=== PATIENT | female | born 1995 | race African-American/Black ===

== ENCOUNTER 2017-07-12 10:54 | Emergency (ER) | payer MEDICAID, SELFPAY ==
[2017-07-12 10:55] VITALS: BP 117/74; PULSE 91; RESP 18; TEMP 36.6; O2SAT 100; BMI 27.3
--- NOTE | 2017-07-12 11:19 | ED.VISSUMM ---
- ER Visit Summary Date of Service: 07/12/17 Chief Complaint: Abdominal pain History of Present Illness: The patient is a 21 F who presents with a several day history of upper abdominal pain. She states that yesterday she developed diarrhea. She took some Pepto-Bismol. Today she states she had one diarrheal episode that was black. Patient notes a burning epigastric pain. She states that she has been belching and gassy and feels bloated. She has had nothing to eat today. (Patient noted by triage nurse to be eating Doritos). Physical Examination: All vital signs are stable Gen: Well-nourished well-developed Head: Normocephalic atraumatic Eyes: Perrl EOMI ENT: TMs clear no rhinorrhea moist mucous membranes Neck: Supple no lymphadenopathy no JVD nontender CVS: Regular rate rhythm no murmurs normal S1-S2 Respiratory: No distress clear to auscultation bilaterally chest nontender Abdomen: Soft mild tenderness to palpation in the epigastrium without guarding or rebound and out of proportion to the exam. No right upper quadrant pain. Nondistended normal bowel sounds no masses Back: Nontender Extremity: Nontender no edema Skin: Normal color no rash Neuro: alert orientated ?3 CN II-XII intact normal strength sensation reflexes gait cerebellar Psych: Normal affect normal mood Emergency Department Course and Treatment: Patient will be started on Pepcid and Carafate. She is to follow-up with her primary care physician within 2 weeks. Impression: 1. Gastritis This note was generated with [employer] dictation software. It may contain incorrect words, spelling, and punctuation that were not noted in review of the chart prior to signing ED Disposition - Plan for ED Patient: Disposition: Home or Assisted Living Chief Complaint: Abd Pain Instructions: ED PUD Vs Gastritis Prescriptions: Famotidine [Pepcid] 20 mg PO BID #28 tab Sucralfate [Carafate] 1 gm PO 4X/DAY #28 tab Referrals: Contreras Atkins III, MD [Primary Care Provider] - (within 2 weeks)
== END 2017-07-12 11:34 | disposition home or self-care (01) ==
PROVIDERS: Emergency Provider Emergency Medicine; Family Provider Family Medicine; PCP Family Medicine
DX: K29.70 Gastritis, unspecified, without bleeding (principal)
CPT/HCPCS: 99282

== ENCOUNTER 2018-02-14 10:52 | Emergency (ER) | payer MEDICAID, SELFPAY ==
[2018-02-14 10:53] VITALS: BP 126/76; PULSE 94; RESP 16; TEMP 36.7; O2SAT 100; BMI 28.7
--- NOTE | 2018-02-14 11:09 | ED.RN ---
PT STATES THAT SHE JUST FOUND OUT HER BOYFRIEND HAS BEEN CHEATING, C/O DISCOMFORT AND CLOUDY DISCHARGE.
--- NOTE | 2018-02-14 12:13 | ED.DCSUM_ITS ---
- ER Visit Summary Date of Service: 02/14/18 Chief Complaint: Back pain History of Present Illness: The patient is a 22 F who states that since September she has had a pain in the left mid thoracic back. She states she just has not had time to go see her doctor. Then she states that her doctor typically schedules at least a month out and she did not want to wait that long. 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 It is worse with movement. She states in the past she has had to come to the emergency department and was told that it was muscular in nature. No physical therapy. No follow-up with primary care. She also states that while she is here she found out that her boyfriend cheated on her yesterday and would like to be checked for STDs. Patient again was informed that this is the emergency department and that our evaluation should not preclude her from having a proper data migration lead evaluation. Physical Examination: Afebrile vital signs stable Gen: Well-nourished well-developed Head: Normocephalic atraumatic Eyes: Perrl EOMI ENT: TMs clear no rhinorrhea moist mucous membranes Neck: Supple no lymphadenopathy no JVD nontender CVS: Regular rate rhythm no murmurs normal S1-S2 Respiratory: No distress clear to auscultation bilaterally chest nontender Abdomen: Soft nontender nondistended normal bowel sounds no masses Back: Tender to palpation along the lower thoracic ribs. Extremity: Nontender no edema Skin: Normal color no rash Neuro: alert orientated ?3 CN II-XII intact normal strength sensation reflexes gait cerebellar Psych: Normal affect normal mood Test Results: Urinalysis shows no overt infection. GC chlamydia was negative. Emergency Department Course and Treatment: The patient's gonorrhea chlamydia testing took longer than normal to return. During this weight. The patient became upset regarding something that was said to her. She has since left the emergency department. I had advised her she needs to follow-up with her primary care doctor and her data migration lead at the beginning of her ED course. Impression: 1. Chronic muscular skeletal back pain 2. Reported vaginal discharge 3. ED elopement This note was generated with [employer] software. It may contain incorrect words, spelling, and punctuation that were not noted in review of the chart prior to signing ED Disposition - Plan for ED Patient: Chief Complaint: Back Referrals: Contreras Atkins III, MD [Primary Care Provider] -
[2018-02-14 12:27] LABS: Bacteria 0 SEEN /hpf (None Seen); Red Blood Cells-Urine 0 SEEN /hpf (0-5)
[2018-02-14 12:40] LABS: Color, Urine Yellow (Yellow); Glucose, Dipstick Normal (Normal); Ketone-Dipstick Negative (Negative); Leukocyte Esterase-Dipstick 25 /ul (Negative); Nitrite-Dipstick Negative (Negative); Occult Blood-Urine Negative /ul (Negative); Protein-Dipstick Negative (Negative); Urine Bilirubin Dipstick Negative (Negative); Urine Clarity Sl. Cloudy (Clear); Urine Urobilinogen Normal (Normal)
[2018-02-14 12:54] LABS: Mucous, Urine 1+ /hpf (<or=2+); Squamous Epithelial Cells - UA 0-5 SEEN /hpf (5-10); White Blood Cells 0-5 SEEN /hpf (0-5)
--- NOTE | 2018-02-14 14:46 | ED.RN ---
PT STATES SHE IS NOT WAITING ANY LONGER. IF RESULTS COME BACK POSITIVE PT REQUEST THAT SHE IS CALLED. PT AMBULATED FROM ED.
[2018-02-14 15:00] LABS: Chlamydia Trachomatis by PCR Negative (Negative); Neisserai gonorrhoeae by PCR Negative (Negative); Probe Check PASS; Sample Adequacy Control PASS; Specimen Processing Control PASS
== END 2018-02-14 16:59 | disposition home or self-care (01) ==
LOC: ED 12:21
PROVIDERS: Emergency Provider Emergency Medicine; Family Provider Family Medicine; PCP Family Medicine
DX: M54.9 Dorsalgia, unspecified (principal); G89.29 Other chronic pain; N89.8 Other specified noninflammatory disorders of vagina; Z53.21 Procedure and treatment not carried out due to patient leaving prior to being seen by health care provider
CPT/HCPCS: 81001; 87491; 87591; 99282

== ENCOUNTER 2018-04-17 16:04 | Emergency (ER) | payer MEDICAID, SELFPAY ==
[2018-04-11 14:39] VITALS: BMI 28.7
[2018-04-17 16:05] VITALS: BP 130/74; PULSE 81; RESP 16; TEMP 36.6; O2SAT 97; BMI 30.1
--- NOTE | 2018-04-17 16:33 | EKG12_ITS ---
Test Reason : DYSRHYTHMIA Blood Pressure : / mmHG Vent. Rate : 081 BPM Atrial Rate : 081 BPM P-R Int : 162 ms QRS Dur : 080 ms QT Int : 356 ms P-R-T Axes : 066 094 047 degrees QTc Int : 413 ms Normal sinus rhythm with sinus arrhythmia Rightward axis Borderline ECG Confirmed by HANNAH DE LEON, MELO ([id number]), film and video editor MY OLSON ([id number] on 04/19/2018 9:18:14 AM Referred By: TRANG Confirmed By:MELO YOUNG MD
--- NOTE | 2018-04-17 17:05 | ED.DCSUM_ITS ---
- ER Visit Summary Date of Service: 04/17/18 Chief Complaint: Palpitations History of Present Illness: The patient is a [address] Contreras Atkins III. She reports that she has had palpitations for the past 2 weeks. States that it comes on it feels as though her heart skips a beat. Last 2-3 seconds. Is having 2-3 times per day. States that she is under a great deal of stress. She is going through a custody vargas. She is also under financial stress. She denies any chest pain or shortness of breath. She denies any other complaints. Physical Examination: Vitals: Stable. Afebrile. General: Well-nourished and well-developed. Head: Normocephalic atraumatic. Neck: Supple, no lymphadenopathy. No JVD. Nontender. Cardiovascular: Regular rate and rhythm. No murmurs. Respiratory: No respiratory distress. Clear to auscultation bilaterally. Abdominal: Soft, nontender, nondistended, normal bowel sounds. No guarding, rebound, or peritoneal signs. Back: Nontender. Extremities: Nontender, no edema. Skin: Normal color, no rash. Neurologic: Alert and oriented ?3. Cranial nerves II through XII are intact. Normal strength and sensation. Psych: Normal affect. Test Results: EKG is sinus arrhythmia at [address] changes. There is no old EKG for comparison. Emergency Department Course and Treatment: Patient refused an IV and blood work. I have not appreciate any ectopy on the monitor. Treatment Plan: Discussed the patient the likelihood that these are due to PVCs. She is tearful in the emergency department does admit that she is depressed. She will be discharged on Celexa. Instructed for Dr. Contreras Atkins iii in 1 week for another exam. Return to the emergency department for any worsening symptoms. Disposition: To home in improved and stable condition. Impression: 1. Palpitations. This note was generated with [employer] dictation software. It may contain incorrect words, spelling, and punctuation that were not noted in review of the chart prior to signing ED Disposition - Plan for ED Patient: Disposition: Home or Assisted Living Chief Complaint: Palpitations Instructions: Premature Ventricular Contractions Prescriptions: Citalopram [Celexa] 10 mg PO DAILY #30 tablet Citalopram [Celexa] 20 mg PO DAILY #30 tablet Referrals: Contreras Atkins III, MD [Primary Care Provider] - 1 Week
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
== END 2018-04-17 17:28 | disposition home or self-care (01) ==
LOC: ED 16:44
PROVIDERS: Emergency Provider Emergency Medicine; Family Provider Family Medicine; PCP Family Medicine
DX: R00.2 Palpitations (principal); R11.0 Nausea; F32.9 Major depressive disorder, single episode, unspecified
CPT/HCPCS: 93005; 99282

== ENCOUNTER 2018-04-20 06:21 | Emergency (ER) | payer MEDICAID, SELFPAY ==
[2018-04-20 06:25] VITALS: BP 115/72; PULSE 84; RESP 18; TEMP 36.8; O2SAT 95; BMI 30.4
--- NOTE | 2018-04-20 06:49 | ED.VISSUMM ---
- ER Visit Summary Date of Service: 04/20/18 Chief Complaint: Nausea vomiting and diarrhea History of Present Illness: The patient is a 22 F who presents with vomiting. She vomited once less than an hour ago. She complains about 3 days of nausea however. She states 2 days ago she was having diarrhea but has not had time. She denies any pain. She has been having palpitations for a couple of weeks and was seen in the ER for this 2 days ago. However she also states that she had blood work at her primary care physician and was told that she was really dehydrated. Physical Examination: Afebrile vitals are normal Patient has moist mucous membranes Heart regular rate and rhythm Lungs are clear Abdomen soft nontender nondistended Test Results: BMP and urine have been ordered. Emergency Department Course and Treatment: The patient appears clinically hydrated and has only had one episode of vomiting. However she reports that she had recent blood work showing that she was really dehydrated. Therefore I did feel it was appropriate to repeat a BMP and since we are drawing blood will go ahead and give her a liter of IV fluids. This will be signed out to the oncoming physician to check BMP and . I suspect the patient will be able to be discharged. Treatment Plan: [] Disposition: Pending lab results Impression: Vomiting This note was generated with [employer] dictation software. It may contain incorrect words, spelling, and punctuation that were not noted in review of the chart prior to signing ED Disposition - Plan for ED Patient: Chief Complaint: Nausea/Vomiting Referrals: Contreras Atkins III, MD [Primary Care Provider] -
--- NOTE | 2018-04-20 06:53 | ED.DEP ---
ED Disposition - Plan for ED Patient: Chief Complaint: Nausea/Vomiting Instructions: ED Nausea Vomiting Prescriptions: Ondansetron [Zofran Odt] 4 mg PO Q8H PRN PRN #10 tab PRN Reason: Nausea Referrals: Contreras Atkins III, MD [Primary Care Provider] -
[2018-04-20] MEDS: Ondansetron 4 MG/2 ML Vial IV (06:59)
[2018-04-20] MEDS: 0.9% Normal Saline 1,000 ML 999 ML IV (06:59)
[2018-04-20 07:10] LABS: Internal QC Validated? YES +Cl - CLEAR BKGD; Pregnancy, Urine Negative Negative
[2018-04-20 07:23] LABS: Anion Gap 8 (5-15); BUN 15 mg/dL (7-18); BUN/Creat Ratio 16.6 RATIO (10-20); Calcium,Total 8.5 mg/dL (8.5-10.1); Chloride 109 mmol/L (98-107); EST Glomerular Filtration Rate 83 mL/min (>60); Est Glom Filt Rate - Afr Amer 100 mL/min (>60); Estimated Creatinine Clearance 81.11 ml/min; Glucose 92 mg/dL (74-106); Potassium 3.6 mmol/L (3.5-5.1); Sodium Level 141 mmol/L (136-145)
--- NOTE | 2018-04-20 07:38 | ED.DCSUM_ITS ---
- ER Visit Summary Date of Service: 04/20/18 Chief Complaint: [Vomiting, addendum to initial dictation by Dr. Moy] History of Present Illness: The patient is a 22 F [presented with vomiting x1 today and diarrhea 2 days ago. Care of patient turned over to me awaiting infusion of a liter of normal saline and follow-up on BMP that was ordered. Patient's hCG was negative in the department and her BMP was normal other than a minimally elevated chloride of 109.] Physical Examination: [HEENT-PERRLA, EOMI. Cranial nerves II through XII grossly intact. TMs clear. Mucous membranes moist. No adenopathy. Cardiovascular-regular rate and rhythm without murmur or ectopy Lungs-clear to auscultation, chest wall stable without crepitus or subcu emphysema Abdomen-normoactive bowel sounds, soft, nontender, no rebound or rigidity, no peritoneal signs. Extremities-intact ?4, normal range of motion, normal pulses, atraumatic] Test Results: [BMP was normal other than minimally elevated chloride of 109. HCG was negative.] Emergency Department Course and Treatment: [] Treatment Plan: [Patient had no further vomiting in the emergency department and was feeling well otherwise. She was written a prescription for Zofran by Dr. Ephraim Moy.] Disposition: [Discharged home in stable condition. Patient advised to return if persistent vomiting, dehydration, fever, abdominal pain, or condition should worsen in any way.] Impression: [Vomiting and diarrhea-suspect viral gastroenteritis] This note was generated with [employer] dictation software. It may contain incorrect words, spelling, and punctuation that were not noted in review of the chart prior to signing ED Disposition - Plan for ED Patient: Chief Complaint: Nausea/Vomiting Instructions: ED Nausea Vomiting Prescriptions: Ondansetron [Zofran Odt] 4 mg PO Q8H PRN PRN #10 tab PRN Reason: Nausea Referrals: Contreras Atkins III, MD [Primary Care Provider] -
[2018-04-20 07:59] VITALS: BP 126/72; PULSE 69; RESP 16; O2SAT 100
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
== END 2018-04-20 08:00 | disposition home or self-care (01) ==
LOC: ED 07:10
PROVIDERS: Emergency Provider Emergency Medicine; Family Provider Family Medicine; PCP Family Medicine
DX: A08.4 Viral intestinal infection, unspecified (principal); R11.10 Vomiting, unspecified; R19.7 Diarrhea, unspecified
CPT/HCPCS: 80048; 81025; 96361; 96374; 99284; J7030; A4216; J2405

== ENCOUNTER 2019-03-28 08:05 | Emergency (ER) | payer MEDICAID, SELFPAY ==
[2019-03-28 08:05] VITALS: BP 136/73; PULSE 90; RESP 20; TEMP 36.6; O2SAT 99; BMI 30.9
--- NOTE | 2019-03-28 08:32 | ED.VIS.GI ---
History of Present Illness Chief Complaint: Nausea/Vomiting Narrative: Patient presented secondary to nausea vomiting diarrhea. Patient reports that she does have sick contact. Patient states that last night she went to bed and had some uneasiness in her stomach, and woke up this morning at about 3 AM with profuse nausea vomiting diarrhea. Patient reports that her emesis is nonbloody nonbilious, diarrhea is loose and watery nonbloody non-mucousy. Patient does endorse that she has chills, no objective fevers. Abdominal pain is crampy diffuse and nonlocalizing and has no exacerbating relieving factors. Patient denies any underlying medical illnesses for which she regularly takes medications. Review of systems otherwise negative. Past Medical History - Allergies and Home Meds Allergies/Adverse Reactions: Allergies cat dander Allergy (Verified 03/28/19 08:07) Swelling amphetamine aspartate [From Adderall] Adverse Reaction (Verified 03/28/19 08:07) Other PALPITATIONS amphetamine sulfate [From Adderall] Adverse Reaction (Verified 03/28/19 08:07) Other PALPITATIONS dextroamphetamine saccharate [From Adderall] Adverse Reaction (Verified 03/28/19 08:07) Other PALPITATIONS dextroamphetamine sulfate [From Adderall] Adverse Reaction (Verified 03/28/19 08:07) Other PALPITATIONS Primary Care Physician: Contreras Atkins III, MD [Primary Care Provider] - Past Medical History: None Smoking Status: Never smoker Review of Systems All systems negative except as indicated General: Reports: Chills Eyes: Denies: Visual changes - bilaterally, Diplopia ENT: Denies: Rhinorrhea, Sore throat Cardiovascular: Denies: Chest pain, Palpitations Respiratory: Denies: Dyspnea, Cough, Dyspnea on exertion Gastrointestinal: Reports: Abdominal pain, Nausea, Vomiting, Diarrhea Genitourinary: Denies: Dysuria, Hematuria, Frequency Musculoskeletal: Denies: Back pain, Extremity Pain Skin: Denies: Rash, Wounds Neurological: Denies: Headache, Weakness, Numbness Psych: Denies: Depression Endocrine: Denies: Polyuria Hematologic: Denies: Easy bruising Allergy: Denies: Swelling of the mouth Physical Exam Vital Signs/Narrative: Vital Signs Temp Pulse Resp BP Pulse Ox 03/28/19 08:05 98 F 90 20 H 136/73 H 99 Inital Vital Signs reviewed: Yes General: Well nourished, Well developed, No Acute Distress Head: Normocephalic, Atraumatic Eyes: Perrl, EOMI ENT: Moist mucous membranes, - - Minimal posterior pharyngeal erythema noted Neck: Supple, Nontender Cardiovascular: Regular rate, Regular rhythm, No murmurs Respiratory: No distress, CTA bilaterally, Chest nontender Abdomen: Tender - Diffuse nonlocalizing with no guarding or rebound tenderness Back: Nontender, Normal Inspection Extremities: Nontender, No edema Skin: Normal color, No rash Neurological: Alert, Oriented x3, Cranial nerves II-XII grossly intact, Normal Strength, Normal Sensation Psychological: Normal affect, Normal Mood Diagnostic/Tx/Re-eval - Medical Decision Making Patient presented secondary to nausea vomiting and diarrhea. Patient had diffuse nonlocalizing tenderness over the abdomen, but her abdomen is nonsurgical there is no indication for imaging at this time. Patient was given Bentyl, Zofran, a liter of saline. She reports that she had significant improvement of her nausea, but was continuing to have crampy abdominal pain as well as some diarrhea episodes in the emergency department. At this point I do not feel the patient requires further work-up. Patient will be given Zofran to ensure hydration, she was recommended intake of electrolyte containing fluids. She was discharged with supportive care and follow-up with primary care as needed. Disposition: Home ED Disposition - Plan for ED Patient: Disposition: Home or Assisted Living Diagnosis: Gastroenteritis Instructions: VOMITING AND DIARRHEA, Nonspecific (Adult) Prescriptions: Ondansetron [Zofran Odt] 4 mg PO Q8H PRN PRN #10 tab PRN Reason: Nausea Prescription Printed Referrals: Contreras Atkins III, MD [Primary Care Provider] - 3-5 Days if not improving
[2019-03-28] MEDS: 0.9% Normal Saline 1,000 ML 1000 ML IV (08:34)
[2019-03-28] MEDS: Ondansetron 4 MG/2 ML Vial IV (08:35)
[2019-03-28] MEDS: Dicyclomine 10 MG Capsule 20 MG PO (08:35)
[2019-03-28] MEDS: Acetaminophen 500 MG Tablet 1000 MG PO (09:19)
== END 2019-03-28 09:26 | disposition home or self-care (01) ==
PROVIDERS: Emergency Provider Emergency Medicine; Family Provider Family Medicine; PCP Family Medicine
DX: K52.9 Noninfective gastroenteritis and colitis, unspecified (principal)
CPT/HCPCS: 96361; 96374; 99283; J7030; A4216; J2405

== ENCOUNTER 2019-06-25 15:43 | Emergency (ER) | payer MEDICAID, SELFPAY ==
[2019-06-25 15:44] VITALS: BP 115/81; PULSE 78; RESP 18; TEMP 36.4; O2SAT 99; BMI 29.2
--- NOTE | 2019-06-25 16:17 | RAD_ITS ---
STUDY: X-RAY CHEST REASON FOR EXAM: Female, 23 years old. Chest pain after picking up a child TECHNIQUE: PA and lateral views of the chest. COMPARISON: 2012 FINDINGS: The lungs are clear and expanded. There is no demonstrated pleural abnormality. Normal size heart. Normal mediastinum and jayden. Normal visualized pulmonary arteries. Normal visualized aortic arch and descending thoracic aorta. Normal visualized thoracic spine. Normal visualized ribs, clavicles, and shoulders. There is no demonstrated abnormality of the visualized soft tissue structures of the upper abdomen. RAD/Chest PA and Lateral IMPRESSION: Normal x-ray examination of the chest. Electronically Signed: Idris Nix MD at 17:40 EST , Service support ,
--- NOTE | 2019-06-25 16:19 | ED.DCSUM_ITS ---
- ER Visit Summary Date of Service: 06/25/19 Chief Complaint: Back and chest pain History of Present Illness: The patient is a 23 F who presents with chest and back pain that began today just prior to arrival. Patient states she was lifting her child out of a car seat when she felt sharp pain in her right chest and her right thoracic paraspinal area. Patient states her pain is worse with movement. Patient states it feels like a pulling. Patient states the pain is been constant. Patient denies any paresthesias or weakness. Patient denies any radiation of the pain to her lower legs. Patient denies any bowel or bladder changes. Patient denies any saddle anesthesia. Physical Examination: Vital signs are stable. Patient is afebrile. Patient is in no acute distress. Oral mucosa is pink and moist. Neck is supple. Trachea is midline. There is no JVD. Heart was regular rate and rhythm. Lungs are clear and equal bilaterally. Respiratory effort was limited due to the pain. Cranial nerves II through XII are intact. There are no focal motor or sensory deficits noted. Musculoskeletal exam reveals reproducible tenderness over the right anterior chest wall. There is also tenderness and spasm of the right thoracic paraspinal muscles. There is no midline tenderness. There is no bony crepitance or step-off. Range of motion was limited in all motion secondary to pain. Test Results: PA and lateral chest x-ray was obtained. There is no acute cardiopulmonary process. There are no acute fractures noted. There is no pneumothorax noted. Emergency Department Course and Treatment: Patient was given an injection of Toradol here. Patient states she had no relief with this. Patient was ordered a dose of [place] here. Patient declined the [place] and was requesting Flexeril instead. Patient was given a dose of Flexeril here. Patient was instructed to use ice to the area. Patient was instructed to take Tylenol or ibuprofen as needed for pain. Patient was instructed to follow-up with her primary care physician in 5 to 7 days. Patient understood and was agreeable with the plan. All questions were answered. Disposition: Discharge home Impression: 1. Acute thoracic strain 2. Chest wall strain This note was generated with Event Innovation[employer] software. It may contain incorrect words, spelling, and punctuation that were not noted in review of the chart prior to signing ED Disposition - Plan for ED Patient: Disposition: Home or Assisted Living Diagnosis: Acute thoracic myofascial strain, Chest wall muscle strain Instructions: Back Sprain/Strain Referrals: Contreras Atkins III, MD [Primary Care Provider] - 5-7 Days
[2019-06-25] MEDS: Ketorolac 60 MG/2 ML Vial IM (16:57)
[2019-06-25] MEDS: cycloBENZAPRine HCl 10 MG Tablet PO (18:14)
== END 2019-06-25 18:23 | disposition home or self-care (01) ==
LOC: ED 17:10
PROVIDERS: Emergency Provider Emergency Medicine; PCP Family Medicine
DX: S29.011A Strain of muscle and tendon of front wall of thorax, initial encounter (principal); S29.012A Strain of muscle and tendon of back wall of thorax, initial encounter; X50.9XXA Other and unspecified overexertion or strenuous movements or postures, initial encounter; Y93.9 Activity, unspecified; Y92.9 Unspecified place or not applicable
CPT/HCPCS: 71046; 96372; 99281

== ENCOUNTER 2019-09-08 18:50 | Emergency (ER) | payer MEDICAID, SELFPAY ==
[2019-09-08 18:51] VITALS: BP 107/65; PULSE 85; RESP 16; TEMP 36.4; O2SAT 99
--- NOTE | 2019-09-08 19:06 | ED.DCSUM_ITS ---
History of Present Illness Chief Complaint: Abd Pain Informant: Patient - Abdominal Pain/Flank Pain Onset: Hours - 4 Context: Gradual Onset - about 2 hrs after eating [employer] Timing: Continuous, Waxes and wanes Quality: Aching Location: - - across upper abd, no radiation Current Severity: Severe Maximum Severity: Severe Worsened by: Food Relieved by: Nothing - Nausea/Vomiting/Emesis GI Symptom: Nausea, Vomiting Onset: Today Quality: Nonbilious - Diarrhea/Melena/Hematochezia GI Symptom: Negative for: Diarrhea, Melena, Hematochezia Associated Symptoms: Negative for: Dysuria, Frequency, Hematuria, Urgency Narrative: Patient has been having episodes like this for about the past week or 2. She has tried Tums in the past but it did not help. She takes omeprazole for a stress ulcer that she was diagnosed with by EGD in 2018. She comes in saying that it is her ulcer. However, she did not start having pain until about 2 hours after her meal today. She has had less severe pain with other meals, with similar onset 1 or 2 hours after the meal. She denies any hematemesis, melena, bright red blood per rectum. No radiation into her back. The pain is colicky. She has had no prior abdominal surgeries. She takes no other medications. - Past Medical History (1) Stress ulcer of stomach Status: Chronic Past Medical History - Allergies and Home Meds Allergies/Adverse Reactions: Allergies cat dander Allergy (Verified 09/08/19 18:51) Swelling amphetamine aspartate [From Adderall] Adverse Reaction (Verified 09/08/19 18:51) Other PALPITATIONS amphetamine sulfate [From Adderall] Adverse Reaction (Verified 09/08/19 18:51) Other PALPITATIONS dextroamphetamine saccharate [From Adderall] Adverse Reaction (Verified 09/08/19 18:51) Other PALPITATIONS dextroamphetamine sulfate [From Adderall] Adverse Reaction (Verified 09/08/19 18:51) Other PALPITATIONS Primary Care Physician: Contreras Atkins III, MD [Primary Care Provider] - Surgical History: - - No abdominal surgeries Smoking Status: Never smoker Alcohol: None Review of Systems General: Reports: Malaise. Denies: Chills, Fever, Sweats Eyes: Denies: Visual changes - bilaterally, Diplopia ENT: Denies: Rhinorrhea, Sore throat Cardiovascular: Denies: Chest pain, Palpitations Respiratory: Denies: Dyspnea, Cough, Dyspnea on exertion Gastrointestinal: Reports: Abdominal pain, Nausea, Vomiting. Denies: Diarrhea, Melena, Hematochezia Genitourinary: Denies: Dysuria, Hematuria, Frequency Musculoskeletal: Denies: Back pain, Extremity Pain Skin: Denies: Rash, Wounds Neurological: Denies: Headache, Weakness, Numbness Physical Exam Vital Signs/Narrative: Vital Signs Temp Pulse Resp BP Pulse Ox 09/08/19 18:51 97.6 F L 85 16 107/65 99 Inital Vital Signs reviewed: Yes General: Well nourished, Well developed, Obese, Acute Distress - Painful Head: Normocephalic, Atraumatic Eyes: Perrl, EOMI ENT: Moist mucous membranes, No rhinorrhea Neck: Supple, Nontender Cardiovascular: Regular rate, Regular rhythm, No murmurs Respiratory: No distress, CTA bilaterally, Chest nontender Abdomen: Soft, Normal bowel sounds, Tender - Right upper quadrant, severely, Guarding, Beckham's sign. Negative for: Nondistended - Mildly distended, Rebound tenderness Back: Nontender, Normal Inspection. Negative for: CVA tenderness Extremities: Nontender, No edema. Negative for: Calf Tenderness Skin: Normal color, No rash, No Trauma Neurological: Alert, Oriented x3, Cranial nerves II-XII grossly intact, Normal Strength, Normal Sensation, Normal Gait Psychological: Normal Mood, Agitated - And very anxious, uncomfortable Diagnostic/Tx/Re-eval Impressions Gallbladder Ultrasound 09/08/19 19:06 IMPRESSION: 1. Gallbladder is contracted with limited evaluation. The study is otherwise unremarkable. Electronically Signed: Pham Fletcher MD at 20:34 EDT Tel , Service support , 09/08/19 19:06 Gallbladder [US] Stat Laboratory Results 09/08/19 09/08/19 09/08/19 19:20 19:20 19:20 WBC 15.9 H RBC 4.87 Hgb 13.1 Hct 41.3 MCV 84.8 MCH 26.9 L MCHC 31.7 L RDW Std Deviation 38.8 RDW Coeff of Merritt 12.6 Plt Count 371 MPV 8.6 Immature Gran % (Auto) 0.600 Neut % (Auto) 58.1 Lymph % (Auto) 29.4 Sedgwick % (Auto) 10.1 H Eos % (Auto) 1.5 Baso % (Auto) 0.3 Absolute Neuts (auto) 9.3 H Absolute Lymphs (auto) 4.68 H Nucleated RBC % 0 Differential Comment SCANNED Diff Path Review May foll Sodium 136 Potassium 3.7 Chloride 103 Carbon Dioxide 29.0 Anion Gap 4 L BUN 12 Creatinine 0.96 Estim Creat Clear Calc 75.39 Est GFR (MDRD) Af Amer 92 Est GFR (MDRD) Non-Af 76 BUN/Creatinine Ratio 12.5 Glucose 83 Calcium 9.3 Total Bilirubin 0.20 AST 21 ALT 22 Alkaline Phosphatase 58 Total Protein 8.4 H Albumin 3.7 Globulin 4.7 H Albumin/Globulin Ratio 0.8 L Lipase 198 Serum , Qual NEGATIVE - Medical Decision Making As I discussed with the patient, I am concerned that she is having biliary pain, not stomach or ulcer-related discomfort given the history. Ordered an ultrasound of the gallbladder along with associated blood work, IV Zofran and analgesics. These were given to her just prior to ultrasound, about 5 minutes after she arrived an ultrasound she said she felt much better and felt the pain go away. The ultrasound results are above, basically showed a contracted gallbladder without any obvious shadowing stones, and a negative sonographic Beckham's and a normal duct. On reevaluation an hour or 2 later, she still is asymptomatic, on reexamination she has no abdominal tenderness whatsoever. She is a leukocytosis but her enzymes are otherwise negative and her total bilirubin is normal. Discussed with Dr. Monge. In this context he would recommend getting a HIDA scan next rather than a fasting ultrasound. He advises following up in the office as an outpatient and first, and agrees with keeping the patient on a no- or low-fat diet. Discussed thoroughly with the patient she is comfortable with that plan, we discussed reasons to return. ED Disposition - Plan for ED Patient: Disposition: Home or Assisted Living Diagnosis: Biliary colic Instructions: ED Abdominal Pain Gallstone Poss, ED Low Fat Diet Referrals: Jesus Monge MD [STAFF PHYSICIAN] - As soon as possible (Call for appointment)
--- NOTE | 2019-09-08 19:06 | US_ITS ---
STUDY: ABDOMINAL ULTRASOUND - RIGHT UPPER QUADRANT REASON FOR VISIT: Female, 23 years old ABD PAIN- UPPER OFF AND ON...SEVERE TODAY TECHNIQUE: Ultrasound evaluation of the right upper quadrant was performed with real-time and static resendez-scale imaging. TECHNICAL QUALITY: Adequate. COMPARISON: None. FINDINGS: Liver: The liver measures 16.7 cm. There is normal echogenicity of the liver. The bile ducts are within normal limits. There is hepatic color flow. The direction of portal flow is hepatopetal. There is no demonstrated mass lesion. Gallbladder: Contracted. The gallbladder wall measures 3 mm. There is a negative sonographic Beckham''s sign. There is no pericholecystic fluid. No shadowing stones are visualized. Common Bile Duct (C.B.D.): The common bile duct measures 3 mm. Pancreas: Normal size of the head, body and tail of the pancreas. There is normal echogenicity of the pancreas. There is no demonstrated pancreatic mass or cyst. Right Kidney: Normal size of the right kidney. The right kidney measures 9.8 x 4 x 4.6 cm. Normal renal cortex. The right cortex measures 1.5 cm. There is no demonstrated renal mass or cyst. There is no right hydronephrosis. US/Gallbladder IMPRESSION: 1. Gallbladder is contracted with limited evaluation. The study is otherwise unremarkable. Electronically Signed: Pham Fletcher MD at 20:34 EDT Tel , Service support ,
[2019-09-08] MEDS: Ondansetron 4 MG/2 ML Vial IV (19:14)
[2019-09-08] MEDS: Morphine 4 MG/ML Syringe IV (19:16)
[2019-09-08] MEDS: Ketorolac 30 MG/ML Syringe IV (19:19)
[2019-09-08 19:29] LABS: Absolute Lymphocyte Count 4.68 X10^3/uL (0.83-4.51); Absolute Neutrophil Count 9.3 X10^3/uL (2.0-7.7); Basophil# 0.04 X10^3/uL; Basophil% 0.3 % (0-1); Eosinophil# 0.24 X10^3/uL; Eosinophils% 1.5 % (0-5); Hematocrit 41.3 % (37-47); Hemoglobin 13.1 g/dL (12.0-15.0); Lymphocyte # 4.68 X10^3/ul (4.0); Lymphocyte % 29.4 % (19-41); Mean Corp Hgb Conc 31.7 g/dL (32-36); Mean Corpuscular Hgb 26.9 pg (27.0-32.0); Mean Corpuscular Volume 84.8 fL (81-99); Mean Platelet Vol. 8.6 fl (6.2-12.0); Monocyte% 10.1 % (0-10); NRBC Flagged by Analyzer 0 % (0-5); Neutrophil # 9.25 X10^3/uL (2.7-7.7); Neutrophil % 58.1 % (47-70); POSITIVE DIFFERENTIAL YES; Platelet Count 371 K/mm3 (150-450); RBC Distribution Width CV 12.6 % (11.6-14.6); RBC Distribution Width SD 38.8 fl (35.1-43.9); Red Blood Count 4.87 M/mm3 (4.2-5.4); White Blood Count 15.9 K/mm3 (4.4-11.0)
[2019-09-08 19:31] LABS: Differential Indicated SCAN CRITERIA MET
[2019-09-08 19:38] LABS: Internal QC Validated? YES +Cl - CLEAR BKGD; Pregnancy, Serum, hCG Quali. NEGATIVE Negative
[2019-09-08 19:45] LABS: ALB/GLOB Ratio 0.8 RATIO (0.9-2.4); AST(SGOT) 21 U/L (15-37); Alanine Aminotransfer ALT/SGPT 22 U/L (13-56); Albumin, Serum 3.7 g/dL (3.2-5.0); Alkaline Phosphatase 58 U/L (45-117); Anion Gap 4 (5-15); BUN 12 mg/dL (7-18); BUN/Creat Ratio 12.5 RATIO (10-20); Calcium,Total 9.3 mg/dL (8.5-10.1); Chloride 103 mmol/L (98-107); Creatinine, Serum 0.96 mg/dL (0.55-1.02); EST Glomerular Filtration Rate 76 mL/min (>60); Est Glom Filt Rate - Afr Amer 92 mL/min (>60); Estimated Creatinine Clearance 75.39 ml/min; Globulin 4.7 g/dL (2.2-4.2); Glucose 83 mg/dL (74-106); Lipase 198 U/L (73-393); Potassium 3.7 mmol/L (3.5-5.1); Protein, Total 8.4 g/dL (6.4-8.2); Sodium Level 136 mmol/L (136-145)
[2019-09-08 19:51] LABS: Differential Comment SCANNED
[2019-09-08 20:43] LABS: Bacteria 0 SEEN /hpf (None Seen); Mucous, Urine 0 SEEN /hpf (<or=2+); Red Blood Cells-Urine 0 SEEN /hpf (0-5)
[2019-09-08 20:48] LABS: Color, Urine Yellow (Yellow); Glucose, Dipstick Normal (Normal); Ketone-Dipstick Negative (Negative); Leukocyte Esterase-Dipstick 25 /ul (Negative); Nitrite-Dipstick Negative (Negative); Occult Blood-Urine Negative /ul (Negative); Protein-Dipstick Negative (Negative); Specific Gravity, Urine 1.015 (1.002-1.030); Urine Bilirubin Dipstick Negative (Negative); Urine Clarity Sl. Cloudy (Clear); Urine Urobilinogen Normal (Normal); Urine pH 6.5 (5.0 - 8.0)
[2019-09-08 21:10] LABS: Squamous Epithelial Cells - UA 0-5 SEEN /hpf (5-10); White Blood Cells 0-5 SEEN /hpf (0-5)
[2019-09-08 21:35] VITALS: PULSE 80; RESP 18; O2SAT 99
[2019-09-09 09:29] LABS: Pathologist Review Reviewed
== END 2019-09-08 21:35 | disposition home or self-care (01) ==
PROVIDERS: Emergency Provider Emergency Medicine; PCP Family Medicine
DX: K80.50 Calculus of bile duct without cholangitis or cholecystitis without obstruction (principal); E66.9 Obesity, unspecified
CPT/HCPCS: 76705; 80053; 81001; 83690; 84703; 85025; 96374; 96375; 99283; A4216; J2405

== ENCOUNTER → 2019-09-10 08:29 | Outpatient (CLI) | payer MEDICAID, SELFPAY ==
--- NOTE | 2019-09-10 08:30 | CT_ITS ---
STUDY: CT ABDOMEN AND PELVIS WITH CONTRAST REASON FOR EXAM: Female, 23 years old. EPIGASTRIC PAIN X 3 DAYS WITH BLOOD IN VOMIT RADIATION DOSAGE (If Supplied By Facility): CTDIvol = ( 8.69 ) mGy, DLP = ( 690.30 ) mGycm TECHNIQUE: Transaxial images were obtained from the dome of the diaphragm to the symphysis pubis with oral contrast. Oral and amp; IV Gastrografin and amp; 100mL Isovue-300 was administered. Sagittal and coronal images were reconstructed. Individualized dose optimization techniques were used for this CT. COMPARISON: Comparison is made with prior examination dated July 06, 2011. FINDINGS: The visualized lung bases are unremarkable. The visualized portions of the heart are within normal limits. Normal liver. The gallbladder is contracted. Normal spleen. Normal pancreas. Normal bilateral adrenal glands. Normal right kidney. Normal left kidney. There is diffuse circumferential wall thickening and inflammatory changes in the distal portion of the stomach and first portion of the duodenum. Normal small intestine. Normal colon. The appendix is visualized and appears normal. Normal abdominal aorta. Normal inferior vena cava. Normal retroperitoneum. Normal urinary bladder. Normal abdominal wall. Normal osseous structures. CT/Abdomen/Pelvis WITH Contrast IMPRESSION: Diffuse circumferential wall thickening and inflammatory changes involving the distal portion of the stomach and first portion of the duodenum. Correlation with endoscopy is recommended. Electronically Signed: Vishal Khan, at 10:45 EDT , Service support ,
== END ==
PROVIDERS: PCP Family Medicine; Referring Provider Family Medicine; Visit Provider Surgery
DX: K92.0 Hematemesis (principal); R10.9 Unspecified abdominal pain
CPT/HCPCS: 74177; Q9967

== ENCOUNTER 2019-09-11 08:04 | Day surgery (SDC) | payer MEDICAID, SELFPAY ==
--- NOTE | 2019-09-10 08:19 | HP_ITS ---
Intake Vital Signs 09/10/19 BMI 30.0 09/10/19 Height 5 ft 3 in 09/10/19 Weight: 169 lb 12.095 oz 09/10/19 BMI 30.0 09/10/19 BP 125/81 H 09/10/19 Blood Pressure Location Rt brachial 09/10/19 Position Sitting 09/10/19 Respiration 18 09/10/19 Temp 97.4 F L 09/10/19 Temp Source Temporal Intake Visit Reasons: F/U ER [facility] 09/08 Abdominal pain [employer] Required: No Is patient in pain?: Yes (abdominal) Pain scale (1-10): 10 Allergies cat dander Allergy (Verified 09/08/19 18:51) Swelling amphetamine aspartate [From Adderall] Adverse Reaction (Verified 09/08/19 18:51) Other amphetamine sulfate [From Adderall] Adverse Reaction (Verified 09/08/19 18:51) Other dextroamphetamine saccharate [From Adderall] Adverse Reaction (Verified 09/08/19 18:51) Other dextroamphetamine sulfate [From Adderall] Adverse Reaction (Verified 09/08/19 18:51) Other Medications Omeprazole 20 mg PO DAILY 09/08/19 [History Confirmed 09/10/19] dicyclomine 10 mg capsule 10 mg PO BID 14 Days #28 cap 09/10/19 [Rx Confirmed 09/10/19] [facility] Medical History Stress ulcer of stomach (Chronic) Physical exam, pre-employment (Acute) Family History Grandmother Breast cancer Mother Hypertension Social History (Updated 09/10/19 @ 08:[address] Jesus Monge MD) Smoking Status: Never smoker alcohol intake: current alcohol intake frequency: a few times a week substance use type: marijuana HPI HPI HPI: KAR MANLEY, is a 23 F who presents to the office today for HPI HPI Surgical H&P: Yes HPI: KAR MANLEY, is a 23 F who presents to the office today for Evaluation of epigastric pain. Patient was seen at [facility] emergency department on 09/08/2019. He states that she has had a stress ulcer in the past but she cannot recall ever having a scope done in 2018. He has had waves of episodes over the last several days. Starting in the epigastric area bilateral sides she is vomited up coffee ground emesis in the past. She has not had any melanotic stools or rectal bleeding. A gallbladder ultrasound was obtained which showed a contracted gallbladder with a common bile duct around 6 mm. Her liver function tests were normal she did have an elevated white count though. ROS General General: No weight change, appetite, fatigue, colon cancer, breast cancer or weakness HEENT HEENT: No difficulty swallowing, eye injury, eye surgery, swollen glands or hoarseness Endo Endocrine: No thyroid disease, diabetes mellitus, thyroid cancer, Hair loss, heat intolerance or cold intolerance Skin Skin: No rash or changing moles Breast Breast: No left breast lump, right breast lump, nipple discharge, breast pain, abnormal mammogram, abnormal US or breast enlargement Musc Musculoskeletal: Yes back problems; no arthritis, rheumatoid arthritis, gout or joint pain Cardio Cardiovascular: Yes murmur; no pacemaker, heart disease, atrial fibrillation, high blood pressure, heart attack, heart stent, palpitations, shortness of breat with exertion or chest pain Psych Psychiatric: No depression, anxiety or hearing voices Resp Respiratory: No shortness of breath, No sleep apnea, No cough, No COPD, No asthma, No emphysema, No wheezing Gastro Gastrointestinal: Yes abdominal pain, Yes nausea or vomiting, No diarrhea, Yes constipation, No blood in stool, No acid reflux, No hemorrhoids, Yes ulcers, Yes gallbladder problem, No black,tarry stools Abilio Hematologic: No blood thinners, No blood disorders, No bleeding, No anemia, No blood clots Neuro Neurologic: No system reviewed and no additional complaints, except as docu, No as per HPI, No abnormal walking, No abnormal hearing, No abnormal movements, No abnormal speech, No behavioral changes, No burning sensations, No confusion, No seizure-like activity, No unsteadiness, No dizziness, No localized weakness, No frequent falls, No headache(s), No lack of coordination, No loss of vision, No memory loss, No numbness, No other visual disturbances, No radiating pain, No restless legs, No sensory deficit, No fainting, No tingling, No tremor(s), No weakness, No other Exam Const General: no acute distress, well developed, well hydrated Orientation: oriented to person, oriented to place, oriented to time [facility] Head: normocephalic, atraumatic Ears: external ears normal Mouth: moist mucous membranes Eyes Sclera: sclerae normal Pupils: normal by confrontation Neck Neck: no lymphadenopathy noted Neck mass: No Thyroid: thyroid normal, symmetrical Chest Chest palpation & inspection: normal inspection of the chest Breast Palpation: No nipple discharge Resp Effort & Inspection: normal respiratory effort Auscultation: clear to auscultation bilaterally Percussion: percussion normal Cardio Rate: regular rate Rhythm: regular rhythm Heart Sounds: murmur GI Palpation: soft, no hepatosplenomegaly, guarding, no masses, tender Rectal Exam: other Other: Rectal exam deferred. Extrem General: normal to inspection, no clubbing, cyanosis or edema Assessment & Plan Problems 1. Hematemesis of unknown cause K92.0 2. Epigastric abdominal pain R10.13 3. Hematemesis with nausea K92.0 Plan I have discussed the above with the patient. I have offered the patient esophagogastroduodenoscopy for evaluation. I have explained the risks/benefits of the procedure and described the procedure. I have discussed the risks with the patient, including but not limited to: infection, bleeding, perforation of the GI tract requiring emergency surgery, inability to complete the procedure, injury to any internal organs, complications of anesthesia, etc. - the patient understands and agrees to proceed. I have answered all the patient's questions to the patient's satisfaction and the patient has no further questions. The patient has been given instructions for the colon cleansing preparation. Prior to doing the upper scope we are going to obtain a CAT scan of her abdomen and pelvis with IV and p.o. contrast. Orders Orders: Abdomen/Pelvis WITH Contrast Today K92.0, R10.9 Dr. Jesus Monge MD Medications New: dicyclomine 10 mg PO BID 14 days 28 caps 0RF Jil Candelaria PA-C Coding Level of Care Code Off vis,new,level 4 Diagnoses Hematemesis of unknown cause K92.0 Epigastric abdominal pain R10.13 Hematemesis with nausea K92.0 ??Vomiting type: hematemesis 09/10/19 0820 <Electronically signed by Jesus ambrosio MD> Date _ Jesus Monge MD I have re-examined the patient. There are no clinical changes since date of exam.
--- NOTE | 2019-09-11 | GASB_PTH ---
PATIENT: KAR MANLEY LOC: EN U#:[id number] AGE/SX: 23/F ROOM: RE09/11/[address]: Dr. Jessu Monge MD : 1995 BED: DIS: 09/11/2019 SPEC #: [id number] RECD: 09/11/19 10:19 STATUS: CHAZ ANABELL #: [id number] LY: 09/11/19 00:[address]: Jesus Monge DEPT: SURGICAL PATHOLOGY RECD BY: David Templeton ENTERED: 09/11/19 10:20 SP TYPE: Gastric Bx OTHR DR: Dr. Contreras Atkins III, MD Tissues: Gastric mucous membrane Procedures: Surgery Specimen Level IV HEADER OPERATION: EGD ([facility] [place] PRE-OP DIAGNOSIS: Hematemesis, epigastric pain TISSUE SUBMITTED: Antrum biopsy for histo and H. pylori MICROSCOPIC DIAGNOSIS Antrum, biopsy: Mild gastritis. See microscopic description and comment. SJ:ida 09/12/19 COMMENT The results of immunohistochemistry for Helicobacter pylori will be reported separately ([id number]). MICROSCOPIC DESCRIPTION Slides are reviewed. The specimen shows fragments of gastric mucosa with chronic inflammatory cell infiltrates in the lamina propria consisting of lymphocytes and plasma cells, consistent with mild chronic gastritis. GROSS DESCRIPTION Received in fixative is one container labeled with the patient's name and designated antrum biopsy. The specimen consists of one irregular fragment of light partida soft tissue that measures 0.4 x 0.2 x 0.1 cm. The specimen is totally submitted in one cassette. / LEVI:ida 09/11/19 TC:3 CPT: 15006
[2019-09-11 08:21] VITALS: BP 129/85; PULSE 90; RESP 16; TEMP 37.2; O2SAT 100; BMI 29.0
[2019-09-11 08:24] LABS: Internal QC Validated? YES +Cl - CLEAR BKGD; Pregnancy, Urine Negative Negative
[2019-09-11] MEDS: Lactated Ringers 1,000 ML 100 ML IV (08:37)
--- NOTE | 2019-09-11 09:00 | IMM_PTH ---
PATIENT: KAR MANLEY LOC: EN U#:[id number] AGE/SX: 23/F ROOM: RE09/11/[address]: Dr. Jesus Monge MD : 1995 BED: DIS: 09/11/2019 SPEC #: [id number] RECD: 09/11/19 11:35 STATUS: CHAZ REPalu #: [id number] LY: 09/11/19 09:[address]: Jesus Monge DEPT: IMMUNOHISTOCHEMISTRY RECD BY: Loreto Youngblood ENTERED: 09/11/19 11:35 SP TYPE: IMMUNO OTHR DR: Dr. Contreras Atkins III, MD Tissues: Stomach, NOS Procedures: H Pylori (initial) PHYSICIAN & INSTITUTION [place] [address] SPECIMEN INFORMATION: Tissue Source: Antrum biopsy Clinical Info: Hematemesis, epigastric pain Specimen Number: [id number] CPT code: 93984 METHODOLOGY: Deparaffinized sections of prefer/formalin-fixed tissue or PAP/DQ stained slides are incubated with monoclonal/polyclonal antibodies/oligonucleotide probes. Localization is made via biotin free immunoperoxidase method. Appropriate controls are performed and reacted as expected. Results on target cell population are indicated in the following table: RESULTS: ANTIBODY / CLONE RESULT H Pylori (polyclonal) negative These tests were developed and their performance characteristics determined by [facility]. They may not have been cleared or approved by the U.S. Food and Drug Administration. The FDA has determined that such clearance or approval is not necessary. INTERPRETATION: Antrum biopsy: Negative for Helicobacter pylori organisms. SJ:ida 09/15/19
[2019-09-11 09:15] VITALS: BP 119/77; BP 129/85; PULSE 95; RESP 16; TEMP 36.2; O2SAT 95
--- NOTE | 2019-09-11 09:16 | OP.EGD_ITS ---
Patient Name: Yandel Jimenez Procedure Date: 09/11/2019 8:39 AM Date of : 1995 Age: 23 Procedure: Upper GI endoscopy Indications: Epigastric abdominal pain, Abnormal CT of the GI tract Providers: Jesus Monge MD Referring MD: Jesus Monge MD Medicines: See the Anesthesia note for documentation of the administered medications Patient Profile: This is a 23 year old female. Refer to note in patient chart for documentation of history and physical. Complications: No immediate complications. Procedure: Pre-Anesthesia Assessment: - Prior to the procedure, a History and Physical was performed, and patient medications and allergies were reviewed. The patient's tolerance of previous anesthesia was also reviewed. The risks and benefits of the procedure and the sedation options and risks were discussed with the patient. All questions were answered, and informed consent was obtained. Prior Anticoagulants: The patient has taken no previous anticoagulant or antiplatelet agents. ASA Grade Assessment: II - A patient with mild systemic disease. After reviewing the risks and benefits, the patient was deemed in satisfactory condition to undergo the procedure. After obtaining informed consent, the endoscope was passed under direct vision. Throughout the procedure, the patient's blood pressure, pulse, and oxygen saturations were monitored continuously. The gastroscope was introduced through the mouth, and advanced to the second part of duodenum. The upper GI endoscopy was accomplished without difficulty. The patient tolerated the procedure well. Scope In: 8:57:59 AM Scope Out: 9:03:43 AM Total Procedure Duration Time 0 hours 5 minutes 44 seconds Findings: The examined esophagus was normal. No biopsies or other specimens were collected for this exam. Diffuse severe inflammation characterized by congestion (edema), erythema and friability was found in the gastric antrum. Biopsies were taken with a cold forceps for Helicobacter pylori testing. There was significant inflammation of the prepyloric area and the duodenal bulb. There was no active ulcer identified. There was significant edema in the prepyloric area. Diffuse moderate inflammation characterized by congestion (edema), erythema and linear erosions was found in the duodenal bulb. No biopsies or other specimens were collected for this exam. Impression: - Normal esophagus. No specimens collected. - Gastritis. Biopsied. - Duodenitis. No specimens collected. Recommendation: - Discharge patient to home. - Clear liquid diet. - Continue present medications. We will add Zofran to her medications. - Await pathology results. - Repeat upper endoscopy at appointment to be scheduled for surveillance. - Return to my office in 1 week. Procedure Code(s): --- Professional --- 83309, Esophagogastroduodenoscopy, flexible, transoral; with biopsy, single or multiple Diagnosis Code(s): --- Professional --- K29.70, Gastritis, unspecified, without bleeding K29.80, Duodenitis without bleeding R10.13, Epigastric pain R93.3, Abnormal findings on diagnostic imaging of other parts of digestive tract CPT copyright 2017 [employer]. All rights reserved. The codes documented in this report are preliminary and upon general magistrate review may be revised to meet current compliance requirements. MD Jesus Shelby MD 09/11/2019 9:16:36 AM This report has been signed electronically. Number of Addenda: 0 Note Initiated On: 09/11/2019 8:39 AM
--- NOTE | 2019-09-11 09:17 | OP.CCLET_ITS ---
09/11/2019 Contreras Atkins [address] [place] [address] Re : Upper GI endoscopy procedure for Yandel Jimenez Dear Dr. Atkins This procedure was performed on September. My impressions and recommendations are as follows: Impressions : - Normal esophagus. No specimens collected. - Gastritis. Biopsied. - Duodenitis. No specimens collected. Recommendations : - Discharge patient to home. - Clear liquid diet. - Continue present medications. We will add Zofran to her medications. - Await pathology results. - Repeat upper endoscopy at appointment to be scheduled for surveillance. - Return to my office in 1 week. My findings are described in the full procedure note, which is enclosed. If I can be of further assistance, please feel free to contact me at Doctor phone number(s): , Fax: [phone], Work: . Sincerely, MD Jesus Shelby MD 09/11/2019 9:16:36 AM This report has been signed electronically.
[2019-09-11 09:20] VITALS: BP 121/88; BP 129/85; PULSE 91; RESP 16; O2SAT 98
[2019-09-11 09:25] VITALS: BP 123/82; BP 129/85; PULSE 92; RESP 16; O2SAT 99
[2019-09-11 09:30] VITALS: BP 122/82; BP 129/85; PULSE 91; RESP 16; TEMP 36.2; O2SAT 98
== END 2019-09-11 09:54 | disposition home or self-care (01) ==
LOC: EN 08:06 → AC 08:07
PROVIDERS: Anesthesiology; PCP Family Medicine; Referring Provider Surgery; Visit Provider Surgery
PROC: 0DJ08ZZ Inspection of Upper Intestinal Tract, Via Natural or Artificial Opening Endoscopic (ICD-10-PCS; CPT 43235; principal; 2019-09-11 08:55)
DX: K29.70 Gastritis, unspecified, without bleeding (principal); K29.80 Duodenitis without bleeding; Z79.899 Other long term (current) drug therapy; F17.200 Nicotine dependence, unspecified, uncomplicated
CPT/HCPCS: 43239; 81025; 88305; 88342; J7120

== ENCOUNTER 2019-10-18 15:02 | Emergency (ER) | payer MEDICAID, SELFPAY ==
[2019-10-18 15:03] VITALS: BP 137/101; PULSE 87; RESP 18; TEMP 36.5; O2SAT 100; BMI 28.8
--- NOTE | 2019-10-18 15:29 | ED.DCSUM_ITS ---
History of Present Illness Informant: Patient Onset: Today Context: Gradual Onset Timing: Continuous Quality: Nausea Location: Stomach Current Severity: Mild Maximum Severity: Mild Worsened by: Nothing Relieved by: Nothing Associated Symptoms: Morning sickness Narrative: 24-year-old female presents requesting a confirmation of a home test that she took this morning that was positive. Her last menstrual period was a month ago. She is not having any abdominal pain vaginal bleeding fevers or urinary symptoms. She did have one episode of emesis this morning. That is why she took the test. She has 1 child who is 2 years old. She denies any significant past medical history. Prior similar symptoms: Yes Recent Illness/Hospitalization: No <Abdi Sierra - Last Filed: 10/18/19 16:10> <Osmel Stallworth - Last Filed: 10/18/19 20:16> Chief Complaint: Abd Pain Past Medical History Prior records reviewed: Yes Past Medical History: - - GERD Surgical History: - - No abdominal surgeries, endoscopy Lives: With Family Smoking Status: Current some day smoker Alcohol: Occasional Drugs: None <Abdi Sierra - Last Filed: 10/18/19 16:10> <Osmel Stallworth - Last Filed: 10/18/19 20:16> - Allergies and Home Meds Allergies/Adverse Reactions: Allergies cat dander Allergy (Verified 10/18/19 15:06) Swelling amphetamine aspartate [From Adderall] Adverse Reaction (Verified 10/18/19 15:06) Other PALPITATIONS amphetamine sulfate [From Adderall] Adverse Reaction (Verified 10/18/19 15:06) Other PALPITATIONS dextroamphetamine saccharate [From Adderall] Adverse Reaction (Verified 10/18/19 15:06) Other PALPITATIONS dextroamphetamine sulfate [From Adderall] Adverse Reaction (Verified 10/18/19 15:06) Other PALPITATIONS Primary Care Physician: Contreras Atkins III, MD [Primary Care Provider] - Aissatou Ray DO [STAFF PHYSICIAN] - Review of Systems All systems negative except as indicated General: Denies: Chills, Fever, Sweats Eyes: Denies: Visual changes - bilaterally, Diplopia ENT: Denies: Rhinorrhea, Sore throat Cardiovascular: Denies: Chest pain, Palpitations Respiratory: Denies: Dyspnea, Cough, Dyspnea on exertion Gastrointestinal: Denies: Abdominal pain, Nausea, Vomiting, Diarrhea, Melena, Hematochezia Genitourinary: Denies: Dysuria, Hematuria, Frequency Musculoskeletal: Denies: Back pain, Extremity Pain Skin: Denies: Rash, Wounds Neurological: Denies: Headache, Weakness, Numbness <Abdi Sierra - Last Filed: 10/18/19 16:10> Physical Exam Vital Signs/Narrative: Vital Signs Temp Pulse Resp BP Pulse Ox 10/18/19 15:03 97.7 F L 87 18 137/101 H 100 Inital Vital Signs reviewed: Yes General: Well nourished, Well developed, No Acute Distress Head: Normocephalic, Atraumatic Eyes: Perrl, EOMI ENT: Moist mucous membranes, No rhinorrhea Neck: Supple, Nontender Cardiovascular: Regular rate, Regular rhythm, No murmurs Respiratory: No distress, CTA bilaterally, Chest nontender Abdomen: Soft, Nontender, Nondistended, Normal bowel sounds Back: Nontender, Normal Inspection Extremities: Nontender, No edema Skin: Normal color, No rash Neurological: Alert, Oriented x3, Cranial nerves II-XII grossly intact, Normal Strength, Normal Sensation Psychological: Normal affect, Normal Mood <Abdi Sierra - Last Filed: 10/18/19 16:10> Vital Signs/Narrative: Vital Signs Temp Pulse Resp BP Pulse Ox 10/18/19 15:03 97.7 F L 87 18 137/101 H 100 <Osmel Stallworth - Last Filed: 10/18/19 20:16> Diagnostic/Tx/Re-eval - Medical Decision Making Patient's test was positive. Patient requested to know how far along she was. 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 which she will keep and she will be discharged home <Abdi Sierra - Last Filed: 10/18/19 16:10> - Medical Decision Making Patient seen with Adbi agree with history physical as above, patient basically took a home test discount store product she had a negative hospital test September 10, she is had no pain no bleeding she wants us to confirm if she is no other complaints or issues no pain no bleeding Abdomen soft nontender at this time see the chart for full details were explained the patient that this type of issue is best managed by outpatient providers Please note the following addendum while a patient here she asked to be checked for STD screen she had really no symptoms, STD screen was sent via urine DNA analysis, and later in the evening after the patient had been discharged home lab called back and said it was positive for both GC and chlamydia, the patient was instructed informed of the above she asked that a prescription be called in, Suprax 400 mg x 1 azithromycin 1 g p.o. x1 was called into the pharmacy the patient preference provide us the phone number of [facility] [id number] and I called in that prescription as requested by patient further she does have appointment to see her DIRECTOR SALES AND TRADE MARKETING in a few days and she was given the test results and again reminded to follow-up <Osmel Stallworth - Last Filed: 10/18/19 20:16> ED Disposition <Abdi Sierra - Last Filed: 10/18/19 16:10> <Osmel Stallworth - Last Filed: 10/18/19 20:16> - Plan for ED Patient: Disposition: Home or Assisted Living Diagnosis: test positive, GERD (gastroesophageal reflux disease) Instructions: ED Established Normal Symptoms Referrals: Contreras Atkins III, MD [Primary Care Provider] - Aissatou Ray DO [STAFF PHYSICIAN] -
[2019-10-18 16:00] LABS: Bacteria 0 SEEN /hpf (None Seen); Mucous, Urine 0 SEEN /hpf (<or=2+)
[2019-10-18 16:02] LABS: Color, Urine Straw (Yellow); Glucose, Dipstick Normal (Normal); Ketone-Dipstick 50 mg/dl (Negative); Leukocyte Esterase-Dipstick 100 /ul (Negative); Nitrite-Dipstick Negative (Negative); Occult Blood-Urine Negative /ul (Negative); Protein-Dipstick Negative (Negative); Specific Gravity, Urine 1.015 (1.002-1.030); Urine Bilirubin Dipstick Negative (Negative); Urine Clarity Clear (Clear); Urine Urobilinogen Normal (Normal)
[2019-10-18 16:04] LABS: Internal QC Validated? YES +Cl - CLEAR BKGD
[2019-10-18 16:05] LABS: Pregnancy, Urine Positive Negative
[2019-10-18 16:22] LABS: Red Blood Cells-Urine 0-5 SEEN /hpf (0-5); Squamous Epithelial Cells - UA 0-5 SEEN /hpf (5-10); White Blood Cells 5-10 SEEN /hpf (0-5)
[2019-10-18 16:33] VITALS: RESP 18
[2019-10-18 19:47] LABS: Neisserai gonorrhoeae by PCR Positive (Negative); Probe Check PASS
--- NOTE | 2019-10-18 19:56 | ED.RN ---
Pt called and made aware of her +gonnorhea and chlamydia test results. Approves pharmacy as [facility] for scripts to be called into.
[2019-10-18 19:58] LABS: Chlamydia Trachomatis by PCR POSITIVE (Negative)
== END 2019-10-18 16:33 | disposition home or self-care (01) ==
LOC: ED 16:14
PROVIDERS: Emergency Provider Physician Assistant Medical; PCP Family Medicine
DX: Z32.01 Encounter for pregnancy test, result positive (principal); K21.9 Gastro-esophageal reflux disease without esophagitis; F17.200 Nicotine dependence, unspecified, uncomplicated
CPT/HCPCS: 81001; 81025; 87491; 87591; 99282

== ENCOUNTER 2019-10-31 19:07 | Emergency (ER) | payer MEDICAID, SELFPAY ==
[2019-10-31 19:08] VITALS: BP 136/76; PULSE 81; RESP 18; TEMP 36.6; O2SAT 100; BMI 28.1
[2019-10-31 21:42] LABS: Red Blood Cells-Urine 0 SEEN /hpf (0-5)
[2019-10-31 22:11] LABS: Color, Urine Yellow (Yellow); Glucose, Dipstick Normal (Normal); Ketone-Dipstick 5 mg/dl (Negative); Leukocyte Esterase-Dipstick 25 /ul (Negative); Nitrite-Dipstick Negative (Negative); Occult Blood-Urine Negative /ul (Negative); Protein-Dipstick 15 mg/dl (Negative); Urine Bilirubin Dipstick Negative (Negative); Urine Clarity Clear (Clear); Urine Urobilinogen Normal (Normal)
[2019-10-31 22:18] LABS: Bacteria 1+ /hpf (None Seen); Mucous, Urine 2+ /hpf (<or=2+); White Blood Cells 0-5 SEEN /hpf (0-5)
[2019-10-31 22:19] LABS: Squamous Epithelial Cells - UA 0-5 SEEN /hpf (5-10)
[2019-10-31 22:21] LABS: Absolute Lymphocyte Count 4.13 X10^3/uL (0.83-4.51); Absolute Neutrophil Count 5.6 X10^3/uL (2.0-7.7); Basophil# 0.02 X10^3/uL; Basophil% 0.2 % (0-1); Eosinophil# 0.29 X10^3/uL; Eosinophils% 2.6 % (0-5); Hematocrit 38.5 % (37-47); Hemoglobin 12.4 g/dL (12.0-15.0); Lymphocyte # 4.13 X10^3/ul (4.0); Lymphocyte % 37.1 % (19-41); Mean Corp Hgb Conc 32.2 g/dL (32-36); Mean Corpuscular Hgb 27.6 pg (27.0-32.0); Mean Corpuscular Volume 85.6 fL (81-99); Mean Platelet Vol. 8.6 fl (6.2-12.0); Monocyte# 1.05 X10^3/uL; Monocyte% 9.4 % (0-10); NRBC Flagged by Analyzer 0 % (0-5); Neutrophil # 5.62 X10^3/uL (2.7-7.7); Neutrophil % 50.4 % (47-70); Platelet Count 336 K/mm3 (150-450); RBC Distribution Width CV 12.8 % (11.6-14.6); RBC Distribution Width SD 39.5 fl (35.1-43.9); White Blood Count 11.1 K/mm3 (4.4-11.0)
[2019-10-31 22:27] LABS: ALB/GLOB Ratio 0.9 RATIO (0.9-2.4); AST(SGOT) 18 U/L (15-37); Alanine Aminotransfer ALT/SGPT 21 U/L (13-56); Albumin, Serum 3.6 g/dL (3.2-5.0); Alkaline Phosphatase 46 U/L (45-117); Anion Gap 6 (5-15); BUN 10 mg/dL (7-18); BUN/Creat Ratio 12.3 RATIO (10-20); Calcium,Total 8.9 mg/dL (8.5-10.1); Chloride 106 mmol/L (98-107); Creatinine, Serum 0.81 mg/dL (0.55-1.02); EST Glomerular Filtration Rate 92 mL/min (>60); Est Glom Filt Rate - Afr Amer 112 mL/min (>60); Estimated Creatinine Clearance 88.59 ml/min; Globulin 3.9 g/dL (2.2-4.2); Glucose 82 mg/dL (74-106); Potassium 3.9 mmol/L (3.5-5.1); Protein, Total 7.5 g/dL (6.4-8.2); Sodium Level 137 mmol/L (136-145)
[2019-10-31 22:44] LABS: hCG Titer Quant., Serum 35150 mIU/mL (1-3)
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
[2019-10-31 23:34] VITALS: BP 124/73; PULSE 69; RESP 16
== END 2019-10-31 23:35 | disposition home or self-care (01) ==
PROVIDERS: Emergency Provider Emergency Medicine; PCP Family Medicine
DX: O9A.211 Injury, poisoning and certain other consequences of external causes complicating pregnancy, first trimester (principal); S39.91XA Unspecified injury of abdomen, initial encounter; V49.40XA Driver injured in collision with unspecified motor vehicles in traffic accident, initial encounter; Y93.9 Activity, unspecified; Y92.9 Unspecified place or not applicable; Y99.9 Unspecified external cause status; O99.841 Bariatric surgery status complicating pregnancy, first trimester; Z3A.01 Less than 8 weeks gestation of pregnancy
CPT/HCPCS: 80053; 81001; 84702; 85025; 99283; A4216

== ENCOUNTER 2021-08-03 08:13 | Outpatient (CLI) | payer MEDICAID, SELFPAY ==
[2021-08-03 08:35] VITALS: BP 119/61; PULSE 91; RESP 16; TEMP 36.4; O2SAT 100
[2021-08-03] MEDS: Lactated Ringers 1,000 ML 999 ML IV (08:35)
[2021-08-03] MEDS: 0.9% NaCl Peripheral Flush Adult/Peds IV (08:46)
[2021-08-03] MEDS: Ondansetron 4 MG/2 ML Vial IV (08:47)
[2021-08-03 08:56] LABS: Hematocrit 38.5 % (37-47); Hemoglobin 12.8 g/dL (12.0-15.0); Mean Corp Hgb Conc 33.2 g/dL (32-36); Mean Corpuscular Hgb 28.1 pg (27.0-32.0); Mean Corpuscular Volume 84.4 fL (81-99); Mean Platelet Vol. 8.7 fl (6.2-12.0); Platelet Count 321 K/mm3 (150-450); RBC Distribution Width CV 13.1 % (11.6-14.6); RBC Distribution Width SD 40.6 fl (35.1-43.9); Red Blood Count 4.56 M/mm3 (4.2-5.4); White Blood Count 11.6 K/mm3 (4.4-11.0)
[2021-08-03 09:15] LABS: ALB/GLOB Ratio 0.7 RATIO (0.9-2.4); AST(SGOT) 18 U/L (15-37); Alanine Aminotransfer ALT/SGPT 18 U/L (13-56); Alkaline Phosphatase 60 U/L (45-117); Anion Gap 3 (5-15); BUN 8 mg/dL (7-18); BUN/Creat Ratio 11.6 RATIO (10-20); Calcium,Total 8.8 mg/dL (8.5-10.1); Chloride 105 mmol/L (98-107); Creatinine, Serum 0.69 mg/dL (0.55-1.02); EST Glomerular Filtration Rate 110 mL/min (>60); Est Glom Filt Rate - Afr Amer 133 mL/min (>60); Globulin 4.6 g/dL (2.2-4.2); Glucose 87 mg/dL (74-106); Potassium 3.7 mmol/L (3.5-5.1); Protein, Total 7.6 g/dL (6.4-8.2); Sodium Level 135 mmol/L (136-145); Thyroid Stim Hormone (TSH) 0.91 uIU/mL (0.358-3.74)
[2021-08-03] MEDS: Dext 5%-0.45% NS 1,000 ML 500 ML IV (10:06)
[2021-08-03 12:52] VITALS: BP 115/62; PULSE 78; RESP 16; O2SAT 98
== END 2021-08-03 23:59 | disposition home or self-care (01) ==
LOC: MEDOUTP 08:14
PROVIDERS: Referring Provider Obstetrics & Gynecology; Visit Provider Obstetrics & Gynecology
DX: O21.0 Mild hyperemesis gravidarum (principal); Z3A.00 Weeks of gestation of pregnancy not specified
CPT/HCPCS: 96365; 96361 ×2; 96375; 36415; 80053; 84443; 85027; J7120; A4216; J2405; J3490; J7799

== ENCOUNTER 2022-05-29 09:52 | Emergency (ER) | payer MEDICAID, SELFPAY ==
[2022-05-29 09:54] VITALS: BP 145/124; PULSE 98; RESP 17; TEMP 35.7; O2SAT 99; BMI 29.1
--- NOTE | 2022-05-29 10:17 | EDS_ITS ---
HPI HPI - GI History of Present Illness Chief Complaint: Abd Pain Informant: patient Abdominal Pain/Flank Pain Onset: Days (4) Context: Gradual Onset Timing: Continuous Quality: Aching Location: Epigastric Current Severity: Severe Maximum Severity: Severe Worsened by: Nothing (but not eating as result of the pain) Relieved by: Antacids (Gaviscon but for very little time) Nausea/Vomiting/Emesis GI Symptom: Positive for Nausea; Negative for Vomiting Diarrhea/Melena/Hematochezia GI Symptom: Negative for Diarrhea, Melena or Hematochezia Associated Symptoms Associated Symptoms: Negative for Dysuria, Frequency or Hematuria Narrative Narrative: Patient states she has a history of a peptic ulcer that she had an EGD for and a biopsy that was negative according to her 2-3 years ago. f She does not know what triggered this discomfort in the past 4 days, except for possibility of emotional stress which she thinks is the etiology of the initial ulcer that she was diagnosed with. She denies any recent NSAIDs, alcohol although she does drink on occasion. [facility] Medical History Gastritis Physical exam, pre-employment Stress ulcer of stomach Home Medications Care 1 tab DAILY 08/03/21 [History Last Taken Unknown] promethazine 25 mg tablet 25 mg PRN PRN Nausea 08/03/21 [History Last Taken Unknown] ondansetron 4 mg disintegrating tablet 8 mg PO Q8H PRN PRN Nausea #12 tabs 05/29/22 [Rx Last Taken Unknown] pantoprazole 40 mg tablet,delayed release 40 mg PO DAILY #30 tabs 05/29/22 [Rx Last Taken Unknown] sucralfate 1 gram tablet 1 g PO Q6H 2 weeks #56 tabs 05/29/22 [Rx Last Taken Unknown] Allergy/AdvReac Type Severity Reaction Status Date / Time cat dander Allergy Swelling Verified 05/29/22 09:53 amphetamine aspartate AdvReac Other Verified 05/29/22 09:53 [From Adderall] amphetamine sulfate AdvReac Other Verified 05/29/22 09:53 [From Adderall] dextroamphetamine saccharate AdvReac Other Verified 05/29/22 09:53 [From Adderall] dextroamphetamine sulfate AdvReac Other Verified 05/29/22 09:53 [From Adderall] Family History Grandmother Breast cancer Mother Hypertension Surgical History History of esophagogastroduodenoscopy (EGD) (~09/2019) Social History Smoking Status: Never smoker alcohol intake: current alcohol intake frequency: a few times a week substance use type: marijuana ROS ROS ED Constitutional Constitutional ED: Denies chills or fever(s) Eyes Eyes: Denies change in vision or diplopia ENT ENT ED: Denies rhinorrhea or sore throat Cardiovascular Cardiovascular: Denies chest pain or palpitations Respiratory/Chest Respiratory/Chest: Denies cough or dyspnea Gastrointestinal Gastrointestinal: Reports abdominal pain, nausea and vomiting; Denies diarrhea, hematemesis, hematochezia or melena Genitourinary Genitourinary ED: Denies dysuria or hematuria Musculoskeletal Musculoskeletal: Denies back pain or neck pain Integumentary Denies abscess or rash Neurologic Neurologic: Denies headache(s), paresthesias or weakness Psychiatric Psychiatric: Denies anxiety or suicidal thoughts EXAM Physical Exam Const Vital Signs: 05/29/22 09:54 Temperature 96.3 F L Temperature Source Temporal Pulse Rate 98 Respiratory Rate 17 Blood Pressure 145/124 H Blood Pressure Mean 131 Pulse Ox 99 Oxygen Delivery Method Room Air Positive well nourished and well developed Constitutional Narrative: Very uncomfortable. Cannot sit still due to epigastric discomfort. Able to calm down and converse. General Appearance ED: well developed HEENT Reports moist mucous membranes normocephalic and atraumatic Eyes PERRL and EOMs intact bilaterally Neck full ROM and supple Resp normal respiratory effort and clear to auscultation bilaterally Cardio regular rate, regular rhythm and no murmurs GI non-distended GI Narrative: Very tender epigastrium with voluntary guarding. No right upper quadrant or left upper quadrant tenderness, no distention, normal bowel sounds present. No pulsatile mass. Auscultation: normoactive bowel sounds Palpation: soft Back/Spine no CVA tenderness General Back: other FROM Extremity normal to inspection General Extremety ED: Negative for edema, pulses abnormal or tenderness General Extremity: Negative for edema or pulses abnormal Neuro oriented x3, CN's II-XII intact bilaterally and no sensory deficits noted Sensorium / Orientation: awake and alert Motor Exam: strength 5/5 throughout Psych Mood & Affect: anxious and tearful Skin no rashes or lesions noted and no wounds MDM MDM MDM Narrative Medical decision making narrative: Patient's labs show no evidence of anemia, acute blood loss, or elevation of her BUN to suggest active GI bleeding from an ulcer. is negative. She was treated in the meantime with IV fluids, Zofran, a GI cocktail, Protonix, and sucralfate. She feels much better. Her history, exam, and response to medication is all consistent with a peptic ulcer. We will treat her for that, she only took 1 dose of a PPI prior to coming here and stated that it did not help. I reassured her that she needs to continue to take that daily which I prescribed her, in addition to sucralfate for the next 2 wks, and to follow-up with GI if she does not improve after all of this. Lab Data Attestation: I reviewed the patient's lab results. Labs: Laboratory Results - last 24 hr 05/29/22 05/29/22 05/29/22 10:25 10:25 10:25 WBC 7.4 RBC 5.33 Hgb 14.2 Hct 44.1 MCV 82.7 MCH 26.6 L MCHC 32.2 RDW Std Deviation 41.3 RDW Coeff of [place] 13.8 Plt Count 351 MPV 8.6 Immature Gran % (Auto) 0.400 Neut % (Auto) 50.6 Lymph % (Auto) 36.7 [place] % (Auto) 9.3 Eos % (Auto) 2.7 Baso % (Auto) 0.3 Absolute Neuts (auto) 3.8 Absolute Lymphs (auto) 2.73 Nucleated RBC % 0 Sodium 138 Potassium 3.7 Chloride 107 Carbon Dioxide 24.0 Anion Gap 7 BUN 11 Creatinine 1.03 H Estim Creat Clear Calc 68.47 Est GFR (MDRD) Af Amer 83 Est GFR (MDRD) Non-Af 69 BUN/Creatinine Ratio 10.7 Glucose 79 Calcium 9.3 Total Bilirubin 1.00 AST 40 H ALT 58 H Alkaline Phosphatase 73 Total Protein 8.6 H Albumin 4.5 Globulin 4.1 Albumin/Globulin Ratio 1.1 Lipase 252 Serum , Qual NEGATIVE Discharge Plan Triage Chief Complaint: Abd Pain ED Provider: Guanako Arreguin Dx/Rx/DC Orders Clinical Impression: Acute epigastric pain, PUD (peptic ulcer disease) Instructions: ED Diet, [place] (Adult), ED PUD Prescriptions: New pantoprazole 40 mg tablet,delayed release (DR/EC) 40 mg PO DAILY Qty: 30 0RF sucralfate 1 gram tablet 1 g PO Q6H 14 Days Qty: 56 0RF ondansetron [ondansetron] 4 mg tablet,disintegrating 8 mg PO Q8H PRN PRN (Reason: Nausea) Qty: 12 0RF No Action promethazine 25 mg Tablet 25 mg PRN PRN (Reason: Nausea) Care 1 tab DAILY Primary Care Provider: Care Physician,No Primary Referrals: Friend,Heriberto, [Med Staff - Active Staff] - 1 Week if not improving Care Physician,No Primary [Primary Care Provider] - Disposition Disposition: Home, Self Care
[2022-05-29 10:36] LABS: Absolute Lymphocyte Count 2.73 X10^3/uL (0.83-4.51); Absolute Neutrophil Count 3.8 X10^3/uL (2.0-7.7); Basophil# 0.02 X10^3/uL; Basophil% 0.3 % (0-1); Eosinophils% 2.7 % (0-5); Hematocrit 44.1 % (37-47); Hemoglobin 14.2 g/dL (12.0-15.0); Lymphocyte # 2.73 X10^3/ul (0.83-4.51); Lymphocyte % 36.7 % (19-41); Mean Corp Hgb Conc 32.2 g/dL (32-36); Mean Corpuscular Hgb 26.6 pg (27.0-32.0); Mean Corpuscular Volume 82.7 fL (81-99); Mean Platelet Vol. 8.6 fl (6.2-12.0); Monocyte# 0.69 X10^3/uL; Monocyte% 9.3 % (0-10); NRBC Flagged by Analyzer 0 % (0-5); Neutrophil # 3.76 X10^3/uL (2.7-7.7); Neutrophil % 50.6 % (47-70); Platelet Count 351 K/mm3 (150-450); RBC Distribution Width CV 13.8 % (11.6-14.6); RBC Distribution Width SD 41.3 fl (35.1-43.9); Red Blood Count 5.33 M/mm3 (4.2-5.4); White Blood Count 7.4 K/mm3 (4.4-11.0)
[2022-05-29] MEDS: 0.9% Normal Saline 1,000 ML 1000 ML IV (10:47)
[2022-05-29] MEDS: Sucralfate 1 GM Tablet PO (10:48)
[2022-05-29] MEDS: Hyoscyamine Sulfate 0.125 MG Tablet 0.25 MG PO (10:48)
[2022-05-29] MEDS: Pantoprazole Sodium 40 MG Tablet PO (10:48)
[2022-05-29] MEDS: Mag Hydrox/Al Hydrox/Simeth 30 ML UDC PO (10:48)
[2022-05-29] MEDS: Ondansetron 4 MG/2 ML Vial IV (10:49)
[2022-05-29 10:53] LABS: ALB/GLOB Ratio 1.1 RATIO (0.9-2.4); AST(SGOT) 40 U/L (15-37); Alanine Aminotransfer ALT/SGPT 58 U/L (13-56); Albumin, Serum 4.5 g/dL (3.2-5.0); Alkaline Phosphatase 73 U/L (45-117); Anion Gap 7 (5-15); BUN 11 mg/dL (7-18); BUN/Creat Ratio 10.7 RATIO (10-20); Calcium,Total 9.3 mg/dL (8.5-10.1); Chloride 107 mmol/L (98-107); Creatinine, Serum 1.03 mg/dL (0.55-1.02); EST Glomerular Filtration Rate 69 mL/min (>60); Est Glom Filt Rate - Afr Amer 83 mL/min (>60); Estimated Creatinine Clearance 68.47 ml/min; Globulin 4.1 g/dL (2.2-4.2); Glucose 79 mg/dL (74-106); Lipase 252 U/L (73-393); Potassium 3.7 mmol/L (3.5-5.1); Protein, Total 8.6 g/dL (6.4-8.2); Sodium Level 138 mmol/L (136-145)
[2022-05-29 11:08] LABS: Internal QC Validated? YES +Cl - CLEAR BKGD; Pregnancy, Serum, hCG Quali. NEGATIVE Negative
[2022-05-29 12:16] VITALS: BP 112/72
== END 2022-05-29 12:16 | disposition home or self-care (01) ==
PROVIDERS: Emergency Provider Emergency Medicine; Visit Provider Emergency Medicine
DX: K25.3 Acute gastric ulcer without hemorrhage or perforation (principal)
CPT/HCPCS: 80053; 83690; 84703; 85025; 96361; 96374; 99284; J7030; J2405

== ENCOUNTER 2022-06-03 03:02 | Emergency (ER) | payer MEDICAID, SELFPAY ==
[2022-06-03 03:03] VITALS: BP 114/60; PULSE 102; RESP 18; TEMP 36.2; O2SAT 98; BMI 28.9
[2022-06-03] MEDS: Ondansetron 4 MG/2 ML Vial IV (03:19)
[2022-06-03] MEDS: Mag Hydrox/Al Hydrox/Simeth 30 ML UDC PO (03:19)
--- NOTE | 2022-06-03 03:24 | EDS_ITS ---
HPI HPI - GI History of Present Illness Chief Complaint: Abd Pain Narrative Narrative: 26-year-old female states she has past medical history of stress ulcer for which they did a biopsy a few years ago. She was seen in the emergency department on Sunday, approximately 5 days ago, where she was treated for peptic ulcer disease. She states that last evening around 10 hours ago at 5 PM, she began having epigastric pain again, and presents with pain secondary to my ulcer. She states she had nausea and vomiting after she came home from work that was nonbloody. She denies any exacerbating or alleviating symptoms. She presents because the pain in her epigastrium. She states that she is on omeprazole, but it is ineffective in treating her pain, as well as Pepcid. PFSH PFSH Medical History Gastritis Physical exam, pre-employment Stress ulcer of stomach Home Medications Care 1 tab DAILY 08/03/21 [History Last Taken Unknown] promethazine 25 mg tablet 25 mg PRN PRN Nausea 08/03/21 [History Last Taken Unknown] ondansetron 4 mg disintegrating tablet 8 mg PO Q8H PRN PRN Nausea #12 tabs 05/29/22 [Rx Last Taken Unknown] pantoprazole 40 mg tablet,delayed release 40 mg PO DAILY #30 tabs 05/29/22 [Rx Last Taken Unknown] sucralfate 1 gram tablet 1 g PO Q6H 2 weeks #56 tabs 05/29/22 [Rx Last Taken Unknown] bisoprolol 5 mg-hydrochlorothiazide 6.25 mg tablet 1 tab PO DAILY 06/03/22 [History Last Taken Unknown] Allergy/AdvReac Type Severity Reaction Status Date / Time cat dander Allergy Swelling Verified 05/29/22 09:53 amphetamine aspartate AdvReac Other Verified 05/29/22 09:53 [From Adderall] amphetamine sulfate AdvReac Other Verified 05/29/22 09:53 [From Adderall] dextroamphetamine saccharate AdvReac Other Verified 05/29/22 09:53 [From Adderall] dextroamphetamine sulfate AdvReac Other Verified 05/29/22 09:53 [From Adderall] Family History Grandmother Breast cancer Mother Hypertension Surgical History History of esophagogastroduodenoscopy (EGD) (~09/2019) Social History Smoking Status: Never smoker alcohol intake: current alcohol intake frequency: a few times a week substance use type: marijuana ROS ROS ED ROS Narrative Constitutional: No fever, no chills. HEENT: No sore throat. No neck pain. No loss of vision. No rhinorrhea. Cardiovascular: No chest pain. No palpitations. No pedal edema. Respiratory: No cough, no shortness of breath. Abdominal: Positive epigastric abdominal pain. Positive nausea. Positive nonbloody vomiting. No diarrhea. Genitourinary: No dysuria. No hematuria. Musculoskeletal: No myalgias. No arthralgias. Neurologic: No headaches. No dizziness. No lightheadedness. Skin: No rash. No change in color. Psychiatric: No depression. No anxiety. EXAM Physical Exam Narrative Exam Narrative: Afebrile. Vital signs noted. HEENT: Normocephalic. Atraumatic. PERRL, EOMI. Neck soft and supple. No point tenderness or step off. Cardiovascular: Regular rate and rhythm with intermittent tachycardia. No murmurs, rubs, or gallops appreciated. Respiratory: No tachypnea. Lungs clear to auscultation bilaterally. Gastrointestinal: Abdomen soft, mild tenderness in epigastrium, negative Beckham sign, with normoactive bowel sounds. No rebound or guarding. Neurological: Awake. Alert. Nonfocal, nonlateralizing. Skin: No rash. Normal color. No pallor. Musculoskeletal: No pedal edema. Full range of motion extremities. Const Vital Signs: 06/03/22 03:03 Temperature 97.1 F L Temperature Source Temporal Pulse Rate 102 H Respiratory Rate 18 Blood Pressure 114/60 Blood Pressure Mean 78 Pulse Ox 98 Oxygen Delivery Method Room Air MDM MDM MDM Narrative Medical decision making narrative: I reviewed her prior outpatient record and note. She had a serum test 5 days ago, I do not feel that one is indicated currently. She had normal laboratory work and received IV fluids, ondansetron, a GI cocktail, and Carafate. She was written a prescription for Carafate to take for 2 weeks. I am unsure if she has taking this or if she has picked it up from pharmacy. I will repeat her labs and give her a GI cocktail, Zofran, and Carafate again. However, I was informed by the RN that the patient states she took it half an hour prior to arrival. I reviewed her laboratory work from today, she has a normal white count of 9.9, hemoglobin normal at 13.6, hematocrit 43.5. Normal platelet count of 318. CMP does show elevated liver enzymes with an AST of 493 and an ALT of 350 with alk phos 124. However, lipase normal at 247. Given the elevation from previous, I did obtain CT imaging with IV contrast. I reviewed the CT report. My interpretation shows no acute process or obstruction. According to the CT report, the gallbladder appears collapsed but there is no intrahepatic biliary duct dilation. Additionally, there is no pericholecystic fluid. While ultrasound is suggested, I do feel that this could be done as an outpatient. She was referred to gastroenterology for further work-up of her elevated LFTs, and her suspected peptic ulcer disease. She will take the medications as directed. Upon repeat examination she was resting comfortably, and sleeping. S he states she felt improved. ALO can be discharged safely home with follow- up. Return instructions to the emergency department were reviewed. Disposition is discharged home in stable condition. Lab Data Attestation: I reviewed the patient's lab results. Labs: Laboratory Results - last 24 hr 06/03/22 06/03/22 03:20 03:20 WBC 9.9 RBC 5.20 Hgb 13.6 Hct 43.5 MCV 83.7 MCH 26.2 L MCHC 31.3 L RDW Std Deviation 42.6 RDW Coeff of [place] 13.9 Plt Count 318 MPV 8.5 Immature Gran % (Auto) 0.400 Neut % (Auto) 56.7 Lymph % (Auto) 30.0 [place] % (Auto) 10.8 H Eos % (Auto) 1.8 Baso % (Auto) 0.3 Absolute Neuts (auto) 5.6 Absolute Lymphs (auto) 2.97 Nucleated RBC % 0 Sodium 138 Potassium 4.0 Chloride 106 Carbon Dioxide 26.0 Anion Gap 6 BUN 13 Creatinine 0.92 Estim Creat Clear Calc 76.65 Est GFR (MDRD) Af Amer 94 Est GFR (MDRD) Non-Af 78 BUN/Creatinine Ratio 14.1 Glucose 93 Calcium 9.3 Total Bilirubin 0.90 AST 493 H ALT 350 H Alkaline Phosphatase 124 H Total Protein 8.0 Albumin 3.8 Globulin 4.2 Albumin/Globulin Ratio 0.9 Lipase 247 Radiography Diagnostic Testing: Clinical Impression(s) from Imaging Studies Abdomen/Pelvis CT 06/03/22 04:45 IMPRESSION: 1. The gallbladder is collapsed. Contents of the gallbladder appeared dense. This may be due to a completely collapsed gallbladder with enhancement mucosa versus gallbladder collapsed around stones. Consider ultrasound for further evaluation. 2. IUD in low position of the uterus with the transverse limbs within the myometrium and the vertical limb in the cervix. 3. Collapsing follicle measuring 2.1 cm right ovary. Electronically Signed: Simon Hudson MD at 5:36 EST , Discharge Plan Triage Chief Complaint: Abd Pain ED Provider: Jamar Nichols Dx/Rx/DC Orders Clinical Impression: Acute epigastric pain, PUD (peptic ulcer disease), Elevated LFTs Instructions: ED PUD, ED Gastritis Ulcer No Abx, ED Epigastric Pain Uncertain Cause Prescriptions: No Action promethazine 25 mg Tablet 25 mg PRN PRN (Reason: Nausea) Care 1 tab DAILY pantoprazole 40 mg tablet,delayed release (DR/EC) 40 mg PO DAILY Qty: 30 0RF sucralfate 1 gram tablet 1 g PO Q6H 14 Days Qty: 56 0RF ondansetron [ondansetron] 4 mg tablet,disintegrating 8 mg PO Q8H PRN PRN (Reason: Nausea) Qty: 12 0RF bisoprolol-hydrochlorothiazide 5-6.25 mg Tablet 1 tab PO DAILY Primary Care Provider: Care Physician,No Primary Referrals: Heriberto Quinonez, [Med Staff - Active Staff] - As soon as possible Care Physician,No Primary [Primary Care Provider] - Activity Restrictions/Additional Instructions: You had elevated liver enzymes. Follow-up with a primary care physician, or gastroenterology regarding this. You may need outpatient imaging/ultrasound of your gallbladder. Return with new or worsening symptoms. Disposition Disposition: Home, Self Care
[2022-06-03 03:25] LABS: Absolute Lymphocyte Count 2.97 X10^3/uL (0.83-4.51); Absolute Neutrophil Count 5.6 X10^3/uL (2.0-7.7); Basophil# 0.03 X10^3/uL; Basophil% 0.3 % (0-1); Eosinophil# 0.18 X10^3/uL; Eosinophils% 1.8 % (0-5); Hematocrit 43.5 % (37-47); Hemoglobin 13.6 g/dL (12.0-15.0); Lymphocyte # 2.97 X10^3/ul (0.83-4.51); Mean Corp Hgb Conc 31.3 g/dL (32-36); Mean Corpuscular Hgb 26.2 pg (27.0-32.0); Mean Corpuscular Volume 83.7 fL (81-99); Mean Platelet Vol. 8.5 fl (6.2-12.0); Monocyte# 1.07 X10^3/uL; Monocyte% 10.8 % (0-10); NRBC Flagged by Analyzer 0 % (0-5); Neutrophil # 5.62 X10^3/uL (2.7-7.7); Neutrophil % 56.7 % (47-70); Platelet Count 318 K/mm3 (150-450); RBC Distribution Width CV 13.9 % (11.6-14.6); RBC Distribution Width SD 42.6 fl (35.1-43.9); White Blood Count 9.9 K/mm3 (4.4-11.0)
[2022-06-03 04:19] LABS: ALB/GLOB Ratio 0.9 RATIO (0.9-2.4); AST(SGOT) 493 U/L (15-37); Alanine Aminotransfer ALT/SGPT 350 U/L (13-56); Albumin, Serum 3.8 g/dL (3.2-5.0); Alkaline Phosphatase 124 U/L (45-117); Anion Gap 6 (5-15); BUN 13 mg/dL (7-18); BUN/Creat Ratio 14.1 RATIO (10-20); Calcium,Total 9.3 mg/dL (8.5-10.1); Chloride 106 mmol/L (98-107); Creatinine, Serum 0.92 mg/dL (0.55-1.02); EST Glomerular Filtration Rate 78 mL/min (>60); Est Glom Filt Rate - Afr Amer 94 mL/min (>60); Estimated Creatinine Clearance 76.65 ml/min; Globulin 4.2 g/dL (2.2-4.2); Glucose 93 mg/dL (74-106); Lipase 247 U/L (73-393); Sodium Level 138 mmol/L (136-145)
--- NOTE | 2022-06-03 04:45 | CT_ITS ---
EXAM: CT ABDOMEN AND PELVIS WITH INTRAVENOUS CONTRAST CLINICAL INDICATION: Pain, elevated LFTs TECHNIQUE: Helically acquired images were obtained of the abdomen and pelvis with intravenous contrast. This CT exam was performed using one or more of the following dose reduction techniques: automated exposure control, adjustment of the mA and/or kV according to patient size, and/or use of iterative reconstruction technique. This report was created using [employer] report generation technology. CONTRAST: 100 cc of Isovue-370 IV. RADIATION DOSE: CTDIvol = 10.18 mGy, DLP = 710.16 mGy-cm. COMPARISON: 09/10/2019. FINDINGS: LOWER THORAX: Unremarkable. Lung bases are clear. No cardiomegaly. No significant pericardial effusion. ABDOMEN: LIVER: Unremarkable. Homogeneous. No focal mass. GALLBLADDER AND BILE DUCTS: The gallbladder is collapsed. Contents of the gallbladder appeared dense. This may be due to a completely collapsed gallbladder with enhancement mucosa versus gallbladder collapsed around stones. No gallbladder distention or wall edema. No intra- or extrahepatic biliary ductal dilation. PANCREAS: Unremarkable. No focal cystic or solid mass. SPLEEN: Unremarkable. Normal size without focal cystic or solid mass. ADRENALS: Unremarkable. No nodules. KIDNEYS AND URETERS: Unremarkable. Normal renal size and position. No hydronephrosis. STOMACH AND BOWEL: Unremarkable. No stomach or bowel distention. No focal inflammatory change. PELVIS: APPENDIX: Normal appendix. BLADDER: Unremarkable. REPRODUCTIVE: Collapsing follicle measuring 2.1 cm right ovary. IUD in low position of the uterus with the transverse limbs within the myometrium and the vertical limb in the cervix. ABDOMEN and PELVIS: INTRAPERITONEAL SPACE: Unremarkable. No ascites or other fluid collection. No free air. BONES/JOINTS: Unremarkable. No suspicious lytic or blastic abnormality. SOFT TISSUES: Unremarkable. No discrete abdominal or pelvic wall hernia. VASCULATURE: Unremarkable. Abdominal aorta is non-dilated. LYMPH NODES: Unremarkable. No enlarged lymph nodes. CT/Abdomen/Pelvis W IV Cont ONLY IMPRESSION: 1. The gallbladder is collapsed. Contents of the gallbladder appeared dense. This may be due to a completely collapsed gallbladder with enhancement mucosa versus gallbladder collapsed around stones. Consider ultrasound for further evaluation. 2. IUD in low position of the uterus with the transverse limbs within the myometrium and the vertical limb in the cervix. 3. Collapsing follicle measuring 2.1 cm right ovary. Electronically Signed: Simon Hudson MD at 5:36 EST ,
[2022-06-03 05:51] VITALS: BP 154/88; PULSE 78; RESP 18; O2SAT 99
== END 2022-06-03 05:51 | disposition home or self-care (01) ==
PROVIDERS: Emergency Provider Emergency Medicine; Visit Provider Emergency Medicine
DX: R10.13 Epigastric pain (principal); R74.8 Abnormal levels of other serum enzymes; K27.9 Peptic ulcer, site unspecified, unspecified as acute or chronic, without hemorrhage or perforation; R00.0 Tachycardia, unspecified; K82.9 Disease of gallbladder, unspecified
CPT/HCPCS: 74177; 80053; 83690; 85025; 96374; 99284; J7030; Q9967; A4216; J2405

== ENCOUNTER 2022-06-08 01:07 | Observation (INO) | payer MEDICAID, SELFPAY ==
[2022-06-08] VITALS (14 sets, daily range): BP systolic 109–145; BP diastolic 68–89; PULSE 64–98; RESP 14–20; TEMP 36.4–37.3; O2SAT 96–100; BMI 19.5; BMI 28.5
[2022-06-08] MEDS: Ketorolac 15 MG/ML Vial IV (01:44)
[2022-06-08] MEDS: 0.9% Normal Saline 1,000 ML 1000 ML IV (01:44)
[2022-06-08] MEDS: Morphine 4 MG/ML Syringe IV (01:48)
[2022-06-08] MEDS: Ondansetron 4 MG/2 ML Vial IV ×3 (01:48→23:01)
--- NOTE | 2022-06-08 01:50 | ED.VIS.GI ---
HPI <Dr. Nicolas Naik MD - Last Filed: 06/10/22 14:45> HPI - GI History of Present Illness Chief Complaint: Abd Pain Detail of Chief Complaint: Severe epigastric right upper quadrant pain that radiates to the back that Informant: patient Abdominal Pain/Flank Pain Onset: Today and Hours ([address]) Context: Sudden Onset Timing: Continuous and Waxes and wanes Quality: Cramping Location: Epigastric and RUQ Current Severity: Severe Maximum Severity: Severe Worsened by: Movement Relieved by: Nothing Nausea/Vomiting/Emesis GI Symptom: Positive for Nausea and Vomiting Onset: Hours Quality: Negative for Nonbilious, Blood streaks, Coffee ground or Hematemesis Diarrhea/Melena/Hematochezia GI Symptom: Negative for Diarrhea, Melena or Hematochezia Associated Symptoms Associated Symptoms: Negative for Dysuria, Frequency, Hematuria or Urgency LMP: 2 weeks ago. Patient had negative test with last ER visit. Narrative Narrative: Patient was seen on May 29 and discharged with prescription for promethazine and referral to Dr. Quinonez. During that visit CBC was obtained and normal. Comprehensive metabolic panel revealed slight elevation of AST and ALT of 40 and 58 respectively. Lipase was normal. test was negative. She returned on June 03. Chief complaint was abdominal pain thought to be due to stress ulcer. Prior to arrival. Blood work revealed elevated AST and ALT ALT of 493 and 350 respectively and alk phos of 124. Lipase was normal. CBC was normal. CAT scan of the abdomen revealed a collapsed gallbladder. Comment was made the contents of gallbladder. Dense and may be due to completely collapsed gallbladder with enhanced mucosal versus gallbladder collapse around the stone. Recommended ultrasound. Patient was discharged with diagnosis of peptic ulcer disease and elevated liver enzymes. Patient presents because of severe epigastric right upper quadrant pain that radiates to her back that started 1 hour prior to presentation. At approximately 8 PM she had Pasta with white sauce. She is presently complaining of severe pain. She is pale diaphoretic and in obvious discomfort with nausea and vomiting. She denies hematemesis or coffee-ground emesis. She denies black or maroon-colored stool. She denies diarrhea. She denies cardiac or respiratory symptoms. She denies fever, chills night sweats. She is on pantoprazole. She was diagnosed with stress ulcer several years ago. She had EGD performed by Dr. Vaibhav Monge with no obvious bleeding source noted. Prior similar symptoms: Yes Recent Illness/Hospitalization: Yes [facility] <Dr. Nicolas Naik MD - Last Filed: 06/10/22 14:45> [facility] Medical History (Updated 06/08/22 @ 18:[address] Tasneem Crocker MD) Gastritis Physical exam, pre-employment Stress ulcer of stomach Home Medications ondansetron 4 mg disintegrating tablet 8 mg PO Q8H PRN PRN Nausea #12 tabs 05/29/22 [Rx Last Taken 06/05/22] pantoprazole 40 mg tablet,delayed release 40 mg PO DAILY #30 tabs 05/29/22 [Rx Last Taken 06/05/22] sucralfate 1 gram tablet 1 g PO Q6H 2 weeks #56 tabs 05/29/22 [Rx Last Taken 06/08/22 01:00] multivitamin 1 tab PO DAILY supplement 06/08/22 [History Last Taken 06/05/22] oxycodone-acetaminophen 5 mg-325 mg tablet 1 - 2 tab PO Q6H PRN pain 3 days #14 tabs 06/08/22 [Rx Last Taken Unknown] famotidine 20 mg tablet 20 mg PO BID PRN nausea and vomiting, GERD #30 tabs 06/09/22 [Rx Last Taken Unknown] pantoprazole 40 mg tablet,delayed release (Protonix) 40 mg PO DAILY #30 tabs 06/09/22 [Rx Last Taken Unknown] Allergy/AdvReac Type Severity Reaction Status Date / Time cat dander Allergy Swelling Verified 05/29/22 09:53 amphetamine aspartate AdvReac palpitation Verified 06/08/22 09:21 [From Adderall] amphetamine sulfate AdvReac palpitation Verified 06/08/22 09:21 [From Adderall] dextroamphetamine saccharate AdvReac palpitation Verified 06/08/22 09:21 [From Adderall] dextroamphetamine sulfate AdvReac palpitation Verified 06/08/22 09:21 [From Adderall] Family History Grandmother Breast cancer Mother Hypertension Surgical History (Updated 06/08/22 @ 18:[address] Tasneem Crocker MD) History of esophagogastroduodenoscopy (EGD) (~09/2019) S/P laparoscopic cholecystectomy Social History Smoking Status: Never smoker alcohol intake: current alcohol intake frequency: a few times a week substance use type: marijuana ROS <Dr. Nicolas Naik MD - Last Filed: 06/10/22 14:45> ROS ED Constitutional Constitutional ED: Denies chills, fever(s), subjective, sweats or weight loss ENT ENT ED: Denies ear pain, rhinorrhea or sore throat Cardiovascular Cardiovascular: Denies chest pain, orthopnea, palpitations, paroxysmal nocturnal dyspnea or racing heartbeat Respiratory/Chest Respiratory/Chest: Denies cough, dyspnea, dyspnea on exertion, orthopnea or paroxysmal nocturnal dyspnea Gastrointestinal Gastrointestinal: Reports abdominal pain, nausea and vomiting; Denies constipation or melena Genitourinary Genitourinary ED: Denies dysuria, hematuria or urinary frequency Musculoskeletal Musculoskeletal: Denies arthralgias, back pain, myalgias or neck pain Integumentary Denies rash Neurologic Neurologic: Denies headache(s), paresthesias or weakness Psychiatric Psychiatric: Denies anxiety or depression Endocrine Endocrinology: Denies polydipsia, polyphagia or polyuria Hematologic/Lymphatic Hematologic/Lymphatic: Denies easy bleeding or easy bruising EXAM <Dr. Nicolas Naik MD - Last Filed: 06/10/22 14:45> Physical Exam Const Vital Signs: 06/08/22 01:08 06/08/22 04:26 06/08/22 07:28 Temperature 98 F Temperature Source Temporal Pulse Rate 98 95 87 Respiratory Rate 16 20 H 16 Blood Pressure 145/77 H 138/89 H 120/80 Blood Pressure Mean 99 105 93 Pulse Ox 99 96 98 Oxygen Delivery Method Room Air Room Air Room Air Positive well nourished, well developed and obese General Appearance ED: well developed and pallor; Negative for NAD Nutritional Appearance: obese HEENT Reports TM's clear HEENT Narrative: Nares patent. Uvula midline. No erythema or exudate the posterior pharynx. normocephalic and atraumatic Tympanic Membrane ED: Yes TM's clear Eyes PERRL and EOMs intact bilaterally General Eye ED: Negative for pale conjunctiva or scleral icterus Neck no lymphadenopathy, supple and no JVD Resp normal respiratory effort Cardio regular rate, regular rhythm, S1 normal heart sound and S2 normal heart sound GI non-distended and no masses; Negative for non-tender Auscultation: hypoactive bowel sounds Palpation: soft and tender epigastric, RUQ and Beckham's sign; Negative for rigid, hepatomegaly, splenomegaly, hernia, mass, pulsatile mass or rebound tenderness present Back/Spine no CVA tenderness Cervical Spine: Negative for cervical spine tenderness Thoracic Spine / Upper Back: Negative for thoracic spinal tenderness Extremity full ROM General Extremety ED: Negative for edema or tenderness General Extremity: Negative for edema Neuro CN's II-XII intact bilaterally, moves all extremities, no sensory deficits noted and gait normal Sensorium / Orientation: alert Psych Psych Narrative: Histrionic Skin no wounds General Skin Exam: pallor; Negative for jaundice Lesions: no lesions Rashes: no rashes Trauma: Negative for abrasion <Dr. Francis Mann DO - Last Filed: 06/08/22 08:33> Physical Exam Const Vital Signs: 06/08/22 01:08 06/08/22 04:26 06/08/22 07:28 Temperature 98 F Temperature Source Temporal Pulse Rate 98 95 87 Respiratory Rate 16 20 H 16 Blood Pressure 145/77 H 138/89 H 120/80 Blood Pressure Mean 99 105 93 Pulse Ox 99 96 98 Oxygen Delivery Method Room Air Room Air Room Air [facility] <Dr. Nicolas Naik MD - Last Filed: 06/10/22 14:45> [facility] Narrative Medical decision making narrative: With right upper quadrant pain after Pasta with white sauce and elevated transaminases concern this is biliary colic's due to obstructing stone or cholecystitis. IV was established. She was medicated with Zofran and morphine for nausea vomiting and pain. Repeat blood work was obtained. The there is no evidence of upper GI bleed based on patient vomiting in the department. As noted in the HPI narrative prior ER visit for May and prior EGD performed Dr. Jesus Monge were reviewed and summarized. Patient was reassessed at 0226. She is still having significant pain. We will give additional dose of opiate analgesia. Patient will require an ultrasound. Since patient's white count is normal and transaminases are improving we will have done first thing in the morning versus calling someone in. Patient is complaining of pain that has intensified. 0.5 mg of Dilaudid was ordered. Lab Data Attestation: I reviewed the patient's lab results. Lab results narrative: White count is normal. Differential is unremarkable. Lactate was normal. Transaminases are elevated but improved since June 03. Alkaline phosphatase is still elevated. Lipase is upper end of normal. Labs: Laboratory Results - last 24 hr 06/08/22 06/08/22 06/08/22 01:45 01:45 01:45 WBC 8.6 RBC 4.85 Hgb 12.7 Hct 40.6 MCV 83.7 MCH 26.2 L MCHC 31.3 L RDW Std Deviation 41.5 RDW Coeff of [place] 13.5 Plt Count 363 MPV 9.1 Immature Gran % (Auto) 0.200 Neut % (Auto) 37.5 L Lymph % (Auto) 49.0 H [place] % (Auto) 10.9 H Eos % (Auto) 2.2 Baso % (Auto) 0.2 Absolute Neuts (auto) 3.2 Absolute Lymphs (auto) 4.23 Nucleated RBC % 0 Lactic Acid 1.7 Total Bilirubin 0.30 Direct Bilirubin 0.16 AST 38 H ALT 259 H Alkaline Phosphatase 132 H Total Protein 7.8 Albumin 3.8 Globulin 4.0 Lipase 361 Radiography Diagnostic Testing: Clinical Impression(s) from Imaging Studies Gallbladder Ultrasound 06/08/22 02:28 IMPRESSION: Multiple gallstones. Positive sonographic Beckham''s sign. Electronically Signed: Vishal Khan MD at 8:34 EST , <Dr. Francis Mann, DO - Last Filed: 06/08/22 08:33> [facility] Narrative Medical decision making narrative: With right upper quadrant pain after Pasta with white sauce and elevated transaminases concern this is biliary colic's due to obstructing stone or cholecystitis. IV was established. She was medicated with Zofran and morphine for nausea vomiting and pain. Repeat blood work was obtained. The there is no evidence of upper GI bleed based on patient vomiting in the department. As noted in the HPI narrative prior ER visit for May and prior EGD performed Dr. Jesus Monge were reviewed and summarized. Patient was reassessed at 0226. She is still having significant pain. We will give additional dose of opiate analgesia. Patient will require an ultrasound. Since patient's white count is normal and transaminases are improving we will have done first thing in the morning versus calling someone in. Patient is complaining of pain that has intensified. 0.5 mg of Dilaudid was ordered. 0800: Le. After returning from ultrasound increasing abdominal pain and nausea. Additional Dilaudid and Zofran given. I reviewed the ultrasound images myself there is a layer of gallstones. There is no thickening. Normal common bile duct. Patient normal lipase. Review of her records she had EGD September 2019, findings were gastritis and duodenitis with no ulcers. H. pylori testing was negative. She does have right upper quadrant pain today. Concerning for clinical cholecystitis with cholelithiasis. I did reach out to Dr. Monge updated on patient's findings and concerns, he is currently not available to help manage the patient he recommended discussing with on-call surgeon. Patient reporting last night eaten chicken Pasta a with all of oil and cheese sauce. Spoke with on-call surgeon Dr. Crocker discussed findings concerns she agrees. Zosyn will be started. She will be admitted under her service for plan surgical intervention sometime today. Preop EKG obtained which was sinus at 68 with no acute findings. Preop chest x-ray reviewed bedside with no acute findings. Patient is updated. Patient admitted under surgical service. Patient be kept n.p.o. with fluids continued. Lab Data Labs: Laboratory Results - last 24 hr 06/08/22 06/08/22 06/08/22 01:45 01:45 01:45 WBC 8.6 RBC 4.85 Hgb 12.7 Hct 40.6 MCV 83.7 MCH 26.2 L MCHC 31.3 L RDW Std Deviation 41.5 RDW Coeff of [place] 13.5 Plt Count 363 MPV 9.1 Immature Gran % (Auto) 0.200 Neut % (Auto) 37.5 L Lymph % (Auto) 49.0 H [place] % (Auto) 10.9 H Eos % (Auto) 2.2 Baso % (Auto) 0.2 Absolute Neuts (auto) 3.2 Absolute Lymphs (auto) 4.23 Nucleated RBC % 0 Lactic Acid 1.7 Total Bilirubin 0.30 Direct Bilirubin 0.16 AST 38 H ALT 259 H Alkaline Phosphatase 132 H Total Protein 7.8 Albumin 3.8 Globulin 4.0 Lipase 361 Radiography Diagnostic Testing: Clinical Impression(s) from Imaging Studies Gallbladder Ultrasound 06/08/22 02:28 IMPRESSION: Multiple gallstones. Positive sonographic Beckham''s sign. Electronically Signed: Vishal Khan MD at 8:34 EST , EKG Initial EKG: Attestation: I personally reviewed and interpreted this EKG as follows: Comments: Sinus arrhythmia rate of 68, no ST or T wave changes. Discharge Plan Dx/Rx/DC Orders Clinical Impression: Acute calculous cholecystitis, Pain, abdominal, RUQ, Symptomatic cholelithiasis, Transaminitis Disposition Disposition: Acute Care Hospital [facility] Discharge Date/Time: 06/08/22 09:08
[2022-06-08 01:58] LABS: Absolute Lymphocyte Count 4.23 X10^3/uL (0.83-4.51); Absolute Neutrophil Count 3.2 X10^3/uL (2.0-7.7); Basophil# 0.02 X10^3/uL; Basophil% 0.2 % (0-1); Eosinophil# 0.19 X10^3/uL; Eosinophils% 2.2 % (0-5); Hematocrit 40.6 % (37-47); Hemoglobin 12.7 g/dL (12.0-15.0); Lymphocyte # 4.23 X10^3/ul (0.83-4.51); Mean Corp Hgb Conc 31.3 g/dL (32-36); Mean Corpuscular Hgb 26.2 pg (27.0-32.0); Mean Corpuscular Volume 83.7 fL (81-99); Mean Platelet Vol. 9.1 fl (6.2-12.0); Monocyte# 0.94 X10^3/uL; Monocyte% 10.9 % (0-10); NRBC Flagged by Analyzer 0 % (0-5); Neutrophil # 3.23 X10^3/uL (2.7-7.7); Neutrophil % 37.5 % (47-70); Platelet Count 363 K/mm3 (150-450); RBC Distribution Width CV 13.5 % (11.6-14.6); RBC Distribution Width SD 41.5 fl (35.1-43.9); Red Blood Count 4.85 M/mm3 (4.2-5.4); White Blood Count 8.6 K/mm3 (4.4-11.0)
[2022-06-08 02:13] LABS: AST(SGOT) 38 U/L (15-37); Alanine Aminotransfer ALT/SGPT 259 U/L (13-56); Albumin, Serum 3.8 g/dL (3.2-5.0); Alkaline Phosphatase 132 U/L (45-117); Bilirubin, Direct 0.16 mg/dL (0.00-0.30); Lipase 361 U/L (73-393); Protein, Total 7.8 g/dL (6.4-8.2)
[2022-06-08 02:26] LABS: Lactic Acid 1.7 mmol/L (0.4-1.9)
--- NOTE | 2022-06-08 02:28 | US_ITS ---
STUDY: ABDOMINAL ULTRASOUND - RIGHT UPPER QUADRANT REASON FOR VISIT: Female, 26 years old RUQ pain, Beckham sign, elevated transaminases -- abnl CT TECHNIQUE: Ultrasound evaluation of the right upper quadrant was performed with real-time and static resendez-scale imaging. TECHNICAL QUALITY: Adequate. COMPARISON: Comparison is made with prior CT scan of the abdomen and pelvis dated 06/03/2022. FINDINGS: Liver: The liver measures 14.7 cm. There is normal echogenicity of the liver. The bile ducts are within normal limits. There is hepatic color flow. The direction of portal flow is hepatopetal. There is no demonstrated mass lesion. Gallbladder: Normal distended gallbladder. The gallbladder wall measures 2.2 mm. There is a positive sonographic Beckham''s sign. There is no pericholecystic fluid. There are multiple echogenic structures within the gallbladder, consistent with multiple gallstones. Common Bile Duct (C.B.D.): The common bile duct measures 5.8 mm. Pancreas: Normal size of the head, body and tail of the pancreas. There is normal echogenicity of the pancreas. There is no demonstrated pancreatic mass or cyst. Right Kidney: Normal size of the right kidney. The right kidney measures 11.3 cm x 5 cm x 3.7 cm. Normal renal cortex. The right cortex measures 1.6 cm. There is no demonstrated renal mass or cyst. There is no right hydronephrosis. US/Gallbladder IMPRESSION: Multiple gallstones. Positive sonographic Beckham''s sign. Electronically Signed: Vishal Khan MD at 8:34 EST ,
[2022-06-08] MEDS: HYDROmorphone 0.5 MG/0.5 ML SYRINGE IV ×4 (02:34→10:02)
--- NOTE | 2022-06-08 08:19 | EKG12_ITS ---
Test Reason : Blood Pressure : / mmHG Vent. Rate : 068 BPM Atrial Rate : 068 BPM P-R Int : 156 ms QRS Dur : 080 ms QT Int : 404 ms P-R-T Axes : 067 087 049 degrees QTc Int : 429 ms Normal sinus rhythm with sinus arrhythmia Normal ECG Confirmed by RALEIGH DE LEON, ZURI ([id number]), health editor COURTNEY HANNAH ([id number]) on 06/09/2022 2:47:22 PM Referred By: MASON Confirmed By:NA STOREY MD
--- NOTE | 2022-06-08 08:25 | RAD_ITS ---
STUDY: X-RAY CHEST REASON FOR EXAM: Female, 26 years old. Preoperative evaluation. TECHNIQUE: Single AP portable view of the chest. COMPARISON: Comparison is made with prior study dated 06/25/2019. FINDINGS: The lungs are clear and expanded. There is no demonstrated pleural abnormality. Normal size heart. Normal mediastinum and jayden. Normal visualized pulmonary arteries. Normal visualized aortic arch and descending thoracic aorta. Normal visualized thoracic spine. Normal visualized ribs, clavicles, and shoulders. There is no demonstrated abnormality of the visualized soft tissue structures of the upper abdomen. RAD/Chest 1 View (Portable) IMPRESSION: Normal x-ray examination of the chest. Electronically Signed: Vishal Khan MD at 8:57 EST ,
[2022-06-08 09:15] LABS: International Normalized Ratio 1.1; Prothrombin Time (Protime)PT. 13.5 SECONDS (11.7-14.9)
[2022-06-08 09:16] LABS: Partial Thromboplast Time 28.5 Seconds (24.1-36.2)
[2022-06-08] MEDS: 0.9% Normal Saline 1,000 ML 150 ML IV ×2 (09:36→21:05)
--- NOTE | 2022-06-08 12:12 | HP.PCM.SX_ITS ---
HPI - General General Date of Admission: 06/08/22 HPI Narrative KAR MANLEY, is a 26 F who presents to the ER due to right upper quadrant pain that started about 1 AM. Patient also had elevated LFTs. Patient has been to the ER couple times for similar episodes and patient was put on some Carafate and Protonix. Patient had the right upper quadrant pain nausea and vomiting. Patient had an ultrasound showed gallstones/sludge. Patient is 6 months from twins. [facility] Medical History Gastritis Physical exam, pre-employment Stress ulcer of stomach Home Medications ondansetron 4 mg disintegrating tablet 8 mg PO Q8H PRN PRN Nausea #12 tabs 05/29/22 [Rx Last Taken 06/05/22] pantoprazole 40 mg tablet,delayed release 40 mg PO DAILY #30 tabs 05/29/22 [Rx Last Taken 06/05/22] sucralfate 1 gram tablet 1 g PO Q6H 2 weeks #56 tabs 05/29/22 [Rx Last Taken 06/08/22 01:00] multivitamin 1 tab PO DAILY supplement 06/08/22 [History Last Taken 06/05/22] Allergy/AdvReac Type Severity Reaction Status Date / Time cat dander Allergy Swelling Verified 05/29/22 09:53 amphetamine aspartate AdvReac palpitation Verified 06/08/22 09:21 [From Adderall] amphetamine sulfate AdvReac palpitation Verified 06/08/22 09:21 [From Adderall] dextroamphetamine saccharate AdvReac palpitation Verified 06/08/22 09:21 [From Adderall] dextroamphetamine sulfate AdvReac palpitation Verified 06/08/22 09:21 [From Adderall] Family History Grandmother Breast cancer Mother Hypertension Surgical History History of esophagogastroduodenoscopy (EGD) (~09/2019) Social History Smoking Status: Never smoker alcohol intake: current alcohol intake frequency: a few times a week substance use type: marijuana ROS Constitutional Constitutional: Reports anorexia Eyes Eyes: Denies change in vision ENT HEENT: Denies dysphagia Cardiovascular Cardiovascular: Denies chest pain Respiratory/Chest Respiratory/Chest: Denies shortness of breath at rest Gastrointestinal Gastrointestinal: Reports abdominal pain, diarrhea, nausea and vomiting Genitourinary Genitourinary: Denies dysuria Musculoskeletal Musculoskeletal: Denies joint swelling Integumentary Integumentary: Denies rash Neurologic Neurologic: Denies numbness Psychiatric Psychiatric: Denies depression Hematologic/Lymphatic Hematologic/Lymphatic: Denies easy bleeding Vital Signs Vital Signs Vital Signs: 06/08/22 01:08 06/08/22 04:26 06/08/22 07:28 Temperature 98 F Temperature Source Temporal Pulse Rate 98 95 87 Pulse Strength Respiratory Rate 16 20 H 16 Respiratory Effort Respiratory Depth Respiratory Pattern Blood Pressure 145/77 H 138/89 H 120/80 Blood Pressure Mean 99 105 93 Blood Pressure Source Blood Pressure Position Blood Pressure Location Pulse Ox 99 96 98 Oxygen Delivery Method Room Air Room Air Room Air 06/08/22 09:08 06/08/22 09:28 06/08/22 09:28 Temperature 97.6 F L Temperature Source Oral Pulse Rate 87 Pulse Strength Normal (2+) Respiratory Rate 16 Respiratory Effort Normal Respiratory Depth Normal Respiratory Pattern Normal Blood Pressure 120/80 Blood Pressure Mean 93 Blood Pressure Source Blood Pressure Position Blood Pressure Location Pulse Ox 98 Oxygen Delivery Method Room Air Room Air 06/08/22 10:15 Temperature 98.8 F Temperature Source Oral Pulse Rate 65 Pulse Strength Respiratory Rate 16 Respiratory Effort Respiratory Depth Respiratory Pattern Blood Pressure 124/80 H Blood Pressure Mean 94 Blood Pressure Source Monitor Blood Pressure Position Semi-Fowlers Blood Pressure Location Right Arm Pulse Ox 100 Oxygen Delivery Method Room Air Weight Weight: 161 lb 6.054 oz Body Mass Index (BMI) 28.5 Physical Exam Const alert, oriented x3 and no apparent distress HEENT normocephalic and head/scalp atraumatic Resp normal respiratory effort Cardio regular rate GI soft to palpation; Negative for non-distended Palpation: tender epigastric and RUQ; Negative for guarding Extremity no clubbing, cyanosis or edema Neuro CN's II-XII intact bilaterally Psych mental status grossly normal Results Lab / Micro Data Result Diagrams: 06/08/22 01:45 Labs: Laboratory Results - last 24 hr 06/08/22 01:45: WBC 8.6, RBC 4.85, Hgb 12.7, Hct 40.6, MCV 83.7, MCH 26.2 L, MCHC 31.3 L, RDW Std Deviation 41.5, RDW Coeff of [place]itt 13.5, Plt Count 363, MPV 9.1, Immature Gran % (Auto) 0.200, Neut % (Auto) 37.5 L, Lymph % (Auto) 49.0 H, [place] % (Auto) 10.9 H, Eos % (Auto) 2.2, Baso % (Auto) 0.2, Absolute Neuts (auto) 3.2, Absolute Lymphs (auto) 4.23, Nucleated RBC % 0 06/08/22 01:45: Total Bilirubin 0.30, Direct Bilirubin 0.16, AST 38 H, ALT 259 H , Alkaline Phosphatase 132 H, Total Protein 7.8, Albumin 3.8, Globulin 4.0, Lipase 361 06/08/22 01:45: Lactic Acid 1.7 06/08/22 08:45: PT 13.5, INR 1.1, APTT 28.5 06/08/22 08:45: Blood Type B POSITIVE, Antibody Screen NEGATIVE Radiology Impression Gallbladder Ultrasound 06/08/22 02:28 IMPRESSION: Multiple gallstones. Positive sonographic Beckham''s sign. Electronically Signed: Vishal Khan MD at 8:34 EST Reading Location ID and State: [address] [place] [address] , Service support , Chest X-Ray 06/08/22 08:25 IMPRESSION: Normal x-ray examination of the chest. Electronically Signed: Vishal Khan MD at 8:57 EST , Assessment & Plan Assessment/Plan (1) Acute calculous cholecystitis: (2) Elevated LFTs: (3) Pain, abdominal, RUQ: PLAN: Plan Reviewed the anatomy with the patient and discussed the procedure: laparoscopic cholecystectomy with cholangiograms, possible open. Review risks including but not limited to bleeding, infection, hernia, bile leak, retained gallstones requiring another procedure ERCP- Endoscopic Retrograde Cholangiopancreatography, injury to another organ (bile ducts, common bile duct, small bowel, etc.) and conversion to an open procedure. All questions were answered. Tasneem Crocker M.D. Pager: [phone] [facility] [address] [place] [address], [address] [place] [address] Office: [phone]
--- NOTE | 2022-06-08 14:15 | NURSING ---
pt to surgery
[2022-06-08] MEDS: Lactated Ringers 1,000 ML 15 ML IV (14:40)
--- NOTE | 2022-06-08 15:07 | SUR.PREOP ---
PER DR. COELHO SERUM PREG ORDERED FOR PRE-OP CLEARANCE.
[2022-06-08 15:24] LABS: Internal QC Validated? YES +Cl - CLEAR BKGD; Pregnancy, Serum, hCG Quali. NEGATIVE Negative
--- NOTE | 2022-06-08 15:30 | RAD_ITS ---
INDICATION: LAP ANTELMO EXAMINATION/TECHNIQUE: Images assigned to this order were provided in conjunction with a surgical procedure performed in the operating room/procedural suite. Please see operative report for details. Fluoroscopic images: 26 Fluoroscopic time: 4.6 seconds Cumulative dose: 0.71303, mGym2; 1.51; mGy COMPARISON: None. FINDINGS: No filling defects are identified. There is no biliary ductal dilatation. There is free passage into the duodenum. RAD/Cholangiogram/ O R,Initial IMPRESSION: Negative intraoperative cholangiogram. Electronically Signed: Luis Fernando Jackson MD at 21:54 EST ,
--- NOTE | 2022-06-08 15:30 | GALL_PTH ---
PATIENT: KAR MANLEY LOC: MS3 U#:[id number] AGE/SX: 26/F ROOM: MS313 RE06/08/[address]: Dr. Tasneem Crocker MD : 1995 BED: 1 DIS: 06/09/2022 SPEC #: [id number] RECD: 06/09/22 10:57 STATUS: CHAZ ANABELL #: [id number] LY: 06/08/22 15:[address]: Tasneem Crocker DEPT: SURGICAL PATHOLOGY RECD BY: Cindy Mendoza ENTERED: 06/09/22 13:19 SP TYPE: ALIDA VEGA DR: No Primary Care Phys Tissues: Gallbladder, NOS Procedures: Surgery Specimen Level III HEADER OPERATION: Laparoscopic cholecystectomy with IOC PRE-OP DIAGNOSIS: Acute calculous cholecystitis; elevated LFTs, Pain abdominal RUQ TISSUE SUBMITTED: Gallbladder MICROSCOPIC DIAGNOSIS Gallbladder, cholecystectomy: Acute and chronic cholecystitis and cholelithiasis. Benign pericystic lymph node. AM:ida 06/12/2022 MICROSCOPIC DESCRIPTION Slides are reviewed. GROSS DESCRIPTION Received is one container labeled with the patient's name and designated gallbladder. The specimen consists of a previously opened gallbladder measuring 8.5 cm in length and 2.5 cm in diameter. The external surface is pink-partida, smooth and glistening for the most part. Focally it is granular, hemorrhagic and contains cautery artifact. The gallbladder contains a small amount of partida, turbid mucoid bile. Present in the container and also in the gallbladder are multiple green, multifaceted stones measuring in aggregate 4 x 4 x 0.5 cm and 0.2 to 0.3 cm in greatest dimension. The mucosa is bile-stained and without any mass lesions. The gallbladder wall measures up to 0.5 cm in thickness. Also present close to the cystic duct is a partida nodule measuring 0.6 cm in diameter. Pathology Specialist sections from the gallbladder and the cystic duct are submitted in one cassette including nodule. / SJ:ida 06/09/2022 TC:2 CPT: 07692
[2022-06-08] MEDS: Bupivacaine Mpf 0.5% 30 ML VIAL (18:30)
--- NOTE | 2022-06-08 18:45 | OP.PCM_ITS ---
Report of Operation Date of Procedure: 06/08/22 Pre-Operative Diagnosis: Acute cholecystitis, cholelithiasis Post-Operative Diagnosis: Same Surgery/Procedure Performed:: Laparoscopic cholecystectomy with cholangiograms Surgeon: Tasneem Crocker training and development director: Simon Perry Type of Anesthesia: General/Supplemental Anesthesiologist: Celi King Special Medications: Zosyn 3.375 g IV every 8 hours for acute cholecystitis Specimen's removed: Gallbladder and stones Estimated Blood Loss (mL): < 10 CC Description of Procedure: Indications: this is a 26 year-old female who developed abdominal pain/nausea/vomiting and on workup was found to have acute cholecystitis, cholelithiasis, elevated liver functions AST ALT and alk phos, with a normal common bile duct. Laparoscopic cholecystectomy was elected. Description procedure: The patient was placed on operating table in supine position. A timeout was completed verifying correct patient, procedure, site, position and special equipment prior to beginning procedure. General Anesthesia was induced. The abdomen was prepped and draped in usual sterile fashion. An incision was made in the natural skin line above the umbilicus. The fascia was elevated and incised. The peritoneum was elevated and incised. Entry into the peritoneum was confirmed visually and no bowel was noted in the vicinity of the incision. Mae trocar was placed. The abdomen was insufflated with carbon dioxide to a pressure of 12-15 mmHg. Patient tolerated insufflation well. The laparoscope was then inserted and abdomen inspected. No injuries from initial trocar placement were noted. Additional trochars were then inserted in the following locations 5 mm trocar in the epigastrium and 2 more 5 mm trochars along the right costal margin. The abdomen was inspected no abnormalities were found. The table is placed in reverse Trendelenburg position with the right side up. The gallbladder was distended and tense. An aspiration needle was used to decompress the gallbladder. The dome of the gallbladder was grasped with atraumatic grasper passed through the lateral port and retracted over the dome of the liver. Infundibulum was then grasped with atraumatic grasper through the midclavicular port and retracted to the right lower quadrant. This maneuver exposed Calot's triangle. The peritoneum overlying the gallbladder infundibulum was then incised and cystic duct and artery identified and circumferentially dissected. Sarmiento catheter was used for cholangiograms. The cholangiogram showed good filling of the common bile duct into the duodenum with no filling defects, good filling of the right and left bile ducts as well. The cystic duct and artery were then doubly clipped and divided close to the gallbladder. The gallbladder then dissected from its peritoneal attachments by electrocautery. Hemostasis was checked and the gallbladder and contained stones were removed using the endoscopic retrieval bag through the umbilical port. The gallbladder is passed off table as specimen. The gallbladder fossa was irr igated with saline and hemostasis obtained. There is no evidence of bleeding from the gallbladder fossa or cystic artery leakage of bile from the cystic duct stump. Secondary trochars removed under direct vision. No bleeding was noted the trocar sites. The laparoscope was withdrawn and umbilical trocar removed. The abdomen was allowed to collapse. The fascia of the 12 mm trocar was closed with a [id number] 0 Vicryl suture. The skin was closed with sutures of 4-0 Monocryl and Steri-Strips. The patient was extubated. The patient tolerated procedure well and was taken to the postanesthesia care unit in stable condition. Complications None
--- NOTE | 2022-06-08 18:47 | DCINST_ITS ---
Discharge Instructions Diet Discharge Diet: Light diet - advance as tolerated Activity Discharge Activity: May Not Drive (while taking narcotic pain medications.) May shower in (days): 1 Lifting Restrictions: no lifting >20 lbs x 2 wks, no strenuous exercise for 4 wks Dressing / Incision Call your doctor if your incision/area has: Continuous Slow Oozing, Sudden Increased Bleeding, Increased Pain/ Swelling, Increased Redness, Foul Smelling Discharge and Swelling at the incision site Call your doctor if you observe: Fever of 101 or Higher Remove Dressing in: 2 days Cleanse incision/area with: Soap & Water Additional Dressing/Incision Instructions:: Steri-Strips will fall off in 7 to 10 days, if they do not fall off okay to remove after 10 days. Follow Up Care Please Follow Up With: Tasneem Crocker MD When: Call the office for a follow-up appointment 2 weeks; after 5 PM and on the weekends call [phone] with any concerns. Test Results: Test results from this visit will be discussed in further detail at your follow- up appointment, if applicable. Discharge Plan Admission Admit Date/Time: 06/08/22 08:19 Attending Provider: Tasneem Crocker Primary Care Provider: Care PhysicianMamie Primary Discharge Orders/Prescriptions Prescriptions: New oxycodone-acetaminophen 5-325 mg tablet 1 - 2 tab PO Q6H PRN (Reason: pain) 3 Days Qty: 14 0RF Continued pantoprazole 40 mg tablet,delayed release (DR/EC) 40 mg PO DAILY Qty: 30 0RF sucralfate 1 gram tablet 1 g PO Q6H 14 Days Qty: 56 0RF ondansetron 4 mg tablet,disintegrating 8 mg PO Q8H PRN PRN (Reason: Nausea) Qty: 12 0RF multivitamin Tablet 1 tab PO DAILY Referrals / Follow Up: Care PhysicianMamie Primary [Primary Care Provider] - Disposition Disposition (needs filled in before D/C Order can be placed): Home, Self Care
[2022-06-08] MEDS: Acetaminophen 325 MG Tablet 650 MG PO (23:00)
[2022-06-08] MEDS: oxyCODONE 5 MG Tablet PO (23:01)
[2022-06-08] MEDS: 0.9% Saline Lock 10 ML Syringe IV (23:01)
[2022-06-09 01:00] VITALS: BP 110/74; PULSE 64; RESP 14; TEMP 37; O2SAT 98
[2022-06-09 05:00] VITALS: BP 115/75; PULSE 62; RESP 14; TEMP 36.8; O2SAT 100
[2022-06-09] MEDS: oxyCODONE 5 MG Tablet PO ×2 (05:34→11:31)
[2022-06-09] MEDS: Acetaminophen 325 MG Tablet 650 MG PO (05:35)
[2022-06-09 06:24] VITALS: BP 115/75; PULSE 62; RESP 15; TEMP 36.8; O2SAT 100
[2022-06-09 06:45] LABS: Absolute Lymphocyte Count 1.33 X10^3/uL (0.83-4.51); Absolute Neutrophil Count 5.2 X10^3/uL (2.0-7.7); Basophil# 0.02 X10^3/uL; Basophil% 0.3 % (0-1); Hematocrit 38.4 % (37-47); Hemoglobin 11.8 g/dL (12.0-15.0); Lymphocyte # 1.33 X10^3/ul (0.83-4.51); Lymphocyte % 18.2 % (19-41); Mean Corp Hgb Conc 30.7 g/dL (32-36); Mean Corpuscular Hgb 26.2 pg (27.0-32.0); Mean Corpuscular Volume 85.3 fL (81-99); Monocyte# 0.74 X10^3/uL; Monocyte% 10.1 % (0-10); NRBC Flagged by Analyzer 0 % (0-5); Neutrophil # 5.18 X10^3/uL (2.7-7.7); Platelet Count 335 K/mm3 (150-450); RBC Distribution Width CV 13.7 % (11.6-14.6); RBC Distribution Width SD 42.9 fl (35.1-43.9); White Blood Count 7.3 K/mm3 (4.4-11.0)
[2022-06-09 07:13] LABS: AST(SGOT) 27 U/L (15-37); Alanine Aminotransfer ALT/SGPT 167 U/L (13-56); Albumin, Serum 3.2 g/dL (3.2-5.0); Alkaline Phosphatase 102 U/L (45-117); Anion Gap 7 (5-15); BUN 8 mg/dL (7-18); Bilirubin, Direct 0.16 mg/dL (0.00-0.30); Calcium,Total 8.7 mg/dL (8.5-10.1); Chloride 110 mmol/L (98-107); Creatinine, Serum 0.89 mg/dL (0.55-1.02); EST Glomerular Filtration Rate 81 mL/min (>60); Est Glom Filt Rate - Afr Amer 98 mL/min (>60); Estimated Creatinine Clearance 79.24 ml/min; Globulin 3.6 g/dL (2.2-4.2); Glucose 109 mg/dL (74-106); Potassium 4.1 mmol/L (3.5-5.1); Protein, Total 6.8 g/dL (6.4-8.2); Sodium Level 141 mmol/L (136-145)
--- NOTE | 2022-06-09 08:55 | PN.SURG_ITS ---
Subjective Subjective Patient is doing well tolerating diet not complaining of much abdominal pain. Objective Data Objective Data Vital Signs: Vital Signs Temp Pulse Resp BP Pulse Ox O2 Del Method 98.3 F 62 15 115/75 100 Room Air 06/09/22 06:24 06/09/22 06:24 06/09/22 06:24 06/09/22 06:24 06/09/22 06:24 06/09/22 06:24 Oxygen Delivery Method Room Air Weight: 161 lb 6.054 oz Body Mass Index (BMI) 28.5 Intake & Output: Intake and Output for Last 24 Hours 06/07/22 06/08/22 06/09/22 23:59 23:59 23:59 Intake Total 1767.50 / 1767.50 1832.25 / 1832.25 Balance 1767.50 / 1767.50 1832.25 / 1832.25 Lab / Micro Data Result Diagrams: 06/09/22 06:01 06/09/22 06:01 Labs: Laboratory Results - last 24 hr 06/08/22 08:45: PT 13.5, INR 1.1, APTT 28.5 06/08/22 08:45: Blood Type B POSITIVE, Antibody Screen NEGATIVE 06/08/22 15:13: Serum , Qual NEGATIVE 06/09/22 06:01: WBC 7.3, RBC 4.50, Hgb 11.8 L, Hct 38.4, MCV 85.3, MCH 26.2 L, MCHC 30.7 L, RDW Std Deviation 42.9, RDW Coeff of [place]itt 13.7, Plt Count 335, MPV 9.0, Immature Gran % (Auto) 0.400, Neut % (Auto) 71.0 H, Lymph % (Auto) 18.2 L, [place] % (Auto) 10.1 H, Eos % (Auto) 0.0, Baso % (Auto) 0.3, Absolute Neuts (auto) 5.2, Absolute Lymphs (auto) 1.33, Nucleated RBC % 0 06/09/22 06:01: Sodium 141, Potassium 4.1, Chloride 110 H, Carbon Dioxide 24.0, Anion Gap 7, BUN 8, Creatinine 0.89, Estim Creat Clear Calc 79.24, Est GFR (MDRD) Af Amer 98, Est GFR (MDRD) Non-Af 81, BUN/Creatinine Ratio 9.0 L, Glucose 109 H, Calcium 8.7, Total Bilirubin 0.50, Direct Bilirubin 0.16, AST 27, ALT 167 H, Alkaline Phosphatase 102, Total Protein 6.8, Albumin 3.2, Globulin 3.6 Radiography Diagnostic Testing: Radiology Impression Chest X-Ray 06/08/22 08:25 IMPRESSION: Normal x-ray examination of the chest. Electronically Signed: Vishal Khan MD at 8:57 EST , Cholangiogram 06/08/22 15:30 IMPRESSION: Negative intraoperative cholangiogram. Electronically Signed: Luis Fernando Jackson MD at 21:54 EST , Physical Exam Resp normal respiratory effort Cardio regular rate GI GI Narrative: Abdomen: Soft, nondistended, tender near incision's dressed clean dry and intact, no peritoneal signs Assessment & Plan Assessment/Plan (1) S/P laparoscopic cholecystectomy: PLAN: Plan Postoperatively patient is doing well. Patient's elevated LFTs are likely due to acute cholecystitis that she had quite a bit of edema. Patient is tolerating diet we will plan to DC home. Tasneem Crocker M.D. Pager: [phone] [facility] [address] [place] [address], [facility], [address] [place] [address] Office: [phone]
[2022-06-09 09:22] VITALS: BP 117/72; PULSE 66; RESP 18; TEMP 36.7; O2SAT 100
--- NOTE | 2022-06-09 12:19 | CASEMGMT ---
Social Work Referral received from for domestic issues. SW met with pt and introduced self and role of SW. Pt speaking openly with SW regarding difficulties with father of pt's 5 year of daughter. Pt states there is court ordered shared parenting, [employer] has been involved when daughter was born but not since and daughter is safe with father during her visits. Pt expressing frustration with the father and asking if anything can be done. SW explained that restraining order would need to be pursued through police if situation warranted it. Pt is aware of this. SW attempted to speak with pt regarding setting boundaries. Pt dismissive of information. Pt states she has been speaking with an regulatory attorney and will continue with this. Pt ready to be discharged and ride is here. Pt denies any further SW needs. STEPHANIE Chavez
--- NOTE | 2022-06-09 12:21 | PHA.DC.MC ---
Pharmacy Service has performed discharge medication reconciliation and counseling for this patient. 1. OXYCODONE/ACETAMINOPHEN 5/325MG 1-2T PO Q6H PRN PAIN The patient's discharge medication list was reviewed for discrepancies and discrepancies were resolved. Home Medications ondansetron 4 mg disintegrating tablet 8 mg PO Q8H PRN PRN Nausea #12 tabs 05/29/22 pantoprazole 40 mg tablet,delayed release 40 mg PO DAILY #30 tabs 05/29/22 sucralfate 1 gram tablet 1 g PO Q6H 2 weeks #56 tabs 05/29/22 multivitamin 1 tab PO DAILY supplement 06/08/22 oxycodone-acetaminophen 5 mg-325 mg tablet 1 - 2 tab PO Q6H PRN pain 3 days #14 tabs 06/08/22 famotidine 20 mg tablet 20 mg PO BID PRN nausea and vomiting, GERD #30 tabs 06/09/22 pantoprazole 40 mg tablet,delayed release (Protonix) 40 mg PO DAILY #30 tabs 06/09/22 The patient was counseled on the following discharge medications and changes in medications for homegoing were reviewed. The Reason for Use, instructions for use, and potential side effects were reviewed for all new medications. The patient's questions regarding all of their medications were answered. The patient was able to verbally demonstrate an understanding of their discharge medications. Patient counseled by student financial services counselorJessica.
== END 2022-06-09 12:19 | disposition home or self-care (01) ==
LOC: ED 08:31 → MS3 08:33
PROVIDERS: Anesthesiology; Emergency Medicine; Admitting Provider Surgery; Emergency Provider Emergency Medicine; Visit Provider Surgery
PROC: (CPT 47610; principal; 2022-06-08 15:10)
DX: K80.12 Calculus of gallbladder with acute and chronic cholecystitis without obstruction (principal)
CPT/HCPCS: 47563; 00790; J7030; J7120; 36415; 71045; 74300; 76000; 76705; 80048; 80076; 83605; 83690; 84703; 85025; 85610; 85730; 86850; 86900; 86901; 88304; 93005; 96361; 96365; 96366; 96367; 96375; 96376; 97802; 99221; 99284; A4216; G0378; J2405

== ENCOUNTER 2022-07-26 20:56 | Emergency (ER) | payer MEDICAID, SELFPAY ==
[2022-07-26 20:57] VITALS: BP 145/94; PULSE 85; RESP 16; TEMP 36; O2SAT 100; BMI 29.2
== END 2022-07-26 21:44 | disposition left against medical advice (07) ==
LOC: ED 21:45
DX: R10.9 Unspecified abdominal pain (principal)

== ENCOUNTER 2022-11-06 21:50 | Emergency (ER) | payer MEDICAID, SELFPAY ==
[2022-11-06 21:52] VITALS: BP 131/83; PULSE 81; RESP 14; TEMP 36.2; O2SAT 95; BMI 30.6
--- NOTE | 2022-11-06 22:55 | EX.ED.VISEXT ---
HPI History of Present Illness Chief Complaint: [facility] Medical History Gastritis Physical exam, pre-employment Stress ulcer of stomach Home Medications ondansetron 4 mg disintegrating tablet 8 mg (2 x 4 mg) PO Q8H PRN PRN Nausea #12 tabs 05/29/22 [Rx Last Taken 06/05/22] pantoprazole 40 mg tablet,delayed release 40 mg PO DAILY #30 tabs 05/29/22 [Rx Last Taken 06/05/22] sucralfate 1 gram tablet 1 g PO Q6H 2 weeks #56 tabs 05/29/22 [Rx Last Taken 06/08/22 01:00] multivitamin 1 tab PO DAILY supplement 06/08/22 [History Last Taken 06/05/22] oxycodone-acetaminophen 5 mg-325 mg tablet 1 - 2 tab PO Q6H PRN pain 3 days #14 tabs 06/08/22 [Rx Last Taken Unknown] famotidine 20 mg tablet 20 mg PO BID PRN nausea and vomiting, GERD #30 tabs 06/09/22 [Rx Last Taken Unknown] pantoprazole 40 mg tablet,delayed release (Protonix) 40 mg PO DAILY #30 tabs 06/09/22 [Rx Last Taken Unknown] Allergy/AdvReac Type Severity Reaction Status Date / Time cat dander Allergy Swelling Verified 05/29/22 09:53 amphetamine aspartate AdvReac palpitation Verified 06/08/22 09:21 [From Adderall] amphetamine sulfate AdvReac palpitation Verified 06/08/22 09:21 [From Adderall] dextroamphetamine saccharate AdvReac palpitation Verified 06/08/22 09:21 [From Adderall] dextroamphetamine sulfate AdvReac palpitation Verified 06/08/22 09:21 [From Adderall] MOSIQUTO Allergy Mild ITCHY Uncoded 11/06/22 21:54 Family History Grandmother Breast cancer Mother Hypertension Surgical History History of esophagogastroduodenoscopy (EGD) (~09/2019) S/P laparoscopic cholecystectomy Social History Smoking Status: Never smoker alcohol intake: current alcohol intake frequency: a few times a week substance use type: marijuana EXAM Physical Exam Const Vital Signs: 11/06/22 21:52 Temperature 97.2 F L Temperature Source Temporal Pulse Rate 81 Respiratory Rate 14 Blood Pressure 131/83 H Blood Pressure Mean 99 Pulse Ox 95 Oxygen Delivery Method Room Air MDM MDM MDM Narrative Medical decision making narrative: HISTORY OF PRESENT ILLNESS: 27-year-old female here with concern for mosquito bite to the face. States he was bit by mosquito on Sunday and has had swelling and itching ever since. Patient know she has allergies to mosquitoes. She denies any wheezing, vomiting, shortness of breath, drooling. REVIEW OF SYSTEMS: Pertinent positives: Facial swelling, itching Pertinent negatives: Drooling, neck stiffness, difficulty opening her mouth, nausea, wheezing PHYSICAL EXAM: Nursing triage notes reviewed, Vital signs reviewed Constitutional: please see mdm HENT: MMM, there is swelling to the right side of face, no obvious redness, fluctuance, crepitus or bullae, there is a swollen perirectal lymph node noted, no drooling, no dysphonia, no trismus. Eyes: Pupils equal round and reactive to light, Extraocular muscles intact Neck: No stridor, no JVD, full neck ROM Lungs: Clear to auscultation, No wheezing or rales. No increased work of breathing, no conversational dyspnea, no accessory muscle use, no nasal flaring. No respiratory distress noted Heart: Regular rate and rhythm, No murmurs, No rubs and No gallops, 2+ distal pulses (radial, femoral, posterior tibial) in all extremities Abdomen: Soft, there is no tenderness, rigidity, rebound or guarding, no obvious peritoneal signs, no palpable pulsatile abdominal masses, no auscultated abdominal bruit : No CVAT Extremities: No edema Neuro: No focal neurological deficits, cranial nerves II through XII intact, 5/5 strength in all extremities. Intact sensation to light touch in all extremities, 2+ reflexes bilateral patella tendons. Normal gait. No ataxia. Skin: No rash or lesions noted MEDICAL DECISION MAKING: Chief Complaint: Facial swelling after mosquito bite External records reviewed: Last ED visit in June 2022 Factors affecting care: none Social determinants of health: none History obtained from others: none Consults: none ALL IMAGES (IF OBTAINED) HAVE BEEN PERSONALLY REVIEWED AND INTERPRETED BY MYSELF. MDM Narrative: Patient was hemodynamically stable, afebrile, nontoxic-appearing. Exam consistent with likely immune response, lymphadenopathy to mosquito bite. Will give prophylactic prednisone and instructed to take ibuprofen. There is no signs of airway compromise or anaphylaxis at this time The patient and/or family, caregivers express understanding. The patient and/or family, caregivers agrees with the plan. Total critical care time today provided was at least 0 minutes. This excludes separately billable procedures. Critical care time (if documented) is secondary to the patient having high probability of clinically significant/life threatening deterioration in the patient's condition which required my urgent intervention. Shared decision making: I will have a discussion with the patient and or visitors regarding risk/benefits of further testing or admission. They will be made aware of of the risk/benefits inherent in this decision they will be given the opportunity to voice understanding. Discharge Plan Triage Chief Complaint: Bite ED Provider: Mich Linton Dx/Rx/DC Orders Prescriptions: No Action pantoprazole 40 mg tablet,delayed release (DR/EC) 40 mg PO DAILY Qty: 30 0RF sucralfate 1 gram tablet 1 g PO Q6H 14 Days Qty: 56 0RF ondansetron 4 mg tablet,disintegrating 8 mg PO Q8H PRN PRN (Reason: Nausea) Qty: 12 0RF multivitamin Tablet 1 tab PO DAILY oxycodone-acetaminophen 5-325 mg tablet 1 - 2 tab PO Q6H PRN (Reason: pain) 3 Days Qty: 14 0RF famotidine 20 mg tablet 20 mg PO BID PRN (Reason: nausea and vomiting, GERD) Qty: 30 2RF pantoprazole [Protonix] 40 mg tablet,delayed release (DR/EC) 40 mg PO DAILY Qty: 30 2RF Primary Care Provider: Care Physician,No Primary Referrals: Care Physician,No Primary [Primary Care Provider] -
[2022-11-06] MEDS: predniSONE 20 MG Tablet 40 MG PO (23:14)
[2022-11-06] MEDS: Ibuprofen 200 MG Tablet 400 MG PO (23:14)
== END 2022-11-06 23:18 | disposition home or self-care (01) ==
PROVIDERS: Emergency Provider Emergency Medicine; Visit Provider Emergency Medicine
DX: S00.96XA Insect bite (nonvenomous) of unspecified part of head, initial encounter (principal); K25.9 Gastric ulcer, unspecified as acute or chronic, without hemorrhage or perforation; Z79.899 Other long term (current) drug therapy; Z90.49 Acquired absence of other specified parts of digestive tract; W57.XXXA Bitten or stung by nonvenomous insect and other nonvenomous arthropods, initial encounter
CPT/HCPCS: 99284

== ENCOUNTER 2023-04-29 21:53 | Emergency (ER) | payer MEDICAID, SELFPAY ==
[2023-04-29 21:54] VITALS: BP 140/81; PULSE 94; RESP 16; TEMP 37.2; O2SAT 97; BMI 34.7
--- NOTE | 2023-04-29 23:27 | EDS_ITS ---
HPI History of Present Illness Chief Complaint: General Illness Narrative Narrative: 27-year-old female who denies significant past medical history presents with sore throat myalgias that she has had since yesterday. She states her mother gave her Tylenol which was ineffective in treating her pain. She may have coughed, but her main complaint is her multiple body aches, myalgias and arthralgias, and sore throat. She denies any nausea or vomiting, no exacerbating or alleviating factors. [facility] Medical History Gastritis Physical exam, pre-employment Stress ulcer of stomach Home Medications ondansetron 4 mg disintegrating tablet 8 mg (2 x 4 mg) PO Q8H PRN PRN Nausea #12 tabs 05/29/22 [Rx Last Taken 06/05/22] pantoprazole 40 mg tablet,delayed release 40 mg PO DAILY #30 tabs 05/29/22 [Rx Last Taken 06/05/22] sucralfate 1 gram tablet 1 g PO Q6H 2 weeks #56 tabs 05/29/22 [Rx Last Taken 06/08/22 01:00] multivitamin 1 tab PO DAILY supplement 06/08/22 [History Last Taken 06/05/22] oxycodone-acetaminophen 5 mg-325 mg tablet 1 - 2 tab PO Q6H PRN pain 3 days #14 tabs 06/08/22 [Rx Last Taken Unknown] famotidine 20 mg tablet 20 mg PO BID PRN nausea and vomiting, GERD #30 tabs 06/09/22 [Rx Last Taken Unknown] pantoprazole 40 mg tablet,delayed release (Protonix) 40 mg PO DAILY #30 tabs 06/09/22 [Rx Last Taken Unknown] prednisone 20 mg tablet 40 mg (2 x 20 mg) PO DAILY #5 tabs 11/06/22 [Rx Last Taken Unknown] penicillin V potassium 500 mg tablet 500 mg PO BID 10 days #20 tabs 04/30/23 [Rx Last Taken Unknown] Allergy/AdvReac Type Severity Reaction Status Date / Time cat dander Allergy Swelling Verified 04/29/23 21:57 insect venom Allergy Itching Verified 04/29/23 21:57 amphetamine aspartate AdvReac palpitation Verified 04/29/23 21:57 [From Adderall] amphetamine sulfate AdvReac palpitation Verified 04/29/23 21:57 [From Adderall] dextroamphetamine saccharate AdvReac palpitation Verified 04/29/23 21:57 [From Adderall] dextroamphetamine sulfate AdvReac palpitation Verified 04/29/23 21:57 [From Adderall] Family History Grandmother Breast cancer Mother Hypertension Surgical History History of esophagogastroduodenoscopy (EGD) (~09/2019) S/P laparoscopic cholecystectomy Social History Smoking Status: Never smoker alcohol intake: current alcohol intake frequency: a few times a week substance use type: marijuana ROS ROS ED ROS Narrative Constitutional: No fever, no chills. HEENT: Positive sore throat. No neck pain. No loss of vision. No rhinorrhea. Cardiovascular: No chest pain. No palpitations. No pedal edema. Respiratory: Occasional cough, no shortness of breath. Abdominal: No abdominal pain. No nausea. No vomiting. Genitourinary: No dysuria. No hematuria. Musculoskeletal: Multiple myalgias and arthralgias. Neurologic: No headaches. No dizziness. No lightheadedness. Skin: No rash. No change in color. Psychiatric: No depression. No anxiety. EXAM Physical Exam Narrative Exam Narrative: Afebrile. Vital signs noted. Nontoxic-appearing. HEENT: Normocephalic. Atraumatic. PERRL, EOMI. Neck soft and supple. No point tenderness or step off. No meningismus. Mild pharyngeal erythema. No drooling or trismus. Airway patent. TMs clear bilaterally, only partially occluded by cerumen on the left. Cardiovascular: Regular rate and rhythm. No murmurs, rubs, or gallops appreciated. Respiratory: No tachypnea. Lungs clear to auscultation bilaterally. Gastrointestinal: Abdomen soft, nontender, with normoactive bowel sounds. No rebound or guarding. Neurological: Awake. Alert. Nonfocal, nonlateralizing. Skin: No rash. Normal color. No pallor. Musculoskeletal: No pedal edema. Full range of motion extremities. Const Vital Signs: 12/24/23 21:54 04/29/23 22:47 Temperature 98.9 F Temperature Source Temporal Pulse Rate 94 Respiratory Rate 16 Respiratory Effort Normal Respiratory Pattern Normal Blood Pressure 140/81 H Blood Pressure Mean 100 Pulse Ox 97 Oxygen Delivery Method Room Air MDM MDM MDM Narrative Medical decision making narrative: Sounds as if the patient is having viral syndrome given her multiple myalgias and arthralgias. She was given ibuprofen here. Also the differential for her sore throat would be strep pharyngitis, or mononucleosis. She is afebrile here. Her pulse ox is 97% on room air. Her lungs are clear to auscultation bilaterally so I do not feel that chest x-ray is indicated. She states her last menstrual period was 2 weeks ago. She will be swabbed for COVID and influenza, but treatment will still be supportive. I reviewed her respiratory swabs and she is negative for COVID and influenza, however she is positive for strep pharyngitis. She was given her first dose of penicillin VK here in the emergency department and prescription written for the next 10 days. Treatment will be otherwise supportive with continued [id number] analgesics, and she will follow-up with her primary care provider. I feel she can be discharged safely home with follow-up. Return instructions reviewed. Disposition is discharged home in stable condition. Discharge Plan Triage Chief Complaint: General Illness ED Provider: Jamar Nichols Dx/Rx/DC Orders Clinical Impression: Myalgia, Acute streptococcal pharyngitis Instructions: ED Myalgias, ED Pharyngitis, Strep (Confirmed) Prescriptions: New penicillin V potassium 500 mg tablet 500 mg PO BID 10 Days Qty: 20 0RF No Action pantoprazole 40 mg tablet,delayed release (DR/EC) 40 mg PO DAILY Qty: 30 0RF sucralfate 1 gram tablet 1 g PO Q6H 14 Days Qty: 56 0RF ondansetron 4 mg tablet,disintegrating 8 mg PO Q8H PRN PRN (Reason: Nausea) Qty: 12 0RF multivitamin Tablet 1 tab PO DAILY oxycodone-acetaminophen 5-325 mg tablet 1 - 2 tab PO Q6H PRN (Reason: pain) 3 Days Qty: 14 0RF famotidine 20 mg tablet 20 mg PO BID PRN (Reason: nausea and vomiting, GERD) Qty: 30 2RF pantoprazole [Protonix] 40 mg tablet,delayed release (DR/EC) 40 mg PO DAILY Qty: 30 2RF prednisone 20 mg tablet 40 mg PO DAILY Qty: 5 0RF Primary Care Provider: Care Physician,No Primary Referrals: Art Mack MD [Med Staff - Active Staff] - 1 Week if not improving Care Physician,No Primary [Primary Care Provider] - Activity Restrictions/Additional Instructions: Drink plenty of oral fluids. Continue Tylenol and ibuprofen as needed for pain. Take all of the antibiotics that were prescribed to you for the full course of therapy, 10 days. Disposition Disposition: Home, Self Care
[2023-04-30 00:35] VITALS: BP 120/96; PULSE 97; RESP 18; O2SAT 99
[2023-04-30] MEDS: Penicillin Vk 250 MG Tablet 500 MG PO (00:43)
== END 2023-04-30 00:47 | disposition home or self-care (01) ==
PROVIDERS: Emergency Provider Emergency Medicine; Visit Provider Emergency Medicine
DX: J02.0 Streptococcal pharyngitis (principal); M79.10 Myalgia, unspecified site; F12.90 Cannabis use, unspecified, uncomplicated
CPT/HCPCS: 87428; 87880; 99283

== ENCOUNTER 2024-11-14 20:02 | Emergency (ER) | payer MEDICAID, SELFPAY ==
[2024-11-14 20:03] VITALS: BP 123/77; PULSE 88; RESP 14; TEMP 36.1; O2SAT 98; BMI 31.4
--- OUTSIDE RECORDS SUMMARY | 2024-11-14 20:41 | XMS RPT_ITS | CCD ---
Author Organization [facility] Care Team Providers Care Orthotist Name Role Phone Unavailable Primary Care Provider Unavailabl e Self, Self Primary Care Provider Unavailabl e Jeremias DE LEON, PhD, Aster Pennington Unavailable [phone] SELF, SELF Primary Care Unavailable NEYMAR MONET Attending Unavailable NEYMAR MONET Admitting Unavailable NICOLEASTER KLEIN Referring Unavailable NICOLEASTER KLEIN Attending Unavailable NICOLEASTER GARCIA Referring Unavailable PATITO MARTINEZ Attending Unavailable YUE, KATHRYN A Attending Unavailable YUE, KATHRYN A Referring Unavailable SELF, SELF Referring Unavailable NICOLEASTER Attending Unavailable ESCOBARKALEYHARITHA Attending Unavailable ESCOBAR HARITHA Admitting Unavailable SAMPSELL, RIVER A Referring Unavailabl e TIMIPSELL, RIVER A Attending Unavailabl e YUE, KATHRYN A Referring Unavailable YUE, KATHRYN A Attending Unavailable SELF, SELF Referring Unavailable NICOLEASTER KLEIN Attending Unavailable NICOLEASTER KLEIN Referring Unavailable PATITO MARTINEZ Attending Unavailable SELF, SELF Referring Unavailable SAMPSELL, RIVER A Attending Unavailabl e SELF, SELF Referring Unavailable SAMPSELL, RIVER A Attending Unavailabl e SELF, SELF Referring Unavailable ISABEL LEI Attending Unavailable SELF, SELF Referring Unavailable SAMPSELL, RIVER A Attending Unavailabl e YUE, KATHRYN A Attending Unavailable YUE, KATHRYN A Referring Unavailable YUE, KATHRYN A Attending Unavailable SELF, SELF Referring Unavailable YUE, KATHRYN A Attending Unavailable [facility] Referring Unavail able SELF, SELF Referring Unavailable YUE, KATHRYN A Attending Unavailable NICOLEASTER KLEIN Admitting Unavailable NICOLEASTER Attending Unavailable NICOLEASTER Admitting Unavailable NICOLEASTER Attending Unavailable Unavailable Primary Care Provider Unavailabl e Unavailable Primary Care Provider Unavailabl e Robotham, Tasneem Consulting Unavailable Robotham, Tasneem Attending Unavailable Robotham, Tasneem Admitting Unavailable Care Physician, No Primary Primary Care Unava ilable Grzegorz Geller Attending Unavailable Care Physician, No Primary Referring Unava ilable Care Physician, No Primary Primary Care Unava ilable Guanako Arreguin Attending Unavailable Care Physician, No Primary Primary Care Unava ilable Jamar Nichols Attending Unavailable Care Physician, No Primary Primary Care Unava ilable Mich Linton Attending Unavailable Care Physician, No Primary Primary Care Unava ilable Provider, Ed Physician Attending Unavailab le Care Physician, No Primary Primary Care Unava ilable Jamar Nichols Attending Unavailable Care Physician, No Primary Primary Care Unava ilable Robotham, Tasneem Attending Unavailable Care Physician, No Primary Primary Care Unava ilable Robotham, Tasneem Admitting Unavailable Unavailable Primary Care Provider Unavailabl e PHYSICIAN, NO PCP Primary Care Unavailable Physician, No Pcp Primary Care Provider Unavaila MARSHALL Colón Attending Unavailable NO, PHYSICIAN Primary Care Unavailable NO, PHYSICIAN Primary Care Unavailable JOSELITO PENALOZA Attending Unavailable JOSELITO PENALOZA Attending Unavailable NO, PHYSICIAN Primary Care Unavailable RENE LOGAN Attending Unavailable PHYSICIAN, NO PCP Primary Care Unavailable CHRISTOS PARK Attending Unavailable SILVINA MENDOZA Attending Unavailable ANASI SHELTON Attending Unavailable Allergies Allergy Classification Reported Allergen(s) Allergy Type Date of Onset Reaction(s) Facility Amphetamine aspartate / Amphetamine Sulfate / Dextroamphetamine saccharate / Dextroamphetamine Sulfate (2 sources) Amphetamine aspartate / Amphetamine Sulfate / Dextroamphetamine saccharate / Dextroamphetamine Sulfate Drug Allergy Other: See Comments [facility] (20 sources) Amphetamine aspartate / Amphetamine Sulfate / Dextroamphetamine saccharate / Dextroamphetamine Sulfate; Translations: [DEXTROAMPHETAMINE-A MPHETAMINE] Drug Allergy Other: See Comments, Palpitations [facility] (6 sources) Amphetamine; Translations: [amphetamine aspartate] Drug Allergy Other, palpitation [facility] (6 sources) Amphetamine; Translations: [amphetamine sulfate] Drug Allergy Other, palpitation [facility] (6 sources) Dextroamphetamine; Translations: [dextroamphetamine saccharate] Drug Allergy Other, palpitation [facility] (6 sources) Dextroamphetamine; Translations: [dextroamphetamine sulfate] Drug Allergy Other, palpitation [facility] (9 sources) cat dander; Translations: [cat dander] Allergy to substance Rash [facility] (7 sources) Amphetamine / Dextroamphetamine Drug Allergy [facility] (7 sources) Cat Hair Extract Drug Allergy [facility] (2 sources) insect venom; Translations: [insect venom] Allergy to substance Itching [facility] (1 source) MOSIQUTO; Translations: [MOSIQUTO] Propensity to adverse reactions (disorder) 023 [facility] Repository Medications Current Medications Medication Drug Class(es) Dates Sig (Normalized) Sig (Original) acetaminophen 500 mg oral tablet (17 sources) Start: 02-26-2023 take 1 tablet by mouth every eight hours as needed for pain acetaminophen (TYLENOL EXTRA STRENGTH) 500 mg tablet Indications: Other acute nonsuppurative otitis media of right ear, recurrence not specified Take 1 tablet by mouth every 8 hours as needed for pain. 90 tablet 2 02/26/2023 Active Start: 12-02-2021 take 2 tablets by mo [facility] every four hours acetaminophen 325 MG tablet Take 2 tablets by mouth every 4 hours. 120 tablet 0 12/02/2021 Active Start: 11-30-2021 End: 12-02-2021 take 650 mg by mouth every four hours for pain 650 mg, Oral, EVERY 4 HOURS, First dose on Sun11/30/21 at 0200, Until Discontinued For moderate or severe pain, may give acetaminophen with an opioid if frequency allows. Acetaminophen alone for moderate or severe pain is acceptable if patient preference. Post-op/Post-Proc Comment on above: Take 1 tablet by caprice every 8 hours as needed for pain. acetaminophen 325 mg / oxyCODONE hydrochloride 5 mg oral tablet (1 source) Opioid Agonist Start: 06-08-19 take 1 tablet by mouth every six hours Oxycodone-Acetamino phen Active 1 - 2 TABLET PO EVERY 6 HOURS 14 3 June 08, 2022 amoxicillin 500 mg oral tablet (3 sources) Penicillin-class Antibacterial Start: 02-03-20 End: 02-10-20 take 1 tablet by mouth three times daily amoxicillin (AMOXIL) 500 mg tablet Take 1 tablet (500 mg total) by mouth 3 (three) times a day for 7 days. 21 tablet 02/03/2024 02/10/2024 Active Start: 10-24-2023 End: 10-31-2023 take 1 tablet by mouth twice daily amoxicillin (AMOXIL) 875 mg tablet Indications: Dental infection Take 1 tablet by mouth two times a day for 7 days. 14 tablet 0 10/24/2023 10/31/2023 Active Start: 02-26-2023 End: 03-05-2023 take 1 tablet by mouth twice daily amoxicillin (AMOXIL) 875 mg tablet Indications: Other acute nonsuppurative otitis media of right ear, recurrence not specified Take 1 tablet by mouth two times a day for 7 days. 14 tablet 0 02/26/2023 03/05/2023 Active Comment on above: Take 1 tablet by caprice th two times a day for 7 days. amoxicillin 875 mg / clavulanate 125 mg oral tablet (1 source) Penicillin-class Antibacterial Start: End: take 1 tablet by mouth twice daily amoxicillin-clavu lanic acid (AUGMENTIN) 875-125 mg per tablet Indications: Bacterial sinusitis Take 1 tablet by mouth twice daily for 10 days. 20 tablet 0 03/19/2022 03/29/2022 Active Comment on above: Take 1 tablet by caprice th twice daily for 10 days. ASHWAGANDHA EXTRACT ORAL (1 source) ASHWAGANDHA EXTRACT ORAL Take by mouth. Active betamethasone 0.5 mg/ml / clotrimazole 10 mg/ml topical cream (1 source) Azole Antifungal, Corticosteroid Start: 023 End: 023 clotrimazole-beta methasone (LOTRISONE) cream Apply 1 application to affected area twice daily for 7 days. 15 g 0 08/01/2022 08/08/2022 Active Comment on above: Apply 1 application to affected area twice daily for 7 days. bisoprolol fumarate 5 mg / hydroCHLOROthiazide 6.25 mg oral tablet (2 sources) Thiazide Diuretic, beta-Adrenergic Carolyn Start: 023 take 1 tablet by mouth once daily Bisoprolol-Hydroc hlorothiazide Active 1 TABLET PO DAILY June 03, 2022 12:00am docusate sodium 100 mg oral capsule (3 sources) Start: End: take 1 capsule by mouth every twelve hours docusate 100 MG capsule Take 1 capsule by mouth every 12 hours. 60 capsule 0 12/02/2021 Active Start: 11-30-2021 End: 11-30-2021 200 mg, Oral, SEE ADMIN INST RUCTIONS, 1 dose, Starting on Sun11/30/21 at 0135, Until Sun11/30/21 at 0156 Administer immediately post delivery. Post-op/Post-Proc erythromycin 0.005 mg/mg ophthalmic ointment (1 source) Macrolide, Macrolide Antimicrobial Start: 09-02-2022 End: 09-09-2022 erythromycin (ROMYCIN) 5 mg/gram (0.5 %) ophthalmic ointment Use 1 application in both eyes four times daily for 7 days. 3.5 g 0 09/02/2022 09/09/2022 Active Comment on above: Use 1 application in both eyes four times daily for 7 days. famotidine 20 mg oral tablet (10 sources) Histamine-2 Receptor Antagonist Start: 02-03-2024 End: 02-08-2024 take 1 tablet by mouth twice daily famotidine (PEPCID) 20 mg tablet Take 1 tablet (20 mg total) by mouth 2 (two) times a day for 5 days. 10 each 02/03/2024 02/08/2024 Active Start: 06-09-2022 take 20 mg by mouth twice rosenda y Famotidine Active 20 MG PO TWICE A DAY June 09, 2022 10:45am Start: 04-19-2021 End: 11-11-2021 take 1 tablet by mouth twice daily faMOTIdine 20 MG tablet Take 1 tablet by mouth 2 times daily. 60 tablet 1 04/19/2021 Active hydrOXYzine hydrochloride 25 mg oral tablet (2 sources) Antihistamine Start: 02-03-2024 End: 02-06-2024 take 1 tablet by mouth every six hours hydrOXYzine HCL (ATARAX) 25 mg tablet Take 1 tablet (25 mg total) by mouth every 6 (six) hours for 3 days. 12 tablet 02/03/2024 Active metroNIDAZOLE 500 mg oral tablet (1 source) Nitroimidazole Antimicrobial Start: 06-15-2024 End: 06-22-2024 take 1 tablet by mouth twice daily metroNIDAZOLE (FLAGYL) 500 mg tablet Take 1 tablet (500 mg total) by mouth 2 (two) times a day for 7 days. Do not use mouth wash or consume alcohol until 48 hours after last dose 14 each 06/15/2024 06/22/2024 Active Multivitamin preparation (1 source) Start: 06-08-2022 take 1 tablet by mouth once daily Multivitamin Active 1 TABLET PO DAILY June 08, 2022 12:00am norethindrone 0.35 mg oral tablet (1 source) Start: 10-09-2024 take 1 tablet by mouth once daily Norethindrone, Contraceptive, 0.35 mg tablet Take 1 tablet by mouth once daily. 90 tablet 2 10/09/2024 Active ondansetron 4 mg disintegrating oral tablet (20 sources) Serotonin-3 Receptor Antagonist Start: 05-29-2022 take 8 mg by mouth every eight hours as needed Ondansetron Active 8 MG PO EVERY 8 HOURS NEEDED May 29, 2022 12:00am Start: 11-29-2021 End: 11-30-2021 take 4 mg intravenously every six hours as needed ondansetron 4mg/2ml (ZOFRAN) injection 4 mg Start: 08-01-2021 End: 06-06-2022 take 1 tablet by mouth every eight hours as needed ondansetron (ZOFRAN) 4 mg tablet Take 1 tablet by mouth every 8 hours as needed for nausea/vomiting. 60 tablet 2 08/01/2021 06/06/2022 Discontinued Start: 09-11-2019 End: 09-18-2019 take 8 mg by mouth three times daily as needed Ondansetron Hcl Discontinued 8 MG PO 3 TIMES DAILY NEEDED September 11, 2019 8:18am September 18, 2019 11:40am Comment on above: Take 1 tablet by caprice th every 8 hours as needed for nausea/vomiting. oxyCODONE hydrochloride 5 mg oral tablet (3 sources) Opioid Agonist Start: 12-03-19 End: 12-08-19 take 1 tablet by mouth every six hours as needed for pain oxyCODONE 5 MG tablet Indications: History of delivery Take 1 tablet by mouth every 6 hours as needed for Moderate Pain or Severe Pain for up to 5 days. 12 tablet 0 12/02/2021 12/07/2021 Active Start: 11-30-2021 End: 12-02-2021 take 1 tablet by mouth every four hours as needed oxyCODONE (ROXICODONE) tablet 5 mg Start: 11-30-2021 take 1 dose by mouth once as needed, then take 1 dose by mouth every four hours as needed 5 mg, Oral, NEEDED, 1 dose, Starting on Sun11/30/21 at 0135, Until Discontinued, Moderate Pain, Severe Pain May give x1 one hour post lower dose oxycodone prn order if lower dose previously documented as ineffective and did not result in adverse effects (RR<10, negative change in RASS of 2 or more). Consider increasing to higher prescribed dose of oxycodone q4h PRN with subsequent administrations. Post-op/Post-Proc pantoprazole 40 mg delayed release oral tablet (5 sources) Proton Pump Inhibitor Start: 05-29-2022 take 1 tablet by mouth once daily Pantoprazole (Protonix) 40 mg tablet,delayed release (DR/EC) Active 40 MG PO DAILY June 09, 2022 12:00am penicillin v potassium 500 mg oral tablet (1 source) Start: 04-30-2023 take 500 mg by mouth twice daily Penicillin V Potassium Active 500 MG PO TWICE A DAY 23 02April 30, 2023 12:00am Care (4 sources) Start: 08-03-2021 Care Active 1 TABLET DAILY August 03, 2021 8:20am Start: 08-03-2021 Care Active 1 TABLET DAILY August 02, 2021 11:00pm MV & Min w/FA-DHA ( Adult Gummy/DHA/FA) 0.4-25 MG Chew Tab (7 sources) Start: 06-24-2021 MV & Min w/FA-DHA ( Adult Gummy/DHA/FA) 0.4-25 MG Chew Tab Take one PO daily. Chew completely. Ok to sub with any covered gummy vitamin. 90 tablet 1 06/24/2021 Active promethazine hydrochloride 25 mg oral tablet (12 sources) Phenothiazine Start: 08-03-2021 Promethazine A ctive 25 MG NEEDED August 02, 2021 11:00pm Start: 06-24-2021 End: 11-11-2021 take 6.25 mg by mouth every four hours as needed Promethazine HCl 12.5 MG tablet Take 0.5 tablets by mouth every 4 hours as needed for Nausea / Vomiting. 30 tablet 0 06/24/2021 11/11/2021 Discontinued (Stop Taking at Discharge) Start: 05-25-2021 End: 11-14-2021 take 1 tablet by mouth every six hours as needed Promethazine HCl 12.5 MG tablet Take 1 tablet by mouth every 6 hours as needed for Nausea / Vomiting. 30 tablet 1 05/25/2021 11/14/2021 Discontinued (Therapy completed) Start: 11-26-2016 End: 01-11-2017 take 25 mg by mouth every eight hours as needed Promethazine Discontinued 25 MG PO EVERY 8 HOURS NEEDED November 25, 2016 11:00pm January 11, 2017 6:20am sucralfate 1000 mg oral tablet (9 sources) Aluminum Complex Start: 05-29-2022 take 1 g by mouth every six hours Sucralfate Active 1 GM PO EVERY 6 HOURS 56 May 29, 2022 12:00am Start: 09-10-2019 End: 10-10-2019 take 1 tablet by mouth three times daily Sucralfate (Carafate) 1 gram tablet Discontinued 1 GM PO THREE TIMES A DAY 90 September 09, 2019 11:00pm October 09, 2019 11:02pm Completed/Discontinued Medications Medication Drug Class(es) Dates Sig (Normalized) Sig (Original) aluminum hydroxide 40 mg/ml / magnesium hydroxide 40 mg/ml / simethicone 4 mg/ml oral suspension (1 source) Start: 11-30-2021 End: 12-02-2021 take 30 mL by mouth every four hours as needed 30 mL, Oral, EVERY 4 HOURS NEEDED, Starting on Sun11/30/21 at 0135, Until Sun12/02/21 at 1934, Indigestion Per 5 mL is equivalent to: (Alum-Mag Hydroxide 200-225 mg and Simethicone 20 mg) and (Alum-Mag Hydroxide 200-200 mg and Simethicone 20 mg) Post-op/Post-Proc bisacodyl 10 mg rectal suppository (1 source) Stimulant Laxative Start: 11-30-2021 End: 12-02-2021 take 10 mg rectal route every twelve hours as needed 10 mg, Rectal, EVERY 12 HOURS NEEDED, Starting on Sun11/30/21 at 0135, Until Sun12/02/21 at 1934, Constipation 2nd Line, Post-op/Post-Proc calcium chloride 0.0014 meq/ml / potassium chloride 0.004 meq/ml / sodium chloride 0.103 meq/ml / sodium lactate 0.028 meq/ml injectable solution (2 sources) Start: 11-30-2021 End: 12-02-2021 take 1 mL by mouth every hour for nausea Intravenous, at 125 mL/hr, ADMINISTER DIRECTED, Starting on Sun11/30/21 at 0135, Until Sun12/02/21 at 1934, Other, for unstable uterine bleeding, patient scheduled for delayed BPS, on IVPB Antibiotics, unable to take oral intake well, and/or nausea. Administer post oxytocin if needed. Post-op/Post-Proc Start: 11-29-2021 End: 11-30-2021 lactated ringers IV solution dicyclomine hydrochloride 10 mg oral capsule (5 sources) Anticholinergic Start: 09-10-2019 End: 09-10-2019 take 10 mg by mouth twice daily Dicyclomine Discontinued 10 MG PO TWICE A DAY 28 September 09, 2019 11:00pm September 10, 2019 10:01am diphenhydrAMINE hydrochloride 25 mg oral tablet (1 source) Histamine-1 Receptor Antagonist Start: 11-30-2021 End: 12-02-2021 take 25 mg by mouth once daily at bedtime as needed for sleep 25 mg, Oral, DAILY AT BEDTIME NEEDED, Starting on Sun11/30/21 at 0135, Until Sun12/02/21 at 1934, Sleep, Post-op/Post-Proc doxylamine succinate 25 mg oral tablet (2 sources) Start: 05-16-2021 End: 11-14-2021 Doxylamine Succinate, Sleep, (Unisom SleepTabs) 25 MG tablet Take 12.5 mg by mouth at bedtime. 30 tablet 1 05/16/2021 11/14/2021 Discontinued (Therapy completed) drospirenone / Ethinyl Estradiol (3 sources) Progestin, Estrogen Start: 08-13-2024 End: 10-09-2024 take 1 tablet by mouth once daily Drospirenone-Ethi nyl Estradiol (CHRIS, 28,) 3-0.02 mg per tablet Take 1 tablet by mouth once daily. 84 tablet 3 08/13/2024 10/09/2024 Discontinued Start: 08-13-2024 End: 07-15-2025 take 1 tablet by mouth once daily Drospirenone-Ethinyl Estradiol (CHRIS, 28,) 3-0.02 mg per tablet Take 1 tablet by mouth once daily. 84 tablet 3 08/13/2024 07/15/2025 Active 24 hr ferrous sulfate 142 mg extended release oral tablet (20 sources) End: 10-09-2024 Ferrous Sulfate (SLOW FE) 142 mg (45 mg iron) TbER Take by mouth. 10/09/2024 Discontinued (Other) Comment on above: Take by mouth. fluconazole 150 mg oral tablet (17 sources) Azole Antifungal Start: 08-01-2022 End: 10-09-2024 fluconazole (DIFLUCAN) 150 mg tablet Take 1 tablet today and 2nd tablet 3 days later. 2 tablet 11/05/2023 10/09/2024 Discontinued (Other) Comment on above: Take 1 tablet today and 2nd tablet 3 days later. 1 ml HYDROmorphone hydrochloride 2 mg/ml cartridge (1 source) Opioid Agonist Start: 11-30-2021 End: 11-30-2021 HYDROmorphone (DILAUDID) injection 0.5 mg ibuprofen 600 mg oral tablet (14 sources) Nonsteroidal Anti-inflammatory Drug Start: 11-07-2023 End: 10-09-2024 take 1 tablet by mouth every six hours as needed ibuprofen (MOTRIN) 600 mg tablet Take 1 tablet by mouth every 6 hours as needed for pain. FOR PAIN. 30 tablet 1 11/07/2023 10/09/2024 Discontinued (Other) Start: 09-19-2023 End: 11-05-2023 take 1 tablet by mouth every six hours as needed ibuprofen (MOTRIN) 600 mg tablet Take 1 tablet by mouth every 6 hours as needed for pain. FOR PAIN. 30 tablet 1 09/19/2023 11/05/2023 Discontinued Start: 12-02-2021 take 1 tablet by caprice th every six hours ibuprofen 800 MG tablet Take 1 tablet by mouth every 6 hours. 120 tablet 0 12/02/2021 Active Start: 12-01-2021 End: 12-02-2021 take 1 tablet by mouth every six hours 800 mg, Oral, EVERY 6 HOURS NON-STANDARD, First dose on Akanksha 12/01/21 at 0700, Until Discontinued Start Ibuprofen 6 hours after last dose of ketorolac. Post-op/Post-Proc levonorgestrel 1.5 mg oral tablet (15 sources) Progestin, Progestin-containing Intrauterine Device Start: 08-27-2024 End: 08-27-2024 take 1 tablet by mouth once levonorgestrel (PLAN B ONE-STEP) 1.5 mg tab Take 1 tablet by mouth one time only for 1 dose. 1 tablet 08/27/2024 08/27/2024 Start: 11-30-2021 End: 11-30-2021 Levonorgestrel (LILETTA) 20. 1 MCG/DAY IUD 1 Intra Uterine Device End: 08-13-2024 levonorgestrel (MIRENA) 21 m cg/24 hours (8 yrs) 52 mg IUD 1 Each by INTRAUTERINE route one time only. 08/13/2024 Discontinued (Course of therapy completed) Comment on above: 1 Each by INTRAUTERI NE route one time only. metoclopramide 5 mg oral tablet (3 sources) Dopamine-2 Receptor Antagonist Start: 07-09-19 End: 08-02-19 take 1 tablet by mouth four times daily metoclopramide HCl (REGLAN) 5 mg tablet Take 1 tablet by mouth four times daily. 30 tablet 0 07/08/2021 08/01/2021 Discontinued Start: 05-16-2021 End: 11-14-2021 take 1 tablet by mouth four times daily metoclopramide 10 MG tablet Take 1 tablet by mouth 4 times daily. 60 tablet 1 05/16/2021 11/14/2021 Discontinued (Therapy completed) Comment on above: Take 1 tablet by caprice th four times daily. 1 ml nalbuphine hydrochloride 10 mg/ml injection (1 source) Opioid Agonist/Antagonis t Start: 12-01-19 End: 12-03-19 take 2.5 mg intravenously every six hours as needed 2.5 mg, Intravenous, EVERY 6 HOURS NEEDED, Starting on Sun11/30/21 at 0135, Until Sun12/02/21 at 1934, Itching, Post-op/Post-Proc omeprazole 20 mg delayed release oral capsule (20 sources) Proton Pump Inhibitor Start: 08-02-19 End: 10-10-19 take 1 capsule by mouth every twelve hours as needed omeprazole (PRILOSEC) 20 mg capsule Take 1 capsule by mouth twice daily as needed (heartburn). 60 capsule 1 02/15/2022 10/09/2024 Discontinued (Other) Start: 09-08-2019 End: 09-10-2019 take 20 mg by mouth once daily Omeprazole Discontinued 20 MG PO DAILY September 07, 2019 11:00pm September 10, 2019 10:01am Comment on above: Take 1 capsule by [facility] twice daily as needed (heartburn). 1 ml oxytocin 10 unt/ml injection (1 source) Oxytocic Start: 11-30-2021 End: 12-02-2021 10 Units, Intramuscular, NEEDED, Starting on Sun11/30/21 at 0135, Until Sun12/02/21 at 1934, Vaginal Bleeding, Post-op/Post-Proc oxytocin (PITOCIN) 30 units in 500 mL sodium chloride 0.9% premix infusion (2 sources) Start: 11-30-2021 End: 11-30-2021 95 gaetano-units/min (95 mL/hr), Intravenous, CONTINUOUS, Starting on Sun11/30/21 at 0145, Until Sun11/30/21 at 0544 Administer 95 gaetano-units/min for a total of 3 1/2 hours. Post-op/Post-Proc Start: 11-29-2021 End: 11-30-2021 oxytocin (PITOCIN) 30 units in 500 mL sodium chloride 0.9% premix infusion predniSONE 20 mg oral tablet (2 sources) Start: 02-03-2024 End: 02-03-2024 take 60 mg by mouth once 60 mg, oral, Once, On 02/03/24 at 1232, For 1 dose Start: 11-06-2022 take 40 mg by mouth once daily Prednisone Active 40 MG PO DAILY November 05, 2022 11:00pm multivitamin (CLASSIC ) 28 mg iron- 800 mcg tab(s) (20 sources) Start: 01-18-2022 End: 10-09-2024 take 1 tablet by mouth once daily multivitamin (CLASSIC ) 28 mg iron- 800 mcg tab(s) Take 1 tablet by mouth once daily. 30 tablet 3 01/18/2022 10/09/2024 Discontinued (Other) Start: 01-18-2022 take 1 tablet by caprice th once daily multivitamin (CLASSIC ) 28 mg iron- 800 mcg tab(s) Take 1 tablet by mouth once daily. 30 tablet 3 01/18/2022 Active End: 01-18-2022 take 1 tablet by mouth once daily multivitamin (CLASSIC ) 28 mg iron- 800 mcg tab(s) Take 1 tablet by mouth once daily. 0 01/18/2022 Discontinued take 1 tablet by caprice th once daily multivitamin (CLASSIC ) 28 mg iron- 800 mcg tab(s) Take 1 tablet by mouth once daily. 0 Active Comment on above: Take 1 tablet by caprice th once daily. Vit-Fe Fumarate-FA ( Vitamins) 28-0.8 MG tablet (1 source) Start: 2020 End: 2021 take 1 tablet by mouth once daily Vit-Fe Fumarate-FA ( Vitamins) 28-0.8 MG tablet Take 1 tablet by mouth daily. 30 tablet 11 04/20/2021 11/11/2021 Discontinued (Stop Taking at Discharge) prochlorperazine 10 mg oral tablet (20 sources) Phenothiazine Start: 2021 End: 2022 take 1 tablet by mouth every six hours as needed prochlorperazine (COMPAZINE) 10 mg tablet Take 1 tablet by mouth every 6 hours as needed (nausea). 30 tablet 1 08/01/2021 06/06/2022 Discontinued Comment on above: Take 1 tablet by caprice th every 6 hours as needed (nausea). simethicone 80 mg chewable tablet (1 source) Start: 2021 End: 2021 take 1 tablet by mouth every six hours as needed 80 mg, Oral, EVERY 6 HOURS NEEDED, Starting on Sun11/30/21 at 0135, Until Sun12/02/21 at 1934, Gas, Post-op/Post-Proc 100 ml tranexamic acid 10 mg/ml injection (1 source) Antifibrinolytic Agent Start: 2021 End: 2021 1,000 mg, Intravenous, at 600 mL/hr, Administer over 10 Minutes, ONCE DIRECTED, 1 dose, Starting on Sun11/30/21 at 0135, Until Sun12/02/21 at 1934, Other, hemorrhage Administer after approval by OB staff for treatment of hemorrhage. Post-op/Post-Proc vitamin b6 50 mg oral tablet (20 sources) Start: 2019 End: 2022 take 1 tablet by mouth twice daily pyridoxine, vitamin B6, (VITAMIN B-6) 50 mg tablet Take 1 tablet by mouth twice daily. 0 11/20/2019 06/06/2022 Discontinued Comment on above: Take 1 tablet by caprice th twice daily. Problems Active Problems Problem Classification Problem Date Documented Date Episodic/Chronic Complications of surgical procedures or medical care (1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 Summary on 04-30-2023 Emergency Department Summary [facility] Medical Records Department [address] [place] [address] Emergency Department Summary 04/29/23 MR#: [id number] Acct: [id number] Name: YANDEL AMNLEY Rep #: [id number] : 1995 27 From: Jamar Nichols MD PCP: Care Physician,No Primary Status:REG ER Location: ED HPI History of Present Illness Chief Complaint: General Illness Narrative Narrative: 27-year-old female who denies significant past medical history presents with sore throat myalgias that she has had since yesterday. She states her mother gave her Tylenol which was ineffective in treating her pain. She may have coughed, but her main complaint is her multiple body aches, myalgias and arthralgias, and sore throat. She denies any nausea or vomiting, no exacerbating or alleviating factors. [facility] Medical History Gastritis Physical exam, pre-employment Stress ulcer of stomach Home Medications ondansetron 4 mg disintegrating tablet 8 mg (2 x 4 mg) PO Q8H PRN PRN Nausea #12 tabs 05/29/22 [Rx Last Taken 06/05/22] pantoprazole 40 mg tablet,delayed release 40 mg PO DAILY #30 tabs 05/29/22 [Rx Last Taken 06/05/22] sucralfate 1 gram tablet 1 g PO Q6H 2 weeks #56 tabs 05/29/22 [Rx Last Taken 06/08/22 01:00] multivitamin 1 tab PO DAILY supplement 06/08/22 [History Last Taken 06/05/22] oxycodone-acetaminophen 5 mg-325 mg tablet 1 - 2 tab PO Q6H PRN pain 3 days #14 tabs 06/08/22 [Rx Last Taken Unknown] famotidine 20 mg tablet 20 mg PO BID PRN nausea and vomiting, GERD #30 tabs 06/09/22 [Rx Last Taken Unknown] pantoprazole 40 mg tablet,delayed release (Protonix) 40 mg PO DAILY #30 tabs 06/09/22 [Rx Last Taken Unknown] prednisone 20 mg tablet 40 mg (2 x 20 mg) PO DAILY #5 tabs 11/06/22 [Rx Last Taken Unknown] penicillin V potassium 500 mg tablet 500 mg PO BID 10 days #20 tabs 04/30/23 [Rx Last Taken Unknown] Allergy/AdvReac Type Severity Reaction Status Date / Time cat dander Allergy Swelling Verified 04/29/23 21:57 insect venom Allergy Itching Verified 04/29/23 21:57 amphetamine aspartate AdvReac palpitation Verified 04/29/23 21:57 [From Adderall] amphetamine sulfate AdvReac palpitation Verified 04/29/23 21:57 [From Adderall] dextroamphetamine saccharate AdvReac palpitation Verified 04/29/23 21:57 [From Adderall] dextroamphetamine sulfate AdvReac palpitation Verified 04/29/23 21:57 [From Adderall] Family History Grandmother Breast cancer Mother Hypertension Surgical History History of esophagogastroduodenoscop y (EGD) ( 09/2019) S/P laparoscopic cholecystectomy Social History Smoking Status: Never smoker alcohol intake: current alcohol intake frequency: a few times a week substance use type: marijuana ROS ROS ED ROS Narrative Constitutional: No fever, no chills. HEENT: Positive sore throat. No neck pain. No loss of vision. No rhinorrhea. Cardiovascular: No chest pain. No palpitations. No pedal edema. Respiratory: Occasional cough, no shortness of breath. Abdominal: No abdominal pain. No nausea. No vomiting. Genitourinary: No dysuria. No hematuria. Musculoskeletal: Multiple myalgias and arthralgias. Neurologic: No headaches. No dizziness. No lightheadedness. Skin: No rash. No change in color. Psychiatric: No depression. No anxiety. EXAM Physical Exam Narrative Exam Narrative: Afebrile. Vital signs noted. Nontoxic-appearing. HEENT: Normocephalic. Atraumatic. PERRL, EOMI. Neck soft and supple. No point tenderness or step off. No meningismus. Mild pharyngeal erythema. No drooling or trismus. Airway patent. TMs clear bilaterally, only partially occluded by cerumen on the left. Cardiovascular: Regular rate and rhythm. No murmurs, rubs, or gallops appreciated. Respiratory: No tachypnea. Lungs clear to auscultation bilaterally. Gastrointestinal: Abdomen soft, nontender, with normoactive bowel sounds. No rebound or guarding. Neurological: Awake. Alert. Nonfocal, nonlateralizing. Skin: No rash. Normal color. No pallor. Musculoskeletal: No pedal edema. Full range of motion extremities. Const Vital Signs: 04/29/23 21:54 04/29/23 22:47 Temperature 98.9 F Temperature Source Temporal Pulse Rate 94 Respiratory Rate 16 Respiratory Effort Normal Respiratory Pattern Normal Blood Pressure 140/81 H Blood Pressure Mean 100 Pulse Ox 97 Oxygen Delivery Method Room Air MDM MDM MDM Narrative Medical decision making narrative: Sounds as if the patient is having viral syndrome given her multiple myalgias and arthralgias. She was given ibuprofen here. Also the differential for her sore throat would be strep pha (more content not included)... Normal [facility] M101.0111on 04-30-2023 M101.0111 *Negative results fr om patients with symptom onset beyond five days should be treated as presumptive and confirmed by a molecular assay if clinically necessary. Negative results should not be used as the sole basis for treatment or for patient management. FLUABV+SARS-CoV2 Ag Pnl Up resp IA.rapid *Positive results do not differentiate between SARS-CoV and SARS-CoV-2. FLUABV+SARS-CoV2 Ag Pnl Up resp IA.rapid Negative Influenza results should be confirmed with FLU PANEL MOLECULAR if indicated. FLUABV+SARS-CoV2 Ag Pnl Up resp IA.rapid * This test has not been FDA cleared or approved; the test has been authorized by FDA under an Emergency Use Authorization (EAU) for use by laboratories certified under CLIA that meet the requirements to perform moderate, high, or waived complexity tests. FLUABV+SARS-CoV2 Ag Pnl Up resp IA.rapid Normal Reference Range: Negative Olimpia, SARAI method SARS-CoV-2 (COVID 19) Negative Influenza Ag, Direct NEGATIVE for Influenza A/B Antigen (See Note) Normal [facility] Comment on above: Performed By: #### L 100.0100, L500.3400, L500.2500 #### [facility] [address] [place], [address] Strep A (Throat Rapid SARAI)on 04-30-2023 S. pyogenes Ag IA Ql (Unsp spec) A Disk (Conf. Cult) Test Not Performed Rapid Strep A Screen A POSITIVE A Streptococcus Group A Normal [facility] Comment on above: Performed By: #### M 100.676 #### [facility] [address] [place], [address] Influenza virus A and B and SARS-CoV-2 (COVID-19) Ag panel - Upper respiratory specimOrdered By: Jamar Nichols on 04-29-2023 SARS-CoV-2 (COVID-19) RNA WENDY+probe Ql (Resp) [facility] S. pyogenes Ag IF Ql (Throat )Ordered By: Jamar Nichols on 04-29-2023 S. 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 Chief Complaint: antelmo Allergies cat dander Allergy (Verified 05/29/22 09:53) Swelling amphetamine aspartate [From Adderall] Adverse Reaction (Verified 06/08/22 09:21) palpitation amphetamine sulfate [From Adderall] Adverse Reaction (Verified 06/08/22 09:21) palpitation dextroamphetamine saccharate [From Adderall] Adverse Reaction (Verified 06/08/22 09:21) palpitation dextroamphetamine sulfate [From Adderall] Adverse Reaction (Verified 06/08/22 09:21) palpitation MOSIQUTO Allergy (Mild, Uncoded 11/06/22 21:54) ITCHY Office Procedures [facility] Billing Sheet Testing Pre-Employment Drug Screen: Yes 11/08/22 1410 Date Grzegorz Hurleyigner Signature: Date (if applicable) CC: Normal [facility] Emergency Department Summary on 11-07-[address] [facility] Medical Records Department [address] [address] Emergency Department Summary 11/06/22 MR#: [id number] Acct: [id number] Name: YANDEL MANLEY Rep #: [id number] : 1995 27 From: Mich Linton DO PCP: Care Physician,No Primary Status:PRE ER Location: ED HPI History of Present Illness Chief Complaint: Bite PFSH [facility] Medical History Gastritis Physical exam, pre-employment Stress ulcer of stomach Home Medications ondansetron 4 mg disintegrating tablet 8 mg (2 x 4 mg) PO Q8H PRN PRN Nausea #12 tabs 05/29/22 [Rx Last Taken 06/05/22] pantoprazole 40 mg tablet,delayed release 40 mg PO DAILY #30 tabs 05/29/22 [Rx Last Taken 06/05/22] sucralfate 1 gram tablet 1 g PO Q6H 2 weeks #56 tabs 05/29/22 [Rx Last Taken 06/08/22 01:00] multivitamin 1 tab PO DAILY supplement 06/08/22 [History Last Taken 06/05/22] oxycodone-acetaminophen 5 mg-325 mg tablet 1 - 2 tab PO Q6H PRN pain 3 days #14 tabs 06/08/22 [Rx Last Taken Unknown] famotidine 20 mg tablet 20 mg PO BID PRN nausea and vomiting, GERD #30 tabs 06/09/22 [Rx Last Taken Unknown] pantoprazole 40 mg tablet,delayed release (Protonix) 40 mg PO DAILY #30 tabs 06/09/22 [Rx Last Taken Unknown] Allergy/AdvReac Type Severity Reaction Status Date / Time cat dander Allergy Swelling Verified 05/29/22 09:53 amphetamine aspartate AdvReac palpitation Verified 06/08/22 09:21 [From Adderall] amphetamine sulfate AdvReac palpitation Verified 06/08/22 09:21 [From Adderall] dextroamphetamine saccharate AdvReac palpitation Verified 06/08/22 09:21 [From Adderall] dextroamphetamine sulfate AdvReac palpitation Verified 06/08/22 09:21 [From Adderall] MOSIQUTO Allergy Mild ITCHY Uncoded 11/06/22 21:54 Family History Grandmother Breast cancer Mother Hypertension Surgical History History of esophagogastroduodenoscop y (EGD) ( 09/2019) S/P laparoscopic cholecystectomy Social History Smoking Status: Never smoker alcohol intake: current alcohol intake frequency: a few times a week substance use type: marijuana EXAM Physical Exam Const Vital Signs: 11/06/22 21:52 Temperature 97.2 F L Temperature Source Temporal Pulse Rate 81 Respiratory Rate 14 Blood Pressure 131/83 H Blood Pressure Mean 99 Pulse Ox 95 Oxygen Delivery Method Room Air [facility] Narrative Medical decision making narrative: HISTORY OF PRESENT ILLNESS: 27-year-old female here with concern for mosquito bite to the face. States he was bit by mosquito on Sunday and has had swelling and itching ever since. Patient know she has allergies to mosquitoes. She denies any wheezing, vomiting, shortness of breath, drooling. REVIEW OF SYSTEMS: Pertinent positives: Facial swelling, itching Pertinent negatives: Drooling, neck stiffness, difficulty opening her mouth, nausea, wheezing PHYSICAL EXAM: Nursing triage notes reviewed, Vital signs reviewed Constitutional: please see [facility] HENT: MMM, there is swelling to the right side of face, no obvious redness, fluctuance, crepitus or bullae, there is a swollen perirectal lymph node noted, no drooling, no dysphonia, no trismus. Eyes: Pupils equal round and reactive to light, Extraocular muscles intact Neck: No stridor, no JVD, full neck ROM Lungs: Clear to auscultation, No wheezing or rales. No increased work of breathing, no conversational dyspnea, no accessory muscle use, no nasal flaring. No respiratory distress noted Heart: Regular rate and rhythm, No murmurs, No rubs and No gallops, 2+ distal pulses (radial, femoral, posterior tibial) in all extremities Abdomen: Soft, there is no tenderness, rigidity, rebound or guarding, no obvious peritoneal signs, no palpable pulsatile abdominal masses, no auscultated abdominal bruit : No CVAT Extremities: No edema Neuro: No focal neurological deficits, cranial nerves II through XII intact, 5/5 strength in all extremities. Intact sensation to light touch in all extremities, 2+ reflexes bilateral patella tendons. Normal gait. No ataxia. Skin: No rash or lesions noted MEDICAL DECISION MAKING: Chief Complaint: Facial swelling after mosquito bite External records reviewed: Last ED visit in June 2022 Factors affecting care: none Social determinants of health: none History obtained from others: none Consults: none ALL IMAGES (IF OBTAINED) HAVE BEEN PERSONALLY REVIEWED AND INTERPRETED BY MYSELF. MDM Narrative: Patient was hemodynamically stable, afebrile, nontoxic-appearing. Exam consistent with likely immune response, lymphadenopathy to mosquito bite. Will giv (more content not included)... Normal [facility] Basic Metabolic Profile (BMP )on 06-09-2022 BUN/CRE 9.0 RATIO Low 10-20 [facility] Comment on above: Performed By: #### L 100.0100, L500.3400, L500.2500 #### [facility] [address] [place], [address] CA,Total 8.7 mg/dL Normal 8.5-10.1 [facility] Comment on above: Performed By: #### L 100.0100, L500.3400, L500.2500 #### [facility] [address] [place], [address] Chloride [Moles/Vol] 110 mmol/L High 98-107 [facility] Comment on above: Performed By: #### L 100.0100, L500.3400, L500.2500 #### [facility] [address] [place], [address] CO2 [Moles/Vol] 24.0 mmol/L Normal 21.0-32.0 [facility] Comment on above: Performed By: #### L 100.0100, L500.3400, L500.2500 #### [facility] [address] [place], [address] Creatinine [Mass/Vol] 0.89 mg/dL Normal 0.55-1.02 [facility] Comment on above: Result Comment: The validity of the calculated GFR GFRAA in patients over 70 years has not been determined. Clinical correlation is essential. Performed By: #### L 100.0100, L500.3400, L500.2500 #### [facility] [address] [place], [address] ECRCL 79.24 ml/min Normal [facility] Comment on above: Performed By: #### L 100.0100, L500.3400, L500.2500 #### [facility] [address] [place], [address] EST GFR - AA 98 mL/min Normal >60 [facility] Comment on above: Result Comment: Afri can Niuean GFR Calc Performed By: #### L 100.0100, L500.3400, L500.2500 #### [facility] [address] [place], [address] GAP 7 Normal 5-15 [facility] Comment on above: Performed By: #### L 100.0100, L500.3400, L500.2500 #### [facility] [address] [place], [address] GFR/1.73 sq M.predicted among non-blacks MDRD (S/P/Bld) [Vol rate/Area] 81 mL/min/{1.73_m2} Normal >60 [facility] Comment on above: Result Comment: Non- GFR Calc Performed By: #### L 100.0100, L500.3400, L500.2500 #### [facility] [address] [place], [address] Glucose [Mass/Vol] 109 mg/dL High 74-106 [facility] Comment on above: Result Comment: Fast ing Glucose result from 100 to 125 mg/dL suggests IMPAIRED HOMEOSTASIS per A.D.A. criteria. Performed By: #### L 100.0100, L500.3400, L500.2500 #### [facility] [address] [place], [address] Potassium [Moles/Vol] 4.1 mmol/L Normal 3.5-5.1 [facility] Comment on above: Performed By: #### L 100.0100, L500.3400, L500.2500 #### [facility] [address] [place], [address] Sodium [Moles/Vol] 141 mmol/L Normal 136-145 [facility] Comment on above: Performed By: #### L 100.0100, L500.3400, L500.2500 #### [facility] [address] [place], [address] Urea nitrogen [Mass/Vol] 8 mg/dL Normal 7-18 [facility] Comment on above: Performed By: #### L 100.0100, L500.3400, L500.2500 #### [facility] [address] [place], [address] CBC W/Diff, Automatedon 02-0 -2022 Absolute Lymph 1.33 X10 3/uL Normal 0.83-4.51 [facility] Comment on above: Performed By: #### L 100.0100, L500.3400, L500.2500 #### [facility] [address] [place], [address] Absolute Neut 5.2 X10 3/uL Normal 2.0-7.7 [facility] Comment on above: Performed By: #### L 100.0100, L500.3400, L500.2500 #### [facility] [address] [place], [address] Basophils/100 WBC (Bld) 0.3 % Normal 0-1 [facility] Comment on above: Performed By: #### L 100.0100, L500.3400, L500.2500 #### [facility] [address] [place], [address] Eosinophils/100 WBC (Bld) 0.0 % Normal 0-5 [facility] Comment on above: Performed By: #### L 100.0100, L500.3400, L500.2500 #### [facility] [address] [place], [address] Erythrocyte distribution width (RBC) [Ratio] 13.7 % Normal 11.6-14.6 [facility] Comment on above: Performed By: #### L 100.0100, L500.3400, L500.2500 #### [facility] [address] [place], [address] Hematocrit (Bld) [Volume fraction] 38.4 % Normal 37-47 [facility] Comment on above: Performed By: #### L 100.0100, L500.3400, L500.2500 #### [facility] [address] [place], [address] Hemoglobin (Bld) [Mass/Vol] 11.8 g/dL Low 12.0-15.0 [facility] Comment on above: Performed By: #### L 100.0100, L500.3400, L500.2500 #### [facility] [address] [place], [address] IG% 0.400 Normal 0.0-0.9 [facility] Comment on above: Result Comment: IG% - Immature Granulocytes (promyelocytes, myelocytes and metamyelocytes) > 1% indicates that a LEFT SHIFT is Present. Performed By: #### L 100.0100, L500.3400, L500.2500 #### [facility] [address] [place], [address] Lymphocytes/100 WBC (Bld) 18.2 % Low 19-41 [facility] Comment on above: Performed By: #### L 100.0100, L500.3400, L500.2500 #### [facility] [address] [place], [address] MCH (RBC) [Entitic mass] 26.2 pg Low 27.0-32.0 [facility] Comment on above: Performed By: #### L 100.0100, L500.3400, L500.2500 #### [facility] [address] [place], [address] MCHC (RBC) [Mass/Vol] 30.7 g/dL Low 32-36 [facility] Comment on above: Performed By: #### L 100.0100, L500.3400, L500.2500 #### [facility] [address] [place], [address] MCV (RBC) [Entitic vol] 85.3 fL Normal 81-99 [facility] Comment on above: Performed By: #### L 100.0100, L500.3400, L500.2500 #### [facility] [address] [place], [address] Monocytes/100 WBC (Bld) 10.1 % High 0-10 [facility] Comment on above: Performed By: #### L 100.0100, L500.3400, L500.2500 #### [facility] [address] [place], [address] Neutrophils/100 WBC (Bld) 71.0 % High 47-70 [facility] Comment on above: Performed By: #### L 100.0100, L500.3400, L500.2500 #### [facility] [address] [place], [address] Nucleated RBC (Bld) [#/Vol] 0 10*3/uL Normal 0-5 [facility] Comment on above: Performed By: #### L 100.0100, L500.3400, L500.2500 #### [facility] [address] [place], [address] Platelet mean volume (Bld) [Entitic vol] 9.0 fL Normal 6.2-12.0 [facility] Comment on above: Performed By: #### L 100.0100, L500.3400, L500.2500 #### [facility] [address] [place], [address] Platelets (Bld) [#/Vol] 335 10*3/uL Normal 150-450 [facility] Comment on above: Performed By: #### L 100.0100, L500.3400, L500.2500 #### [facility] [address] [place], [address] RBC (Bld) [#/Vol] 4.50 10*6/uL Normal 4.2-5.4 [facility] Comment on above: Performed By: #### L 100.0100, L500.3400, L500.2500 #### [facility] [address] [place], [address] RDW SD 42.9 fl Normal 35.1-43.9 [facility] Comment on above: Performed By: #### L 100.0100, L500.3400, L500.2500 #### [facility] [address] [place], [address] WBC (Bld) [#/Vol] 7.3 10*3/uL Normal 4.4-11.0 [facility] Comment on above: Performed By: #### L 100.0100, L500.3400, L500.2500 #### [facility] [address] [place], [address] Liver Profileon 06-09-2022 Albumin [Mass/Vol] 3.2 g/dL Normal 3.2-5.0 [facility] Comment on above: Performed By: #### L 100.0100, L500.3400, L500.2500 #### [facility] [address] [place], [address] ALK P 102 U/L Normal 45-117 [facility] Comment on above: Performed By: #### L 100.0100, L500.3400, L500.2500 #### [facility] [address] [place], [address] ALT [Catalytic activity/Vol] 167 U/L High 13-56 [facility] Comment on above: Performed By: #### L 100.0100, L500.3400, L500.2500 #### [facility] [address] [place], [address] AST [Catalytic activity/Vol] 27 U/L Normal 15-37 [facility] Comment on above: Performed By: #### L 100.0100, L500.3400, L500.2500 #### [facility] [address] [place], [address] Bilirubin [Mass/Vol] 0.50 mg/dL Normal 0.20-1.00 [facility] Comment on above: Result Comment: For patients on eltrombopag therapy, use of Dimension [place] TBIL is not recommended. Performed By: #### L 100.0100, L500.3400, L500.2500 #### [facility] [address] [place], [address] Bilirubin.direct [Mass/Vol] 0.16 mg/dL Normal 0.00-0.30 [facility] Comment on above: Performed By: #### L 100.0100, L500.3400, L500.2500 #### [facility] [address] [place], [address] Globulin (S) [Mass/Vol] 3.6 g/dL Normal 2.2-4.2 [facility] Comment on above: Performed By: #### L 100.0100, L500.3400, L500.2500 #### [facility] [address] [place], [address] T PROT 6.8 g/dL Normal 6.4-8.2 [facility] Comment on above: Performed By: #### L 100.0100, L500.3400, L500.2500 #### [facility] [address] [place], [address] 12 Lead EKGon 06-08-2022 12 Lead EKG [facility] Cardiovascular Services [address] [place] [address] 12 Lead EKG 06/08/22 0827 MR#: [id number] Acct: [id number] Name: YANDEL MANLEY Rep #: [id number] : 1995 26 From: Fernando Goldsmith MD Attending Dr: Dr. Tasneem Crocker MD Status: D IS JESS Ordering Dr: Francis Mann DO Date: 06/08/22 Location: LA3 Sex: F AA Admitted: 06/08/22 Test Reason : Blood Pressure : / mmHG Vent. Rate : 068 BPM Atrial Rate : 068 BPM P-R Int : 156 ms QRS Dur : 080 ms QT Int : 404 ms P-R-T Axes : 067 087 049 degrees QTc Int : 429 ms Normal sinus rhythm with sinus arrhythmia Normal ECG Confirmed by RALEIGH DE LEON, ZURI ([id number]), subeditor COURTNEY HANNAH ([id number]) on 06/09/2022 2:47:22 PM Referred By: TL Confirmed By:NA GOLDSMITH MD 06/09/22 1447 Date Fernando Goldsmith MD CC: Dr. Tasneem Crocker MD; Dr. Francis Mann DO; No Primary Care Physician Signed Normal [facility] Absolute lymphocyte countOrd ered By: Dr. Naik on 06-08-2022 Lymphocytes Auto (Unsp spec) [#/Vol] 4.23 10*3/uL 0.83-4.51 [facility] Basophil percentageOrdered B y: Dr. Naik on 06-08-2022 Basophils/100 WBC (Bld) 0.2 % 0-1 [facility] Bilirubin [Mass/Vol] 0.30 mg/dL 0.20-1.00 [facility] Comment on above: For patients on eltr ombopag therapy, use of Dimension [place] TBIL is not recommended. Eosinophils/100 WBC (Bld) 2.2 % 0-5 [facility] Lactate [Moles/Vol] 1.7 mmol/L 0.4-2.0 [facility] Neutrophils (Bld) [#/Vol] 3.2 10*3/uL 2.0-7.7 [facility] Neutrophils/100 WBC (Bld) 37.5 % 47-70 [facility] Protein [Mass/Vol] 7.8 g/dL 6.4-8.2 [facility] WBC (Bld) [#/Vol] 8.6 10*3/uL 4.4-11.0 [facility] Blood erythrocytes count (nu mber/volume)Ordered By: Dr. Naik on 06-08-2022 RBC (Bld) [#/Vol] 4.85 10*6/uL 4.2-5.4 [facility] Blood hemoglobin measurement (mass/volume)Ordered By: Dr. Naik on 06-08-2022 Hemoglobin (Bld) [Mass/Vol] 12.7 g/dL 12.0-15.0 [facility] Blood lymphocytes/100 leukoc ytesOrdered By: Dr. Naik on 06-08-2022 Lymphocytes/100 WBC (Bld) 49.0 % 19-41 [facility] Blood monocytes/100 leukocyt esOrdered By: Dr. Naik on 06-08-2022 Monocytes/100 WBC (Bld) 10.9 % 0-10 [facility] Blood platelet mean volumeOr dered By: Dr. Naik on 06-08-2022 Platelet mean volume (Bld) [Entitic vol] 9.1 fL 6.2-12.0 [facility] CBC W/Diff, Automatedon Absolute Lymph 4.23 X10 3/uL Normal 0.83-4.51 [facility] Comment on above: Performed By: #### L 503.6007, L500.3400, L501.2450, L100.0100 #### [facility] [address] [facility] [place], [place], [id number] Absolute Neut 3.2 X10 3/uL Normal 2.0-7.7 [facility] Comment on above: Performed By: #### L 503.6005, L500.3400, L501.2450, L100.0100 #### [facility] [address] [place], [address] Basophils/100 WBC (Bld) 0.2 % Normal 0-1 [facility] Comment on above: Performed By: #### L 503.6005, L500.3400, L501.2450, L100.0100 #### [facility] [address] [place], [address] Eosinophils/100 WBC (Bld) 2.2 % Normal 0-5 [facility] Comment on above: Performed By: #### L 503.6005, L500.3400, L501.2450, L100.0100 #### [facility] [address] [place], [address] Erythrocyte distribution width (RBC) [Ratio] 13.5 % Normal 11.6-14.6 [facility] Comment on above: Performed By: #### L 503.6005, L500.3400, L501.2450, L100.0100 #### [facility] [address] [place], [address] Hematocrit (Bld) [Volume fraction] 40.6 % Normal 37-47 [facility] Comment on above: Performed By: #### L 503.6005, L500.3400, L501.2450, L100.0100 #### [facility] [address] [place], [address] Hemoglobin (Bld) [Mass/Vol] 12.7 g/dL Normal 12.0-15.0 [facility] Comment on above: Performed By: #### L 503.6005, L500.3400, L501.2450, L100.0100 #### [facility] [address] [place], [address] IG% 0.200 Normal 0.0-0.9 [facility] Comment on above: Result Comment: IG% - Immature Granulocytes (promyelocytes, myelocytes and metamyelocytes) > 1% indicates that a LEFT SHIFT is Present. Performed By: #### L 503.6005, L500.3400, L501.2450, L100.0100 #### [facility] [address] [place], [address] Lymphocytes/100 WBC (Bld) 49.0 % High 19-41 [facility] Comment on above: Performed By: #### L 503.6005, L500.3400, L501.2450, L100.0100 #### [facility] [address] [place], [address] MCH (RBC) [Entitic mass] 26.2 pg Low 27.0-32.0 [facility] Comment on above: Performed By: #### L 503.6005, L500.3400, L501.2450, L100.0100 #### [facility] [address] [place], [address] MCHC (RBC) [Mass/Vol] 31.3 g/dL Low 32-36 [facility] Comment on above: Performed By: #### L 503.6005, L500.3400, L501.2450, L100.0100 #### [facility] [address] [place], [address] MCV (RBC) [Entitic vol] 83.7 fL Normal 81-99 [facility] Comment on above: Performed By: #### L 503.6005, L500.3400, L501.2450, L100.0100 #### [facility] [address] [place], [address] Monocytes/100 WBC (Bld) 10.9 % High 0-10 [facility] Comment on above: Performed By: #### L 503.6005, L500.3400, L501.2450, L100.0100 #### [facility] [address] [place], [address] Neutrophils/100 WBC (Bld) 37.5 % Low 47-70 [facility] Comment on above: Performed By: #### L 503.6005, L500.3400, L501.2450, L100.0100 #### [facility] [address] [place], [address] Nucleated RBC (Bld) [#/Vol] 0 10*3/uL Normal 0-5 [facility] Comment on above: Performed By: #### L 503.6005, L500.3400, L501.2450, L100.0100 #### [facility] [address] [place], [address] Platelet mean volume (Bld) [Entitic vol] 9.1 fL Normal 6.2-12.0 [facility] Comment on above: Performed By: #### L 503.6005, L500.3400, L501.2450, L100.0100 #### [facility] [address] [place], [address] Platelets (Bld) [#/Vol] 363 10*3/uL Normal 150-450 [facility] Comment on above: Performed By: #### L 503.6005, L500.3400, L501.2450, L100.0100 #### [facility] [address] [place], [address] RBC (Bld) [#/Vol] 4.85 10*6/uL Normal 4.2-5.4 [facility] Comment on above: Performed By: #### L 503.6005, L500.3400, L501.2450, L100.0100 #### [facility] [address] [place], [address] RDW SD 41.5 fl Normal 35.1-43.9 [facility] Comment on above: Performed By: #### L 503.6005, L500.3400, L501.2450, L100.0100 #### [facility] [address] [place], [address] WBC (Bld) [#/Vol] 8.6 10*3/uL Normal 4.4-11.0 [facility] Comment on above: Performed By: #### L 503.6005, L500.3400, L501.2450, L100.0100 #### [facility] [address] [place], [address] Chest 1 View (Portable)on Chest 1 View (Portable) [facility] Imaging Services [address] [facility] [place] [address] Chest 1 View (Portable) MR#: [id number] Acct: [id number] Name: YANDEL MANLEY Rep #: [id number] : 1995 F 26 From: Vishal kaur MD PCP: Care Physician,No Primary Status: ADM JESS Study: Chest 1 View (Portable) Date of Exam: 06/08/22 Exam# [id number] Ordering Dr: Francis Mann DO STUDY: X-RAY CHEST REASON FOR EXAM: Female, 26 years old. Preoperative evaluation. TECHNIQUE: Single AP portable view of the chest. COMPARISON: Comparison is made with prior study dated 06/25/2019. FINDINGS: The lungs are clear and expanded. There is no demonstrated pleural abnormality. Normal size heart. Normal mediastinum and jayden. Normal visualized pulmonary arteries. Normal visualized aortic arch and descending thoracic aorta. Normal visualized thoracic spine. Normal visualized ribs, clavicles, and shoulders. There is no demonstrated abnormality of the visualized soft tissue structures of the upper abdomen. RAD/Chest 1 View (Portable) IMPRESSION: Normal x-ray examination of the chest. Electronically Signed: Vishal Khan MD at 8:57 EST , CC: Dr. Francis Mann, DO; No Primary Care Physician .Net Programmer: Signed Normal [facility] Cholangiogram/ O R,Initialon 06-08-2022 Cholangiogram/ O R,Initial [facility] Imaging Services [address] [place] [address] Cholangiogram/ O R,Initial MR#: [id number] Acct: [id number] Name: YANDEL MANLEY Rep #: [id number] : 1995 F 26 From: Luis Fernando Martinez PCP: Care Physician,No Primary Status: ADM JESS Study: Cholangiogram/ O R,Initial Date of Exam: 06/08 Exam# [id number] Ordering Dr: Tasneem Crocker MD INDICATION: LAP ANTELMO EXAMINATION/TECHNIQUE: Images assigned to this order were provided in conjunction with a surgical procedure performed in the operating room/procedural suite. Please see operative report for details. Fluoroscopic images: 26 Fluoroscopic time: 4.6 seconds Cumulative dose: 0.79072, mGym2; 1.51; mGy COMPARISON: None. FINDINGS: No filling defects are identified. There is no biliary ductal dilatation. There is free passage into the duodenum. RAD/Cholangiogram/ O R,Initial IMPRESSION: Negative intraoperative cholangiogram. Electronically Signed: Luis Fernando Jackson MD at 21:54 EST , CC: Dr. Tasneem Crocker MD; No Primary Care Physician .Net Programmer: Signed Normal [facility] Determination of erythrocyte mean corpuscular volume (MCV)Ordered By: Dr. Naik on 06-08-2022 MCV (RBC) [Entitic vol] 83.7 fL 81-99 [facility] Direct bilirubinOrdered By: Dr. Naik on 06-08-2022 Bilirubin.direct [Mass/Vol] 0.16 mg/dL 0.00-0.30 [facility] Discharge Instructionon [address] [facility] Medical Records Department [address] [place] [address] Instructions for Home/Discharge Instructions 06/08/22 1847 MR#: [id number] Acct: [id number] Name: YANDEL MANLEY Rep #: [id number] : 1995 26 From: Tasneem Crocker MD PCP: Care Physician,No Primary Status:ADM JESS Discharge Instructions Diet Discharge Diet: Light diet - advance as tolerated Activity Discharge Activity: May Not Drive (while taking narcotic pain medications.) May shower in (days): 1 Lifting Restrictions: no lifting >20 lbs x 2 wks, no strenuous exercise for 4 wks Dressing / Incision Call your doctor if your incision/area has: Continuous Slow Oozing, Sudden Increased Bleeding, Increased Pain/ Swelling, Increased Redness, Foul Smelling Discharge and Swelling at the incision site Call your doctor if you observe: Fever of 101 or Higher Remove Dressing in: 2 days Cleanse incision/area with: Soap Water Additional Dressing/Incision Instructions:: Steri-Strips will fall off in 7 to 10 days, if they do not fall off okay to remove after 10 days. Follow Up Care Please Follow Up With: Tasneem Crocker MD When: Call the office for a follow-up appointment 2 weeks; after 5 PM and on the weekends call [phone] with any concerns. Test Results: Test results from this visit will be discussed in further detail at your follow-up appointment, if applicable. Discharge Plan Admission Admit Date/Time: 06/08/22 08:19 Attending Provider: Tasneem Crocker Primary Care Provider: Irma Physician,No Primary Discharge Orders/Prescriptions Prescriptions: New oxycodone-acetaminophen 5-325 mg tablet 1 - 2 tab PO Q6H PRN (Reason: pain) 3 Days Qty: 14 0RF Continued pantoprazole 40 mg tablet,delayed release (DR/EC) 40 mg PO DAILY Qty: 30 0RF sucralfate 1 gram tablet 1 g PO Q6H 14 Days Qty: 56 0RF ondansetron 4 mg tablet,disintegrating 8 mg PO Q8H PRN PRN (Reason: Nausea) Qty: 12 0RF multivitamin Tablet 1 tab PO DAILY Referrals / Follow Up: Care Physician,No Primary [Primary Care Provider] - Disposition Disposition (needs filled in before D/C Order can be placed): Home, Self Care 06/08/22 1850 Tasneem Crocker MD CC: No Primary Care Physician Signed Normal [facility] Emergency Department Summary on 06-08-2022 Emergency Department Summary [facility] Medical Records Department [address] [place] [address] Emergency Department Summary 06/08/22 MR#: [id number] Acct: [id number] Name: YANDEL MANLEY Rep #: [id number] : 1995 26 From: Nicolas Naik MD PCP: Care Physician,No Primary Status:DIS JESS Location: LA3 [id number] HPI HPI - GI History of Present Illness Chief Complaint: Abd Pain Detail of Chief Complaint: Severe epigastric right upper quadrant pain that radiates to the back that Informant: patient Abdominal Pain/Flank Pain 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 Patient had negative test with last ER visit. Narrative Narrative: Patient was seen on May 29 and discharged with prescription for promethazine and referral to Dr. Quinonez. During that visit CBC was obtained and normal. Comprehensive metabolic panel revealed slight elevation of AST and ALT of 40 and 58 respectively. Lipase was normal. test was negative. She returned on June 03. Chief complaint was abdominal pain thought to be due to stress ulcer. Prior to arrival. Blood work revealed elevated AST and ALT ALT of 493 and 350 respectively and alk phos of 124. Lipase was normal. CBC was normal. CAT scan of the abdomen revealed a collapsed gallbladder. Comment was made the contents of gallbladder. Dense and may be due to completely collapsed gallbladder with enhanced mucosal versus gallbladder collapse around the stone. Recommended ultrasound. Patient was discharged with diagnosis of peptic ulcer disease and elevated liver enzymes. Patient presents because of severe epigastric right upper quadrant pain that radiates to her back that started 1 hour prior to presentation. At approximately 8 PM she had Pasta with white sauce. She is presently complaining of severe pain. She is pale diaphoretic and in obvious discomfort with nausea and vomiting. She denies hematemesis or coffee-ground emesis. She denies black or maroon- colored stool. She denies diarrhea. She denies cardiac or respiratory symptoms. She denies fever, chills night sweats. She is on pantoprazole. She was diagnosed with stress ulcer several years ago. She had EGD performed by Dr. Vaibhav Monge with no obvious bleeding source noted. Prior similar symptoms: Yes Recent Illness/Hospitalization: Yes [facility] Medical History (Updated 06/08/22 @ 18:[address] Tasneem Crocker MD) Gastritis Physical exam, pre-employment Stress ulcer of stomach Home Medications ondansetron 4 mg disintegrating tablet 8 mg PO Q8H PRN PRN Nausea #12 tabs 05/29/22 [Rx Last Taken 06/05/22] pantoprazole 40 mg tablet,delayed release 40 mg PO DAILY #30 tabs 05/29/22 [Rx Last Taken 06/05/22] sucralfate 1 gram tablet 1 g PO Q6H 2 weeks #56 tabs 05/29/22 [Rx Last Taken 06/08/22 01:00] multivitamin 1 tab PO DAILY supplement 06/08/22 [History Last Taken 06/05/22] oxycodone-acetaminophen 5 mg-325 mg tablet 1 - 2 tab PO Q6H PRN pain 3 days #14 tabs 06/08/22 [Rx Last Taken Unknown] famotidine 20 mg tablet 20 mg PO BID PRN nausea and vomiting, GERD #30 tabs 06/09/22 [Rx Last Taken Unknown] pantoprazole 40 mg tablet,delayed release (Protonix) 40 mg PO DAILY #30 tabs 06/09/22 [Rx Last Taken Unknown] Allergy/AdvReac Type Severity Reaction Status Date / Time cat dander Allergy Swelling Verified 05/29/22 09:53 amphetamine aspartate AdvReac palpitation Verified 06/08/22 09:21 [From Adderall] amphetamine sulfate AdvReac palpitation Verified 06/08/22 09:21 [From Adderall] dextroamphetamine saccharate AdvReac palpitation Verified 06/08/22 09:21 [From Adderall] dextroamphetamine sulfate AdvReac palpitation Verified 06/08/22 09:21 [From Adderall] Family History Grandmother Breast cancer Mother Hypertension Surgical History (Updated 06/08/22 @ 18:[address] Tasneem Crocker MD) History of esophagogastroduodenoscop y (EGD) ( 09/2019) S/P laparoscopic cholecystectomy Social History Smoking Status: Never smoker alcohol intake: current alcohol intake frequency: a few times a week substance use type: marijuana ROS ROS ED Constitutional Constitutional ED: Denies chills, fever(s), subjective, sweats (more content not included)... Normal [facility] Gallbladderon 06-08-2022 Gallbladder [facility] Imaging Services [address] [place] [address] Gallbladder MR#: [id number] Acct: [id number] Name: YANDEL MANLEY Rep #: [id number] : 1995 F 26 From: Vishal kaur MD PCP: Care Physician,No Primary Status: ADM JESS Study: Gallbladder Date of Exam: 06/08/22 Exam# [id number] Ordering Dr: Nicolas Naik MD STUDY: ABDOMINAL ULTRASOUND - RIGHT UPPER QUADRANT REASON FOR VISIT: Female, 26 years old RUQ pain, Beckham sign, elevated transaminases -- abnl CT TECHNIQUE: Ultrasound evaluation of the right upper quadrant was performed with real-time and static resendez-scale imaging. TECHNICAL QUALITY: Adequate. COMPARISON: Comparison is made with prior CT scan of the abdomen and pelvis dated 06/03/2022. FINDINGS: Liver: The liver measures 14.7 cm. There is normal echogenicity of the liver. The bile ducts are within normal limits. There is hepatic color flow. The direction of portal flow is hepatopetal. There is no demonstrated mass lesion. Gallbladder: Normal distended gallbladder. The gallbladder wall measures 2.2 mm. There is a positive sonographic Beckham''s sign. There is no pericholecystic fluid. There are multiple echogenic structures within the gallbladder, consistent with multiple gallstones. Common Bile Duct (C.B.D.): The common bile duct measures 5.8 mm. Pancreas: Normal size of the head, body and tail of the pancreas. There is normal echogenicity of the pancreas. There is no demonstrated pancreatic mass or cyst. Right Kidney: Normal size of the right kidney. The right kidney measures 11.3 cm x 5 cm x 3.7 cm. Normal renal cortex. The right cortex measures 1.6 cm. There is no demonstrated renal mass or cyst. There is no right hydronephrosis. US/Gallbladder IMPRESSION: Multiple gallstones. Positive sonographic Beckham''s sign. Electronically Signed: Vishal Khan MD at 8:34 EST , CC: Dr. Nicolas Naik MD; No Primary Care Physician .Net Programmer: Signed Normal [facility] H AND P Exam - Surgicalon H&P Exam - Surgical [facility] Medical Records Department [facility] [place] [address] H P Exam - Surgical 06/08/22 1212 MR#: [id number] Acct: [id number] Name: YANDEL MANLEY Rep #: [id number] : 1995 26 From: Tasneem Crocker MD PCP: Care Physician,No Primary Status:ADM JESS Location: [place] [address] HPI - General General Date of Admission: 06/08/22 HPI Narrative YANDEL MANLEY, is a 26 F who presents to the ER due to right upper quadrant pain that started about 1 AM. Patient also had elevated LFTs. Patient has been to the ER couple times for similar episodes and patient was put on some Carafate and Protonix. Patient had the right upper quadrant pain nausea and vomiting. Patient had an ultrasound showed gallstones/sludge. Patient is 6 months from twins. [facility] Medical History Gastritis Physical exam, pre-employment Stress ulcer of stomach Home Medications ondansetron 4 mg disintegrating tablet 8 mg PO Q8H PRN PRN Nausea #12 tabs 05/29/22 [Rx Last Taken 06/05/22] pantoprazole 40 mg tablet,delayed release 40 mg PO DAILY #30 tabs 05/29/22 [Rx Last Taken 06/05/22] sucralfate 1 gram tablet 1 g PO Q6H 2 weeks #56 tabs 05/29/22 [Rx Last Taken 06/08/22 01:00] multivitamin 1 tab PO DAILY supplement 06/08/22 [History Last Taken 06/05/22] Allergy/AdvReac Type Severity Reaction Status Date / Time cat dander Allergy Swelling Verified 05/29/22 09:53 amphetamine aspartate AdvReac palpitation Verified 06/08/22 09:21 [From Adderall] amphetamine sulfate AdvReac palpitation Verified 06/08/22 09:21 [From Adderall] dextroamphetamine saccharate AdvReac palpitation Verified 06/08/22 09:21 [From Adderall] dextroamphetamine sulfate AdvReac palpitation Verified 06/08/22 09:21 [From Adderall] Family History Grandmother Breast cancer Mother Hypertension Surgical History History of esophagogastroduodenoscop y (EGD) ( 09/2019) Social History Smoking Status: Never smoker alcohol intake: current alcohol intake frequency: a few times a week substance use type: marijuana ROS Constitutional Constitutional: Reports anorexia Eyes Eyes: Denies change in vision ENT HEENT: Denies dysphagia Cardiovascular Cardiovascular: Denies chest pain Respiratory/Chest Respiratory/Chest: Denies shortness of breath at rest Gastrointestinal Gastrointestinal: Reports abdominal pain, diarrhea, nausea and vomiting Genitourinary Genitourinary: Denies dysuria Musculoskeletal Musculoskeletal: Denies joint swelling Integumentary Integumentary: Denies rash Neurologic Neurologic: Denies numbness Psychiatric Psychiatric: Denies depression Hematologic/Lymphatic Hematologic/Lymphatic: Denies easy bleeding Vital Signs Vital Signs Vital Signs: 06/08/22 01:08 06/08/22 04:26 06/08/22 07:28 Temperature 98 F Temperature Source Temporal Pulse Rate 98 95 87 Pulse Strength Respiratory Rate 16 20 H 16 Respiratory Effort Respiratory Depth Respiratory Pattern Blood Pressure 145/77 H 138/89 H 120/80 Blood Pressure Mean 99 105 93 Blood Pressure Source Blood Pressure Position Blood Pressure Location Pulse Ox 99 96 98 Oxygen Delivery Method Room Air Room Air Room Air 06/08/22 09:08 06/08/22 09:28 06/08/22 09:28 Temperature 97.6 F L Temperature Source Oral Pulse Rate 87 Pulse Strength Normal (2+) Respiratory Rate 16 Respiratory Effort Normal Respiratory Depth Normal Respiratory Pattern Normal Blood Pressure 120/80 Blood Pressure Mean 93 Blood Pressure Source Blood Pressure Position Blood Pressure Location Pulse Ox 98 Oxygen Delivery Method Room Air Room Air 06/08/22 10:15 Temperature 98.8 F Temperature Source Oral Pulse Rate 65 Pulse Strength Respiratory Rate 16 Respiratory Effort Respiratory Depth Respiratory Pattern Blood Pressure 124/80 H Blood Pressure Mean 94 Blood Pressure Source Monitor Blood Pressure Position Semi-Fowlers Blood Pressure Location Right Arm Pulse Ox 100 Oxygen Delivery Method Room Air Weight Weight: 161 lb 6.054 oz Body Mass Index (BMI) 28.5 Physical Exam Const alert, oriented x3 and no apparent distress HEENT normocephalic and head/scalp atraumatic Resp normal respiratory effort Cardio regular rate GI soft to palpation; Negative for non-distended Palpation: tender epigastric and RUQ; Negative for guarding Extremity no clubbing, cyanosis or edema Neuro CN's II-XII intact bilaterally Psych mental status grossly normal Resu (more content not included)... Normal [facility] Hematocrit Auto (Bld) [Volum e fraction]Ordered By: Dr. Naik on 06-08-2022 Hematocrit (Bld) [Volume fraction] 40.6 % 37-47 [facility] Laboratory - Chemistry and C hemistry - challengeOrdered By: Dr. Naik on 06-08-2022 ALP [Catalytic activity/Vol] 132 U/L 45-117 [facility] ALT [Catalytic activity/Vol] 259 U/L 13-56 [facility] Globulin (S) [Mass/Vol] 4.0 g/dL 2.2-4.2 [facility] Lipase [Catalytic activity/Vol] 361 U/L 73-393 [facility] Laboratory - Hematology and Cell countsOrdered By: Dr. Naik on 06-08-2022 Erythrocyte distribution width (RBC) [Entitic vol] 41.5 fL 35.1-43.9 [facility] Erythrocyte distribution width (RBC) [Ratio] 13.5 % 11.6-14.6 [facility] Immature granulocytes/100 WBC (Bld) 0.200 % 0.0-0.9 [facility] Comment on above: IG% - Immature Granu locytes (promyelocytes, myelocytes and metamyelocytes) > 1% indicates that a LEFT SHIFT is Present. MCH (RBC) [Entitic mass] 26.2 pg 27.0-32.0 [facility] Nucleated RBC/100 WBC (Bld) [Ratio] 0 % 0-5 [facility] Lactic Acidon 06-08-2022 Lactate [Moles/Vol] 1.7 mmol/L Normal 0.4-1.9 [facility] Comment on above: Order Comment: Y Performed By: #### M 100.072 #### [facility] Laboratory [address] [place], [address] Lipaseon 06-08-2022 Lipase [Catalytic activity/Vol] 361 U/L Normal 73-393 [facility] Comment on above: Performed By: #### M 100.676 #### [facility] Laboratory [address] [place], [address] Liver Profileon 06-08-2022 Albumin [Mass/Vol] 3.8 g/dL Normal 3.2-5.0 [facility] Comment on above: Performed By: #### M 100.676 #### [facility] [address] [place], [address] ALK P 132 U/L High 45-117 [facility] Comment on above: Performed By: #### M 100.676 #### [facility] [address] [place], [address] ALT [Catalytic activity/Vol] 259 U/L High 13-56 [facility] Comment on above: Performed By: #### M 100.676 #### [facility] [address] [place], [address] AST [Catalytic activity/Vol] 38 U/L High 15-37 [facility] Comment on above: Performed By: #### M 100.676 #### [facility] [address] [place], [address] Bilirubin [Mass/Vol] 0.30 mg/dL Normal 0.20-1.00 [facility] Comment on above: Result Comment: For patients on eltrombopag therapy, use of Dimension [place] TBIL is not recommended. Performed By: #### M 100.676 #### [facility] [address] [place], [address] Bilirubin.direct [Mass/Vol] 0.16 mg/dL Normal 0.00-0.30 [facility] Comment on above: Performed By: #### M 100.676 #### [facility] [address] [place], [address] Globulin (S) [Mass/Vol] 4.0 g/dL Normal 2.2-4.2 [facility] Comment on above: Performed By: #### M 100.676 #### [facility] [address] [place], [place], [address] T PROT 7.8 g/dL Normal 6.4-8.2 [facility] Comment on above: Performed By: #### M 100.676 #### [facility] [address] [place], [address] MCHC Auto (RBC) [Mass/Vol]Or dered By: Dr. Naik on 06-08-2022 MCHC (RBC) [Mass/Vol] 31.3 g/dL 32-36 [facility] Operative Reporton [address] [facility] Medical Records Department [address] [place] [address] Operative Report 06/08/22 1845 MR#: [id number] Acct: [id number] Name: YANDEL MANLEY Rep #: [id number] : 1995 26 From: Tasneem Crocker MD PCP: Care Physician,No Primary Status:ADM JESS Location: [place] [address] Report of Operation Date of Procedure: 06/08/22 Pre-Operative Diagnosis: Acute cholecystitis, cholelithiasis Post-Operative Diagnosis: Same Surgery/Procedure Performed:: Laparoscopic cholecystectomy with cholangiograms Surgeon: Tasneem Crocker electroplating laborer: Simon Perry Type of Anesthesia: General/Supplemental Anesthesiologist: Celi King Special Medications: Zosyn 3.375 g IV every 8 hours for acute cholecystitis Specimen's removed: Gallbladder and stones Estimated Blood Loss (mL): < 10 CC Description of Procedure: Indications: this is a 26 year-old female who developed abdominal pain/nausea/vomiting and on workup was found to have acute cholecystitis, cholelithiasis, elevated liver functions AST ALT and alk phos, with a normal common bile duct. Laparoscopic cholecystectomy was elected. Description procedure: The patient was placed on operating table in supine position. A timeout was completed verifying correct patient, procedure, site, position and special equipment prior to beginning procedure. General Anesthesia was induced. The abdomen was prepped and draped in usual sterile fashion. An incision was made in the natural skin line above the umbilicus. The fascia was elevated and incised. The peritoneum was elevated and incised. Entry into the peritoneum was confirmed visually and no bowel was noted in the vicinity of the incision. Mae trocar was placed. The abdomen was insufflated with carbon dioxide to a pressure of 12-15 mmHg. Patient tolerated insufflation well. The laparoscope was then inserted and abdomen inspected. No injuries from initial trocar placement were noted. Additional trochars were then inserted in the following locations 5 mm trocar in the epigastrium and 2 more 5 mm trochars along the right costal margin. The abdomen was inspected no abnormalities were found. The table is placed in reverse Trendelenburg position with the right side up. The gallbladder was distended and tense. An aspiration needle was used to decompress the gallbladder. The dome of the gallbladder was grasped with atraumatic grasper passed through the lateral port and retracted over the dome of the liver. Infundibulum was then grasped with atraumatic grasper through the midclavicular port and retracted to the right lower quadrant. This maneuver exposed Calot's triangle. The peritoneum overlying the gallbladder infundibulum was then incised and cystic duct and artery identified and circumferentially dissected. Sarmiento catheter was used for cholangiograms. The cholangiogram showed good filling of the common bile duct into the duodenum with no filling defects, good filling of the right and left bile ducts as well. The cystic duct and artery were then doubly clipped and divided close to the gallbladder. The gallbladder then dissected from its peritoneal attachments by electrocautery. Hemostasis was checked and the gallbladder and contained stones were removed using the endoscopic retrieval bag through the umbilical port. The gallbladder is passed off table as specimen. The gallbladder fossa was irrigated with saline and hemostasis obtained. There is no evidence of bleeding from the gallbladder fossa or cystic artery leakage of bile from the cystic duct stump. Secondary trochars removed under direct vision. No bleeding was noted the trocar sites. The laparoscope was withdrawn and umbilical trocar removed. The abdomen was allowed to collapse. The fascia of the 12 mm trocar was closed with a [id number] 0 Vicryl suture. The skin was closed with sutures of 4-0 Monocryl and Steri-Strips. The patient was extubated. The patient tolerated procedure well and was taken to the postanesthesia care unit in stable condition. Complications None 06/08/221846 Cosigner Signature (if applicable): CC: Dr. Tasneem Crocker MD; No Primary Care Physician Signed [facility] Partial Thromboplast Timeon 06-08-2022 aPTT Coag (Bld) [Time] 28.5 s Normal 24.1-36.2 [facility] Comment on above: Performed By: #### L 300.4310, L300.3900, BTS #### [facility] [address] [place], [address] Platelets bldOrdered By: Dr. Naik on 06-08-2022 Platelets (Bld) [#/Vol] 363 10*3/uL 150-450 [facility] ,Serum,hCG Quali.on 06-08-2022 HCG, SERUM QUAL Negative [facility] Comment on above: Performed By: #### L 700.6800 #### [facility] [address] [place], [address] ,Urineon 06-08-2022 Beta HCG ( test) Ql (U) [facility] Comment on above: Order Comment: Result Comment: CHRIS ENT HAD PREG SERUM DONE INSTEAD Performed By: #### M 100.676 #### [facility] [address] [place], [address] INTERNAL QC OK? [facility] Comment on above: Order Comment: Result Comment: CHRIS ENT HAD PREG SERUM DONE INSTEAD Performed By: #### M 100.676 #### [facility] [address] [place], [address] REC[address]# [facility] Comment on above: Order Comment: Result Comment: CHRIS ENT HAD PREG SERUM DONE INSTEAD Performed By: #### M 100.676 #### [facility] [address] [place], [address] Prothrombin Time w/INRon INR Coag (PPP) [Relative time] 1.1 {INR} Normal [facility] Comment on above: Performed By: #### L 300.4310, L300.3900, BTS #### [facility] [address] [place], [address] PT Coag (PPP) [Time] 13.5 s Normal 11.7-14.9 [facility] Comment on above: Performed By: #### L 300.4310, L300.3900, BTS #### [facility] [address] [place], [place], [address] Serum or plasma albumin heather urement (mass/volume)Ordered By: Dr. Naik on 06-08-2022 Albumin [Mass/Vol] 3.8 g/dL 3.2-5.0 [facility] Surgery Specimen Level IIIon 06-08-2022 Surgery Specimen Level III Patient Age/Sex Location Account Attending Physician YANDEL MANLEY / MS3 [id number] Dr. Tasneem Crocker MD Specimen: [id number] Received: 06/09/22 Status: CHAZ Simpson Num: [id number] Spec Type: ALIDA Cortez Dr: Dr. Tasneem Crocker MD HEADER OPERATION: Laparoscopic cholecystectomy with IOC PRE-OP DIAGNOSIS: Acute calculous cholecystitis; elevated LFTs, Pain abdominal RUQ TISSUE SUBMITTED: Gallbladder MICROSCOPIC DIAGNOSIS Gallbladder, cholecystectomy: Acute and chronic cholecystitis and cholelithiasis. Benign pericystic lymph node. AM:ida 06/12/2022 MICROSCOPIC DESCRIPTION Slides are reviewed. GROSS DESCRIPTION Received is one container labeled with the patient's name and designated gallbladder. The specimen consists of a previously opened gallbladder measuring 8.5 cm in length and 2.5 cm in diameter. The external surface is pink-partida, smooth and glistening for the most part. Focally it is granular, hemorrhagic and contains cautery artifact. The gallbladder contains a small amount of partida, turbid mucoid bile. Present in the container and also in the gallbladder are multiple green, multifaceted stones measuring in aggregate 4 x 4 x 0.5 cm and 0.2 to 0.3 cm in greatest dimension. The mucosa is bile-stained and without any mass lesions. The gallbladder wall measures up to 0.5 cm in thickness. Also present close to the cystic duct is a partida nodule measuring 0.6 cm in diameter. Cafe Lead sections from the gallbladder and the cystic duct are submitted in one cassette including nodule. / SJ:ida 06/09/2022 TC:2 CPT: 22565 Patient Age/Sex Location Account Attending Physician YANDEL MANLEY MS3 [id number] Dr. Tasneem Crocker MD Signed (signature on file) Dr. Ras Hernández DO 06/12/22 1349 Normal [facility] Comment on above: Performed By: #### L 100.0100, L500.3400, L500.2500 #### [facility] Laboratory [facility] [address] [place], [place], [id number] Thin prep Papanicolaou smear with manual screeningOrdered By: Dr. Naik on 06-08-2022 Thin prep Papanicolaou smear with manual screening 38 U/L 15-37 [facility] Type AND Screenon 06-08-2022 Ab SCREEN GEL Negative Normal [facility] Comment on above: Order Comment: S Performed By: #### L 300.4310, L300.3900, BTS #### [facility] [address] [place], [address] ABO and Rh group Nom (Bld) Blood group B Rh(D) positive Normal [facility] Comment on above: Order Comment: S Performed By: #### L 300.4310, L300.3900, BTS #### [facility] [address] [place], [address] Abdomen/Pelvis W IV Cont ONL Yon 06-03-2022 Abdomen/Pelvis W IV Cont ONLY [facility] Imaging Services [address] [address] Abdomen/Pelvis W IV Cont ONLY MR#: [id number] Acct: [id number] Name: YANDEL MANLEY Rep #: [id number] : 1995 F 26 From: Simon Martinez PCP: Care Physician,No Primary Status: REG ER Study: Abdomen/Pelvis W IV Cont ONLY Date of Exam: Exam# [id number] Ordering Dr: Jamar Nichols MD EXAM: CT ABDOMEN AND PELVIS WITH INTRAVENOUS CONTRAST CLINICAL INDICATION: Pain, elevated LFTs TECHNIQUE: Helically acquired images were obtained of the abdomen and pelvis with intravenous contrast. This CT exam was performed using one or more of the following dose reduction techniques: automated exposure control, adjustment of the mA and/or kV according to patient size, and/or use of iterative reconstruction technique. This report was created using StrongView report generation technology. CONTRAST: 100 cc of Isovue-370 IV. RADIATION DOSE: CTDIvol = 10.18 mGy, DLP = 710.16 mGy-cm. COMPARISON: 09/10/2019. FINDINGS: LOWER THORAX: Unremarkable. Lung bases are clear. No cardiomegaly. No significant pericardial effusion. ABDOMEN: LIVER: Unremarkable. Homogeneous. No focal mass. GALLBLADDER AND BILE DUCTS: The gallbladder is collapsed. Contents of the gallbladder appeared dense. This may be due to a completely collapsed gallbladder with enhancement mucosa versus gallbladder collapsed around stones. No gallbladder distention or wall edema. No intra- or extrahepatic biliary ductal dilation. PANCREAS: Unremarkable. No focal cystic or solid mass. SPLEEN: Unremarkable. Normal size without focal cystic or solid mass. ADRENALS: Unremarkable. No nodules. KIDNEYS AND URETERS: Unremarkable. Normal renal size and position. No hydronephrosis. STOMACH AND BOWEL: Unremarkable. No stomach or bowel distention. No focal inflammatory change. PELVIS: APPENDIX: Normal appendix. BLADDER: Unremarkable. REPRODUCTIVE: Collapsing follicle measuring 2.1 cm right ovary. IUD in low position of the uterus with the transverse limbs within the myometrium and the vertical limb in the cervix. ABDOMEN and PELVIS: INTRAPERITONEAL SPACE: Unremarkable. No ascites or other fluid collection. No free air. BONES/JOINTS: Unremarkable. No suspicious lytic or blastic abnormality. SOFT TISSUES: Unremarkable. No discrete abdominal or pelvic wall hernia. VASCULATURE: Unremarkable. Abdominal aorta is non-dilated. LYMPH NODES: Unremarkable. No enlarged lymph nodes. CT/Abdomen/Pelvis W IV Cont ONLY IMPRESSION: 1. The gallbladder is collapsed. Contents of the gallbladder appeared dense. This may be due to a completely collapsed gallbladder with enhancement mucosa versus gallbladder collapsed around stones. Consider ultrasound for further evaluation. 2. IUD in low position of the uterus with the transverse limbs within the myometrium and the vertical limb in the cervix. 3. Collapsing follicle measuring 2.1 cm right ovary. Electronically Signed: Simon Hudson MD at 5:36 EST , CC: Dr. Jamar Nichols MD; No Primary Care Physician .Net Programmer: Signed Normal [facility] Absolute lymphocyte countOrd ered By: Dr. Nichols on 06-03-2022 Lymphocytes Auto (Unsp spec) [#/Vol] 2.97 10*3/uL 0.83-4.51 [facility] Basophil percentageOrdered B y: Dr. Nichols on 06-03-2022 Basophils/100 WBC (Bld) 0.3 % 0-1 [facility] Bilirubin [Mass/Vol] 0.90 mg/dL 0.20-1.00 [facility] Comment on above: For patients on eltr ombopag therapy, use of Dimension [place] TBIL is not recommended. Chloride [Moles/Vol] 106 mmol/L 98-107 [facility] Eosinophils/100 WBC (Bld) 1.8 % 0-5 [facility] Glucose [Mass/Vol] 93 mg/dL 74-106 [facility] Neutrophils (Bld) [#/Vol] 5.6 10*3/uL 2.0-7.7 [facility] Neutrophils/100 WBC (Bld) 56.7 % 47-70 [facility] Potassium [Moles/Vol] 4.0 mmol/L 3.5-5.1 [facility] Protein [Mass/Vol] 8.0 g/dL 6.4-8.2 [facility] Sodium [Moles/Vol] 138 mmol/L 136-145 [facility] WBC (Bld) [#/Vol] 9.9 10*3/uL 4.4-11.0 [facility] Blood erythrocytes count (nu mber/volume)Ordered By: Dr. Nichols on 06-03-2022 RBC (Bld) [#/Vol] 5.20 10*6/uL 4.2-5.4 [facility] Blood hemoglobin measurement (mass/volume)Ordered By: Dr. Nichols on 06-03-2022 Hemoglobin (Bld) [Mass/Vol] 13.6 g/dL 12.0-15.0 [facility] Blood lymphocytes/100 leukoc ytesOrdered By: Dr. Nichols on 06-03-2022 Lymphocytes/100 WBC (Bld) 30.0 % 19-41 [facility] Blood monocytes/100 leukocyt esOrdered By: Dr. Nichols on 06-03-2022 Monocytes/100 WBC (Bld) 10.8 % 0-10 [facility] Blood platelet mean volumeOr dered By: Dr. Nichols on 06-03-2022 Platelet mean volume (Bld) [Entitic vol] 8.5 fL 6.2-12.0 [facility] CBC W/Diff, Automatedon 05-083 Absolute Lymph 2.97 X10 3/uL Normal 0.83-4.51 [facility] Comment on above: Performed By: #### M 100.676 #### [facility] Laboratory [address] [place], [address] Absolute Neut 5.6 X10 3/uL Normal 2.0-7.7 [facility] Comment on above: Performed By: #### M 100.676 #### [facility] [address] [place], [address] Basophils/100 WBC (Bld) 0.3 % Normal 0-1 [facility] Comment on above: Performed By: #### M [id number] #### [facility] [address] [place], [address] Eosinophils/100 WBC (Bld) 1.8 % Normal 0-5 [facility] Comment on above: Performed By: #### M [id number] #### [facility] [address] [place], [address] Erythrocyte distribution width (RBC) [Ratio] 13.9 % Normal 11.6-14.6 [facility] Comment on above: Performed By: #### M [id number] #### [facility] [address] [place], [address] Hematocrit (Bld) [Volume fraction] 43.5 % Normal 37-47 [facility] Comment on above: Performed By: #### M [id number] #### [facility] [address] [place], [address] Hemoglobin (Bld) [Mass/Vol] 13.6 g/dL Normal 12.0-15.0 [facility] Comment on above: Performed By: #### M [id number] #### [facility] [address] [place], [address] IG% 0.400 Normal 0.0-0.9 [facility] Comment on above: Result Comment: IG% - Immature Granulocytes (promyelocytes, myelocytes and metamyelocytes) > 1% indicates that a LEFT SHIFT is Present. Performed By: #### M [id number] #### [facility] [address] [place], [address] Lymphocytes/100 WBC (Bld) 30.0 % Normal 19-41 [facility] Comment on above: Performed By: #### M [id number] #### [facility] [address] [place], [address] MCH (RBC) [Entitic mass] 26.2 pg Low 27.0-32.0 [facility] Comment on above: Performed By: #### M [id number] #### [facility] [address] [place], [address] MCHC (RBC) [Mass/Vol] 31.3 g/dL Low 32-36 [facility] Comment on above: Performed By: #### M [id number] #### [facility] [address] [place], [address] MCV (RBC) [Entitic vol] 83.7 fL Normal 81-99 [facility] Comment on above: Performed By: #### M [id number] #### [facility] [address] [place], [address] Monocytes/100 WBC (Bld) 10.8 % High 0-10 [facility] Comment on above: Performed By: #### M [id number] #### [facility] [address] [place], [address] Neutrophils/100 WBC (Bld) 56.7 % Normal 47-70 [facility] Comment on above: Performed By: #### M [id number] #### [facility] [address] [place], [address] Nucleated RBC (Bld) [#/Vol] 0 10*3/uL Normal 0-5 [facility] Comment on above: Performed By: #### M [id number] #### [facility] [address] [place], [address] Platelet mean volume (Bld) [Entitic vol] 8.5 fL Normal 6.2-12.0 [facility] Comment on above: Performed By: #### M [id number] #### [facility] [address] [place], [address] Platelets (Bld) [#/Vol] 318 10*3/uL Normal 150-450 [facility] Comment on above: Performed By: #### M [id number] #### [facility] [address] [place], [address] RBC (Bld) [#/Vol] 5.20 10*6/uL Normal 4.2-5.4 [facility] Comment on above: Performed By: #### M [id number] #### [facility] [address] [place], [address] RDW SD 42.6 fl Normal 35.1-43.9 [facility] Comment on above: Performed By: #### M [id number] #### [facility] [address] [place], [address] WBC (Bld) [#/Vol] 9.9 10*3/uL Normal 4.4-11.0 [facility] Comment on above: Performed By: #### M [id number] #### [facility] [address] [place], [address] Comprehensive Metabolic Prof ilon 06-03-2022 Albumin [Mass/Vol] 3.8 g/dL Normal 3.2-5.0 [facility] Comment on above: Performed By: #### M [id number] #### [facility] [address] [place], [address] Albumin/Globulin [Mass ratio] 0.9 {ratio} Normal 0.9-2.4 [facility] Comment on above: Performed By: #### M [id number] #### [facility] [address] [place], [address] ALK P 124 U/L High 45-117 [facility] Comment on above: Performed By: #### M [id number] #### [facility] [address] [place], [address] ALT [Catalytic activity/Vol] 350 U/L High 13-56 [facility] Comment on above: Performed By: #### M [id number] #### [facility] [address] [place], [address] AST [Catalytic activity/Vol] 493 U/L High 15-37 [facility] Comment on above: Performed By: #### M [id number] #### [facility] [address] [place], [address] Bilirubin [Mass/Vol] 0.90 mg/dL Normal 0.20-1.00 [facility] Comment on above: Result Comment: For patients on eltrombopag therapy, use of Dimension [place] TBIL is not recommended. Performed By: #### M [id number] #### [facility] [address] [place], [address] BUN/CRE 14.1 RATIO Normal 10-20 [facility] Comment on above: Performed By: #### M [id number] #### [facility] [address] [place], [address] CA,Total 9.3 mg/dL Normal 8.5-10.1 [facility] Comment on above: Performed By: #### M [id number] #### [facility] [address] [place], [address] Chloride [Moles/Vol] 106 mmol/L Normal 98-107 [facility] Comment on above: Performed By: #### M [id number] #### [facility] [address] [place], [address] CO2 [Moles/Vol] 26.0 mmol/L Normal 21.0-32.0 [facility] Comment on above: Performed By: #### M [id number] #### [facility] [address] [place], [address] Creatinine [Mass/Vol] 0.92 mg/dL Normal 0.55-1.02 [facility] Comment on above: Result Comment: The validity of the calculated GFR GFRAA in patients over 70 years has not been determined. Clinical correlation is essential. Performed By: #### M [id number] #### [facility] [address] [place], [address] ECRCL 76.65 ml/min Normal [facility] Comment on above: Performed By: #### M [id number] #### [facility] [address] [place], [address] EST GFR - AA 94 mL/min Normal >60 [facility] Comment on above: Result Comment: Afri can [place] GFR Calc Performed By: #### M [id number] #### [facility] [address] [place], [address] GAP 6 Normal 5-15 [facility] Comment on above: Performed By: #### M [id number] #### [facility] [address] [place], [address] GFR/1.73 sq M.predicted among non-blacks MDRD (S/P/Bld) [Vol rate/Area] 78 mL/min/{1.73_m2} Normal >60 [facility] Comment on above: Result Comment: Non- GFR Calc Performed By: #### M [id number] #### [facility] [address] [place], [address] Globulin (S) [Mass/Vol] 4.2 g/dL Normal 2.2-4.2 [facility] Comment on above: Performed By: #### M [id number] #### [facility] [address] [place], [address] Glucose [Mass/Vol] 93 mg/dL Normal 74-106 [facility] Comment on above: Performed By: #### M [id number] #### [facility] [address] [place], [address] Potassium [Moles/Vol] 4.0 mmol/L Normal 3.5-5.1 [facility] Comment on above: Performed By: #### M [id number] #### [facility] [address] [place], [address] Sodium [Moles/Vol] 138 mmol/L Normal 136-145 [facility] Comment on above: Performed By: #### M [id number] #### [facility] [address] [place], [address] T PROT 8.0 g/dL Normal 6.4-8.2 [facility] Comment on above: Performed By: #### M [id number] #### [facility] [address] [place], [address] Urea nitrogen [Mass/Vol] 13 mg/dL Normal 7-18 [facility] Comment on above: Performed By: #### M [id number] #### [facility] [address] [place], [address] Determination of erythrocyte mean corpuscular volume (MCV)Ordered By: Dr. Nichols on 06-03-2022 MCV (RBC) [Entitic vol] 83.7 fL 81-99 [facility] Emergency Department Summary on 06-03-[address] [facility] Medical Records Department [address] [place] [address] Emergency Department Summary 06/03/22 MR#: [id number] Acct: [id number] Name: YANDEL MANLEY Rep #: [id number] : 1995 26 From: Jamar Nichols MD PCP: Care Physician,No Primary Status:REG ER Location: ED HPI HPI - GI History of Present Illness Chief Complaint: Abd Pain Narrative Narrative: 26-year-old female states she has past medical history of stress ulcer for which they did a biopsy a few years ago. She was seen in the emergency department on Sunday, approximately 5 days ago, where she was treated for peptic ulcer disease. She states that last evening around 10 hours ago at 5 PM, she began having epigastric pain again, and presents with pain secondary to my ulcer. She states she had nausea and vomiting after she came home from work that was nonbloody. She denies any exacerbating or alleviating symptoms. She presents because the pain in her epigastrium. She states that she is on omeprazole, but it is ineffective in treating her pain, as well as Pepcid. [facility] Medical History Gastritis Physical exam, pre-employment Stress ulcer of stomach Home Medications Care 1 tab DAILY 08/03/21 [History Last Taken Unknown] promethazine 25 mg tablet 25 mg PRN PRN Nausea 08/03/21 [History Last Taken Unknown] ondansetron 4 mg disintegrating tablet 8 mg PO Q8H PRN PRN Nausea #12 tabs 05/29/22 [Rx Last Taken Unknown] pantoprazole 40 mg tablet,delayed release 40 mg PO DAILY #30 tabs 05/29/22 [Rx Last Taken Unknown] sucralfate 1 gram tablet 1 g PO Q6H 2 weeks #56 tabs 05/29/22 [Rx Last Taken Unknown] bisoprolol 5 mg-hydrochlorothiazide 6.25 mg tablet 1 tab PO DAILY 06/03/22 [History Last Taken Unknown] Allergy/AdvReac Type Severity Reaction Status Date / Time cat dander Allergy Swelling Verified 05/29/22 09:53 amphetamine aspartate AdvReac Other Verified 05/29/22 09:53 [From Adderall] amphetamine sulfate AdvReac Other Verified 05/29/22 09:53 [From Adderall] dextroamphetamine saccharate AdvReac Other Verified 05/29/22 09:53 [From Adderall] dextroamphetamine sulfate AdvReac Other Verified 05/29/22 09:53 [From Adderall] Family History Grandmother Breast cancer Mother Hypertension Surgical History History of esophagogastroduodenoscop y (EGD) ( 09/2019) Social History Smoking Status: Never smoker alcohol intake: current alcohol intake frequency: a few times a week substance use type: marijuana ROS ROS ED ROS Narrative Constitutional: No fever, no chills. HEENT: No sore throat. No neck pain. No loss of vision. No rhinorrhea. Cardiovascular: No chest pain. No palpitations. No pedal edema. Respiratory: No cough, no shortness of breath. Abdominal: Positive epigastric abdominal pain. Positive nausea. Positive nonbloody vomiting. No diarrhea. Genitourinary: No dysuria. No hematuria. Musculoskeletal: No myalgias. No arthralgias. Neurologic: No headaches. No dizziness. No lightheadedness. Skin: No rash. No change in color. Psychiatric: No depression. No anxiety. EXAM Physical Exam Narrative Exam Narrative: Afebrile. Vital signs noted. HEENT: Normocephalic. Atraumatic. PERRL, EOMI. Neck soft and supple. No point tenderness or step off. Cardiovascular: Regular rate and rhythm with intermittent tachycardia. No murmurs, rubs, or gallops appreciated. Respiratory: No tachypnea. Lungs clear to auscultation bilaterally. Gastrointestinal: Abdomen soft, mild tenderness in epigastrium, negative Beckham sign, with normoactive bowel sounds. No rebound or guarding. Neurological: Awake. Alert. Nonfocal, nonlateralizing. Skin: No rash. Normal color. No pallor. Musculoskeletal: No pedal edema. Full range of motion extremities. Const Vital Signs: 06/03/22 03:03 Temperature 97.1 F L Temperature Source Temporal Pulse Rate 102 H Respiratory Rate 18 Blood Pressure 114/60 Blood Pressure Mean 78 Pulse Ox 98 Oxygen Delivery Method Room Air MDM MDM MDM Narrative Medical decision making narrative: I reviewed her prior outpatient record and note. She had a serum test 5 days ago, I do not feel that one is indicated currently. She had normal laboratory work and received IV fluids, ondansetron, a GI cocktail, and Carafate. She was written a prescription for Carafate to take for 2 weeks. I am unsure if she has taking this or if she has picked it up from pharmacy. I will repeat her labs and give her a GI cocktail, Zofran, and Carafate again. However, I was informed by the RN that the patient states she took it half an (more content not included)... Normal [facility] Hematocrit Auto (Bld) [Volum e fraction]Ordered By: Dr. Nichols on 06-03-2022 Hematocrit (Bld) [Volume fraction] 43.5 % 37-47 [facility] - Chemistry and C hemistry - challengeOrdered By: Dr. Nichols on 06-03-2022 ALP [Catalytic activity/Vol] 124 U/L 45-117 [facility] ALT [Catalytic activity/Vol] 350 U/L 13-56 [facility] CO2 [Moles/Vol] 26.0 mmol/L 21.0-32.0 [facility] Globulin (S) [Mass/Vol] 4.2 g/dL 2.2-4.2 [facility] Lipase [Catalytic activity/Vol] 247 U/L 73-393 [facility] Urea nitrogen/Creatinine [Mass ratio] 14.1 mg/mg 10-20 [facility] - Hematology and Cell countsOrdered By: Dr. Nichols on 06-03-2022 Erythrocyte distribution width (RBC) [Entitic vol] 42.6 fL 35.1-43.9 [facility] Erythrocyte distribution width (RBC) [Ratio] 13.9 % 11.6-14.6 [facility] Immature granulocytes/100 WBC (Bld) 0.400 % 0.0-0.9 [facility] Comment on above: IG% - Immature Granu locytes (promyelocytes, myelocytes and metamyelocytes) > 1% indicates that a LEFT SHIFT is Present. MCH (RBC) [Entitic mass] 26.2 pg 27.0-32.0 [facility] Nucleated RBC/100 WBC (Bld) [Ratio] 0 % 0-5 [facility] Lipaseon 06-03-2022 Lipase [Catalytic activity/Vol] 247 U/L Normal 73-393 [facility] Comment on above: Performed By: #### M 100.676 #### [facility] [address] [place], [address] MCHC Auto (RBC) [Mass/Vol]Or dered By: Dr. Nichols on 06-03-2022 MCHC (RBC) [Mass/Vol] 31.3 g/dL 32-36 [facility] No Panel InformationOrdered By: Dr. Nichols on 06-03-2022 Estimated Creatinine Clearance Calc 76.65 ml/min [facility] Estimated GFR (MDRD) Amer 94 mL/min >60 [facility] Comment on above: GFR Calc Estimated GFR (MDRD) Non-Af Amer 78 mL/min >60 [facility] Comment on above: Non- GFR Calc Platelets bldOrdered By: Dr. Nichols on 06-03-2022 Platelets (Bld) [#/Vol] 318 10*3/uL 150-450 [facility] Serum or plasma albumin heather urement (mass/volume)Ordered By: Dr. Nichols on 06-03-2022 Albumin [Mass/Vol] 3.8 g/dL 3.2-5.0 [facility] Serum or plasma albumin/glob ulin mass ratioOrdered By: Dr. Nichols on 06-03-2022 Albumin/Globulin [Mass ratio] 0.9 {ratio} 0.9-2.4 [facility] Serum or plasma calcium heather urement (mass/volume)Ordered By: Dr. Nichols on 06-03-2022 Calcium [Mass/Vol] 9.3 mg/dL 8.5-10.1 [facility] Serum or plasma creatinine m easurement (mass/volume)Ordered By: Dr. Nichols on 06-03-2022 Creatinine [Mass/Vol] 0.92 mg/dL 0.55-1.02 [facility] Comment on above: The validity of the calculated GFR & GFRAA in patients over 70 years has not been determined. Clinical correlation is essential. Serum or plasma urea nitroge n measurement (mass/volume)Ordered By: Dr. Nichols on 06-03-2022 Urea nitrogen [Mass/Vol] 13 mg/dL 7-18 [facility] Thin prep Papanicolaou smear with manual screeningOrdered By: Dr. Nichols on 06-03-2022 Thin prep Papanicolaou smear with manual screening 493 U/L 15-37 [facility] Thin prep Papanicolaou smear with manual screening 6 5-15 [facility] Absolute lymphocyte countOrd ered By: Dr. Arreguin on 05-29-2022 Lymphocytes Auto (Unsp spec) [#/Vol] 2.73 10*3/uL 0.83-4.51 [facility] Basophil percentageOrdered B y: Dr. Arreguin on 05-29-2022 Basophils/100 WBC (Bld) 0.3 % 0-1 [facility] Bilirubin [Mass/Vol] 1.00 mg/dL 0.20-1.00 [facility] Comment on above: For patients on eltr ombopag therapy, use of Dimension [place] TBIL is not recommended. Chloride [Moles/Vol] 107 mmol/L 98-107 [facility] Eosinophils/100 WBC (Bld) 2.7 % 0-5 [facility] Glucose [Mass/Vol] 79 mg/dL 74-106 [facility] Neutrophils (Bld) [#/Vol] 3.8 10*3/uL 2.0-7.7 [facility] Neutrophils/100 WBC (Bld) 50.6 % 47-70 [facility] Potassium [Moles/Vol] 3.7 mmol/L 3.5-5.1 [facility] Protein [Mass/Vol] 8.6 g/dL 6.4-8.2 [facility] Sodium [Moles/Vol] 138 mmol/L 136-145 [facility] WBC (Bld) [#/Vol] 7.4 10*3/uL 4.4-11.0 [facility] Beta hCG serum qualOrdered B y: Dr. Arreguin on 05-29-2022 Beta HCG ( test) Ql Negative [facility] Blood erythrocytes count (nu mber/volume)Ordered By: Dr. Arreguin on 05-29-2022 RBC (Bld) [#/Vol] 5.33 10*6/uL 4.2-5.4 [facility] Blood hemoglobin measurement (mass/volume)Ordered By: Dr. Arreguin on 05-29-2022 Hemoglobin (Bld) [Mass/Vol] 14.2 g/dL 12.0-15.0 [facility] Blood lymphocytes/100 leukoc ytesOrdered By: Dr. Arreguin on 05-29-2022 Lymphocytes/100 WBC (Bld) 36.7 % 19-41 [facility] Blood monocytes/100 leukocyt esOrdered By: Dr. Arreguin on 05-29-2022 Monocytes/100 WBC (Bld) 9.3 % 0-10 [facility] Blood platelet mean volumeOr dered By: Dr. Arreguin on 05-29-2022 Platelet mean volume (Bld) [Entitic vol] 8.6 fL 6.2-12.0 [facility] CBC W/Diff, Automatedon 05-08 Absolute Lymph 2.73 X10 3/uL Normal 0.83-4.51 [facility] Comment on above: Performed By: #### M 100.676 #### [facility] [address] [place], [address] Absolute Neut 3.8 X10 3/uL Normal 2.0-7.7 [facility] Comment on above: Performed By: #### M [id number] #### [facility] [address] [place], [address] Basophils/100 WBC (Bld) 0.3 % Normal 0-1 [facility] Comment on above: Performed By: #### M [id number] #### [facility] [address] [place], [address] Eosinophils/100 WBC (Bld) 2.7 % Normal 0-5 [facility] Comment on above: Performed By: #### M 100.676 #### [facility] [address] [place], [address] Erythrocyte distribution width (RBC) [Ratio] 13.8 % Normal 11.6-14.6 [facility] Comment on above: Performed By: #### M 100.676 #### [facility] [address] [place], [address] Hematocrit (Bld) [Volume fraction] 44.1 % Normal 37-47 [facility] Comment on above: Performed By: #### M 100.676 #### [facility] [address] [place], [address] Hemoglobin (Bld) [Mass/Vol] 14.2 g/dL Normal 12.0-15.0 [facility] Comment on above: Performed By: #### M 100.676 #### [facility] [address] [place], [address] IG% 0.400 Normal 0.0-0.9 [facility] Comment on above: Result Comment: IG% - Immature Granulocytes (promyelocytes, myelocytes and metamyelocytes) > 1% indicates that a LEFT SHIFT is Present. Performed By: #### M 100.676 #### [facility] [address] [place], [address] Lymphocytes/100 WBC (Bld) 36.7 % Normal 19-41 [facility] Comment on above: Performed By: #### M [id number] #### [facility] [address] [place], [address] MCH (RBC) [Entitic mass] 26.6 pg Low 27.0-32.0 [facility] Comment on above: Performed By: #### M [id number] #### [facility] [address] [place], [address] MCHC (RBC) [Mass/Vol] 32.2 g/dL Normal 32-36 [facility] Comment on above: Performed By: #### M [id number] #### [facility] [address] [place], [address] MCV (RBC) [Entitic vol] 82.7 fL Normal 81-99 [facility] Comment on above: Performed By: #### M [id number] #### [facility] [address] [place], [address] Monocytes/100 WBC (Bld) 9.3 % Normal 0-10 [facility] Comment on above: Performed By: #### M 100.676 #### [facility] [address] [place], [address] Neutrophils/100 WBC (Bld) 50.6 % Normal 47-70 [facility] Comment on above: Performed By: #### M [id number] #### [facility] [address] [place], [address] Nucleated RBC (Bld) [#/Vol] 0 10*3/uL Normal 0-5 [facility] [facility] Comment on above: Performed By: #### M 100.676 #### [facility] [address] [place], [address] Platelet mean volume (Bld) [Entitic vol] 8.6 fL Normal 6.2-12.0 [facility] Comment on above: Performed By: #### M 100.676 #### [facility] [address] [place], [address] Platelets (Bld) [#/Vol] 351 10*3/uL Normal 150-450 [facility] Comment on above: Performed By: #### M 100.676 #### [facility] [address] [place], [address] RBC (Bld) [#/Vol] 5.33 10*6/uL Normal 4.2-5.4 [facility] Comment on above: Performed By: #### M 100.676 #### [facility] [address] [place], [address] RDW SD 41.3 fl Normal 35.1-43.9 [facility] Comment on above: Performed By: #### M 100.676 #### [facility] [address] [place], [address] WBC (Bld) [#/Vol] 7.4 10*3/uL Normal 4.4-11.0 [facility] Comment on above: Performed By: #### M 100.676 #### [facility] [address] [place], [address] Comprehensive Metabolic Prof ilon 05-29-2022 Albumin [Mass/Vol] 4.5 g/dL Normal 3.2-5.0 [facility] Comment on above: Performed By: #### M 100.676 #### [facility] [address] [place], [address] Albumin/Globulin [Mass ratio] 1.1 {ratio} Normal 0.9-2.4 [facility] Comment on above: Performed By: #### M 100.676 #### [facility] [address] [place], [address] ALK P 73 U/L Normal 45-117 [facility] Comment on above: Performed By: #### M 100.676 #### [facility] [address] [place], [address] ALT [Catalytic activity/Vol] 58 U/L High 13-56 [facility] Comment on above: Performed By: #### M 100.676 #### [facility] [address] [place], [address] AST [Catalytic activity/Vol] 40 U/L High 15-37 [facility] Comment on above: Performed By: #### M 100.676 #### [facility] [address] [place], [address] Bilirubin [Mass/Vol] 1.00 mg/dL Normal 0.20-1.00 [facility] Comment on above: Result Comment: For patients on eltrombopag therapy, use of Dimension [place] TBIL is not recommended. Performed By: #### M 100.676 #### [facility] [address] [place], [address] BUN/CRE 10.7 RATIO Normal 10-20 [facility] Comment on above: Performed By: #### M 100.676 #### [facility] [address] [place], [address] CA,Total 9.3 mg/dL Normal 8.5-10.1 [facility] Comment on above: Performed By: #### M 100.676 #### [facility] [address] [place], [address] Chloride [Moles/Vol] 107 mmol/L Normal 98-107 [facility] Comment on above: Performed By: #### M 100.676 #### [facility] [address] [place], [address] CO2 [Moles/Vol] 24.0 mmol/L Normal 21.0-32.0 [facility] Comment on above: Performed By: #### M 100.676 #### [facility] [address] [place], [address] Creatinine [Mass/Vol] 1.03 mg/dL High 0.55-1.02 [facility] Comment on above: Result Comment: The validity of the calculated GFR GFRAA in patients over 70 years has not been determined. Clinical correlation is essential. Performed By: #### M 100.676 #### [facility] [address] [place], [address] ECRCL 68.47 ml/min Normal [facility] Comment on above: Performed By: #### M 100.676 #### [facility] [address] [place], [address] EST GFR - AA 83 mL/min Normal >60 [facility] Comment on above: Result Comment: Afri can Ni[place] GFR Calc Performed By: #### M 100.676 #### [facility] [address] [place], [address] GAP 7 Normal 5-15 [facility] Comment on above: Performed By: #### M 100.676 #### [facility] [address] [place], [address] GFR/1.73 sq M.predicted among non-blacks MDRD (S/P/Bld) [Vol rate/Area] 69 mL/min/{1.73_m2} Normal >60 [facility] Comment on above: Result Comment: Non- GFR Calc Performed By: #### M 100.676 #### [facility] [address] [place], [address] Globulin (S) [Mass/Vol] 4.1 g/dL Normal 2.2-4.2 [facility] Comment on above: Performed By: #### M 100.676 #### [facility] [address] [place], [address] Glucose [Mass/Vol] 79 mg/dL Normal 74-106 [facility] Comment on above: Performed By: #### M 100.676 #### [facility] [address] [place], [address] Potassium [Moles/Vol] 3.7 mmol/L Normal 3.5-5.1 [facility] Comment on above: Performed By: #### M 100.676 #### [facility] [address] [place], [place], [address] Sodium [Moles/Vol] 138 mmol/L Normal 136-145 [facility] Comment on above: Performed By: #### M 100.676 #### [facility] [address] [place], [address] T PROT 8.6 g/dL High 6.4-8.2 [facility] Comment on above: Performed By: #### M 100.676 #### [facility] [address] [place], [address] Urea nitrogen [Mass/Vol] 11 mg/dL Normal 7-18 [facility] Comment on above: Performed By: #### M 100.676 #### [facility] [address] [place], [place], [address] Determination of erythrocyte mean corpuscular volume (MCV)Ordered By: Dr. Arreguin on 05-29-2022 MCV (RBC) [Entitic vol] 82.7 fL 81-99 [facility] Emergency Department Summary on 05-29-2022 Emergency Department Summary [facility] Medical Records Department [address] [place] [address] Emergency Department Summary 05/29/22 MR#: [id number] Acct: [id number] Name: YANDEL MANLEY Rep #: [id number] : 1995 26 From: Guanako Arreguin MD PCP: Care Physician,No Primary Status:REG ER Location: ED HPI HPI - GI History of Present Illness Chief Complaint: Abd Pain Informant: patient Abdominal Pain/Flank Pain Onset: Days (4) Context: Gradual Onset Timing: Continuous Quality: Aching Location: Epigastric Current Severity: Severe Maximum Severity: Severe Worsened by: Nothing (but not eating as result of the pain) Relieved by: Antacids (Gaviscon but for very little time) Nausea/Vomiting/Emesis GI Symptom: Positive for Nausea; Negative for Vomiting Diarrhea/Melena/Hematoche tiffany GI Symptom: Negative for Diarrhea, Melena or Hematochezia Associated Symptoms Associated Symptoms: Negative for Dysuria, Frequency or Hematuria Narrative Narrative: Patient states she has a history of a peptic ulcer that she had an EGD for and a biopsy that was negative according to her 2-3 years ago. f She does not know what triggered this discomfort in the past 4 days, except for possibility of emotional stress which she thinks is the etiology of the initial ulcer that she was diagnosed with. She denies any recent NSAIDs, alcohol although she does drink on occasion. [facility] Medical History Gastritis Physical exam, pre-employment Stress ulcer of stomach Home Medications Care 1 tab DAILY 08/03/21 [History Last Taken Unknown] promethazine 25 mg tablet 25 mg PRN PRN Nausea 08/03/21 [History Last Taken Unknown] ondansetron 4 mg disintegrating tablet 8 mg PO Q8H PRN PRN Nausea #12 tabs 05/29/22 [Rx Last Taken Unknown] pantoprazole 40 mg tablet,delayed release 40 mg PO DAILY #30 tabs 05/29/22 [Rx Last Taken Unknown] sucralfate 1 gram tablet 1 g PO Q6H 2 weeks #56 tabs 05/29/22 [Rx Last Taken Unknown] Allergy/AdvReac Type Severity Reaction Status Date / Time cat dander Allergy Swelling Verified 05/29/22 09:53 amphetamine aspartate AdvReac Other Verified 05/29/22 09:53 [From Adderall] amphetamine sulfate AdvReac Other Verified 05/29/22 09:53 [From Adderall] dextroamphetamine saccharate AdvReac Other Verified 05/29/22 09:53 [From Adderall] dextroamphetamine sulfate AdvReac Other Verified 05/29/22 09:53 [From Adderall] Family History Grandmother Breast cancer Mother Hypertension Surgical History History of esophagogastroduodenoscop y (EGD) ( 09/2019) Social History Smoking Status: Never smoker alcohol intake: current alcohol intake frequency: a few times a week substance use type: marijuana ROS ROS ED Constitutional Constitutional ED: Denies chills or fever(s) Eyes Eyes: Denies change in vision or diplopia ENT ENT ED: Denies rhinorrhea or sore throat Cardiovascular Cardiovascular: Denies chest pain or palpitations Respiratory/Chest Respiratory/Chest: Denies cough or dyspnea Gastrointestinal Gastrointestinal: Reports abdominal pain, nausea and vomiting; Denies diarrhea, hematemesis, hematochezia or melena Genitourinary Genitourinary ED: Denies dysuria or hematuria Musculoskeletal Musculoskeletal: Denies back pain or neck pain Integumentary Denies abscess or rash Neurologic Neurologic: Denies headache(s), paresthesias or weakness Psychiatric Psychiatric: Denies anxiety or suicidal thoughts EXAM Physical Exam Const Vital Signs: 05/29/22 09:54 Temperature 96.3 F L Temperature Source Temporal Pulse Rate 98 Respiratory Rate 17 Blood Pressure 145/124 H Blood Pressure Mean 131 Pulse Ox 99 Oxygen Delivery Method Room Air Positive well nourished and well developed Constitutional Narrative: Very uncomfortable. Cannot sit still due to epigastric discomfort. Able to calm down and converse. General Appearance ED: well developed HEENT Reports moist mucous membranes normocephalic and atraumatic Eyes PERRL and EOMs intact bilaterally Neck full ROM and supple Resp normal respiratory effort and clear to auscultation bilaterally Cardio regular rate, regular rhythm and no murmurs GI non-distended GI Narrative: Very tender epigastrium with voluntary guarding. No right upper quadrant or left upper quadrant tenderness, no distention, normal bowel sounds present. No pulsatile mass. Auscultation: normoactive bowel sounds Palpation: soft Back/Spine no CVA tenderness General Back: other FROM Extremity normal to inspection General Extremety ED: Negative f (more content not included)... Normal [facility] Hematocrit Auto (Bld) [Volum e fraction]Ordered By: Dr. Arreguin on 05-29-2022 Hematocrit (Bld) [Volume fraction] 44.1 % 37-47 [facility] - Chemistry and C hemistry - challengeOrdered By: Dr. Arreguin on 05-29-2022 ALP [Catalytic activity/Vol] 73 U/L 45-117 [facility] ALT [Catalytic activity/Vol] 58 U/L 13-56 [facility] CO2 [Moles/Vol] 24.0 mmol/L 21.0-32.0 [facility] Globulin (S) [Mass/Vol] 4.1 g/dL 2.2-4.2 [facility] Lipase [Catalytic activity/Vol] 252 U/L 73-393 [facility] Urea nitrogen/Creatinine [Mass ratio] 10.7 mg/mg 10-20 [facility] - Hematology and Cell countsOrdered By: Dr. Arreguin on 05-29-2022 Erythrocyte distribution width (RBC) [Entitic vol] 41.3 fL 35.1-43.9 [facility] Erythrocyte distribution width (RBC) [Ratio] 13.8 % 11.6-14.6 [facility] Immature granulocytes/100 WBC (Bld) 0.400 % 0.0-0.9 [facility] Comment on above: IG% - Immature Granu locytes (promyelocytes, myelocytes and metamyelocytes) > 1% indicates that a LEFT SHIFT is Present. MCH (RBC) [Entitic mass] 26.6 pg 27.0-32.0 [facility] Nucleated RBC/100 WBC (Bld) [Ratio] 0 % 0-5 [facility] Lipaseon 05-29-2022 Lipase [Catalytic activity/Vol] 252 U/L Normal 73-393 [facility] Comment on above: Performed By: #### M 100.676 #### [facility] [place], [address] MCHC Auto (RBC) [Mass/Vol]Or dered By: Dr. Arreguin on 05-29-2022 MCHC (RBC) [Mass/Vol] 32.2 g/dL 32-36 [facility] No Panel InformationOrdered By: Dr. Arreguin on 05-29-2022 Estimated Creatinine Clearance Calc 68.47 ml/min [facility] Estimated GFR (MDRD) Amer 83 mL/min >60 [facility] Comment on above: GFR Calc Estimated GFR (MDRD) Non-Af Amer 69 mL/min >60 [facility] Comment on above: Non- GFR Calc Platelets bldOrdered By: Dr. Arreguin on 05-29-2022 Platelets (Bld) [#/Vol] 351 10*3/uL 150-450 [facility] ,Serum,hCG Quali.on 05-29-2022 HCG, SERUM QUAL Negative Normal [facility] Comment on above: Performed By: #### L 100.0100, L500.3400, L500.2500 #### [facility] [address] [place], [address] Serum or plasma albumin heather urement (mass/volume)Ordered By: Dr. Arreguin on 05-29-2022 Albumin [Mass/Vol] 4.5 g/dL 3.2-5.0 [facility] Serum or plasma albumin/glob ulin mass ratioOrdered By: Dr. Arreguin on 05-29-2022 Albumin/Globulin [Mass ratio] 1.1 {ratio} 0.9-2.4 [facility] Serum or plasma calcium heather urement (mass/volume)Ordered By: Dr. Arreguin on 05-29-2022 Calcium [Mass/Vol] 9.3 mg/dL 8.5-10.1 [facility] Serum or plasma creatinine m easurement (mass/volume)Ordered By: Dr. Arreguin on 05-29-2022 Creatinine [Mass/Vol] 1.03 mg/dL 0.55-1.02 [facility] Comment on above: The validity of the calculated GFR & GFRAA in patients over 70 years has not been determined. Clinical correlation is essential. Serum or plasma urea nitroge n measurement (mass/volume)Ordered By: Dr. Arreguin on 05-29-2022 Urea nitrogen [Mass/Vol] 11 mg/dL 7-18 [facility] Thin prep Papanicolaou smear with manual screeningOrdered By: Dr. Arreguin on 05-29-2022 Thin prep Papanicolaou smear with manual screening 40 U/L 15-37 [facility] Thin prep Papanicolaou smear with manual screening 7 5-15 [facility] ARTERIAL BLOOD GAS, UMBILICA L CORDon 11-30-2021 Base Excess, Cord Blood, Arterial -12.1 mmol/L Low -3.0-3.0 [facility] Comment on above: Performed By: #### G ASCAB #### [facility] (DEFAULT) [address] [place] [address] Base Excess, Cord Blood, Arterial -27.6 mmol/L Low -3.0-3.0 [facility] Comment on above: Performed By: #### T GCM #### [facility] (DEFAULT) [address] [place] [address] HCO3, Cord Blood, Arterial 12 mmol/L Low 20-25 [facility] Comment on above: Performed By: #### G ASCAB #### [facility] (DEFAULT) [address] [place] [address] HCO3, Cord Blood, Arterial 7 mmol/L Low 20-25 [facility] Comment on above: Performed By: #### T GCM #### [facility] (DEFAULT) [address] [place] [address] pCO2, Cord Blood, Arterial 23 mm Hg Low 41-58 [facility] Comment on above: Performed By: #### G ASCAB #### [facility] (DEFAULT) [address] [place] [address] pCO2, Cord Blood, Arterial 37 mm Hg Low 41-58 [facility] Comment on above: Performed By: #### T GCM #### [facility] (DEFAULT) [address] [place] [address] pH, Cord Blood, Arterial 7.33 Normal 7.23-7.33 [facility] Comment on above: Performed By: #### G ASCAB #### [facility] (DEFAULT) [address] [place] [address] pH, Cord Blood, Arterial 6.93 Low 7.23-7.33 [facility] Comment on above: Performed By: #### T GCM #### [facility] (DEFAULT) [address] [place] [address] pO2, Cord Blood, Arterial 45 mm Hg High 12-24 [facility] Comment on above: Performed By: #### G ASCAB #### [facility] (DEFAULT) [address] [place] [address] pO2, Cord Blood, Arterial 35 mm Hg High 12-24 [facility] Comment on above: Performed By: #### T GCM #### [facility] (DEFAULT) [address] [place] [address] sO2, Cord Blood, Arterial 86 % High 3-69 [facility] Comment on above: Performed By: #### G ASCAB #### [facility] (DEFAULT) [address] [place] [address] sO2, Cord Blood, Arterial 43 % Normal 3-69 [facility] Comment on above: Performed By: #### T GCM #### [facility] (DEFAULT) [address] [place] [address] Specimen type Nom (Spec) Arterial Normal [facility] Comment on above: Performed By: #### G ASCAB #### [facility] (DEFAULT) [address] [place] [address] Performed By: #### T GCM #### [facility] (DEFAULT) [address] [place] [address] Base excess Calc (Bld) [Moles/Vol] -12.39009 mmol/L Low -3.0 - 3.0 mmol/L [facility] CO2 (BldCoA) [Partial pressure] 23 Low [facility] HCO3 (Bld) [Moles/Vol] 12 mmol/L Low 20 - 25 mmol/L [facility] Oxygen (BldCoA) [Partial pressure] 45 High [facility] Oxygen saturation in Blood 86 % High 3 - 69 % [facility] pH (BldCoA) 7.33 [facility] Specimen source Nom (Unsp spec) Arterial [facility] Base excess Calc (Bld) [Moles/Vol] -27.05551 mmol/L Low -3.0 - 3.0 mmol/L [facility] CO2 (BldCoA) [Partial pressure] 37 Low [facility] HCO3 (Bld) [Moles/Vol] 7 mmol/L Low 20 - 25 mmol/L [facility] Interpretation and review of laboratory results Abnormal [facility] Oxygen (BldCoA) [Partial pressure] 35 High [facility] Oxygen saturation in Blood 43 % 3 - 69 % [facility] pH (BldCoA) 6.93 Low [facility] Specimen source Nom (Unsp spec) [facility]terial [facility] CBC AND ELECTRONIC DIFFon Basophils (Bld) [#/Vol] [facility] Basophils/100 WBC (Bld) [facility] Eosinophils (Bld) [#/Vol] [facility] Eosinophils/100 WBC (Bld) [facility] Erythrocyte distribution width (RBC) [Ratio] 14.9 % 10.8 - 14.9 % [facility] Hematocrit (Bld) [Volume fraction] 33.8 % Low 34.9 - 44.3 % [facility] Hemoglobin (Bld) [Mass/Vol] 10.7 g/dL Low 11.4 - 15.2 g/dL [facility] Immature granulocytes (Bld) [#/Vol] [facility] Immature granulocytes/100 WBC (Bld) [facility] Lymphocytes (Bld) [#/Vol] [facility] Lymphocytes/100 WBC (Bld) [facility] MCH (RBC) [Entitic mass] 25.1 pg Low 25.9 - 33.9 pg [facility] MCHC (RBC) [Mass/Vol] 31.7 g/dL 31.4 - 35.9 g/dL [facility] MCV (RBC) [Entitic vol] 79.3 fL Low 79.6 - 97.7 fL [facility] Monocytes (Bld) [#/Vol] [facility] Monocytes/100 WBC (Bld) [facility] Neutrophils/100 WBC (Bld) [facility] Platelet mean volume (Bld) [Entitic vol] 10.4 fL 8.5 - 12.2 fL [facility] Platelets (Bld) [#/Vol] 276 10*3/uL 150 - 393 K/uL [facility] RBC (Bld) [#/Vol] 4.26 10*6/uL [facility] Segmented neutrophils/100 WBC (Bld) [facility] WBC (Bld) [#/Vol] 30.43 10*3/uL High 3.99 - 11 .19 K/uL [facility] Abs Baso Auto Normal [facility] Comment on above: Performed By: #### X M #### [facility] (DEFAULT) [address] [place] [address] Abs Eos Auto Normal [facility] Comment on above: Performed By: #### X M #### [facility] (DEFAULT) [address] [place] [address]24[address] Abs Lymph Auto Normal [facility] Comment on above: Performed By: #### X M #### [facility] (DEFAULT) [address] [place] [address] Abs [place] Auto Normal [facility] Comment on above: Performed By: #### X M #### [facility] (DEFAULT) [address] [place] [address] Basophil % Auto Normal [facility] Comment on above: Performed By: #### X M #### [facility] (DEFAULT) [address] [place] [address] Eosinophil % Auto Normal [facility] Comment on above: Performed By: #### X M #### [facility] (DEFAULT) [address] [place] [address] Hematocrit (Bld) [Volume fraction] 33.8 % Low 34.9-44.3 [facility] Comment on above: Performed By: #### X M #### [facility] (DEFAULT) [address] [place] [address] Hemoglobin (Bld) [Mass/Vol] 10.7 g/dL Low 11.4-15.2 [facility] Comment on above: Performed By: #### X M #### [facility] (DEFAULT) [address] [place] [address] Immature Grans % Normal [facility] Comment on above: Performed By: #### X M #### [facility] (DEFAULT) [address] [place] [address] Immature Grans Absolute Normal [facility] Comment on above: Performed By: #### X M #### [facility] (DEFAULT) [address] [place] [address]263 Lymphocyte % Auto Normal [facility] Comment on above: Performed By: #### X M #### [facility] (DEFAULT) [address] [place] [address] 20969 MCV (RBC) [Entitic vol] 79.3 fL Low 79.6-97.7 [facility] Comment on above: Performed By: #### X M #### [facility] (DEFAULT) [address] [place] [address] 43120 Mean Cell Hgb 25.1 pg Low 25.9-33.9 [facility] Comment on above: Performed By: #### X M #### [facility] (DEFAULT) [address] [place] [address] 47938 Mean Cell Hgb Conc 31.7 g/dL Normal 31.4-35.9 [facility] Comment on above: Performed By: #### X M #### [facility] (DEFAULT) [address] [place] [address] [phone] Monocyte % Auto Normal [facility] Comment on above: Performed By: #### X M #### [facility] (DEFAULT) [address] [place] [address] Platelet mean volume (Bld) [Entitic vol] 10.4 fL Normal 8.5-12.2 [facility] Comment on above: Performed By: #### X M #### [facility] (DEFAULT) [address] [place] [address] 48144 Platelets (Bld) [#/Vol] 276 10*3/uL Normal 150-393 [facility] Comment on above: Performed By: #### X M #### [facility] (DEFAULT) [address] [place] [address] 29759 RBC (Bld) [#/Vol] 4.26 10*6/uL Normal 3.91-5.04 [facility] Comment on above: Performed By: #### X M #### [facility] (DEFAULT) [address] [place] [address] 82342 RBC Distribution 14.9 % Normal 10.8-14.9 [facility] Comment on above: Performed By: #### X M #### [facility] (DEFAULT) [address] [place] [address] 71021 Segs + Bands Auto Normal [facility] Comment on above: Performed By: #### X M #### [facility] (DEFAULT) [address] [place] [address] 36642 Segs + Bands,Absolute Auto Normal [facility] Comment on above: Performed By: #### X M #### [facility] (DEFAULT) [address] [place] [address] 11944 WBC (Bld) [#/Vol] 30.43 10*3/uL High 3.99-11.19 [facility] Comment on above: Performed By: #### X M #### [facility] (DEFAULT) [address] [place] [address] 29667 MANUAL DIFFon 11-30-2021 Abs Eos Manual 0.00 [facility] Band form neutrophils/100 WBC (Bld) 0.0 % [facility] Basophils (Bld) [#/Vol] 0.00 10*3/uL 0.00 - 0.15 K/uL [facility] Basophils/100 WBC (Bld) 0.0 % [facility] Differential cell count method Nom (Bld) Manual Differential [facility] Eosinophils/100 WBC (Bld) 0.0 % [facility] Lymphocytes (Bld) [#/Vol] 1.83 10*3/uL 1.16 - 3.51 K/uL [facility] Lymphocytes/100 WBC (Bld) 6.0 % [facility] Monocytes (Bld) [#/Vol] 2.10 10*3/uL High 0.22 - 0.87 K/uL [facility] Monocytes/100 WBC (Bld) 6.9 % [facility] Neutrophils (Bld) [#/Vol] 26.50 10*3/uL High 1.64 - 7.28 K/uL [facility] Normoblasts Polychromatophilic/ 100 cells Microscopy (Bld) 1+ Abnormal (none) [facility] Platelets Estimate (Bld) [#/Vol] Automated platelet count confirmed by manual slide review [facility] RBC morphology finding Nom (Bld) RBC INDICES CONFIRMED WITH MANUAL SLIDE REVIEW [facility] Segmented neutrophils/100 WBC (Bld) 87.1 % [facility] No Panel Informationon 11-30 Interpretation and review of laboratory results Abnormal [facility] Interpretation and review of laboratory results Abnormal [facility] VENOUS BLOOD GAS, UMBILICAL CORDon 11-30-2021 Base Excess, Cord Blood, Venous -12.2 mmol/L Low -2.0-2.0 [facility] Comment on above: Performed By: #### T GCM #### [facility] (DEFAULT) [address] [place] [address] 23534 Base Excess, Cord Blood, Venous -10.2 mmol/L Low -2.0-2.0 [facility] Comment on above: Performed By: #### T GCM #### [facility] (DEFAULT) [address] [place] [address] HCO3, Cord Blood, Venous 9 mmol/L Low 16-25 [facility] Comment on above: Performed By: #### T GCM #### [facility] (DEFAULT) [address] [address] HCO3, Cord Blood, Venous 17 mmol/L Normal 16-25 [facility] Comment on above: Performed By: #### T GCM #### [facility] (DEFAULT) [address] [address] pCO2, Cord Blood, Venous 13 mm Hg Low 33-44 [facility] Comment on above: Performed By: #### T GCM #### [facility] (DEFAULT) [address] [address] pCO2, Cord Blood, Venous 43 mm Hg Normal 33-44 [facility] Comment on above: Performed By: #### T GCM #### [facility] (DEFAULT) [address] [address] pH, Cord Blood, Venous 7.45 High 7.30-7.40 [facility] Comment on above: Performed By: #### T GCM #### [facility] (DEFAULT) [address] [address] pH, Cord Blood, Venous 7.22 Low 7.30-7.40 [facility] Comment on above: Performed By: #### T GCM #### [facility] (DEFAULT) [address] [address] pO2, Cord Blood, Venous 165 mm Hg High 23-35 [facility] Comment on above: Performed By: #### T GCM #### [facility] (DEFAULT) [address] [address] pO2, Cord Blood, Venous 30 mm Hg Normal 23-35 [facility] Comment on above: Performed By: #### T GCM #### [facility] (DEFAULT) [address] [address] sO2, Cord Blood, Venous 100 % High 16-83 [facility] Comment on above: Performed By: #### T GCM #### [facility] (DEFAULT) [address] [place] [address] sO2, Cord Blood, Venous 52 % Normal 16-83 [facility] Comment on above: Performed By: #### T GCM #### [facility] (DEFAULT) [address] [place] [address] Specimen type Nom (Spec) Venous Normal [facility] Comment on above: Performed By: #### T GCM #### [facility] (DEFAULT) [address] [place] [address] Base excess Calc (Bld) [Moles/Vol] -12.42090 mmol/L Low -2.0 - 2.0 mmol/L [facility] CO2 (BldCoV) [Partial pressure] 13 Low [facility] HCO3 (Bld) [Moles/Vol] 9 mmol/L Low 16 - 25 mmol/L [facility] Oxygen (BldCoV) [Partial pressure] 165 High [facility] Oxygen saturation in Blood 100 % High 16 - 83 % [facility] pH (BldCoV) 7.45 High [facility] Specimen source Nom (Unsp spec) Venous [facility] VENOUS BLOOD GAS, UMBILICAL CORDOrdered By: Rupa Bautista on 11-30-2021 Base excess Calc (Bld) [Moles/Vol] -10.44225 mmol/L Low -2.0 - 2.0 mmol/L [facility] CO2 (BldCoV) [Partial pressure] 43 [facility] HCO3 (Bld) [Moles/Vol] 17 mmol/L 16 - 25 mmol/L [facility] Interpretation and review of laboratory results Abnormal [facility] Oxygen (BldCoV) [Partial pressure] 30 [facility] Oxygen saturation in Blood 52 % 16 - 83 % [facility] pH (BldCoV) 7.22 Low [facility] Specimen source Nom (Unsp spec) [facility] AND E[facility]RONIC DIFFon Basophils (Bld) [#/Vol] 10*3/uL Normal 0.00-0.15 [facility] Comment on above: Performed By: #### X M #### [facility] (DEFAULT) [address] [place] [address] 72612 Basophils/100 WBC (Bld) 0.2 % Normal [facility] Comment on above: Performed By: #### X M #### [facility] (DEFAULT) [address] [place] [address] 22474 DIFF STATUS Electronic Differential Normal [facility] Comment on above: Performed By: #### X M #### [facility] (DEFAULT) [address] [place] [address] 74771 Eosinophils (Bld) [#/Vol] 0.15 10*3/uL Normal 0.00-0.42 [facility] Comment on above: Performed By: #### X M #### [facility] (DEFAULT) [address] [place] [address] 49864 Eosinophils/100 WBC (Bld) 1.3 % Normal [facility] Comment on above: Performed By: #### X M #### [facility] (DEFAULT) [address] [address] Hematocrit (Bld) [Volume fraction] 34.5 % Low 34.9-44.3 [facility] Comment on above: Performed By: #### X M #### [facility] (DEFAULT) [address] [place] [address] 90276 Hemoglobin (Bld) [Mass/Vol] 10.8 g/dL Low 11.4-15.2 [facility] Comment on above: Performed By: #### X M #### [facility] (DEFAULT) [address] [place] [address] 10859 Immature Grans % 0.9 % Normal [facility] Comment on above: Performed By: #### X M #### [facility] (DEFAULT) [address] [place] [address] 29086 Immature Grans Absolute 0.10 K/uL High <=0.08 [facility] Comment on above: Performed By: #### X M #### [facility] (DEFAULT) [address] [place] [address] 24559 Lymphocytes (Bld) [#/Vol] 3.13 10*3/uL Normal 1.16-3.51 [facility] Comment on above: Performed By: #### X M #### [facility] (DEFAULT) [address] [place] [address] 73404 Lymphocytes/100 WBC (Bld) 27.2 % Normal [facility] Comment on above: Performed By: #### X M #### [facility] (DEFAULT) [address] [place] [address] 32204 MCV (RBC) [Entitic vol] 80.4 fL Normal 79.6-97.7 [facility] Comment on above: Performed By: #### X M #### [facility] (DEFAULT) [address] [place] [address] 11651 Mean Cell Hgb 25.2 pg Low 25.9-33.9 [facility] Comment on above: Performed By: #### X M #### [facility] (DEFAULT) [address] [place] [address] 98162 Mean Cell Hgb Conc 31.3 g/dL Low 31.4-35.9 [facility] Comment on above: Performed By: #### X M #### [facility] (DEFAULT) [address] [place] [address] 78071 Monocytes (Bld) [#/Vol] 1.35 10*3/uL High 0.22-0.87 [facility] Comment on above: Performed By: #### X M #### [facility] (DEFAULT) [address] [place] [address] 76129 Monocytes/100 WBC (Bld) 11.7 % Normal [facility] Comment on above: Performed By: #### X M #### [facility] (DEFAULT) [address] [place] [address] 93492 Nucleated RBC 0.0 /100 WBC Normal <=0.2 [facility] Comment on above: Performed By: #### X M #### [facility] (DEFAULT) [address] [place] [address] 01099 Platelet mean volume (Bld) [Entitic vol] 10.6 fL Normal 8.5-12.2 [facility] Comment on above: Performed By: #### X M #### [facility] (DEFAULT) [address] [place] [address] 31225 Platelets (Bld) [#/Vol] 262 10*3/uL Normal 150-393 [facility] Comment on above: Performed By: #### X M #### [facility] (DEFAULT) [address] [place] [address] 96132 RBC (Bld) [#/Vol] 4.29 10*6/uL Normal 3.91-5.04 [facility] Comment on above: Performed By: #### X M #### [facility] (DEFAULT) [address] [place] [address] 84679 RBC Distribution 14.5 % Normal 10.8-14.9 [facility] Comment on above: Performed By: #### X M #### [facility] (DEFAULT) [address] [place] [address] 46222 Segs + Bands Auto 58.7 % Normal [facility] Comment on above: Performed By: #### X M #### [facility] (DEFAULT) [address] [place] [address] 03780 Segs + Bands,Absolute Auto 6.74 K/uL Normal 1.64-7.28 [facility] Comment on above: Performed By: #### X M #### [facility] (DEFAULT) [address] [place] [address] 10260 WBC (Bld) [#/Vol] 11.49 10*3/uL High 3.99-11.19 [facility] Comment on above: Performed By: #### X M #### [facility] (DEFAULT) [address] [place] [address] Basophils (Bld) [#/Vol] 10*3/uL 0.00 - 0.15 K/uL [facility] Basophils/100 WBC (Bld) 0.2 % [facility] Differential cell count method Nom (Bld) Electronic Differential [facility] Eosinophils (Bld) [#/Vol] 0.15 10*3/uL 0.00 - 0.42 K/uL [facility] Eosinophils/100 WBC (Bld) 1.3 % [facility] Erythrocyte distribution width (RBC) [Ratio] 14.5 % 10.8 - 14.9 % [facility] Hematocrit (Bld) [Volume fraction] 34.5 % Low 34.9 - 44.3 % [facility] Hemoglobin (Bld) [Mass/Vol] 10.8 g/dL Low 11.4 - 15.2 g/dL [facility] Immature granulocytes (Bld) [#/Vol] 0.10 10*3/uL High <=0.08 [facility] Immature granulocytes/100 WBC (Bld) 0.9 % [facility] Interpretation and review of laboratory results Abnormal [facility] Lymphocytes (Bld) [#/Vol] 3.13 10*3/uL 1.16 - 3.51 K/uL [facility] Lymphocytes/100 WBC (Bld) 27.2 % [facility] MCH (RBC) [Entitic mass] 25.2 pg Low 25.9 - 33.9 pg [facility] MCHC (RBC) [Mass/Vol] 31.3 g/dL Low 31.4 - 35.9 g/dL [facility] MCV (RBC) [Entitic vol] 80.4 fL 79.6 - 97.7 fL [facility] Monocytes (Bld) [#/Vol] 1.35 10*3/uL High 0.22 - 0.87 K/uL [facility] Monocytes/100 WBC (Bld) 11.7 % [facility] Neutrophils (Bld) [#/Vol] 6.74 10*3/uL 1.64 - 7.28 K/uL [facility] Nucleated RBC/100 WBC (Bld) [Ratio] 0.0 % <=0.2 /100 WBC [facility] Platelet mean volume (Bld) [Entitic vol] 10.6 fL 8.5 - 12.2 fL [facility] Platelets (Bld) [#/Vol] 262 10*3/uL 150 - 393 K/uL [facility] RBC (Bld) [#/Vol] 4.29 10*6/uL [facility] Segmented neutrophils/100 WBC (Bld) 58.7 % [facility] WBC (Bld) [#/Vol] 11.49 10*3/uL High 3.99 - 11 .19 K/uL [facility] COMPREHENSIVE METABOLIC PANE Rodríguez 11-29-2021 Albumin [Mass/Vol] 3.3 g/dL Low 3.5 - 5.0 g/dL [facility] ALP [Catalytic activity/Vol] 160 U/L High 32 - 126 U/L [facility] ALT [Catalytic activity/Vol] 17 U/L 9 - 48 U/L [facility] Anion gap [Moles/Vol] 16 mmol/L 7 - 17 mmol/L [facility] AST [Catalytic activity/Vol] 36 U/L 10 - 39 U/L [facility] Bilirubin [Mass/Vol] 0.3 mg/dL <1.5 [facility] Calcium [Mass/Vol] 8.4 mg/dL Low 8.6 - 10. 5 mg/dL [facility] Chloride [Moles/Vol] 108 mmol/L 98 - 108 mmol/L [facility] CO2 [Moles/Vol] 16 mmol/L Low 21 - 31 mmol/L [facility] Creatinine [Mass/Vol] 0.68 mg/dL 0.50 - 1.20 mg/dL [facility] GFR/1.73 sq M.predicted CKD-EPI (S/P/Bld) [Vol rate/Area] >90 >=60 mL/min/1.73m2 [facility] Comment on above: Reported eGFR is bas ed on the CKD-EPI 2020 equation using creatinine, age, and sex. Glucose [Mass/Vol] 61 mg/dL Low 70 - 99 mg/dL [facility] Interpretation and review of laboratory results Abnormal [facility] Osmolality Calc [Osmolality] 281 [facility] Potassium [Moles/Vol] 4.4 mmol/L 3.5 - 5.0 mmol/L [facility] Protein [Mass/Vol] 6.5 g/dL 6.4 - 8.3 g/dL [facility] Sodium [Moles/Vol] 136 mmol/L 135 - 145 mmol/L [facility] Urea nitrogen [Mass/Vol] 6 mg/dL Low 7 - 25 mg/dL [facility] Urea nitrogen/Creatinine [Mass ratio] 9 mg/mg [facility] Albumin [Mass/Vol] 3.3 g/dL Low 3.5-5.0 [facility] Comment on above: Performed By: #### C MPN #### [facility] (DEFAULT) [address] [place] [address] ALP [Catalytic activity/Vol] 160 U/L High 32-126 [facility] Comment on above: Performed By: #### C MPN #### [facility] (DEFAULT) [address] [place] [address] ALT [Catalytic activity/Vol] 17 U/L Normal 9-48 [facility] Comment on above: Performed By: #### C MPN #### [facility] (DEFAULT) [address] [place] [address] Anion gap [Moles/Vol] 16 mmol/L Normal 7-17 [facility] Comment on above: Performed By: #### C MPN #### [facility] (DEFAULT) [address] [place] [address] 53840 AST [Catalytic activity/Vol] 36 U/L Normal 10-39 [facility] Comment on above: Performed By: #### C MPN #### [facility] (DEFAULT) [address] [place] [address] 22273 Bilirubin [Mass/Vol] 0.3 mg/dL Normal <1.5 [facility] Comment on above: Performed By: #### C MPN #### [facility] (DEFAULT) [address] [place] [address]4481 Calcium [Mass/Vol] 8.4 mg/dL Low 8.6-10.5 [facility] Comment on above: Performed By: #### C MPN #### [facility] (DEFAULT) [address] [place] [address] 86348 Chloride [Moles/Vol] 108 mmol/L Normal 98-108 [facility] Comment on above: Performed By: #### C MPN #### [facility] (DEFAULT) [address] [place] [address] 77600 CO2 [Moles/Vol] 16 mmol/L Low 21-31 [facility] Comment on above: Performed By: #### C MPN #### [facility] (DEFAULT) [address] [place] [address] 8[address]99 Creatinine [Mass/Vol] 0.68 mg/dL Normal 0.50-1.20 [facility] Comment on above: Performed By: #### C MPN #### [facility] (DEFAULT) [address] [place] [address] 84650 eGFR, CKD-EPI, Female >90 Normal >=60 [facility] Comment on above: Result Comment: Repo rted eGFR is based on the CKD-EPI 2020 equation using creatinine, age, and sex. Performed By: #### C MPN #### [facility] (DEFAULT) [address] [place] [address]2857 Glucose [Mass/Vol] 61 mg/dL Low 70-99 [facility] Comment on above: Performed By: #### C MPN #### [facility] (DEFAULT) [address] [place] [address] 64064 Osmolality [Osmolality] 281 mosm/kg Normal 278-305 [facility] Comment on above: Performed By: #### C MPN #### [facility] (DEFAULT) [address] [place] [address] 11379 Potassium [Moles/Vol] 4.4 mmol/L Normal 3.5-5.0 [facility] Comment on above: Performed By: #### C MPN #### [facility] (DEFAULT) [address] [place] [address] 63325 Protein [Mass/Vol] 6.5 g/dL Normal 6.4-8.3 [facility] Comment on above: Performed By: #### C MPN #### [facility] (DEFAULT) [address] [place] [address] 69441 Sodium [Moles/Vol] 136 mmol/L Normal 135-145 [facility] Comment on above: Performed By: #### C MPN #### [facility] (DEFAULT) [address] [place] [address] 13653 Urea nitrogen [Mass/Vol] 6 mg/dL Low 7-25 [facility] Comment on above: Performed By: #### C MPN #### [facility] (DEFAULT) [address] [place] [address] 51613 Urea nitrogen/Creatinine [Mass ratio] 9 mg/mg Normal [facility] Comment on above: Performed By: #### C MPN #### [facility] (DEFAULT) [address] [place] [address] 18083 EXTRA MINT GREEN TOPon 11-29 [facility] SYPHILIS AB W/REFLEX RPRon 0 11-29-2021 Syphilis IgG/IGM Total Non-Reactive Normal Non Reactive [facility] Comment on above: Performed By: #### H GBEL #### [facility] (DEFAULT) [address] [place] [address] 76441 T. pallidum Ab Ql (S)Ordered By: Kayla Eckert on 11-29-2021 Interpretation and review of laboratory results Normal [facility] T. pallidum IgG Ql (S) Non-Reactive Non Reactive [facility] TYPE AND SCREENon 11-29-2021 ABO/RH(D) TYPE Positive Normal [facility] Comment on above: Performed By: #### X M #### [facility] (DEFAULT) [address] [place] [address] 19104 ABO/RH(D) TYPE Positive [facility] URINE PROTEIN/CREA RATIO, RA NDOMon 11-29-2021 Creatinine (U) [Mass/Vol] 143.55 mg/dL Normal [facility] Comment on above: Performed By: #### T GCM #### [facility] (DEFAULT) [address] [place] [address] 34003 Prot/Creat Ratio 0.390 Normal [facility] Comment on above: Performed By: #### T GCM #### [facility] (DEFAULT) [address] [place] [address] 18951 Protein (U) [Mass/Vol] 56 mg/dL Normal [facility] Comment on above: Performed By: #### T GCM #### [facility] (DEFAULT) [address] [place] [address] 15583 Creatinine (24H U) [Mass/Vol] 143.55 mg/dL [facility] Protein Unsp time (U) [Mass/Vol] 56 mg/dL [facility] Protein/Creatinine (U) [Mass ratio] 0.390 mg/g [facility] ALP ALT Lula 11-28-2021 ALP [Catalytic activity/Vol] 170 U/L High 32 - 126 U/L [facility] ALT [Catalytic activity/Vol] 19 U/L 9 - 48 U/L [facility] AST [Catalytic activity/Vol] 33 U/L 10 - 39 U/L [facility] Interpretation and review of laboratory results Abnormal [facility] ALP [Catalytic activity/Vol] 170 U/L High 32-126 [facility] Comment on above: Performed By: #### X M #### [facility] (DEFAULT) [address] [address] ALT [Catalytic activity/Vol] 19 U/L Normal 9-48 [facility] Comment on above: Performed By: #### X M #### [facility] (DEFAULT) [address] [address] AST [Catalytic activity/Vol] 33 U/L Normal 10-39 [facility] Comment on above: Performed By: #### X M #### [facility] (DEFAULT) [address] [address] BETA STREP, VAGINAL SCREENon 11-28-2021 Beta Strep By Pcr Negative Normal Negative [facility] Comment on above: Order Comment: This test was performed using a real-time PCR assay. Results should be interpreted in conjunction with other clinical and laboratory findings. For E-swab specimens, this test was developed and its performance characteristics determined by the Clinical Microbiology Laboratory at [facility]. It has not been cleared or approved by the FDA. The laboratory is regulated under CLIA as qualified to perform high-complexity testing. This test is used for clinical purposes. It should not be regarded as investigational or for research. Performed By: #### X M #### [facility] (DEFAULT) [address] [address] BILE ACIDSon 11-28-2021 Bile Acids 15 mcmol/L High <=10 [facility] Comment on above: Result Comment: Test Performed by: [address] [address] [employer] Operator: Kaveh Stern M.D. Ph.D.; CLIA# [id number] Performed By: #### H GBEL #### [facility] (DEFAULT) [address] [address] CBC,PLATELETSon 11-28-2021 Erythrocyte distribution width (RBC) [Ratio] 14.8 % 10.8 - 14.9 % [facility] Hematocrit (Bld) [Volume fraction] 33.3 % Low 34.9 - 44.3 % [facility] Hemoglobin (Bld) [Mass/Vol] 10.5 g/dL Low 11.4 - 15.2 g/dL [facility] Interpretation and review of laboratory results Abnormal [facility] MCH (RBC) [Entitic mass] 25.1 pg Low 25.9 - 33.9 pg [facility] MCHC (RBC) [Mass/Vol] 31.5 g/dL 31.4 - 35.9 g/dL [facility] MCV (RBC) [Entitic vol] 79.5 fL Low 79.6 - 97.7 fL [facility] Platelet mean volume (Bld) [Entitic vol] 11.0 fL 8.5 - 12.2 fL [facility] Platelets (Bld) [#/Vol] 227 10*3/uL 150 - 393 K/uL [facility] RBC (Bld) [#/Vol] 4.19 10*6/uL [facility] WBC (Bld) [#/Vol] 9.84 10*3/uL 3.99 - 11. 19 K/uL [facility] Hematocrit (Bld) [Volume fraction] 33.3 % Low 34.9-44.3 [facility] Comment on above: Performed By: #### X M #### [facility] (DEFAULT) [address] [address] Hemoglobin (Bld) [Mass/Vol] 10.5 g/dL Low 11.4-15.2 [facility] Comment on above: Performed By: #### X M #### [facility] (DEFAULT) [address] [place] [address] 23335 MCV (RBC) [Entitic vol] 79.5 fL Low 79.6-97.7 [facility] Comment on above: Performed By: #### X M #### [facility] (DEFAULT) [address] [place] [address] 51296 Mean Cell Hgb 25.1 pg Low 25.9-33.9 [facility] Comment on above: Performed By: #### X M #### [facility] (DEFAULT) [address] [place] [address] 93445 Mean Cell Hgb Conc 31.5 g/dL Normal 31.4-35.9 [facility] Comment on above: Performed By: #### X M #### [facility] (DEFAULT) [address] [place] [address] 08156 Platelet mean volume (Bld) [Entitic vol] 11.0 fL Normal 8.5-12.2 [facility] Comment on above: Performed By: #### X M #### [facility] (DEFAULT) [address] [place] [address] Platelets (Bld) [#/Vol] 227 10*3/uL Normal 150-393 [facility] Comment on above: Performed By: #### X M #### [facility] (DEFAULT) [address] [place] [address] RBC (Bld) [#/Vol] 4.19 10*6/uL Normal 3.91-5.04 [facility] Comment on above: Performed By: #### X M #### [facility] (DEFAULT) [address] [address] RBC Distribution 14.8 % Normal 10.8-14.9 [facility] Comment on above: Performed By: #### X M #### [facility] (DEFAULT) [address] [place] [address] WBC (Bld) [#/Vol] 9.84 10*3/uL Normal 3.99-11.19 [facility] Comment on above: Performed By: #### X M #### [facility] (DEFAULT) [address] [address] CHLAMYDIA & GONORRHEA AMPLIF IED PROBEon 11-28-2021 Chlamydia trachomatis Amplified Probe Not detected Normal Not Detected [facility] Comment on above: Order Comment: This test was performed using [place] Mediated Amplification for the detection of Chlamydia trachomatis and/or Neisseria gonorrhoeae nucleic acid. This assay is not intended for the evaluation of suspected sexual abuse or other medico-legal indications. Result Comment: A ne gative test result for Chlamydia trachomatis does not preclude the possibility of infection. Results should be considered in conjunction with other clinical and laboratory findings. Performed By: #### T GCM #### [facility] (DEFAULT) [address] [place] [address] Neisseria gonorrhea Amplified Probe Not detected Normal Not Detected [facility] Comment on above: Order Comment: This test was performed using [place] Mediated Amplification for the detection of Chlamydia trachomatis and/or Neisseria gonorrhoeae nucleic acid. This assay is not intended for the evaluation of suspected sexual abuse or other medico-legal indications. Result Comment: A ne gative test result for Neisseria gonorrhoeae does not preclude the possibility of infection. Results should be considered in conjunction with other clinical and laboratory findings. Performed By: #### T GCM #### [facility] (DEFAULT) [address] [address] HIV 1 AND 2 ANTIBODIESon HIV 1+2 Ab+HIV1 p24 Ag IA Ql Non-Reactive Non Reactive [facility] HIV-1/HIV-2 Ab With p24 Antigen Non-Reactive Normal Non Reactive [facility] Comment on above: Performed By: #### S YPHT, HIV #### [facility] (DEFAULT) [address] [address] No Panel InformationOrdered By: Courtney Mancia on 11-28-2021 Interpretation and review of laboratory results Normal [facility] SYPHILIS AB W/REFLEX RPRon 0 11-28-2021 Syphilis IgG/IGM Total Non-Reactive Normal Non Reactive [facility] Comment on above: Performed By: #### S YPHT, HIV #### [facility] (DEFAULT) [address] [address] T. pallidum Ab Ql (S)Ordered By: Courtney Mancia on 11-28-2021 T. pallidum IgG Ql (S) Non-Reactive Non Reactive [facility] OB ultrasound panelOrdered B y: Provider System on 11-22-2021 [facility] OB ultrasound panelon 2021 Radiology Study observation (narrative) [facility] OBSTETRIC ULTRASOUND WHIon 0 11-08-2021 [facility] URINE OB DIP B/Oon 2 Glucose Ql (U) Negative Neg mg/dL [facility] Protein.monoclonal (U) [Mass/Vol] Negative Neg mg/dL [facility] OBSTETRIC ULTRASOUND WHIon 0 10-24-2021 [facility] URINE OB DIP B/Oon 2 Glucose Ql (U) Negative Neg mg/dL [facility] Protein.monoclonal (U) [Mass/Vol] Negative Neg mg/dL [facility] OBSTETRIC ULTRASOUND WHIon 0 10-10-2021 [facility] URINE OB DIP B/Oon 2 Glucose Ql (U) Negative Neg mg/dL [facility] Protein.monoclonal (U) [Mass/Vol] Negative Neg mg/dL [facility] Comprehensive metabolic 2000 panelon 09-26-2021 Albumin [Mass/Vol] 3.3 g/dL Low 3.9 - 4.9 g/dL [facility] ALP [Catalytic activity/Vol] 83 U/L 34 - 123 U/L [facility] ALT [Catalytic activity/Vol] 28 U/L 7 - 38 U/L [facility] Anion gap [Moles/Vol] 10 mmol/L 9 - 18 mmol/L [facility] AST [Catalytic activity/Vol] 24 U/L 13 - 35 U/L [facility] Bilirubin [Mass/Vol] 0.2 mg/dL 0.2 - 1.3 mg/dL [facility] Calcium [Mass/Vol] 8.3 mg/dL Low 8.5 - 10. 2 mg/dL [facility] Chloride [Moles/Vol] 105 mmol/L 97 - 105 mmol/L [facility] CO2 [Moles/Vol] 18 mmol/L Low 22 - 30 mmol/L [facility] Creatinine [Mass/Vol] 0.58 mg/dL 0.58 - 0.96 mg/dL [facility] Estimated Glomerular Filtration Rate 129 mL/min/1.73m >=60 mL/min/1.73m [facility] Glucose [Mass/Vol] 115 mg/dL High 74 - 99 mg/dL [facility] Potassium [Moles/Vol] 3.5 mmol/L Low 3.7 - 5.1 mmol/L [facility] Protein [Mass/Vol] 6.2 g/dL Low 6.3 - 8.0 g/dL [facility] Sodium [Moles/Vol] 133 mmol/L Low 136 - 144 mmol/L [facility] Urea nitrogen [Mass/Vol] 6 mg/dL Low 7 - 21 mg/dL [facility] OBSTETRIC ULTRASOUND WHIon 0 09-26-2021 [facility] URINE OB DIP B/Oon 2 Glucose Ql (U) Negative Neg mg/dL [facility] Protein.monoclonal (U) [Mass/Vol] Negative Neg mg/dL [facility] INFLUENZA A/B RAPID MOLECULA Jaron 09-16-2021 Influenza A, Molecular Not detected Normal Not Detected [facility] Comment on above: Order Comment: This test utilizes isothermal nucleic amplification technology for the differential qualitative detection of influenza A and influenza B viral nucleic acids. Performed By: #### X M #### [facility] (DEFAULT) [address] [place] [address] Influenza B, Molecular Not detected Normal Not Detected [facility] Comment on above: Order Comment: This test utilizes isothermal nucleic amplification technology for the differential qualitative detection of influenza A and influenza B viral nucleic acids. Performed By: #### X M #### [facility] (DEFAULT) [address] [place] [address] SARS-COV-2 RAPIDon 2 SARS-CoV-2 (COVID-19) RNA WENDY+probe Ql (Unsp spec) Detected Abnormal NOT DETECTED [facility] Comment on above: Order Comment: Use r wilson, foam, polyester or flocked swabs to collect a nasopharyngeal specimen. After collection, fold over the open end of the collection sleeve and seal with patient lab label, double bag in biohazard bag, and transport to the lab SHE[facility], no later than 60 minutes from collection. Collection must be done while wearing N-95 mask, eye protection, gown and gloves. Result Comment: [facility] ENHANCED CONTACT, AND DROPLET ISOLATION IS REQUIRED FOR INPATIENTS WITH SARS-CoV-2. This test was performed using isothermal nucleic acid amplification technology for the qualitative detection of SARS-CoV-2 nucleic acid. The test has been authorized by the FDA under an emergency use authorization for use by authorized laboratories. Performed By: #### T GCM #### [facility] (DEFAULT) [address] [address] URINALYSIS REFLEX TO CULTURE PERFORMABLEon 09-16-2021 Appearance (U) Clear Normal Clear [facility] Comment on above: Order Comment: For i ndwelling catheters, specimen collection is acceptable on catheter day 1 and 2 only. ? Performed By: #### U [id number] #### [facility] (DEFAULT) [address] [address] Bacteria ABSENT Normal ABSENT [facility] Comment on above: Order Comment: For i ndwelling catheters, specimen collection is acceptable on catheter day 1 and 2 only. ? Performed By: #### U [id number] #### [facility] (DEFAULT) [address] [place] [address] Blood Urine Negative Normal Negative [facility] Comment on above: Order Comment: For i ndwelling catheters, specimen collection is acceptable on catheter day 1 and 2 only. ? Performed By: #### U [id number] #### [facility] (DEFAULT) [address] [address] Color (U) Yellow Normal Yellow [facility] Comment on above: Order Comment: For i ndwelling catheters, specimen collection is acceptable on catheter day 1 and 2 only. ? Performed By: #### U [id number] #### [facility] (DEFAULT) [address] [address] Glucose Ql (U) Negative Normal Negative [facility] Comment on above: Order Comment: For i ndwelling catheters, specimen collection is acceptable on catheter day 1 and 2 only. ? Performed By: #### U [id number] #### [facility] (DEFAULT) [address] [place] [address] Ketones Ql (U) >=80 mg/dL = Large Abnormal Negative [facility] Comment on above: Order Comment: For i ndwelling catheters, specimen collection is acceptable on catheter day 1 and 2 only. ? Performed By: #### U [id number] #### [facility] (DEFAULT) [address] [place] [address] Leukocyte esterase Test strip Ql (U) Negative Normal Negative [facility] Comment on above: Order Comment: For i ndwelling catheters, specimen collection is acceptable on catheter day 1 and 2 only. ? Performed By: #### U [id number] #### [facility] (DEFAULT) [address] [place] [address] Mucus Ql (Urine sed) PRESENT Normal [facility] Comment on above: Order Comment: For i ndwelling catheters, specimen collection is acceptable on catheter day 1 and 2 only. ? Performed By: #### U [id number] #### [facility] (DEFAULT) [address] [place] [address] Nitrites Urine Negative Normal Negative [facility] Comment on above: Order Comment: For i ndwelling catheters, specimen collection is acceptable on catheter day 1 and 2 only. ? Performed By: #### U [id number] #### [facility] (DEFAULT) [address] [place] [address] pH (U) 6.0 [pH] Normal 5.0-7.0 [facility] Comment on above: Order Comment: For i ndwelling catheters, specimen collection is acceptable on catheter day 1 and 2 only. ? Performed By: #### U [id number] #### [facility] (DEFAULT) [address] [place] [address] Protein Urine 30 mg/dL Abnormal Negative [facility] Comment on above: Order Comment: For i ndwelling catheters, specimen collection is acceptable on catheter day 1 and 2 only. ? Performed By: #### U [id number] #### [facility] (DEFAULT) [address] [place] [address] RBC Urine 0-2 Normal 0-2 [facility] Comment on above: Order Comment: For i ndwelling catheters, specimen collection is acceptable on catheter day 1 and 2 only. ? Performed By: #### U [id number] #### [facility] (DEFAULT) [address] [place] [address] Specific Dawn Urine 1.028 Normal 1.001-1.035 [facility] Comment on above: Order Comment: For i ndwelling catheters, specimen collection is acceptable on catheter day 1 and 2 only. ? Performed By: #### U [id number] #### [facility] (DEFAULT) [address] [place] [address] Squamous/Epithelial Cells ABSENT Normal 1/hpf = 1+, 2-5/hpf = 2+, 0/hpf = 0+, ABSENT [facility] Comment on above: Order Comment: For i ndwelling catheters, specimen collection is acceptable on catheter day 1 and 2 only. ? Performed By: #### U [id number] #### [facility] (DEFAULT) [address] [place] [address] Urobilinogen Urine 0.2 E.U./dL Normal 0.2 E.U/d L, 1.0 E.U/dL [facility] Comment on above: Order Comment: For i ndwelling catheters, specimen collection is acceptable on catheter day 1 and 2 only. ? Performed By: #### U [id number] #### [facility] (DEFAULT) [address] [place] [address] WBC Urine 0-5 Normal 0-5 [facility] Comment on above: Order Comment: For i ndwelling catheters, specimen collection is acceptable on catheter day 1 and 2 only. ? Performed By: #### U [id number] #### [facility] (DEFAULT) [address] [place] [address] URINE OB DIP B/Oon 2 Glucose Ql (U) Negative Neg mg/dL [facility] Protein.monoclonal (U) [Mass/Vol] Negative Neg mg/dL [facility] ECHO FETALon 08-26-2021 [facility] Basophil percentageon 2021 Bilirubin [Mass/Vol] 0.30 mg/dL 0.20-1.00 [facility] Work Phone: Comment on above: For patients on eltr ombopag therapy, use of Dimension [place] TBIL is not recommended. Chloride [Moles/Vol] 105 mmol/L 98-107 [facility] Work Phone: Glucose [Mass/Vol] 87 mg/dL 74-106 [facility] Work Phone: Potassium [Moles/Vol] 3.7 mmol/L 3.5-5.1 [facility] Work Phone: [phone] Protein [Mass/Vol] 7.6 g/dL 6.4-8.2 [facility] Work Phone: Sodium [Moles/Vol] 135 mmol/L 136-145 [facility] Work Phone: [phone] WBC (Bld) [#/Vol] 11.6 10*3/uL 4.4-11.0 [facility] Work Phone: [phone] Blood erythrocytes count (nu mber/volume)on 08-03-2021 RBC (Bld) [#/Vol] 4.56 10*6/uL 4.2-5.4 [facility] Work Phone: [phone] Blood hemoglobin measurement (mass/volume)on 08-03-2021 Hemoglobin (Bld) [Mass/Vol] 12.8 g/dL 12.0-15.0 [facility] Work Phone: [phone] Blood platelet mean volumeon 08-03-2021 Platelet mean volume (Bld) [Entitic vol] 8.7 fL 6.2-12.0 [facility] Work Phone: Determination of erythrocyte mean corpuscular volume (MCV)on 08-03-2021 MCV (RBC) [Entitic vol] 84.4 fL 81-99 [facility] Work Phone: [phone] Hematocrit Auto (Bld) [Volum e fraction]on 08-03-2021 Hematocrit (Bld) [Volume fraction] 38.5 % 37-47 [facility] Work Phone: [phone] Laboratory - Chemistry and C hemistry - challengeon 08-03-2021 ALP [Catalytic activity/Vol] 60 U/L 45-117 [facility] Work Phone: [phone] [Catalytic activity/Vol] 18 U/L 13-56 [facility] Work Phone: [phone] CO2 [Moles/Vol] 27.0 mmol/L 21.0-32.0 [facility] Work Phone: [phone] Globulin (S) [Mass/Vol] 4.6 g/dL 2.2-4.2 [facility] Work Phone: [phone] nitrogen/Creatinine [Mass ratio] 11.6 mg/mg 10-20 [facility] Work Phone: [phone] Laboratory - Hematology and Cell countson 08-03-2021 Erythrocyte distribution width (RBC) [Entitic vol] 40.6 fL 35.1-43.9 [facility] Work Phone: [phone] Erythrocyte distribution width (RBC) [Ratio] 13.1 % 11.6-14.6 [facility] Work Phone: [phone] MCH (RBC) [Entitic mass] 28.1 pg 27.0-32.0 [facility] Work Phone: [phone] MCHC Auto (RBC) [Mass/Vol]on 08-03-2021 MCHC (RBC) [Mass/Vol] 33.2 g/dL 32-36 [facility] Work Phone: [phone] No Panel Informationon 08-03 Estimated GFR (MDRD) Amer 133 mL/min >60 [facility] Work Phone: [phone] Comment on above: GFR Calc Estimated GFR (MDRD) Non-Af Amer 110 mL/min >60 [facility] Work Phone: Comment on above: Non- GFR Calc Thyroid Stimulating Hormone (TSH) 0.91 uIU/mL 0.358-3.74 [facility] Work Phone: Platelets bldon 08-03-2021 Platelets (Bld) [#/Vol] 321 10*3/uL 150-450 [facility] Work Phone: [phone] Serum or plasma albumin heather urement (mass/volume)on 08-03-2021 Albumin [Mass/Vol] 3.0 g/dL 3.2-5.0 [facility] Work Phone: [phone] Serum or plasma albumin/glob ulin mass ratioon 08-03-2021 Albumin/Globulin [Mass ratio] 0.7 {ratio} 0.9-2.4 [facility] Work Phone: [phone] Serum or plasma calcium heather urement (mass/volume)on 08-03-2021 Calcium [Mass/Vol] 8.8 mg/dL 8.5-10.1 [facility] Work Phone: [phone] Serum or plasma creatinine m easurement (mass/volume)on 08-03-2021 Creatinine [Mass/Vol] 0.69 mg/dL 0.55-1.02 [facility] Work Phone: Comment on above: The validity of the calculated GFR & GFRAA in patients over 70 years has not been determined. Clinical correlation is essential. Serum or plasma urea nitroge n measurement (mass/volume)on 08-03-2021 Urea nitrogen [Mass/Vol] 8 mg/dL 7-18 [facility] Work Phone: [phone] Thin prep Papanicolaou smear with manual screeningon 08-03-2021 Thin prep Papanicolaou smear with manual screening 18 U/L 15-37 [facility] Work Phone: [phone] Thin prep Papanicolaou smear with manual screening 3 5-15 [facility] Work Phone: [phone] URINE OB DIP B/Oon 03-28-202 2 Glucose Ql (U) Negative Neg mg/dL [facility] Protein.monoclonal (U) [Mass/Vol] Negative Neg mg/dL [facility] BETA HCG, QUANT, BLOODon HCG (Quant) Serum 976235.2 mIU/mL Normal [facility] Comment on above: Result Comment: Non- : <10 mIU/mL Postmenopause: <10 mIU/mL Male: <10 mIU/mL FEMALE GESTATIONAL AGE 2-4 Weeks: 39.1-8,388 mIU/mL 5-6 Weeks: 861-88,769 mIU/mL 6-8 Weeks: 8,636-218,085 mIU/mL 8-10 Weeks: 18,700-244,467 mIU/mL 10-12 Weeks: 23,143-181,899 mIU/mL 13-27 Weeks: 6,303-97,171 mIU/mL 24-40 Weeks: 4,360-74,883 mIU/mL Test results cannot be interpreted as absolute evidence for the presence or absence of malignant disease. Performed By: #### X M #### [facility] (DEFAULT) [address] [address] CBC,PLATELETSon 05-25-2021 Hematocrit (Bld) [Volume fraction] 40.6 % Normal 34.9-44.3 [facility] Comment on above: Performed By: #### H GBEL #### [facility] (DEFAULT) [address] [address] Hemoglobin (Bld) [Mass/Vol] 13.5 g/dL Normal 11.4-15.2 [facility] Comment on above: Performed By: #### H GBEL #### [facility] (DEFAULT) [address] [address] Performed By: #### X M #### [facility] (DEFAULT) [address] [address] MCV (RBC) [Entitic vol] 83.2 fL Normal 79.6-97.7 [facility] Comment on above: Performed By: #### H GBEL #### [facility] (DEFAULT) [address] [place] [address] Mean Cell Hgb 27.7 pg Normal 25.9-33.9 [facility] Comment on above: Performed By: #### H GBEL #### [facility] (DEFAULT) [address] [place] [address] Mean Cell Hgb Conc 33.3 g/dL Normal 31.4-35.9 [facility] Comment on above: Performed By: #### H GBEL #### [facility] (DEFAULT) [address] [place] [address] Performed By: #### X M #### [facility] (DEFAULT) [address] [place] [address] Platelet mean volume (Bld) [Entitic vol] 8.8 fL Normal 8.5-12.2 [facility] Comment on above: Performed By: #### Mira DAN #### [facility] (DEFAULT) [address] [place] [address] Platelets (Bld) [#/Vol] 351 10*3/uL Normal 150-393 [facility] Comment on above: Performed By: #### H GBEL #### [facility] (DEFAULT) [address] [place] [address] RBC (Bld) [#/Vol] 4.88 10*6/uL Normal 3.91-5.04 [facility] Comment on above: Performed By: #### H GBEL #### [facility] (DEFAULT) [address] [place] [address] RBC Distribution 12.4 % Normal 10.8-14.9 [facility] Comment on above: Performed By: #### H GBEL #### [facility] (DEFAULT) [address] [place] [address] Performed By: #### X M #### [facility] (DEFAULT) [address] [address] WBC (Bld) [#/Vol] 10.31 10*3/uL Normal 3.99-11.19 [facility] Comment on above: Performed By: #### H LAURAEL #### [facility] (DEFAULT) [address] [address] CHLAMYDIA & GONORRHEA AMPLIF IED PROBEon 05-25-2021 Chlamydia trachomatis Amplified Probe Not detected Normal Not Detected [facility] Comment on above: Order Comment: This test was performed using a real time PCR assay. Performed By: #### X M #### [facility] (DEFAULT) [address] [address] Neisseria gonorrhea Amplified Probe Not detected Normal Not Detected [facility] Comment on above: Order Comment: This test was performed using a real time PCR assay. Performed By: #### X M #### [facility] (DEFAULT) [address] [address] HEMOGLOBINOPATHY STUDIESon 0 05-25-2021 MCV (RBC) [Entitic vol] 83.4 fL Normal 79.6-97.7 [facility] Comment on above: Performed By: #### X M #### [facility] (DEFAULT) [address] [address] RBC (Bld) [#/Vol] 4.87 10*6/uL Normal 3.91-5.04 [facility] Comment on above: Performed By: #### X M #### [facility] (DEFAULT) [address] [address] HEPATITIS B SURFACE ANTIGENo n 05-25-2021 Hepatitis B Surface Ag Negative Normal Negative [facility] Comment on above: Performed By: #### H SY #### [facility] (DEFAULT) [address] [address] HEPATITIS C ANTIBODYon 05-25 Hepatitis C Antibody Negative Normal Negative [facility] Comment on above: Performed By: #### Mira DAN #### [facility] (DEFAULT) [address] [address] HGB ELECTROPHERESISon 2021 Hemoglobin A 95.0 % Normal >=95.0 [facility] Comment on above: Performed By: #### H LAURAEL #### [facility] (DEFAULT) [address] [address] Hemoglobin A2 2.8 % Normal 2.1-3.3 [facility] Comment on above: Performed By: #### H SY #### [facility] (DEFAULT) [address] [address] Hemoglobin C 0.0 % Normal <=0.0 [facility] Comment on above: Performed By: #### Mira DAN #### [facility] (DEFAULT) [address] [address] Hemoglobin F <1.0 Normal <1.0 [facility] Comment on above: Performed By: #### Mira DAN #### [facility] (DEFAULT) [address] [address] Hemoglobin Other 0.0 % Normal <=0.0 [facility] Comment on above: Performed By: #### H SY #### [facility] (DEFAULT) [address] [address] Hemoglobin S Ql (Bld) 0.0 % Normal <=0.0 [facility] Comment on above: Performed By: #### H SY #### [facility] (DEFAULT) [address] [address] Reviewed By Jarad Palma MD Normal O [facility] Comment on above: Result Comment: This is an appended report. These results have been appended to a previously preliminary verified report. Performed By: #### H SY #### [facility] [facility] [address] [place] [id number] HIV 1 AND 2 ANTIBODIESon HIV-1/HIV-2 Ab With p24 Antigen Non-Reactive Normal Non Reactive [facility] Comment on above: Performed By: #### H GBEL #### [facility] (DEFAULT) [address] [address] RUBELLA IMMUNE STATUS IGG AN TIBODYon 05-25-2021 Rubella Immune Status IgG Antibody Positive Normal Positive [facility] Comment on above: Result Comment: A po sitive result indicates either prior exposure to the virus or response to vaccination. The presence of Rubella IgG indicates exposure to rubella and immunity. Performed By: #### H GBEL #### [facility] (DEFAULT) [address] [address] Rubella Immune Status IgG Index 2.1 Normal [facility] Comment on above: Result Comment: THIS IS A QUALITATIVE ASSAY. The numeric value is not necessarily indicative of the amount of anti-Measles, Mumps, Rubella, or VZV IgG antibody present. Results should be interpreted in conjunction with clinical and epidemological data. Performed By: #### H GBEL #### [facility] (DEFAULT) [address] [address] SYPHILIS AB W/REFLEX RPRon 0 05-25-2021 Syphilis IgG/IGM Total Non-Reactive Normal Non Reactive [facility] Comment on above: Performed By: #### H GBEL #### [facility] (DEFAULT) [address] [address] TYPE AND SCREENon 05-25-2021 ABO/RH(D) TYPE Positive Normal [facility] Comment on above: Performed By: #### X M #### [facility] (DEFAULT) [address] [address] URINE CULTUREon 05-25-2021 Bacteria identified Cx Nom (U) No significant growth. Routine cultures are evaluated for significant uro-pathogens >=10,000 CFU/mL Normal [facility] Comment on above: Performed By: #### T GCM #### [facility] (DEFAULT) [address] [address] VARICELLA IGG AB (IMM STATUS )on 05-25-2021 Varicella Immune Status IgG Antibody Negative Abnormal Positive [facility] Comment on above: Result Comment: Prio r exposure to the varicella zoster virus may cause measurable varicella zoster IgG antibody. Performed By: #### H GBEL #### [facility] (DEFAULT) [address] [place] [address] Varicella Immune Status IgG Index 0.4 Normal [facility] Comment on above: Result Comment: THIS IS A QUALITATIVE ASSAY. The numeric value is not necessarily indicative of the amount of anti-Measles, Mumps, Rubella, or VZV IgG antibody present. Results should be interpreted in conjunction with clinical and epidemological data. Performed By: #### H GBEL #### [facility] (DEFAULT) [address] [place] [address] BETA HCG, QUANT, BLOODon HCG (Quant) Serum 2636.0 mIU/mL Normal [facility] Comment on above: Result Comment: Non- : <10 mIU/mL Postmenopause: <10 mIU/mL Male: <10 mIU/mL FEMALE GESTATIONAL AGE 2-4 Weeks: 39.1-8,388 mIU/mL 5-6 Weeks: 861-88,769 mIU/mL 6-8 Weeks: 8,636-218,085 mIU/mL 8-10 Weeks: 18,700-244,467 mIU/mL 10-12 Weeks: 23,143-181,899 mIU/mL 13-27 Weeks: 6,303-97,171 mIU/mL 24-40 Weeks: 4,360-74,883 mIU/mL Test results cannot be interpreted as absolute evidence for the presence or absence of malignant disease. Performed By: #### Q HCGB #### [facility] (DEFAULT) [address] [place] [address] BETA HCG, QUANT, BLOODon HCG (Quant) Serum 1246.4 mIU/mL Normal [facility] Comment on above: Result Comment: Non- : <10 mIU/mL Postmenopause: <10 mIU/mL Male: <10 mIU/mL FEMALE GESTATIONAL AGE 2-4 Weeks: 39.1-8,388 mIU/mL 5-6 Weeks: 861-88,769 mIU/mL 6-8 Weeks: 8,636-218,085 mIU/mL 8-10 Weeks: 18,700-244,467 mIU/mL 10-12 Weeks: 23,143-181,899 mIU/mL 13-27 Weeks: 6,303-97,171 mIU/mL 24-40 Weeks: 4,360-74,883 mIU/mL Test results cannot be interpreted as absolute evidence for the presence or absence of malignant disease. Performed By: #### H GBEL #### [facility] (DEFAULT) [address] [address] CHLAMYDIA & GONORRHEA AMPLIF IED PROBEon 04-07-2021 Chlamydia trachomatis Amplified Probe Not detected Normal Not Detected [facility] Comment on above: Order Comment: This test was performed using a real time PCR assay. Performed By: #### X M #### [facility] (DEFAULT) [address] [address] Neisseria gonorrhea Amplified Probe Not detected Normal Not Detected [facility] Comment on above: Order Comment: This test was performed using a real time PCR assay. Performed By: #### X M #### [facility] (DEFAULT) [address] [address] VAGINITIS DNA PROBESon 04-07 DNA Probe Gunjan Species Negative Normal Negative [facility] Comment on above: Performed By: #### T GCM #### [facility] (DEFAULT) [address] [address] DNA Probe Gardnerella Positive Abnormal Negative [facility] Comment on above: Result Comment: The presence of G. Vaginalis, although suggestive, is not diagnostic for bacterial vaginosis. Results should be interpreted in conjunction with other clinical and laboratory data. Performed By: #### T GCM #### [facility] (DEFAULT) [address] [address] DNA Probe Trichomonas Negative Normal Negative [facility] Comment on above: Performed By: #### T GCM #### [facility] (DEFAULT) [address] [place] [address] CHLAMYDIA & GONORRHEA AMPLIF IED PROBEon 01-25-2021 Chlamydia trachomatis Amplified Probe Not detected Normal Not Detected, Indeterminate [facility] Comment on above: Order Comment: This test was performed using a real time PCR assay. Performed By: #### T GCM #### [facility] (DEFAULT) [address] [place] [address] Neisseria gonorrhea Amplified Probe Not detected Normal Not Detected [facility] Comment on above: Order Comment: This test was performed using a real time PCR assay. Performed By: #### T GCM #### [facility] (DEFAULT) [address] [address] HSV BY PCR, FLUID/LESIONon 0 01-25-2021 HSV1 By PCR Not detected Normal Not Detected [facility] Comment on above: Order Comment: This test was performed using a real time PCR assay. Performed By: #### T GCM #### [facility] (DEFAULT) [address] [place] [address] HSV2 By PCR Not detected Normal Not Detected [facility] Comment on above: Order Comment: This test was performed using a real time PCR assay. Performed By: #### T GCM #### [facility] (DEFAULT) [address] [place] [address] VAGINITIS DNA PROBESon 01-25 DNA Probe Gunjan Species Negative Normal Negative [facility] Comment on above: Performed By: #### T GCM #### [facility] (DEFAULT) [address] [place] [address] DNA Probe Gardnerella Negative Normal Negative [facility] Comment on above: Performed By: #### T GCM #### [facility] (DEFAULT) [address] [address] DNA Probe Trichomonas Negative Normal Negative [facility] Comment on above: Performed By: #### T GCM #### [facility] (DEFAULT) [address] [place] [address] Vital Signs Date Time Vital Sign Value Performing Clinician Facility 10-09-2024 15:45-0400 Diastolic blood pressure 83 mm[Hg] Christos Christopherchloé ANIMAL HANDLER.MOLD CAPPER Work Phone: [facility] Comment on above: christina bp average 10-09-2024 15:45-0400 Systolic blood pressure 121 mm[Hg] Christos Hachloé ANIMAL HANDLER.MOLD CAPPER Work Phone: [facility] Comment on above: christina bp average 10-09-2024 14:54-0400 Body mass index (BMI) [Ratio] 29.76 kg/m2 Christos Christopherchloé ANIMAL HANDLER.MOLD CAPPER Work Phone: [facility] 10-09-2024 14:54-0400 Body weight 76.2 kg Christos Park ANIMAL HANDLER.MOLD CAPPER Work Phone: [facility] 08-13-2024 10:00-0400 Body mass index (BMI) [Ratio] 29.65 kg/m2 Anais Shelton MD Work Phone: [facility] 08-13-2024 10:00-0400 Body weight 75.93 kg Anais Shelton MD Work Phone: [facility] 08-13-2024 10:00-0400 Diastolic blood pressure 88 mm[Hg] Anais Shelton MD Work Phone: [facility] 08-13-2024 10:00-0400 Systolic blood pressure 120 mm[Hg] Anais Shelton MD Work Phone: [facility] 06-15-2024 12:39-0500 Body height 160 cm Rene Logan DO Work Phone: [facility] 06-15-2024 12:39-0500 Body mass index (BMI) [Ratio] 30.11 kg/m2 Rene Logan DO Work Phone: [facility] 06-15-2024 12:39-0500 Body temperature 97.81 [degF] Rene Logan DO Work Phone: [facility] 06-15-2024 12:39-0500 Body weight 77.11 kg Rene Ghotras DO Work Phone: [facility] 06-15-2024 12:39-0500 Diastolic blood pressure 77 mm[Hg] Rene Ghotras DO Work Phone: [facility] 06-15-2024 12:39-0500 Heart rate 91 /min Rene Ghotras DO Work Phone: [facility] 06-15-2024 12:39-0500 Respiratory rate 16 /min Rene Ghotras DO Work Phone: [facility] 06-15-2024 12:39-0500 SaO2% (BldA) [Mass fraction] 98 % Rene Logan DO Work Phone: [facility] 06-15-2024 12:39-0500 Systolic blood pressure 121 mm[Hg] Rene Logan DO Work Phone: [facility] 02-17-2024 09:40-0400 Body mass index (BMI) [Ratio] 29.84 kg/m2 Krislyn Aberegg PA Work Phone: [facility] 02-17-2024 09:40-0400 Body temperature 97.59 [degF] Krislyn Aberegg PA Work Phone: [facility] 02-17-2024 09:40-0400 Body weight 76.4 kg Krislyn Aberegg PA Work Phone: [facility] 02-17-2024 09:40-0400 Diastolic blood pressure 64 mm[Hg] Krislyn Aberegg PA Work Phone: [facility] 02-17-2024 09:40-0400 Heart rate 76 /min Krislyn Aberegg PA Work Phone: [facility] 02-17-2024 09:40-0400 Respiratory rate 16 /min Krislyn Aberegg PA Work Phone: [facility] 02-17-2024 09:40-0400 SaO2% (BldA) [Mass fraction] 98 % Krislyn Aberegg PA Work Phone: [facility] 02-17-2024 09:40-0400 Systolic blood pressure 102 mm[Hg] Grazyna Mane PA Work Phone: [facility] 02-03-2024 09:38-0400 Respiratory rate 16 /min No Physician [facility] 02-03-2024 09:37-0400 Body height 160 cm No Physician [facility] 02-03-2024 09:37-0400 Body mass index (BMI) [Ratio] 29.23 kg/m2 No Physician [facility] 02-03-2024 09:37-0400 Body weight 74.84 kg No Physician [facility] 02-03-2024 09:34-0400 Body temperature 98.2 [degF] No Physician [facility] 02-03-2024 09:34-0400 Diastolic blood pressure 77 mm[Hg] No Physician [facility] 02-03-2024 09:34-0400 Heart rate 103 /min No Physician [facility] 02-03-2024 09:34-0400 SaO2% (BldA) [Mass fraction] 97 % No Physician [facility] 02-03-2024 09:34-0400 Systolic blood pressure 118 mm[Hg] No Physician [facility] 10-24-2023 15:13-0400 Body mass index (BMI) [Ratio] 29.84 kg/m2 Natalee Moomaw ANIMAL HANDLER.MOLD CAPPER Work Phone: [facility] 10-24-2023 15:13-0400 Body temperature 98.8 [degF] Natalee Moomaw ANIMAL HANDLER.MOLD CAPPER Work Phone: [facility] 10-24-2023 15:13-0400 Body weight 76.4 kg Natalee Moomaw ANIMAL HANDLER.MOLD CAPPER Work Phone: [facility] 10-24-2023 15:13-0400 Diastolic blood pressure 80 mm[Hg] Natalee Moomaw ANIMAL HANDLER.MOLD CAPPER Work Phone: [facility] 10-24-2023 15:13-0400 Heart rate 102 /min Natalee Moomaw ANIMAL HANDLER.MOLD CAPPER Work Phone: [facility] 10-24-2023 15:13-0400 Respiratory rate 18 /min Natalee Moomaw ANIMAL HANDLER.MOLD CAPPER Work Phone: [facility] 10-24-2023 15:13-0400 SaO2% (BldA) [Mass fraction] 98 % Natalee Moomaw ANIMAL HANDLER.MOLD CAPPER Work Phone: [facility] 10-24-2023 15:13-0400 Systolic blood pressure 128 mm[Hg] Natalee Moomaw ANIMAL HANDLER.MOLD CAPPER Work Phone: [facility] 09-19-2023 10:19-0400 Body mass index (BMI) [Ratio] 29.94 kg/m2 Abdi Garduno MD Work Phone: [facility] 09-19-2023 10:19-0400 Body weight 76.66 kg Abdi Garduno MD Work Phone: [facility] 09-19-2023 10:19-0400 Diastolic blood pressure 62 mm[Hg] Abdi Garduno MD Work Phone: [facility] 09-19-2023 10:19-0400 Systolic blood pressure 100 mm[Hg] Abdi Garduno MD Work Phone: [facility] 08-16-2023 13:52-0400 Body weight 77.11 kg Abdi Garduno MD Work Phone: [facility] 08-16-2023 13:52-0400 Diastolic blood pressure 60 mm[Hg] Abdi Garduno MD Work Phone: [facility] 08-16-2023 13:52-0400 Systolic blood pressure 110 mm[Hg] Abdi Garduno MD Work Phone: [facility] 04-30-2023 00:35-0500 Diastolic blood pressure 96 mm[Hg] [facility] 04-30-2023 00:35-0500 Heart rate 97 /min [facility] 04-30-2023 00:35-0500 Respiratory rate 18 /min [facility] 04-30-2023 00:35-0500 SaO2% (BldA) [Mass fraction] 99 % [facility] 04-30-2023 00:35-0500 Systolic blood pressure 120 mm[Hg] [facility] 04-29-2023 21:54-0500 Body height 160.02 cm [facility] 04-29-2023 21:54-0500 Body mass index (BMI) [Ratio] 34.7 kg/m2 [facility] 04-29-2023 21:54-0500 Body temperature 98.9 [degF] [facility] 04-29-2023 21:54-0500 Body weight 88.9 kg [facility] 02-26-2023 14:01-0400 Body temperature 98.6 [degF] Tonya Sage-Leon ANIMAL HANDLER.MOLD CAPPER Work Phone: [facility] 02-26-2023 14:01-0400 Body weight 79.29 kg Tonya Evans ANIMAL HANDLER.MOLD CAPPER Work Phone: [facility] 02-26-2023 14:01-0400 Diastolic blood pressure 68 mm[Hg] Tonya Sage-Leon ANIMAL HANDLER.MOLD CAPPER Work Phone: [facility] 02-26-2023 14:01-0400 Heart rate 94 /min Tonya Sage-Leon ANIMAL HANDLER.MOLD CAPPER Work Phone: [facility] 02-26-2023 14:01-0400 Respiratory rate 21 /min Tonya Sage-Leon ANIMAL HANDLER.MOLD CAPPER Work Phone: [facility] 02-26-2023 14:01-0400 SaO2% (BldA) [Mass fraction] 97 % Tonya Sage-Leon ANIMAL HANDLER.MOLD CAPPER Work Phone: [facility] 02-26-2023 14:01-0400 Systolic blood pressure 102 mm[Hg] Tonya Nicoleler-Leon ANIMAL HANDLER.MOLD CAPPER Work Phone: [facility] 09-02-2022 09:07-0400 Body temperature 97.5 [degF] Alvarez Rick ANIMAL HANDLER.MOLD CAPPER Work Phone: [facility] 09-02-2022 09:07-0400 Body weight 78.47 kg Alvarez Pendjonybury ANIMAL HANDLER.MOLD CAPPER Work Phone: [facility] 09-02-2022 09:07-0400 Diastolic blood pressure 70 mm[Hg] Alvarez Pendlebury ANIMAL HANDLER.MOLD CAPPER Work Phone: [facility] 09-02-2022 09:07-0400 Heart rate 92 /min Alvarez Pendlebury ANIMAL HANDLER.MOLD CAPPER Work Phone: [facility] 09-02-2022 09:07-0400 Respiratory rate 16 /min Alvarez Pendlebury ANIMAL HANDLER.MOLD CAPPER Work Phone: [facility] 09-02-2022 09:07-0400 SaO2% (BldA) [Mass fraction] 98 % Alvarez Rick ANIMAL HANDLER.MOLD CAPPER Work Phone: [facility] 09-02-2022 09:07-0400 Systolic blood pressure 118 mm[Hg] Alvarez Pendlebury ANIMAL HANDLER.MOLD CAPPER Work Phone: [facility] 07-26-2022 18:09-0400 Body temperature 98.8 [degF] Krislyn Aberegg PA Work Phone: [facility] 07-26-2022 18:09-0400 Body weight 74.3 kg Krislyn Aberegg PA Work Phone: [facility] 07-26-2022 18:09-0400 Diastolic blood pressure 88 mm[Hg] Krislyn Aberegg PA Work Phone: [facility] 07-26-2022 18:09-0400 Heart rate 88 /min Krislyn Aberegg PA Work Phone: [facility] 07-26-2022 18:09-0400 Respiratory rate 21 /min Krislyn Aberegg PA Work Phone: [facility] 07-26-2022 18:09-0400 SaO2% (BldA) [Mass fraction] 99 % Krislyn Aberegg PA Work Phone: [facility] 07-26-2022 18:09-0400 Systolic blood pressure 122 mm[Hg] Grazyna ARAIZA Work Phone: [facility] 06-08-2022 09:08-0500 Body temperature 97.6 [degF] [facility] 06-08-2022 09:08-0500 Diastolic blood pressure 80 mm[Hg] [facility] 06-08-2022 09:08-0500 Heart rate 87 /min [facility] 06-08-2022 09:08-0500 Respiratory rate 16 /min [facility] 06-08-2022 09:08-0500 SaO2% (BldA) [Mass fraction] 98 % [facility] 06-08-2022 09:08-0500 Systolic blood pressure 120 mm[Hg] [facility] 06-08-2022 01:08-0500 Body height 160.02 cm [facility] 06-08-2022 01:08-0500 Body mass index (BMI) [Ratio] 19.5 kg/m2 [facility] 06-08-2022 01:08-0500 Body weight 50.21 kg [facility] 06-06-2022 11:39-0500 Body weight 73.21 kg Lilia Abingdon ANIMAL HANDLER.MOLD CAPPER Work Phone: [facility] 06-06-2022 11:39-0500 Diastolic blood pressure 72 mm[Hg] Lilia Abingdon ANIMAL HANDLER.MOLD CAPPER Work Phone: [facility] 06-06-2022 11:39-0500 Systolic blood pressure 110 mm[Hg] Lilia Arabella ANIMAL HANDLER.MOLD CAPPER Work Phone: [facility] 06-03-2022 05:51-0500 Diastolic blood pressure 88 mm[Hg] [facility] 06-03-2022 05:51-0500 Heart rate 78 /min [facility] 06-03-2022 05:51-0500 Respiratory rate 18 /min [facility] 06-03-2022 05:51-0500 SaO2% (BldA) [Mass fraction] 99 % [facility] 06-03-2022 05:51-0500 Systolic blood pressure 154 mm[Hg] [facility] 06-03-2022 03:03-0500 Body height 160.02 cm [facility] 06-03-2022 03:03-0500 Body mass index (BMI) [Ratio] 28.9 kg/m2 [facility] 06-03-2022 03:03-0500 Body temperature 97.1 [degF] [facility] 06-03-2022 03:03-0500 Body weight 74.1 kg [facility] 05-29-2022 12:16-0500 Diastolic blood pressure 72 mm[Hg] [facility] 05-29-2022 12:16-0500 Systolic blood pressure 112 mm[Hg] [facility] 05-29-2022 09:54-0500 Body height 160.02 cm [facility] 05-29-2022 09:54-0500 Body mass index (BMI) [Ratio] 29.1 kg/m2 [facility] 05-29-2022 09:54-0500 Body temperature 96.3 [degF] [facility] 05-29-2022 09:54-0500 Body weight 74.61 kg [facility] 05-29-2022 09:54-0500 Heart rate 98 /min [facility] 05-29-2022 09:54-0500 Respiratory rate 17 /min [facility] 05-29-2022 09:54-0500 SaO2% (BldA) [Mass fraction] 99 % [facility] 03-19-2022 14:32-0500 Body temperature 100.29 [degF] Tonya Sage-Leon ANIMAL HANDLER.MOLD CAPPER Work Phone: [facility] 03-19-2022 14:32-0500 Body weight 78.2 kg Tonya Pramalgorzata-Leon ANIMAL HANDLER.MOLD CAPPER Work Phone: [facility] 03-19-2022 14:32-0500 Diastolic blood pressure 82 mm[Hg] Tonya Praisler-Leon ANIMAL HANDLER.MOLD CAPPER Work Phone: [facility] 03-19-2022 14:32-0500 Heart rate 95 /min Tonya Praisler-Wood ANIMAL HANDLER.MOLD CAPPER Work Phone: [facility] 03-19-2022 14:32-0500 Respiratory rate 20 /min Tonya Praisler-Wood ANIMAL HANDLER.MOLD CAPPER Work Phone: [facility] 03-19-2022 14:32-0500 SaO2% (BldA) [Mass fraction] 100 % Tonya Praisler-Wood ANIMAL HANDLER.MOLD CAPPER Work Phone: [facility] 03-19-2022 14:32-0500 Systolic blood pressure 126 mm[Hg] Tonya Praisler-Wood ANIMAL HANDLER.MOLD CAPPER Work Phone: [facility] 02-15-2022 09:30-0400 Body weight 78.02 kg Kim Powell MD Work Phone: [facility] 02-15-2022 09:30-0400 Diastolic blood pressure 74 mm[Hg] Kim Powell MD Work Phone: [facility] 02-15-2022 09:30-0400 Systolic blood pressure 112 mm[Hg] Kim Powell MD Work Phone: [facility] 01-18-2022 09:33-0400 Body height 160 cm Shirley Plotts ANIMAL HANDLER.CNM Work Phone: [facility] 01-18-2022 09:33-0400 Body weight 76.66 kg Shirley Plotts ANIMAL HANDLER.CNM Work Phone: [facility] 01-18-2022 09:33-0400 Diastolic blood pressure 64 mm[Hg] Shirley Plotts ANIMAL HANDLER.CNM Work Phone: [facility] 01-18-2022 09:33-0400 Systolic blood pressure 108 mm[Hg] Shirley Plotts ANIMAL HANDLER.CNM Work Phone: [facility] 12-14-2021 15:41-0400 Body weight 76.66 kg Caroline Sweet MD Work Phone: [facility] 12-14-2021 15:41-0400 Diastolic blood pressure 72 mm[Hg] Caroline Sweet MD Work Phone: [facility] 12-14-2021 15:41-0400 Systolic blood pressure 122 mm[Hg] Caroline Sweet MD Work Phone: [facility] 12-02-2021 09:08-0400 Body temperature 98.2 [degF] Neymar Monet MD Work Phone: 6(892)152-997933 [address] 12-02-2021 09:08-0400 Diastolic blood pressure 84 mm[Hg] Neymar Monet MD Work Phone: 5(698)253-573072 [place] [address] 12-02-2021 09:08-0400 Heart rate 81 /min Neymar Monet MD Work Phone: 7(782)484-391472 [place] [address] 12-02-2021 09:08-0400 Respiratory rate 16 /min Neymar Monet MD Work Phone: 9(249)251-085972 [place] [address] 12-02-2021 09:08-0400 SaO2% (BldA) [Mass fraction] 94 % Neymar Monet MD Work Phone: 8(098)927-225072 [place] [address] 12-02-2021 09:08-0400 Systolic blood pressure 133 mm[Hg] Neymar Monet MD Work Phone: 5(952)031-825472 [place] [address] 11-29-2021 07:56-0400 Body height 160 cm Neymar Monet MD Work Phone: 9(650)457-027472 [place] [address] 11-29-2021 07:56-0400 Body mass index (BMI) [Ratio] 34.72 kg/m2 Neymar Monet MD Work Phone: 0(998)675-006472 [place] [address] 11-29-2021 07:56-0400 Body weight 88.91 kg Neymar Monet MD Work Phone: 8(781)176-264672 [place] [address] 11-19-2021 22:29-0400 Body temperature 98.8 [degF] Haritha Escobar MD Work Phone: [facility] 11-19-2021 22:29-0400 Diastolic blood pressure 65 mm[Hg] Haritha Escobar MD Work Phone: [facility] 11-19-2021 22:29-0400 Heart rate 87 /min Haritha Escobar MD Work Phone: [facility] 11-19-2021 22:29-0400 Respiratory rate 18 /min Haritha Escobar MD Work Phone: [facility] 11-19-2021 22:29-0400 SaO2% (BldA) [Mass fraction] 100 % Haritha Escobar MD Work Phone: [facility] 11-19-2021 22:29-0400 Systolic blood pressure 121 mm[Hg] Haritha Escobar MD Work Phone: [facility] 11-14-2021 13:36-0400 Body mass index (BMI) [Ratio] 33.2 kg/m2 Anais Hare MD Work Phone: [facility] 11-14-2021 13:36-0400 Body weight 85 kg Anais Hare MD Work Phone: [facility] 11-14-2021 13:36-0400 Diastolic blood pressure 69 mm[Hg] Anais Hare MD Work Phone: [facility] 11-14-2021 13:36-0400 Heart rate 117 /min Anais Hare MD Work Phone: [facility] 11-14-2021 13:36-0400 Systolic blood pressure 124 mm[Hg] Anais Hare MD Work Phone: [facility] 11-11-2021 14:19-0400 Body temperature 98.4 [degF] Aster Nicole MD, PhD Work Phone: [facility] 11-11-2021 14:19-0400 Diastolic blood pressure 76 mm[Hg] Aster Nicole MD, PhD Work Phone: [facility] 11-11-2021 14:19-0400 Heart rate 98 /min Aster Nicole MD, PhD Work Phone: [facility] 11-11-2021 14:19-0400 Respiratory rate 16 /min Aster Nicole MD, PhD Work Phone: [facility] 11-11-2021 14:19-0400 SaO2% (BldA) [Mass fraction] 98 % Aster Nicole MD, PhD Work Phone: [facility] 11-11-2021 14:19-0400 Systolic blood pressure 131 mm[Hg] Aster Nicole MD, PhD Work Phone: [facility] 11-08-2021 09:44-0400 Body weight 86.09 kg Mariama Chatman MD Work Phone: [facility] 11-08-2021 09:44-0400 Diastolic blood pressure 80 mm[Hg] Mariama Chatman MD Work Phone: [facility] 11-08-2021 09:44-0400 Systolic blood pressure 138 mm[Hg] Mariama Chatman MD Work Phone: [facility] 10-24-2021 10:47-0400 Body weight 82.1 kg Aissatou Ray MD Work Phone: [facility] 10-24-2021 10:47-0400 Diastolic blood pressure 60 mm[Hg] Aissatou Ray MD Work Phone: [facility] 10-24-2021 10:47-0400 Systolic blood pressure 106 mm[Hg] Aissatou Ray MD Work Phone: [facility] 10-10-2021 09:45-0400 Body weight 83.46 kg Caroline Sweet MD Work Phone: [facility] 10-10-2021 09:45-0400 Diastolic blood pressure 70 mm[Hg] Caroline Sweet MD Work Phone: [facility] 10-10-2021 09:45-0400 Systolic blood pressure 108 mm[Hg] Caroline Sweet MD Work Phone: [facility] 09-26-2021 11:22-0400 Body weight 82.56 kg Caroline Sweet MD Work Phone: [facility] 09-26-2021 11:22-0400 Diastolic blood pressure 68 mm[Hg] Caroline Sweet MD Work Phone: [facility] 09-26-2021 11:22-0400 Systolic blood pressure 110 mm[Hg] Caroline Sweet MD Work Phone: [facility] 09-13-2021 10:38-0400 Body weight 85.46 kg Leeann Mcleod MD Work Phone: [facility] 09-13-2021 10:38-0400 Diastolic blood pressure 58 mm[Hg] Leeann Mcleod MD Work Phone: [facility] 09-13-2021 10:38-0400 Systolic blood pressure 104 mm[Hg] Leeann Mcleod MD Work Phone: [facility] 08-03-2021 12:52-0400 Diastolic blood pressure 62 mm[Hg] [facility] Work Phone: 08-03-2021 12:52-0400 Heart rate 78 /min [facility] Work Phone: 08-03-2021 12:52-0400 Respiratory rate 16 /min [facility] Work Phone: 08-03-2021 12:52-0400 SaO2% (BldA) [Mass fraction] 98 % [facility] Work Phone: 08-03-2021 12:52-0400 Systolic blood pressure 115 mm[Hg] [facility] Work Phone: 08-03-2021 08:35-0400 Body temperature 97.5 [degF] [facility] Work Phone: 08-01-2021 10:38-0400 Body height 161.29 cm [facility] Work Phone: 08-01-2021 10:05-0400 Body weight 78.47 kg Kim Powell MD Work Phone: [facility] 08-01-2021 10:05-0400 Diastolic blood pressure 70 mm[Hg] Kim Powell MD Work Phone: [facility] 08-01-2021 10:05-0400 Systolic blood pressure 110 mm[Hg] Kim Powell MD Work Phone: [facility] Encounters Encounter Date Encounter Type Care Provider Facility Start: 10-09-2024 End: 10-09-2024 Patient encounter procedure Christos Park APRN.CNP Work Phone: OB/Gynecology Comment on above: Screening for STD (s exually transmitted disease) (Primary Dx); Vaginal discharge; Missed menses; Screening for cervical cancer; Screening for HPV (human papillomavirus); Encounter for sterilization Start: 10-09-2024 End: 10-09-2024 ambulatory CHRISTOS PARK Facility:[facility] Start: 08-27-2024 End: 08-27-2024 ambulatory SILVINA MENDOZA Facility:[facility] Start: 08-27-2024 End: 08-27-2024 Telephone encounter Caroline Sweet MD Work Phone: OB/Gynecology Comment on above: Patient Question Start: 08-13-2024 End: 08-13-2024 ambulatory ANAIS SHELTON Facility:[facility] Start: 08-13-2024 End: 08-13-2024 Patient encounter procedure Anais Shelton MD Work Phone: OB/Gynecology Comment on above: Encounter for IUD re moval (Primary Dx); Encounter for initial prescription of contraceptive pills Start: 08-06-2024 End: 08-06-2024 Telephone encounter Shirley Whitaker APRN.CNM Work Phone: OB/Gynecology Comment on above: Orders Start: 06-15-2024 End: 06-15-2024 Emergency department patient visit Rene Logan DO Work Phone: [facility] Comment on above: Vaginal discharge (P rimary Dx); Possible exposure to STD Start: 06-15-2024 End: 06-15-2024 Evaluation and management of inpatient Rene Alicea Desmond DO Work Phone: [facility] Start: 06-13-2024 End: 06-13-2024 ambulatory Abdi Garduno MD Work Phone: OB/Gynecology Comment on above: Vagina bleeding Start: 06-09-2024 End: 06-09-2024 Telephone encounter Shirley Whitaker APRN.VEL Work Phone: OB/Gynecology Comment on above: AUB Start: 05-20-2024 End: 05-20-2024 Emergency department patient visit JOSELITO PENALOZA [facility] Start: 05-13-2024 End: 05-13-2024 Emergency department patient visit MARSHALLRIP DICK [facility] Start: 02-17-2024 End: 02-17-2024 ambulatory CHRISTOS PARK Facility:[facility] Start: 02-17-2024 End: 02-17-2024 Patient encounter procedure Grazyna ARAIZA Work Phone: [facility] Comment on above: Vaginal irritation ( Primary Dx); Acute otitis media, left; URI, acute Start: 02-03-2024 End: 02-03-2024 Emergency department patient visit NO PCP PHYSICIAN [facility] Comment on above: Facial swelling (Venus bianca Dx); Pain, dental Start: 02-03-2024 End: 02-03-2024 Evaluation and management of inpatient No Physician [facility] Start: 11-13-2023 End: 11-13-2023 Emergency department patient visit PHYSICIAN [facility] Start: 11-05-2023 Refill Lilia Bell ANIMAL HANDLER.MOLD CAPPER Work Phone: OB/Gynecology Comment on above: Refill Request Start: 10-24-2023 End: 10-24-2023 ambulatory CHRISTOS PARK Facility:[facility] Start: 10-24-2023 End: 10-24-2023 Patient encounter procedure Natalee Brodyrolando ANIMAL HANDLER.MOLD CAPPER Work Phone: [facility] Comment on above: Dental infection (Pr imary Dx) Start: 09-19-2023 End: 09-19-2023 Patient encounter procedure Abdi Garduno MD Work Phone: OB/Gynecology Comment on above: Cervical 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 (HPV) DNA test positive (Primary Dx) Start: 09-03-2023 Telephone encounter Abdi Garduno MD Work Phone: OB/Gynecology Start: 08-20-2023 ambulatory Abdi pike MD Work Phone: OB/Gynecology Comment on above: results Start: 08-20-2023 E-mail encounter fro m caregiver Abdi Garduno MD Work Phone: OB/Gynecology Start: 08-16-2023 End: 08-16-2023 Patient encounter procedure Abdi Garduno MD Work Phone: OB/Gynecology Comment on above: Vaginal discharge (P rimary Dx); ASCUS with positive high risk HPV cervical; Screening for cervical cancer; Special screening examination for human papillomavirus (HPV) Start: 04-29-2023 End: 04-30-2023 Emergency department patient visit Jamar Nichols Facility:[facility] Start: 04-29-2023 End: 04-30-2023 Emergency department patient visit [facility] Work Phone: Start: 02-26-2023 End: 02-26-2023 Patient encounter procedure Tonya Evans APRN.MOLD CAPPER Work Phone: [facility] Comment on above: Other acute nonsuppu rative otitis media of right ear, recurrence not specified (Primary Dx) Start: 11-06-2022 End: 11-07-2022 Emergency department patient visit Mich Clayrus Facility:[facility] Start: 11-06-2022 End: 11-06-2022 ambulatory Grzegorz ARAIZA Facility:[facility] Start: 09-02-2022 End: 09-02-2022 Office outpatient visit 15 minutes Alvarez Rick ANIMAL HANDLER.MOLD CAPPER Work Phone: [facility] Comment on above: Hearing loss of both ears due to cerumen impaction (Primary Dx); Bacterial conjunctivitis Start: 08-01-2022 Telephone encounter Lilia enriquez ANIMAL HANDLER.MOLD CAPPER Work Phone: OB/Gynecology Comment on above: Vaginal Problem Start: 07-26-2022 End: 07-26-2022 Emergency department patient visit Ed Physician Provider Facility:[facility] Start: 07-26-2022 End: 07-26-2022 Patient encounter procedure Grazyna ARAIZA Work Phone: [facility] Comment on above: Screen for STD (sexu ally transmitted disease) (Primary Dx) Start: 06-08-2022 End: 06-09-2022 ambulatory [facility] Facility:[facility] Start: 06-08-2022 Evaluation and manag ement of inpatient [facility]-Medical Surgical 3 Start: 06-08-2022 observation encounter W [facility] Work Phone: Start: 06-06-2022 End: 06-06-2022 Patient encounter procedure Lilia Bell ANIMAL HANDLER.MOLD CAPPER Work Phone: OB/Gynecology Comment on above: IUD check up (Primar y Dx) Start: 06-03-2022 End: 06-03-2022 Emergency department patient visit Jamar Nichols Facility:[facility] Start: 06-03-2022 End: 06-03-2022 Emergency department patient visit [facility] Start: 05-29-2022 End: 05-29-2022 Emergency department patient visit Guanako Arreguin Facility:[facility] Start: 05-29-2022 End: 05-29-2022 Emergency department patient visit [facility] Start: 03-19-2022 End: 03-19-2022 Patient encounter procedure Tonya Evans ANIMAL HANDLER.MOLD CAPPER Work Phone: [facility] Comment on above: Bacterial sinusitis (Primary Dx); Bilateral impacted cerumen Start: 02-15-2022 End: 02-15-2022 Patient encounter procedure Kim Powell MD Work Phone: OB/Gynecology Comment on above: ASCUS with positive high risk HPV cervical (Primary Dx) Start: 02-01-2022 Telephone encounter Shirley morris ANIMAL HANDLER.CNM Work Phone: OB/Gynecology Comment on above: Abnormal Pap Start: 01-18-2022 End: 01-18-2022 Patient encounter procedure Shirley Whitaker ANIMAL HANDLER.CNM Work Phone: OB/Gynecology Comment on above: Encounter for screen ing for malignant neoplasm of cervix (Primary Dx); care and examination Start: 12-14-2021 End: 12-14-2021 Patient encounter procedure Caroline Sweet MD Work Phone: OB/Gynecology Comment on above: Incisional pain (Venus bianca Dx); S/P section Start: 11-29-2021 End: 12-02-2021 Evaluation and management of inpatient SELF SELF Facility:[facility] Start: 11-29-2021 End: 12-02-2021 Evaluation and management of inpatient Neymar Monet MD Work Phone: [facility] Comment on above: History of p remature rupture of membranes (PPROM) Start: 11-28-2021 ambulatory KATHRYN TURNER Facility :[facility] Start: 11-28-2021 End: 11-28-2021 Office outpatient visit 15 minutes Kathryn Turner MD Work Phone: Maternal Medicine [facility] Comment on above: Supervision of high risk in third trimester (Primary Dx); Monochorionic diamniotic twin in third trimester; History of delivery; Pruritus of in third trimester Start: 11-22-2021 ambulatory KATHRYN TURNER Facility :[facility] Start: 11-22-2021 End: 11-22-2021 Follow-up encounter [facility] Comment on above: Monochorionic diamni otic twin gestation in third trimester (Primary Dx); Monochorionic diamniotic twin in first trimester; COVID-19 affecting in third trimester Start: 11-20-2021 End: 11-20-2021 ambulatory HARITHA ESCOBAR Facility:[facility] Start: 11-19-2021 End: 11-20-2021 Subsequent hospital visit by physician Haritha Escobar MD Work Phone: [facility] Start: 11-14-2021 ambulatory KATHRYN TURNER Facility :[facility] Start: 11-14-2021 ambulatory SELF SELF Facility:[facility] Start: 11-14-2021 End: 11-14-2021 Patient encounter procedure Kathryn Turner MD Work Phone: Obstetrics and Gynecology [facility] Comment on above: Monochorionic diamni otic twin in first trimester Start: 11-14-2021 End: 11-14-2021 Office outpatient visit 15 minutes Kathryn Turner MD Work Phone: Maternal Medicine [facility] Comment on above: Monochorionic diamni otic twin in first trimester; History of delivery; Monochorionic diamniotic twin in third trimester Start: 11-11-2021 End: 11-11-2021 ambulatory ASTER NICOLE Facility:[facility] Start: 11-11-2021 End: 11-11-2021 Subsequent hospital visit by physician Aster Nicole MD, PhD Work Phone: [facility] Start: 11-08-2021 End: 11-08-2021 Patient encounter procedure Caroline Sweet MD Work Phone: OB/Gynecology Comment on above: Supervision of high risk in third trimester (Primary Dx); Monochorionic diamniotic twin in third trimester; 33 weeks gestation of Start: 11-08-2021 End: 11-08-2021 Patient encounter procedure Mariama Chatman MD Work Phone: Maternal Medicine Comment on above: Monochorionic diamni otic twin in third trimester (Primary Dx); 33 weeks gestation of Monochorionic diamni otic twin in second trimester Start: 11-05-2021 ambulatory Caroline Sweet MD Work Phone: OB/Gynecology Comment on above: Discharge Start: 10-24-2021 End: 10-24-2021 Patient encounter procedure Mariama Chatman MD Work Phone: Maternal Medicine Comment on above: Monochorionic diamni otic twin in second trimester (Primary Dx); 31 weeks gestation of Suspected anom nolvia, antepartum, fetus 2 (Primary Dx) 31 weeks gestation o f (Primary Dx); Monochorionic diamniotic twin in third trimester; Supervision of high risk in third trimester; Abnormal echocardiography affecting antepartum care of mother, fetus 2 of multiple gestation Start: 10-10-2021 End: 10-10-2021 Patient encounter procedure Caroline Sweet MD Work Phone: OB/Gynecology Comment on above: Monochorionic diamni otic twin in third trimester (Primary Dx); Supervision of high risk in third trimester; 29 weeks gestation of ; Encounter for sterilization Monochorionic diamni otic twin in second trimester (Primary Dx); 29 weeks gestation of Start: 09-26-2021 End: 09-26-2021 Patient encounter procedure Mariama Chatman MD Work Phone: Maternal Medicine Comment on above: Monochorionic diamni otic twin in second trimester (Primary Dx); 27 weeks gestation of ; Monochorionic diamniotic twin gestation in second trimester Monochorionic diamni otic twin gestation in second trimester (Primary Dx); Pruritus of in second trimester; COVID-19 virus infection; High-risk in second trimester; 27 weeks gestation of Start: 09-23-2021 Telephone encounter Aissatou davis MD Work Phone: OB/Gynecology Comment on above: OB COVID + SOB Start: 09-16-2021 End: 09-16-2021 ambulatory ASTER NICOLE Facility:[facility] Start: 09-15-2021 Telephone encounter Shirley morris JOEL Work Phone: OB/Gynecology Comment on above: OB-Back Pain Start: 09-13-2021 End: 09-13-2021 Patient encounter procedure Leeann Mcleod MD Work Phone: OB/Gynecology Comment on above: Monochorionic diamni otic twin gestation in second trimester (Primary Dx); 25 weeks gestation of Start: 08-26-2021 End: 08-26-2021 ambulatory Leyda Vivar MD Work Phone: Pediatric Cardiology Comment on above: Arrived Start: 08-26-2021 End: 08-26-2021 Patient encounter procedure Leyda Vivar MD Work Phone: [facility] Start: 08-15-2021 End: 08-15-2021 Patient encounter procedure Mariama Chatman MD Work Phone: Maternal Medicine Comment on above: Monochorionic diamni otic twin in second trimester (Primary Dx); 21 weeks gestation of Start: 08-03-2021 End: 08-03-2021 Patient encounter procedure [facility] Start: 08-01-2021 End: 08-01-2021 Patient encounter procedure Kim Powell MD Work Phone: OB/Gynecology Comment on above: 19 weeks gestation o f (Primary Dx); 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; High-risk in second trimester; Encounter for screening of mother; Mild hyperemesis gravidarum Monochorionic diamni otic twin in second trimester (Primary Dx); 19 weeks gestation of Start: 06-20-2021 ambulatory ASTER NICOLE Facilit y:[facility] Start: 06-15-2021 ambulatory ASTER NICOLE Facilit y:[facility] Start: 06-15-2021 ambulatory ASTER NICOLE Facilit y:[facility] Start: 05-25-2021 ambulatory SELF SELF Facility:[facility] Start: 05-25-2021 ambulatory SELF SELF Facility:[facility] Start: 04-22-2021 ambulatory [facility] Fa cility:[facility] Start: 04-20-2021 ambulatory SELF SELF Facility:[facility] Start: 04-07-2021 ambulatory SELF SELF Facility:[facility] Start: 01-25-2021 ambulatory SELF SELF Facility:[facility] Start: 05-18-2016 End: 09-07-2016 Patient requested procedure Abdi Garduno MD Work Phone: [facility] Start: 11-16-2010 End: 07-31-2016 Patient encounter status Abdi Garduno MD Work Phone: [facility] Procedures Date Procedure Procedure Detail Performing Clinician Start: 10-09-2024 UA DIP,URINE HCG (POC) Christos Park APRN.MOLD CAPPER Work Phone: Start: 08-13-2024 UA DIP,URINE HCG (POC) Anais Shelton MD Work Phone: Start: 06-15-2024 End: 06-15-2024 Urine test visual color cmprsn meths Rene Logan DO Work Phone: Start: 09-19-2023 UA DIP,URINE HCG (POC) Abdi Garduno MD Work Phone: Start: 08-16-2023 BACTERIAL VAGINOSIS NAAT Abdi Garduno MD Work Phone: Start: 08-16-2023 Iadna trichomonas vaginalis amplified probe tech Abdi Garduno MD Work Phone: Start: 04-29-2023 SARS-CoV-2 & FLU Ant igen (Rapid) Start: 04-29-2023 Streptococcus pyogen es antigen assay Start: 06-08-2022 Plain chest X-ray Start: 06-08-2022 US scan of gallbladder Start: 06-03-2022 Computed tomography of abdomen and pelvis with intravenous contrast Start: 11-30-2021 CBC AND ELECTRONIC DIFF Neymar Monet MD Work Phone: Start: 11-30-2021 Complete blood count with white cell differential, automated Neymar Monet MD Work Phone: Start: 11-30-2021 MANUAL DIFF Neymar العراقي MD Work Phone: Start: 11-30-2021 Blood gases any combination ph pco2 po2 co2 hco3 Kathryn Jones MD Work Phone: Start: 11-29-2021 Creatinine other source Kathryn Jones MD Work Phone: Start: 11-29-2021 End: 11-29-2021 Antibody screen Neymar Monet MD Work Phone: Comment on above: Performed By: #### X M #### [facility] ([facility]) [address] [place] [address] Start: 11-29-2021 Comprehensive metabo lic panel Kathryn Jones MD Work Phone: Start: 11-29-2021 EXTRA MINT GREEN TOP Me alexei Monet MD Work Phone: Start: 11-29-2021 EXTRA TUBES Neymar العراقي MD Work Phone: Start: 11-29-2021 Blood typing serolog ic abo Leida Nelson MD Work Phone: Start: 11-29-2021 CBC AND ELECTRONIC DIFF Leida Nelson MD Work Phone: Start: 11-29-2021 Complete blood count with white cell differential, automated Leida Nelson MD Work Phone: Start: 11-28-2021 Antibody treponema pallidum Le Negron DO Work Phone: Start: 11-28-2021 Assay of phosphatase alkaline Le Negron DO Work Phone: Start: 11-28-2021 Iaad ia hiv-1 ag w/h iv-1 & hiv-2 antbdy single Le Negron DO Work Phone: Start: 11-22-2021 Us preg uterus real time f/u trnsabdl per fetus Anais Hare MD Work Phone: Start: 11-08-2021 URINE OB DIP B/O Caroline Sweet MD Work Phone: Start: 11-08-2021 Us preg uterus after 1st trimest 1/1st gestation Caroline Sweet MD Work Phone: Start: 10-24-2021 URINE OB DIP B/O Aissatou montoya MD Work Phone: Start: 10-24-2021 Us preg uterus after 1st trimest 1/1st gestation Caroline Sweet MD Work Phone: Start: 10-10-2021 URINE OB DIP B/O Caroline Sweet MD Work Phone: Start: 10-10-2021 Us preg uterus after 1st trimest 1/1st gestation Caroline Sweet MD Work Phone: Start: 09-26-2021 URINE OB DIP B/O Tariq Powell MD Work Phone: Start: 09-26-2021 Us preg uterus after 1st trimest 1/1st gestation Caroline Sweet MD Work Phone: Start: 09-13-2021 URINE OB DIP B/O Leeann Mcleod MD Work Phone: Start: 08-26-2021 Echo cardiovas c w/wo m-mode recording Leyda Vivar MD Work Phone: Start: 08-01-2021 URINE OB DIP B/O Tariq Powell MD Work Phone: Start: 08-01-2021 Us preg uterus after 1st trimest 1/1st gestation Caroline Sweet MD Work Phone: Start: 05-25-2021 Antibody screen SELF SE LF Comment on above: Performed By: #### X M #### [facility] ([facility]) [address] [place] [address] Start: 06-19-2020 H/O: section S/P prim ric low transverse Aster Nicole MD, PhD Work Phone: delivery only Dick Turner MD Work Phone: H/O: section History of delivery Kathryn Turner MD Work Phone: H/O: section History of delivery Kathryn Turner MD Work Phone: H/O: section History of delivery Neymar Monet MD Work Phone: H/O: section S/P sectio n Caroline Sweet MD Work Phone: History of cholecystectomy S/P laparoscopic cholecystectomy Insertion intrauteri ne device iud Kathryn Turner MD Work Phone: Plan of Treatment Date Care Activity Detail Author Start: 08-15-2026 Screening for malign ant neoplasm of cervix [facility] Start: 01-18-2025 PAP TESTING PAP TESTING [facility] Start: 01-18-2025 Screening for malign ant neoplasm of cervix Pap Testing [facility] Start: 11-25-2024 End: 11-25-2024 Patient encounter procedure 11/25/2024 8:00 AM EDT Office Visit Internal Medicine [facility] [address] [place] [address] [id number] Mary Devlin, ANIMAL HANDLER.PAPER REELER [address] [place], [place] [id number] New Patient, [facility] [place] Comment on above: New Patient, [facility] Start: 11-14-2024 End: 11-14-2024 Patient encounter procedure 11/14/2024 8:00 AM EDT Office Visit Internal Medicine [facility] [address] [place], [place] [id number] Mary Devlin, ANIMAL HANDLER.PAPER REELER [address] [place] [address] New Patient, [facility] [place] Comment on above: New Patient, [facility] Start: 11-12-2024 End: 11-12-2024 Patient encounter procedure 11/12/2024 11:10 AM EDT Office Visit OB/Gynecology [address] [place] [address] Kim Powell MD [address] [place] [address] tubal ? OB/Gynecology Comment on above: tubal ? Start: 08-28-2024 End: 08-28-2024 Patient encounter procedure 08/28/2024 1:20 PM EDT Office Visit OB/Gynecology [address] [place] [address] Anais Shelton MD [address] [place] [address] Annual OB/Gynecology Comment on above: Annual Start: 08-15-2024 Screening for malign ant neoplasm of cervix Cervical Cancer Screening [facility] Start: 08-13-2024 End: 08-13-2024 Patient encounter procedure 08/13/2024 10:00 AM EDT Office Visit OB/Gynecology [address] [place] [address] Anais Shelton MD [address] [place] [address] IUD removal / discuss OCP - needs to schedule annual OB/Gynecology Comment on above: IUD removal / discus s OCP - needs to schedule annual Start: 02-03-2024 Adolescent depressio n screening assessment Depression Screening [facility] Start: 02-03-2024 HIV screening HIV Screening [facility] Start: 02-03-2024 Social Influencers o f Health Screening Social Influencers of Health Screening [facility] Start: 01-06-2024 COVID-19 Vaccine ( season) COVID-19 Vaccine ( season) [facility] Start: 01-06-2024 Covid-19 Vaccine ( season) Covid-19 Vaccine () [facility] Start: 01-06-2024 Influenza vaccination [facility] Start: 08-28-2023 End: 08-28-2023 Patient encounter procedure 08/28/2023 1:30 PM EDT Office Visit OB/Gynecology [address] [place] [address] Silvina Arenas APRN.CN [address] [place] [address] 2 wk f/up OB/Gynecology Comment on above: 2 wk f/up Start: 05-07-2023 Behavioral Health Screening Behavioral Health Screening [facility] Start: 04-30-2023 [facility] Start: 04-29-2023 [facility] Start: 01-05-2023 Covid-19 Vaccine ( season) Covid-19 Vaccine () [facility] Start: 01-05-2023 Influenza vaccination [facility] Start: 11-28-2022 GONORRHEA SCREEN GONORRHEA SCREEN OS [facility] Start: 11-28-2022 Screening for Chlamy dorian trachomatis CHLAMYDIA SCREEN U [facility] Start: 06-08-2022 Partial thromboplast in time, activated [facility] Start: 06-08-2022 Prothrombin time [facility] Start: 06-08-2022 [facility] Start: 06-08-2022 Admission procedure Bledsoe ster [facility] Start: 06-08-2022 Verification routine Wo tanvi [facility] Start: 05-25-2022 GONORRHEA SCREEN GONORRHEA SCREEN OS [facility] Start: 05-25-2022 Screening for Chlamy dorian trachomatis CHLAMYDIA SCREEN [facility] Start: 05-07-2022 DEPRESSION ASSESSMENT DEPRESSION ASS ESSMENT [facility] Start: 01-10-2022 End: 01-10-2022 ambulatory 01/10/2022 Visit FACTORY MAINTENANCE TECHNICIAN Kristie Andersen, ANIMAL HANDLER-MOLD CAPPER [address] [place] [address] Obstetrics and Gynecology [facility] Start: 01-05-2022 Influenza vaccination [facility] Start: 12-08-2021 End: 12-08-2021 Follow-up encounter 12/08/2021 Follow Up Visit Maternal Medicine Maternal Medicine [facility] Start: 11-28-2021 End: 11-28-2022 BILE ACIDS [facility] Work Phone: Comment on above: Expected: 11/28/2021 , Expires: 11/28/2022 Start: 11-28-2021 End: 11-28-2021 Follow-up encounter 11/28/2021 Follow Up Visit Maternal Medicine Maternal Medicine [facility] Start: 11-28-2021 End: 11-28-2021 ambulatory 11/28/2021 Initial Visit FACTORY MAINTENANCE TECHNICIAN Obstetrics and Gynecology [facility] Start: 11-22-2021 End: 11-22-2021 Follow-up encounter 11/22/2021 Follow Up Visit [facility] Start: 11-22-2021 End: 11-22-2021 ambulatory 11/22/2021 Initial Visit [facility] Start: 11-14-2021 End: 11-14-2022 OB ultrasound panel US OB GROWTH/DATING > 14WEEKS Imaging Routine Monochorionic diamniotic twin in first trimester Expected: 11/14/2021, Expires: 11/14/2022 [facility] Work Phone: Comment on above: Expected: 11/14/2021 , Expires: 11/14/2022 Start: 11-14-2021 End: 11-14-2021 Follow-up encounter 11/14/2021 Follow Up Visit Maternal Medicine Maternal Medicine [facility] Start: 09-26-2021 End: 11-26-2021 BILE ACIDS SHWETA D [facility] Work Phone: Comment on above: Expected: 09/26/2021 , Expires: 11/26/2021 Start: 09-13-2021 End: 11-13-2021 CBC W Auto Differential panel - Blood CBC + DIFF Lab Routine 25 weeks gestation of Expected: 09/13/2021, Expires: 11/13/2021 [facility] Work Phone: Comment on above: Expected: 09/13/2021 , Expires: 11/13/2021 Start: 09-13-2021 End: 11-13-2021 GEST GLUC SCREEN, 1-HR, 50 GM, NON-FASTING GEST GLUC SCREEN, 1-HR, 50 GM, NON-FASTING Lab Routine 25 weeks gestation of Expected: 09/13/2021, Expires: 11/13/2021 [facility] Work Phone: Comment on above: Expected: 09/13/2021 , Expires: 11/13/2021 Start: 09-13-2021 End: 11-13-2021 SYPHILIS TOTAL W/REFLEX SYPHILIS TOTAL W/REFLEX Lab Routine 25 weeks gestation of Expected: 09/13/2021, Expires: 11/13/2021 [facility] Work Phone: Comment on above: Expected: 09/13/2021 , Expires: 11/13/2021 Start: 08-03-2021 Iv infusion hydratio n each additional hour HYDRATE IV INFUSION ADD-ON [facility] Work Phone: Start: 08-03-2021 Iv infusion therapy/prophylaxis /dx 1st to 1 hr THER/PROPH/DIAG IV INF INIT [facility] Work Phone: Start: 08-03-2021 Therapeutic injectio n iv push each new drug TX/PRO/[facility] Work Phone: Start: 08-01-2021 End: 10-01-2021 Thyrotropin [Units/volume] in Serum or Plasma TSH BLD Lab Routine 19 weeks gestation of 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 High-risk in second trimester Expected: 08/01/2021, Expires: 10/01/2021 [facility] Work Phone: Comment on above: Expected: 08/01/2021 , Expires: 10/01/2021 Start: 05-07-2021 DEPRESSION ASSESSMENT DEPRESSION ASS ESSMENT [facility] Start: 01-05-2021 Influenza vaccination INFLUENZA (#1) [facility] Start: 11-16-2020 DTaP,Tdap,and Td Vac cines (7 - Td or Tdap) DTaP,Tdap,and Td Vaccines (7 - Td or Tdap) [facility] Start: 11-16-2020 Tetanus vaccination TETANUS [facility] Start: 11-16-2020 Urine microalbumin profile [facility] Start: 02-24-2020 PAP TESTING PAP TESTING [facility] Start: 10-05-2016 Screening for malign ant neoplasm of cervix [facility] Start: 10-05-2014 Third diphtheria, te tanus and acellular pertussis (DTaP) vaccination TDAP (ADULT) [facility] Start: 10-05-2013 Anxiety Screening Anxiety Screening [facility] Start: 10-05-2013 Depression Screening Depression Scre ening [facility] Start: 10-05-2013 HEPATITIS C SCREENING HEPATITIS C [facility] Start: 10-05-2013 Tetanus vaccination TETANUS [facility] Start: 10-05-2009 PEDS TO ADULT TRANSI TION ANNUAL ASSESSMENT PEDS TO ADULT TRANSITION ANNUAL ASSESSMENT [facility] Start: 2007 Adult depression screening assessment DEPRESSION SCREENING [facility] Start: 2007 PEDS TO ADULT TRANSI TION INITIAL DISCUSSION PEDS TO ADULT TRANSITION INITIAL DISCUSSION [facility] Start: 10-05-2006 HPV VACCINE (1 - 2-d ose series) HPV VACCINE (1 - 2-dose series) [facility] Start: 10-05-2006 Vaccination for kelyl n papillomavirus HPV VACCINE ADOL (1 - 2-dose series) [facility] Start: 10-05-2000 COVID-19 VACCINE (#1) COVID-19 VACCI NE (#1) [facility] Start: 10-05-2000 COVID-19 VACCINE (1) COVID-19 VACCIN E (1) [facility] Start: 04-06-1996 COVID-19 VACCINE (#1) COVID-19 VACCI NE (#1) [facility] BACTERIAL VAGINOSIS AMPLIFICATION BACTERIAL VAGINOSIS AMPLIFICATION Lab Routine Screen for STD (sexually transmitted disease) Ordered: 07/26/2022 [facility] Work Phone: Comment on above: Ordered: 07/26/2022 BACTERIAL VAGINOSIS NAAT BACTERI AL VAGINOSIS NAAT Lab Routine Vaginal discharge 10/09/2024 3:37 PM EDT [facility] BETA STREP, VAGINAL SCREEN BETA STREP, VAGINAL SCREEN Microbiology Routine Supervision of high risk in third trimester 11/28/2021 2:25 PM EDT [facility] End: 04-25-2022 BIOPHYSICAL PROFILE US [facility] BIOPHYSICAL PROFILE US [facility] Anc Imaging Routine 31 weeks gestation of Monochorionic diamniotic twin in third trimester Supervision of high risk in third trimester Once per week for 10 Occurrences starting 10/24/2021 until 04/25/2022 [facility] Work Phone: Comment on above: Once per week for 10 Occurrences starting 10/24/2021 until 04/25/2022 GUNJAN / TRICHOMONA S AMPLIFICATION GUNJAN / TRICHOMONAS AMPLIFICATION Microbiology Routine Screen for STD (sexually transmitted disease) Ordered: 07/26/2022 [facility] Work Phone: Comment on above: Ordered: 07/26/2022 GUNJAN/TRICHOMONAS NAAT GUNJAN /TRICHOMONAS NAAT Lab Routine Vaginal discharge 10/09/2024 3:37 PM EDT [facility] Work Phone: Chlamydia trachomatis+Neisseria gonorrhoeae DNA [Presence] in Unspecified specimen by WENDY with probe detection GC/CHLAMYDIA DNA DET Lab Routine Screen for STD (sexually transmitted disease) Ordered: 07/26/2022 [facility] Work Phone: Comment on above: Ordered: 07/26/2022 Chlamydia trachomatis+Neisseria gonorrhoeae DNA [Presence] in Unspecified specimen by WENDY with probe detection GONORRHEA/CHLAMYDIA NAAT Lab Routine Vaginal discharge 08/16/2023 3:15 PM EDT [facility] Work Phone: Chlamydia trachomatis+Neisseria gonorrhoeae DNA [Presence] in Unspecified specimen by WENDY with probe detection GONORRHEA/CHLAMYDIA NAAT Lab Routine Vaginal discharge 10/09/2024 3:37 PM EDT [facility] Chlamydia trachomatis+Neisseria gonorrhoeae DNA [Presence] in Unspecified specimen by Probe with signal amplification CHLAMYDIA & GONORRHEA AMPLIFIED PROBE Microbiology Routine Supervision of high risk in third trimester 11/28/2021 2:25 PM EDT [facility] CORD TISSUE HOLD CORD TISSUE HOL D Lab Routine 11/30/2021 12:01 AM EDT [facility] CORD TISSUE HOLD CORD TISSUE HOL D Lab Routine 11/30/2021 12:01 AM EDT [facility] End: 08-01-2022 ECHO ECHO Cardiology Routine 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 1 Occurrences starting 08/01/2021 until 08/01/2022 [facility] Work Phone: Comment on above: 1 Occurrences starti ng 08/01/2021 until 08/01/2022 INR in Blood by Coagulation assay [facility] End: 06-15-2024 Neisseria gonorrhoeae DNA [Presence] in Urine by WENDY with probe detection [employer] Comment on above: STAT for 1 Occurrenc es starting 06/15/2024 until 06/15/2024 OBSTETRIC ULTRASOUND WHI OBSTETR IC ULTRASOUND [facility]I Anc Imaging Routine 19 weeks gestation of 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 High-risk in second trimester Ordered: 08/01/2021 [facility] Work Phone: Comment on above: Ordered: 08/01/2021 PAP FLUID CERVICAL SCREENING PAP FLUID CERVICAL SCREENING Lab Routine Encounter for screening for malignant neoplasm of cervix 01/18/2022 10:10 AM EDT [facility] Work Phone: PAP TEST PAP TEST Lab Rou izaiah ASCUS with positive high risk HPV cervical Screening for cervical cancer Special screening examination for human papillomavirus (HPV) 08/16/2023 3:10 PM EDT [facility] Work Phone: PAP TEST PAP TEST Lab Rou izaiah Screening for cervical cancer Screening for HPV (human papillomavirus) 10/09/2024 3:37 PM EDT [facility] Patient Education [facility] Work Phone: Patient referral [facility] Work Phone: AL NON-STRESS TEST AL FETA L NON-STRESS TEST AL Charge Routine Monochorionic diamniotic twin in first trimester Ordered: 11/14/2021 [facility] Comment on above: Ordered: 11/14/2021 AL US DOPPLER MID CEREBRAL ARTERY AL US DOPPLER MID CEREBRAL ARTERY AL - OFFICE PERFORMED IMAGING Routine Monochorionic diamniotic twin gestation in third trimester COVID-19 affecting in third trimester Ordered: 11/22/2021 [facility] Work Phone: Comment on above: Ordered: 11/22/2021 AL US, UTERUS,F/U,TRANSABD JOSSIE AL US, UTERUS,F/U,TRANSABD JOSSIE AL - OFFICE PERFORMED IMAGING Routine Monochorionic diamniotic twin gestation in third trimester COVID-19 affecting in third trimester Ordered: 11/22/2021 [facility] Comment on above: Ordered: 11/22/2021 Removal impacted cer umen instrumentation unilat REMOVAL OF IMPACTED CERUMEN - INSTRUMENTATION Procedures Routine Bilateral impacted cerumen Ordered: 03/19/2022 [facility] Work Phone: Comment on above: Ordered: 03/19/2022 Removal impacted cer umen instrumentation unilat REMOVAL OF IMPACTED CERUMEN - INSTRUMENTATION Procedures Routine Hearing loss of both ears due to cerumen impaction Ordered: 09/02/2022 [facility] Work Phone: Comment on above: Ordered: 09/02/2022 Removal intrauterine device iud REMOVE INTRAUTERINE DEVICE Procedures Routine Encounter for IUD removal Ordered: 08/06/2024 [facility] Work Phone: Comment on above: Ordered: 08/06/2024 Removal intrauterine device iud REMOVE INTRAUTERINE DEVICE Procedures Routine Encounter for IUD removal Ordered: 08/13/2024 [facility] Work Phone: Comment on above: Ordered: 08/13/2024 End: 11-29-2021 SURG PATH REQUEST - PLACENTA [facility] Work Phone: Comment on above: One Time for 1 Occur rences starting 11/29/2021 until 11/29/2021 SURGICAL PATHOLOGY SURGICAL PATH OLOGY Lab Routine Cervical high risk human papillomavirus (HPV) DNA test positive 09/19/2023 11:28 AM EDT [facility] Work Phone: End: 06-15-2024 Trichomonas vaginalis rRNA [Presence] in Unspecified specimen by WENDY with probe detection [employer] Work Phone: Comment on above: Once for 1 Occurrenc es starting 06/15/2024 until 06/15/2024 Urine test visual color cmprsn meths HCG QUAL UR B/O Lab Routine ASCUS with positive high risk HPV cervical Ordered: 02/15/2022 [facility] Work Phone: Comment on above: Ordered: 02/15/2022 [facility] Immunizations Immunization Date Immunization Notes Care Provider Fa [facility] 11-30-2021 diphtheria, tetanus toxoids and acellular pertussis vaccine, unspecified formulation Neymar Monet MD Work Phone: [facility] 11-30-2021 measles, mumps and rubella virus vaccine Neymar Monet MD Work Phone: [facility] 03-05-2015 tuberculin skin test ; purified protein derivative solution, intradermal Grazyna ARAIZA Work Phone: [facility] 11-16-2010 Meningococcal, MCV4, unspecified conjugate formulation(groups A, C, Y and W-135) Kim Powell MD Work Phone: [facility] Work Phone: 11-16-2010 tetanus toxoid, redu troy diphtheria toxoid, and acellular pertussis vaccine, adsorbed Kim Powell MD Work Phone: [facility] Work Phone: 03-19-2008 influenza virus vaccine, live, attenuated, for intranasal use Kim Powell MD Work Phone: [facility] Work Phone: 03-19-2008 Influenza Virus Vaccine, Live, Intranasal, Attenuated Anais Hare MD Work Phone: [facility] 03-19-2008 influenza virus vaccine, unspecified formulation Aster Nicole MD, PhD Work Phone: [facility] 12-21-2000 diphtheria, tetanus toxoids and acellular pertussis vaccine Kim Powell MD Work Phone: [facility] Work Phone: 12-21-2000 diphtheria, tetanus toxoids and acellular pertussis vaccine, unspecified formulation Anais Hare MD Work Phone: [facility] 12-21-2000 measles, mumps and rubella virus vaccine Kim Powell MD Work Phone: [facility] Work Phone: 12-21-2000 poliovirus vaccine, inactivated Kim Powell MD Work Phone: [facility] Work Phone: 06-01-1997 varicella virus vaccine Pallavi Powell MD Work Phone: [facility] Work Phone: 01-09-1997 diphtheria, tetanus toxoids and acellular pertussis vaccine Kim Powell MD Work Phone: [facility] Work Phone: 01-09-1997 diphtheria, tetanus toxoids and acellular pertussis vaccine, unspecified formulation Anais Hare MD Work Phone: [facility] 01-09-1997 haemophilus influenz ae type b vaccine, conjugate unspecified formulation Anais Hare MD Work Phone: [facility] 01-09-1997 haemophilus influenz ae type b vaccine, HbOC conjugate Kim Powell MD Work Phone: [facility] Work Phone: 01-09-1997 measles, mumps and rubella virus vaccine Kim Powell MD Work Phone: [facility] Work Phone: 01-09-1997 trivalent poliovirus vaccine, live, oral Kim Powell MD Work Phone: [facility] Work Phone: 04-11-1996 diphtheria, tetanus toxoids and pertussis vaccine Anais Hare MD Work Phone: [facility] 04-11-1996 DTP-Haemophilus influenzae type b conjugate vaccine Kim Powell MD Work Phone: [facility] Work Phone: 04-11-1996 haemophilus influenz ae type b vaccine, conjugate unspecified formulation Anais Hare MD Work Phone: [facility] 04-11-1996 haemophilus influenz ae type b vaccine, HbOC conjugate Kim Powell MD Work Phone: [facility] Work Phone: 04-11-1996 hepatitis B vaccine, pediatric or pediatric/adolescent dosage Kim Powell MD Work Phone: [facility] Work Phone: 04-11-1996 Tetramune Kim Powell MD Work Phone: [facility] Work Phone: 02-06-1996 diphtheria, tetanus toxoids and pertussis vaccine Anais Hare MD Work Phone: [facility] 02-06-1996 DTP-Haemophilus influenzae type b conjugate vaccine Kim Powell MD Work Phone: [facility] Work Phone: 02-06-1996 haemophilus influenz ae type b vaccine, conjugate unspecified formulation Anais Hare MD Work Phone: [facility] 02-06-1996 haemophilus influenz ae type b vaccine, HbOC conjugate Kim Powell MD Work Phone: [facility] Work Phone: 02-06-1996 Bertha Powell MD Work Phone: [facility] Work Phone: 02-06-1996 trivalent poliovirus vaccine, live, oral Kim Powell MD Work Phone: [facility] Work Phone: 1995 diphtheria, tetanus toxoids and pertussis vaccine Anais Hare MD Work Phone: [facility] 1995 DTP-Haemophilus influenzae type b conjugate vaccine Kim Powell MD Work Phone: [facility] Work Phone: 1995 haemophilus influenz ae type b vaccine, conjugate unspecified formulation Anais Hare MD Work Phone: [facility] 1995 haemophilus influenz ae type b vaccine, HbOC conjugate Kim Powell MD Work Phone: [facility] Work Phone: 1995 hepatitis B vaccine, pediatric or pediatric/adolescent dosage Kim Powell MD Work Phone: [facility] Work Phone: 1995 Bertha Powell MD Work Phone: [facility] Work Phone: 1995 trivalent poliovirus vaccine, live, oral Kim Powell MD Work Phone: [facility] Work Phone: 1995 hepatitis B vaccine, pediatric or pediatric/adolescent dosage Kim Powell MD Work Phone: [facility] Work Phone: Payers Date Payer Category Payer Medicaid (Managed Care) [facility] [id number] 2022 Self-pay [id number] 2019 Unknown [employer] [id number] 2019-Present [address] [place] [address] [id number] 2017 Medicaid [employer] [id number] 2017-Present [phone] [address] [place] [address] Medicaid [id number] 2017 Medicaid [id number] 2017 Unknown [id number] 2017 Unknown [id number] 1995 Unknown [id number] 2.16.840.1.428461.3.579.2. 594 1995 Unknown [id number] 2.16.840.1.862230.3.579.2. 594 1995 Unknown [id number] 2.16.840.1.016660.3.579.2. 594 1995 Unknown [id number] 2.16.840.1.324314.3.579.2. 594 1995 Unknown [id number] 2.16.840.1.132596.3.579.2. 594 1995 Unknown [id number] 2.16.840.1.089036.3.579.2. 594 1995 Unknown [id number] 2.16.840.1.745470.3.579.2. 594 1995 Unknown [id number] 2.16.840.1.645154.3.579.2. 594 1995 Unknown [id number] 2.16.840.1.649900.3.579.2. 594 1995 Unknown [id number] 2.16.840.1.414971.3.579.2. 594 1995 Unknown [id number] 2.16840.1.912625.3.579.2. 594 1995 Unknown [id number] 2.16.840.1.991162.3.579.2. 594 1995 Unknown [id number] 2.16.840.1.991533.3.579.2. 594 1995 Unknown [id number] 2.16.840.1.920725.3.579.2. 594 1995 Unknown [id number] 2.16840.1.984406.3.579.2. 594 1995 Unknown [id number] 2.16.840.1.063826.3.579.2. 594 1995 Unknown [id number] 2.16.840.1.243691.3.579.2. 594 1995 Unknown [id number] 2.16.840.1.636148.3.579.2. 594 1995 Unknown [id number] 2.16.840.1.348034.3.579.2. 594 1995 Unknown [id number] 2.16.840.1.743210.3.579.2. 594 1995 Unknown [id number] 2.16.840.1.205595.3.579.2. 594 1995 Unknown [id number] 2.16.840.1.959913.3.579.2. 594 1995 Unknown [id number] 2.16.840.1.952187.3.579.2. 1143 1995 Unknown [id number] 2.16.840.1.076073.3.579.2. 902 1995 Unknown [id number] 2.16.840.1.619391.3.579.2. 902 1995 Unknown [id number] 2.16.840.1.998266.3.579.2. 902 1995 Unknown [id number] 2.16.840.1.685830.3.579.2. 1143 Unknown [id number] 2.16.840.1.350926.3.579.2. 462 Unknown [id number] 2.16.840.1.469531.3.579.2. 462 Unknown [id number] 2.16.840.1.625563.3.579.2. 462 Unknown [id number] 2.16.840.1.427375.3.579.2. 462 Unknown [id number] 2.16.840.1.448431.3.579.2. 462 Unknown [id number] 2.16.840.1.949998.3.579.2. 462 Unknown [id number] 2.16.840.1.485939.3.579.2. 462 Unknown [id number] 2.16.840.1.318059.3.579.2. 462 Unknown [id number] 2.16.840.1.578723.3.579.2. 462 Social History Date Type Detail Facility Start: 05-18-2016 End: 02-17-2024 Tobacco smoking status NHIS Ex-smoker [facility] Work Phone: Start: 06-07-2015 End: 12-06-2015 History of tobacco use Current smoker [facility] Work Phone: Start: 05-18-2016 End: 02-17-2024 Tobacco use and exposure Smokeless tobacco non-user [facility] Work Phone: Start: 08-01-2021 End: 10-09-2024 Alcohol intake Ex-drinker (finding) [facility] Start: 11-20-2019 History SDOH Alcohol Frequency 3 [facility] Start: 11-20-2019 History SDOH Financial 5 [facility] Start: 11-20-2019 History SDOH Food Worry 1 [facility] Start: 11-20-2019 History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 this time. Reviewed [facility] Outpatient Services including the Support Group, Help Line and Outpatient Clinic. Instructed pt to call help line as needed for help after discharge. Tracy Saavedra RN * Plan of Care - Kristie Strong RN - 12/02/2021 2:34 AM EDT Problem: Patient Care Overview Goal: Plan of Care Review Outcome: Progressing Toward Goal Goal: Individualization & Mutuality Outcome: Progressing Toward Goal Goal: Discharge Needs Assessment Outcome: Progressing Toward Goal Goal: Interdisciplinary Rounds/Family Conf Outcome: Progressing Toward Goal Problem: ( Delivery) (Adult,Obstetrics,Pediatric) Goal: Signs and Symptoms of Listed Potential Problems Will be Absent, Minimized or Managed () Description: Signs and symptoms of listed potential problems will be absent, minimized or managed by discharge/transition of care (reference ( Delivery) (Adult,Obstetrics,Pediatric) CPG). Outcome: Progressing Toward Goal * Note - Tracy Saavedra RN - 12/01/2021 12:17 PM EDT Babies are currently in the nursery. Yandel reports she is attempting to latch both babies and issupplementing with formula. Reports she is having difficulty due to nipple size. She has initiated pumping but has only pumped a few times. Reviewed importance of early and frequent stimulation for milk production. Plan for this dyad: Every 3 hours: 1)Offer breast first. If baby latches on with sustained sucking, let him/her nurse as long as is actively engaged in feeding. If no latch after 10 minutes of attempting, move on to step 2. 2) If no sustained latch/sucking (for at least 10 min), hand express and/or pump each breast for 10-15 min 3)Give any expressed breastmilk collected and supplement with donor human milk or formula if neededbased on volumes below. If you obtain the minimum volume of breast milk, do not give formula unlessbaby is still showing signs of hunger. Baby's Age Total volume breastmilk/formula needed per feeding 0-24 hours 2-10 mL 24-48 hours 5-15 mL 48-72 hours 15-30 mL 72-96 hours 30-60 mL 96+ hours 50+ mL LC number on white board. Encouraged to call with a feeding today. Will remain available. * Plan of Care - Kristina Walker RN - 11/30/2021 8:52 PM EDT Problem: Patient Care Overview Goal: Plan of Care Review Outcome: Ongoing Goal: Individualization & Mutuality Outcome: Ongoing Goal: Discharge Needs Assessment Outcome: Ongoing Goal: Interdisciplinary Rounds/Family Conf Outcome: Ongoing Problem: ( Delivery) (Adult,Obstetrics,Pediatric) Goal: Signs and Symptoms of Listed Potential Problems Will be Absent, Minimized or Managed () Description: Signs and symptoms of listed potential problems will be absent, minimized or managed by discharge/transition of care (reference ( Delivery) (Adult,Obstetrics,Pediatric) CPG). Outcome: Ongoing * Nursing Notes - Anne Dennison RN - 11/30/2021 3:44 PM EDT Progression of Care Note Anticipated Discharge Plan as of 11/30/2021 3:44 PM Expected Discharge Date: 12/02/2021 Anticipated Discharge Disposition: to home without home health care or durable medical equipment needs anticipated. Potential Barriers: none at this time. Elena Fisher RNhand cutter apprentice/[place] Clinical Water Project Engineer Readmission Risk Score Risk of Readmission: 2.5 Category Reference: Low: 0% - 16% Medium - Low: 17% - 32% Medium - High: 33% - 48% High: 49% - 100% * Note - Neymar Gomes RN - 11/30/2021 1:30 PM EDT LC in to see pt. At this time, one baby in NICU and one baby under radiant warmer in nursery. Patient has previous experience? Yes Breast pumping initiated by RN. Reviewed all necessary instructions and provided all supplies needed. Please refer to [facility] Helping Hand titled, Breastmilk for your Hospitalized Infant for step by step instruction Begin hand expression and/or breast pumping with hospital grade electric pump within 1 hour after delivery and if pt is medically stable. Pump every 2-3 hours for 10-15 minutes per breast (or bilaterally) and at least one time through the night. Encouraged to pump at least 8 times daily. Encouraged to use timer, alarm, or phone application for pumping reminders. Discussed and/or arranged for home rental of breast pump - has [employer] pump for home use Helpline number [phone] Discussed proper cleaning of pump supplies with [employer] while in the hospital. For any questions/concerns, call [phone] or NICU [phone] Mother's ultimate goal: All questions answered at this time. RN phone number written on white board, encouraged to call as needed, will remain available. * Plan of Care - Jose Acosta RN - 11/30/2021 4:24 AM EDT Problem: Patient Care Overview Goal: Plan of Care Review Outcome: Ongoing Goal: Individualization & Mutuality Outcome: Ongoing Goal: Discharge Needs Assessment Outcome: Ongoing Goal: Interdisciplinary Rounds/Family Conf Outcome: Ongoing Problem: ( Delivery) (Adult,Obstetrics,Pediatric) Goal: Signs and Symptoms of Listed Potential Problems Will be Absent, Minimized or Managed () Description: Signs and symptoms of listed potential problems will be absent, minimized or managed by discharge/transition of care (reference ( Delivery) (Adult,Obstetrics,Pediatric) CPG). Outcome: Ongoing * Op Note - Binu Nicole MD - 11/30/2021 1:53 AM EDT OPERATIVE REPORT DATE PERFORMED: 11/30/2021 PRE-OPERATIVE DIAGNOSIS: 1. Montezuma-di twin gestation at 36w1d 2. S/p uncomplicated of fetus A 3. Nonreassuring wellbeing of fetus B 4. History of x1 5. Class I obesity POST-OPERATIVE DIAGNOSIS: 1. Montezuma-di twin gestation at 36w1d 2. S/p uncomplicated of fetus A 3. Nonreassuring wellbeing of fetus B 4. History of x1 5. Class I obesity PROCEDURE: Repeat low transverse section and Liletta IUD placement via pfannenstiel skin incision RESIDENT SURGEONS: Kathryn Jones MD / Binu Nicole MD ATTENDING: Kathryn Turner MD ANESTHESIA: Epidural COMPLICATIONS: Uterine atony s/p methergine ESTIMATED BLOOD LOSS: 566 mL IVF: 1000 mL crystalloid UOP: 50 mL of clear yellow urine FINDINGS: Viable female in cephalic presentation, weight 2785g, APGARs 7/9, arterial pH 6.93/BE -27.6, venous pH 7.22/BE -10.2. Thin lower uterine segment, thin filmy adhesion from bladder to left mid-uterine body. Extension of right uterine angle requiring modified O'Marienville stitch. No other significant intraperitoneal adhesive disease. INDICATIONS: Ms. Yandel Manley is a 26 y.o. who presented with PPROM/labor. Her labor progressed with pitocin and she progressed to complete. She had an uncomplicated of fetus A. Immediate examination revealed the second fetus in vertex presentation. AROM was performed for fetus B and and FSE was placed. The fetus was noted to be at zero station. Over the course of the next 20 minutes she developed recurrent deep variable decels. An amnioinfusion was attempted but did not result in improvement. Her cervix also quickly regressed to 6cm and remained unchanged over a 20 minute period. Given her FHR tracing and no evidence of anticipated imminent delivery, she was recommended to undergo delivery for the second . All risks, benefits, indications and alternativeswere discussed and appropriate consents were signed prior to the procedure. PROCEDURE: Epidural anesthesia was appropriately dosed without difficulty. She was placed in the dorsal position with a leftward tilt. A harper catheter was inserted. Her abdomen was then prepped and draped in the normal sterile fashion. A Pfannenstiel skin incision 2 cm above the pubic symphysis was made with a knife and carried down to the underlying layer of fascia with the scalpel. The fascia was incised in the midline and extended laterally with curved Dumas scissors. The superior aspect of the fascia was grasped with Valeria clamps and elevated so the underlying rectus muscles could be dissected off the fascia both bluntly and with curved Dumas scissors. Next, the inferior aspect of the fascia was grasped with Valeria clamps and elevated such that the rectus and pyrimidalis muscles could be dissected off the fascia in a similar manner. The rectus muscles were in the midline and the peritoneum was identified and e ntered bluntly. This was extended superiorly and inferiorly with good visualization of the bladder.The bladder blade was inserted. A low transverse uterine incision was made and bluntly extended cranially- caudally. An amniotomy was performed for clear fluid. The operative hand was inserted into the uterus and the infant's head was flexed and elevated to the level of the hysterotomy. With appropriate fundal pressure, the shoulders and body were delivered atraumatically. After a one-minute delay the cord was clamped and cut and the infant was handed off to the awaitingpediatricians. Cord gases were sent. The placenta was removed with uterine massage. The uterus was exteriorized and cleared of all clots and debris. The hysterotomy incision was then closed with 1-0 vicryl in a running locked fashion from each angle and meeting in the middle. Prior to closing the hysterotomy a Liletta IUD was placed at the fundus and the strings passed through thecervix. She was noted to have uterine atony and methergine was given with good improvement in tone a nd bleeding. There was noted to be continued oozing from the small right uterine extension and a modified O'Marienville stitch was placed with resulting excellent hemostasis. The uterine incision was foundto be hemostatic. The ovaries and tubes were inspected and found to be normal in appearance. The uterus was returned to the abdomen. The hysterotomy incision was inspected again and found to be hemostatic. The rectus fascial layers and the rectus muscles were examined and deemed hemostatic. The fascia was reapproximated with looped 0 PDS in a running fashion. The subcutaneous space was closed with multiple interrupted 2-0 plain gut sutures. The skin was then closed with 4-0 monocryl and the incision was covered with telfa/tegaderm. All sponge, lap and needle counts were correct x 2 and at the end of the procedure. The patient tolerated the procedure well and was transferred to the recovery room in stable condition. Dr. Turner was present for the entirety of the procedure. Binu Nicole MD PGY-4, Obstetrics and Gynecology [id number] Associated attestation - Kathryn Turner MD - 11/30/2021 6:37 AM EDT Attending Physician Attestation This 26 y.o. with Estimated Date of Delivery: 12/26/21 and 36w1d was admitted on 11/29/2021 with a diagnosis of mono/di twins and PPROM. She underwent a of fetus A but due to NRFWB, she underwent a repeat low transverse delivery on 11/29/21 for delivery of fetus B. She also desired postplacental IUD placement. I, Kathryn Turner MD, participated in and personally supervised this delivery, including delivery of the and placenta, and IUD. * Brief Op Note - Binu Nicole MD - 11/30/2021 1:49 AM EDT Yandel Manley ([id number]) PRE OPERATIVE DIAGNOSIS 1. Montezuma-di twin gestation at 36w1d 2. S/p uncomplicated of fetus A 3. Nonreassuring wellbeing of fetus B 4. History of x1 5. Class I obesity POST OPERATIVE DIAGNOSIS 1. Montezuma-di twin gestation at 36w1d 2. S/p uncomplicated of fetus A 3. Nonreassuring wellbeing of fetus B 4. History of x1 5. Class I obesity PROCEDURE PERFORMED Repeat low transverse section via pfannenstiel skin incision PRIMARY CLOSURE Yes INTRAOPERATIVE FINDINGS Viable female in cephalic presentation, weight 2785g, APGARs 7/9, arterial pH 6.93/BE -27.6,venous pH 7.22/BE -10.2. Thin lower uterine segment, thin filmy adhesion from bladder to left mid-uterine body. Extension of right uterine angle requiring modified O'Marienville stitch. No other significant intraperitoneal adhesive disease. SURGEON Surgeon(s) and Role: * Kathryn Turner MD - Primary ANESTHESIOLOGIST No anesthesia staff entered. SURGICAL STAFF Pump Service Supervisor: Kristie Tan, RN; Geri Kong, MARLA Scrub Person: Ephraim Correa Resident Assisting: Binu Nicole MD; Kathryn Jones MD COMPLICATIONS None ESTIMATED BLOOD LOSS 566 ml SPECIMENS Gases Binu Nicole MD PGY-4, Obstetrics and Gynecology [id number] 11/30/21 1:53 AM * L&D Delivery Note - Binu Nicole MD - 11/29/2021 11:43 PM EDT Delivery Summary VAGINAL DELIVERY NOTE 11/30/2021 1:43 AM Yandel Manley is a 26 y.o. female at 36w2d who presented with PPROM/labor. Her was complicated by mo/di twin gestation, history of , and class I obesity. Her labor progressed with pitocin and she progressed to complete. Called to see patient when she was c/c/+2 and was moved to the operating room for delivery. With good maternal effort, she delivered female A in OA position over an intact perineum. The anterior shoulder delivered with ease, followed by the posterior shoulder and body. Nuchal cord was not present. Infant A appeared vigorous and cried. Immediate examination revealed the second fetus in vertex presentation. A was placed on the maternal abdomen and after one minute, the cord was clamped and cut by Dr. Jones. Cord gases were collected. AROM was performed for fetus B and and FSE was placed. The fetus was noted to be at zero station. Over the course of the next 20 minutes she develop ed recurrent deep variable decels. An amnioinfusion was attempted but did not result in improvement. Her cervix also quickly regressed to 6cm and remained unchanged over a 20 minute period. Given herFHR tracing and no evidence of anticipated imminent delivery, she was recommended to undergo delivery for the second . See subsequent operative note for details. Female , weight 2410g, APGARs pending Arterial pH 7.33/BE -12.1, venous pH 7.45/BE -12.2 Lacerations: none EBL minimal Dr. Yue was present for all critical components of the delivery. Binu Nicole MD PGY-4, Obstetrics and Gynecology [id number] 11/30/21 1:43 AM Jony Manley [[id number]] Delivery ([place]) Delivery date/time: 11/29/2021 11:02 PM Sex: Female Delivery type: Vaginal, Spontaneous : Successful Details: Labor Events labor?: Yes steroids: None Antibiotics received during labor?: Yes Rupture date/time: 11/29/2021 0400 Rupture type: spontaneous rupture of membranes Fluid color: clear Labor complications: Gestational Hypertension Additional complications: Labor Complications Monochorionic diamniotic twin gestation in third trimester Delivery (Maternal) Surgical or additional est. blood loss (mL): 0 Edit in Flowsheets Combined est. blood loss (mL): 0 QBL Calculators: Surgical QBL Vaginal QBL Sponge Count Initial count verified by RN: Yes Initial count verified by MD: Yes Beginning count: 10 Added to count: 0 Final count: 10 Final count verified by RN: Yes Final count verified by MD: Yes Needle Count Initial count verified by RN: Yes Initial count verified by MD: Yes Beginning count: 1 Added to count: 0 Final count: 1 Final count verified by RN: Yes Final count verified by MD: Yes Presentation Presentation: cephalic, vertex Anesthesia Method: Epidural Delivery Providers Attending physician for delivery: Kathryn Turner MD Delivering clinician: Kathryn Jones MD Other personnel: Provider Role Geri Kong RN Registered Nurse Kristie Tan RN Registered Nurse Binu Nicole MD Registered Nurse Resuscitation Placenta Date/time: 11/30/2021 12:02 AM Removal: Spontaneous Appearance: Intact Disposition: pathology Placenta for examination?: Yes Cord Vessels: 3 Vessels Complications: None Delayed cord clamping?: Yes Cord clamped date/time: 11/29/2021 2303 Cord blood disposition: Discard Gases sent?: Yes Stem cell collection (by provider): No [place] Measurements Weight: 2410 g Apgars Living status: Living Apgars: 1 min.: 5 min.: 10 min.: 15 min.: 20 min.: Skin color: Heart rate: Reflex irritability: Muscle tone: Respiratory effort: Total: Skin to Skin Skin to skin initiated date/time: 11/29/20212325 Skin to skin with: Mother Skin to skin end date/time: 11/29/20212327 Alonzo Manley [[id number]] Delivery ([place]) Delivery date/time: 11/29/2021 11:59 PM Sex: Female Delivery type: , Low Transverse : Unsuccessful Details: categorization: Repeat priority: Unscheduled Uterine incision type: Low Transverse Indications for : Multiple Gestation, Failure to Progress, Intolerance of Labor Labor Events labor?: Yes steroids: None Antibiotics received during labor?: Yes Rupture date/time: 11/29/2021 0400 Rupture type: spontaneous rupture of membranes Fluid color: clear Labor complications: Gestational Hypertension Additional complications: Labor Complications Monochorionic diamniotic twin gestation in third trimester Delivery (Maternal) Surgical or additional est. blood loss (mL): 0 Edit in Flowsheets Combined est. blood loss (mL): 0 QBL Calculators: Surgical QBL Vaginal QBL Sponge Count Needle Count Anesthesia Method: Epidural Delivery Providers Attending physician for delivery: Kathryn Turner MD Delivering clinician: Kathryn Jones MD Other personnel: Provider Role Geri Kong, MARLA Registered Nurse Kristie Tan RN Registered Nurse Binu Nicole MD Resident Patricia Harley MD [employer] Deckman Mimi Monsalve MD [employer]man Margot Ocampo MD [employer]man Resuscitation Stabilization methods: CPAP, Bulb Syringe, Hat Applied, Tactile Stimulation, Warmed and Dried, Wrapped in Blankets Placenta Date/time: 11/30/2021 12:02 AM Removal: Expressed Appearance: Intact Disposition: pathology Placenta for examination?: Yes Cord Vessels: 3 Vessels Delayed cord clamping?: Yes Cord clamped date/time: 11/30/2021 0001 Cord blood disposition: Discard Gases sent?: Yes Stem cell collection (by provider): No [place] Measurements Weight: 2785 g Apgars Living status: Living Apgars: 1 min.: 5 min.: 10 min.: 15 min.: 20 min.: Skin color: 0 1 Heart rate: 2 2 Reflex irritability: 2 2 Muscle tone: 1 2 Respiratory effort: 2 2 Total: 7 9 Skin to Skin Reason skin to skin not initiated: Maternal Acuity Associated attestation - Kathryn Turner MD - 11/30/2021 1:55 AM EDT ATTENDING PHYSICIAN VAGINAL DELIVERY ATTESTATION This 26 y.o. has an Estimated Date of Delivery: 12/26/21 and a gestational age of 36w2d. Shewas admitted on 11/29/2021. She underwent a spontaneous vaginal delivery of fetus A on 11/29/21. I, Kathryn Turner MD, was personally present and participated in this delivery including delivery of the infant. (See operative note for delivery of fetus B and placenta). * L&D Note - Kathryn Jones MD - 11/29/2021 8:47 PM EDT 11/29/2021 8:47 PM Labor Progress Note S: cEFM review O: Recent Vitals Blood pressure 112/55, pulse 82, temperature 98.3 F (36.8 C), temperature source Oral, resp. rate 14, height 1.6 m (5' 3), weight 88.9 kg (196 lb), last menstrual period 03/21/2021, SpO2 99 %, not currently . 24hr Vitals Vitals: 11/29/21 1820 11/29/21 1825 11/29/21 1830 11/29/21 1902 BP: 104/54 89/49 120/62 112/55 Pulse: 90 88 83 82 Resp: Temp: 98.3 degrees F (36.8 degrees C) TempSrc: Oral SpO2: Weight: Height: CVX: 7/90/-1 @1950 FHR A: 160 changed to 170, mod variability, pos accelerations, rare variable decelerations FHR B: 170, mod variability, pos accelerations, intermittent variable decelerations TOCO: q2-3min A/P 26 y.o. at 36w1d PPROM/TOLAC - Ruptured at 0400, confirmed on admission - Epidural in place - Cervix as above - Pitocin at 6, continue to titrate per protocol FWB, Monochorionic diamniotic twin - Vertex/vertex, EFW 2708/3191 (35/78%ile) extrap from 11/22 - GBS positive by RF, ampicillin ordered - Cat II tracing for intermittent variable decels, overall reassuring with moderate variability & accels. Resuscitation ongoing Varicella nonimmune: recommend PP immunization MOD: TOLAC PPBC: progesterone IUD, consented Feeding: breast Kathryn Jones MD Obstetrics & Gynecology PGY-2 #1603 * Plan of Care - Anais Marie RN - 11/29/2021 7:21 PM EDT Problem: Patient Care Overview Goal: Plan of Care Review Outcome: Met This Shift Goal: Individualization & Mutuality Outcome: Met This Shift Problem: Patient Care Overview Goal: Discharge Needs Assessment Outcome: Ongoing Goal: Interdisciplinary Rounds/Family Conf Outcome: Ongoing Problem: Labor (Cervical Ripen, Induct, Augment) (Adult,Obstetrics,Pediatric) Goal: Signs and Symptoms of Listed Potential Problems Will be Absent, Minimized or Managed (Labor) Description: Signs and symptoms of listed potential problems will be absent, minimized or managed by discharge/transition of care (reference Labor (Cervical Ripen, Induct, Augment) (Adult,Obstetrics,Pediatric) CPG). Outcome: Ongoing * L&D Note - Kathryn Jones MD - 11/29/2021 7:00 PM EDT 11/29/2021 7:00 PM Labor Progress Note S: Patient feeling well. O: Recent Vitals Blood pressure 120/62, pulse 83, temperature 99.8 F (37.7 C), temperature source Oral, resp. rate 14, height 1.6 m (5' 3), weight 88.9 kg (196 lb), last menstrual period 03/21/2021, SpO2 99 %, not currently . 24hr Vitals Vitals: 11/29/21 1800 11/29/21 1820 11/29/21 1825 11/29/21 1830 BP: 104/54 89/49 120/62 Pulse: 90 88 83 Resp: Temp: 99.8 degrees F (37.7 degrees C) TempSrc: Oral SpO2: Weight: Height: CVX: 7/90/-2 @1750 FHR A: 160 changed to 150, mod variability, pos accelerations, intermittent late decelerations FHR A: 145, mod variability, pos accelerations, no decelerations TOCO: q2-3min A/P 26 y.o. at 36w1d PPROM/TOLAC - Ruptured at 0400, confirmed on admission - Epidural in place - Cervix as above - Amnioinfusion previously running, now turned off as decels are now late in nature as opposed to variable. Will restart if variables return - Pitocin previously at 12, halved at 1830 due to recurrent late decels in both A & B, now 6 with improvement in decels, continue to titrate per protocol FWB, Monochorionic diamniotic twin - Vertex/vertex, EFW 2708/3191 (35/78%ile) extrap from 11/22 - GBS positive by RF, ampicillin ordered - Cat II tracing for intermittent late decels, overall reassuring with moderate variability & accels. Resuscitation ongoing Varicella nonimmune: recommend PP immunization MOD: TOLAC PPBC: progesterone IUD, consented Feeding: breast Kathryn Jones MD Obstetrics & Gynecology PGY-2 #1600 * L&D Note - Pema Brown MD - 11/29/2021 4:02 PM EDT 11/29/2021 4:02 PM Labor Progress Note S: FHT review O: Recent Vitals Blood pressure 106/56, pulse 75, temperature 98.6 F (37 C), temperature source Oral, resp. rate 14,height 1.6 m (5' 3), weight 88.9 kg (196 lb), last menstrual period 03/21/2021, SpO2 99 %, not currently . 24hr Vitals Vitals: 11/29/21 1455 11/29/21 1500 11/29/21 1515 11/29/21 1530 BP: 124/62 117/68 116/53 106/56 Pulse: 82 85 75 Resp: Temp: 98.6 degrees F (37 degrees C) TempSrc: Oral SpO2: Weight: Height: CVX: 3/50/-2 at 1045 FHR A: 155 mod variability, pos accelerations, intermittent late decelerations FHR A: 130 mod variability, pos accelerations, no decelerations TOCO: q2-4min A/P 26 y.o. at 36w1d PPROM/TOLAC - Ruptured at 0400, confirmed on admission - Cervix as above - Epidural in place - Augmentation with pitocin, titrate per protocol TOLAC - Hx of prior LTCS for bradycardia in G2; op note reviewed - Discussed the patient's choices regarding elective repeat delivery or trial of labor (vaginal after ). Cited the risk of uterine rupture in a patients with a prior history ofone LTCS is approximately 0.2-1.5%. Discussed the adverse sequelae of uterine rupture including maternal and/or hemorrhage, hypoxia, potential for emergent surgery, hysterectomy, and maternal or . Discussed the additional risks of including but not limited to bleeding, infection, injury to surrounding structures (i.e., bowel, bladder, blood vessels, nerves, fetus) - Patient expressed she understands these risks and desires a trial of labor - Written informed consents obtained for both TOLAC and CS and scanned into the chart Monochorionic diamniotic twin - Last growth 11/22: 2458g 35%ile; B: 2941g 78%ile. - Vertex/vertex presentation; desires TOLAC, open to breech extraction Varicella nonimmune; offer PP immunization FWB - Vertex/vertex, anterior fundal placenta - GBS positive by RF, ampicillin ordered - Cat 1 tracing MOD: TOLAC PPBC: progesterone IUD, consented Feeding: breast Pema Brown MD Department of General Merchandise Manager - PGY2 Pager #[phone] * L&D Note - Pema Brown MD - 11/29/2021 12:38 PM EDT 11/29/2021 12:38 PM Labor Progress Note S: FHT review O: Recent Vitals Blood pressure 114/54, pulse 71, temperature 98.1 F (36.7 C), temperature source Oral, resp. rate 14, height 1.6 m (5' 3), weight 88.9 kg (196 lb), last menstrual period 03/21/2021, SpO2 99 %, not currently . 24hr Vitals Vitals: 11/29/21 1110 11/29/21 1140 11/29/21 1215 11/29/21 1238 BP: 117/58 117/58 103/55 114/54 Pulse: 74 83 117 71 Resp: 14 Temp: 98.1 degrees F (36.7 degrees C) TempSrc: Oral SpO2: Weight: Height: CVX: 3/50/-2 at 1045 FHR A: 150 change to 145 mod variability, pos accelerations, rare variable decelerations FHR A: 145 change to 135 mod variability, pos accelerations, rare variable decelerations TOCO: q2-4min A/P 26 y.o. at 36w1d PPROM/TOLAC - Reports gush of fluid at 4 AM, grossly ruptured on admission - Cervix as above - Epidural in place - Augmentation with pitocin, titrate per protocol TOLAC - Hx of prior LTCS for bradycardia in G2; op note reviewed - Discussed the patient's choices regarding elective repeat delivery or trial of labor (vaginal after ). Cited the risk of uterine rupture in a patients with a prior history ofone LTCS is approximately 0.2-1.5%. Discussed the adverse sequelae of uterine rupture including maternal and/or hemorrhage, hypoxia, potential for emergent surgery, hysterectomy, and maternal or . Discussed the additional risks of including but not limited to bleeding, infection, injury to surrounding structures (i.e., bowel, bladder, blood vessels, nerves, fetus) - Patient expressed she understands these risks and desires a trial of labor - Written informed consents obtained for both TOLAC and CS and scanned into the chart Monochorionic diamniotic twin - Last growth 11/22: 2458g 35%ile; B: 2941g 78%ile. - Vertex/vertex presentation; desires TOLAC, open to breech extraction Varicella nonimmune; offer PP immunization FWB - Vertex/vertex, anterior fundal placenta - GBS positive by RF, ampicillin ordered - Cat 1 tracing MOD: TOLAC PPBC: progesterone IUD, consented Feeding: breast Pema Brown MD Department of General Merchandise Manager - PGY2 Pager #[phone] * Certification - Leida Nelson MD - 11/29/2021 7:00 AM EDT I certify that this patient requires inpatient services at this time. I anticipate the expected length of stay will include at least two midnights. Inpatient services are due to the following medicalconcerns normal labor and delivery. Plans for post hospitalization care will be discharge to home. [facility] History of Present illness Narrative* Jacob Persaud - 12/02/2021 12:11 PM EDT Progression of Care Note Anticipated Discharge Plan as of 12/02/2021 12:11 PM Expected Discharge Date: 12/02/2021 Anticipated Discharge Disposition: to home without home health care or durable medical equipment needs anticipated. Potential Barriers: none at this time. Pt and infants scheduled in 4th Trimester clinic on 12/08/21 which will include wound and BP checks. Readmission Risk Score Risk of Readmission: 0.6 Category Reference: Low: 0% - 16% Medium - Low: 17% - 32% Medium - High: 33% - 48% High: 49% - 100% Jacob Thomas MSW, ACCESS NURSE-S Clinical Water Project EngineerPicked Edge Sewing Machine Operator [phone] * Liz Gaspar MD - 12/02/2021 6:23 AM EDT Post- Section Progress Note POD#3 s/p , POD#2 s/p rLTCS at 36w2d for mono/di twins Patient of HROB S: The patient's pain is well controlled on PO meds. She is tolerating a regular diet without N/V. She is passing flatus. Her harper was removed and she is voiding spontaneously and ambulating withoutlightheadedness or dizziness. Lochia is appropriate. Denies chest pain or shortness of breath. She is breast/bottlefeeding. Ready for discharge today. O: Vitals: 12/01/21 0637 12/01/21 0730 12/01/21 1600 12/01/21 2343 BP: (!) 139/96 125/71 118/75 117/78 Pulse: 71 77 69 74 Resp: 16 16 16 16 Temp: 97.6 degrees F (36.4 degrees C) 98.2 degrees F (36.8 degrees C) 98.2 degrees F (36.8 degrees C) 98.2 degrees F (36.8 degrees C) TempSrc: Oral Oral Oral Oral SpO2: 100% 95% 97% 97% Weight: Height: Constitutional: no acute distress Respiratory: non-labored respirations Cardiovascular: regular rate Abdomen: Soft, appropriately tender, no rebound or guarding. Fundus firm below umbilicus Incision: clean/dry/intact, steris in place Extremities: Warm, no calf tenderness, SCDs in place Lab Results Component Value Date/Time HGB 10.7 (L) 11/30/2021 04:53 AM HGB 10.8 (L) 11/29/2021 07:20 AM A/P: Yandel Manley is a 26 y.o. POD#3 s/p , POD#3 s/p rLTCS at 36w2d for mono/di twins Routine post-operative care: - Pain: Well controlled on PO pain medications: Scheduled Toradol > ibuprofen, scheduled acetaminophen, oxycodone PRN. Continue current regimen - Heme: Antepartum Hgb 10.5, EBL 566, Hgb 10.7, VSS, no si/sx of anemia - ID: Afebrile and no signs or symptoms of infection. - GI: Tolerating a regular diet without N/V, + flatus/- BM, continue Colace BID, encouraged ambulation - : Harper out, voiding independently, urine output adequate - Breast/Bottle feeding - Ppx: SCDs, IS, ambulation - PPBC: s/p PP Liletta - Blood type B POS / Rubella Lab Results Component Value Date RUBELLA Positive 05/25/2021 - Mood: patient endorses good mood preE without SF - Multiple MR Bps throughout admission, > 4 hours apart - Serum labs wnl, UPC 0.390 - NT since delivery - BP check in 1 wk and BP cuff at discharge Dispo - appropriately meeting post-operative and post- milestones, will continue routine careuntil discharge, likely POD#3-4 Liz Gaspar MD OB-SPINNING LATHE OPERATOR PGY-2 Pager #[phone] * Liz Gaspar MD - 12/01/2021 5:56 AM EDT Post- Section Progress Note POD#2 s/p , POD#2 s/p rLTCS at 36w2d for mono/di twins Patient of HROB S: The patient's pain is moderately controlled on PO meds. She is tolerating a regular diet withoutN/V. She is passing flatus. Her harper was removed and she is voiding spontaneously and ambulating without lightheadedness or dizziness. Lochia is appropriate. Denies chest pain or shortness of breath. She is breast/bottlefeeding. Reports that she is very tired O: Vitals: 11/30/21 1145 11/30/21 1554 11/30/21 1950 12/01/21 0000 BP: 131/79 115/69 118/80 125/86 Pulse: 69 61 72 80 Resp: 16 16 16 16 Temp: 98.1 degrees F (36.7 degrees C) 97.4 degrees F (36.3 degrees C) 98.1 degrees F (36.7 degrees C) 97.7 degrees F (36.5 degrees C) TempSrc: Oral Oral Oral Oral SpO2: 97% 97% 98% 98% Weight: Height: Constitutional: no acute distress Respiratory: non-labored respirations Cardiovascular: regular rate Abdomen: Soft, appropriately tender, no rebound or guarding. Fundus firm below umbilicus Incision: Dressing clean/dry/intact, no shadowing (did not allow removal at time of exam) Extremities: Warm, no calf tenderness, SCDs in place UOP 725/NR/NR (1/NR/NR mL/kg/hr last shift) Lab Results Component Value Date/Time HGB 10.7 (L) 11/30/2021 04:53 AM HGB 10.8 (L) 11/29/2021 07:20 AM A/P: Yandel Manley is a 26 y.o. POD#2 s/p , POD#2 s/p rLTCS at 36w2d for mono/di twins Routine post-operative care: - Pain: Well controlled on PO pain medications: Scheduled Toradol > ibuprofen, scheduled acetaminophen, oxycodone PRN. Continue current regimen - Heme: Antepartum Hgb 10.5, EBL 566, Hgb 10.7, VSS, no si/sx of anemia - ID: Afebrile and no signs or symptoms of infection. - GI: Tolerating a regular diet without N/V, + flatus/- BM, continue Colace BID, encouraged ambulation - : Harper out, voiding independently, urine output adequate - Breast/Bottle feeding - Ppx: SCDs, IS, ambulation - PPBC: s/p PP Liletta - Blood type B POS / Rubella Lab Results Component Value Date RUBELLA Positive 05/25/2021 - Mood: patient endorses good mood preE without SF - Multiple MR Bps throughout admission, > 4 hours apart - Serum labs wnl, UPC 0.390 - NT since delivery Dispo - appropriately meeting post-operative and post- milestones, will continue routine careuntil discharge, likely POD#2-3 Liz Gaspar MD OB-SPINNING LATHE OPERATOR PGY-2 Pager #[phone] * MARIANNE Noel - 11/30/2021 11:00 AM EDT Social Work Assessment Information Source Information Source: patient , significant other, review of medical record Information Source Name: Yandel Manley Contact Information Social Work Contact Name: Winter LOPES Referral Source: physician, nursing (hx depression) PSYCHOSOCIAL ASSESSMENT PRESENTATION: Technical Laboratory Asst met with pt (mother of baby) and her significant other/FOB who was asleep while she was in her hospital room. She is a 26Y/O, who delivered a twin A on 11/29/2021 via and twin B on 11/29/2021 via c- section whom she has named Francisca and Laura Manley. pt (mother of baby) report and chart review; Pt (mother of baby) accessed care with ZULEIMA SHEPHERD/Dr. Monet beginning at 9 weeks gestation. LIVING SITUATION/ SOCIAL SUPPORT: Pt (mother of baby) reported that she resides with her two older children 4Y/O daughter and 1Y/O son at the address listed in the chart however noted she will be moving to [place] soon with the FOB for family support. She reported having ample social support with the help of their families. TRANSPORTATION: Pt (mother of baby) reported having adequate transportation to attend medical appointments. SUPPLIES: Pt (mother of baby) stated she has all of the supplies needed for the including a car seat and a safe sleep arrangement. PATERNITY: Pt (mother of baby) reported that the father of this baby is Horacio Christie. PRODUCER: SW encouraged pt (mom of baby) to contact her F/U fruit or nut farm worker ([facility]) to schedule this NB's F/U appointment for 1-2 days after discharge. 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 She reported that she will not receive any paid leave. She reported that the FOB is working realtime reporter doing janitorial work but noted they will both be seeking new employment when they move to [place]. Pt (mother of baby) reported that she receives WIC and SNAP. Technical Laboratory Asst confirmed that the patient is aware she needs to contact the appropriate agencies to ensure the is added to her benefits or account. Technical Laboratory Asst encouraged the Pt (mother of baby) to contact her local agencies if she has any additional questions or concerns. COGNITION/ MENTAL HEALTH/ COPING HISTORY: Pt (mother of baby) had not yet completed the [place] Depression Scale at the time of the assessment. Pt (mother of baby) reported that she struggled with post depression after her daughter was born in 2017. She reported that she sought tr eatment via counseling but didn't feel like it was helpful due to the therapist. She reported that she was prescribed medication as well but did not like the way it made her feel so she did not take the medication for very long. She reported that the symptoms eventually resolved without any furthertreatment. Overall, she stated that she feels her mood has been stable but still plans to establishcare with a new provider in order to be proactive and has a therapist chosen. She denied any current or past SI. SW educated the pt (mother of baby) about mood disorders and encouraged her to review the Your Emotions After Delivery section of her patient education booklet for additional information and resources. She agreed to monitor her symptoms and contact her MD with any concerns. SUBSTANCE USE: Pt (mother of baby) denied any substance abuse concerns. ABUSE HISTORY: Pt (mother of baby) denied any current safety or domestic violence concerns. CHILDREN'S SERVICES INVOLVEMENT: Pt (mother of baby) denied any current or past involvement with Child Protective Services. PLAN: SW assessment completed. No barriers to discharge for mother or identified at this time. Rock Lather: Winter LOPES COMMUNITY RESOURCES USED/ REFERRALS PROVIDED: Educated about mood disorders and provided information/resources Provided Community resource list, [facility] flyer, supply resource list * Kathryn Jones MD - 11/30/2021 2:16 AM EDT Delayed documentation due to patient care. Patient with multiple MR BPs >4h apart. Serum PreE labs WNL, UPC 0.390. Now meets criteria for PreE without SF. Asymptomatic. BP most recently NT. Will CTM. Kathryn Jones MD Obstetrics & Gynecology PGY-2 #[phone] * Marcela Zamorano MD - 11/29/2021 5:38 PM EDT This patient was discussed during hand-off with the in-house attending physician of the day. Marcela Zamorano MD PGY-1 Obstetrics and Gynecology Pager# [phone] * Pema Brown MD - 11/29/2021 4:30 PM EDT WTSP due to deep variable decelerations. Rechecked cervix, /-2. No cord palpated. Will start amnioinfusion at this time. D/w Dr. Henry Brown MD Department of General Merchandise Manager - PGY2 Pager #[phone] * Marcela Zamorano MD - 11/29/2021 7:05 AM EDT This patient was discussed during hand-off with the in-house attending physician of the day. Marcela Zamorano MD PGY-1 Obstetrics and Gynecology Pager# [phone] [facility]* Plan of Care - Simon Plascencia RN - 12/02/2021 11:42 AM EDT Problem: Patient Care Overview Goal: Plan of Care Review Outcome: Adequate for Discharge Goal: Individualization & Mutuality Outcome: Adequate for Discharge Goal: Discharge Needs Assessment Outcome: Adequate for Discharge Goal: Interdisciplinary Rounds/Family Conf Outcome: Adequate for Discharge Problem: ( Delivery) (Adult,Obstetrics,Pediatric) Goal: Signs and Symptoms of Listed Potential Problems Will be Absent, Minimized or Managed () Description: Signs and symptoms of listed potential problems will be absent, minimized or managed by discharge/transition of care (reference ( Delivery) (Adult,Obstetrics,Pediatric) CPG). Outcome: Adequate for Discharge [facility] Obstetrics Note* Note - Tracy Saavedra RN - 12/02/2021 9:19 AM EDT Yandel states that she is continuing to work on . She is also supplementing with formula and pumping. Milk is starting to come in at this time. Reviewed pumping frequency and duration.Discussed frequency and duration of feeding, amount needed to supplement with per DOL and how to know if babies are getting enough. Discussed possibility and treatment of engorgement. All questions answered at this time. Reviewed [facility]patient Services including the Support Group, Help Line and Outpatient Clinic. Instructed pt to call help line as needed for help after discharge. Tracy Saavedra RN [facility] Note* Plan of Care - Kristie Strong RN - 12/02/2021 2:34 AM EDT Problem: Patient Care Overview Goal: Plan of Care Review Outcome: Progressing Toward Goal Goal: Individualization & Mutuality Outcome: Progressing Toward Goal Goal: Discharge Needs Assessment Outcome: Progressing Toward Goal Goal: Interdisciplinary Rounds/Family Conf Outcome: Progressing Toward Goal Problem: ( Delivery) (Adult,Obstetrics,Pediatric) Goal: Signs and Symptoms of Listed Potential Problems Will be Absent, Minimized or Managed () Description: Signs and symptoms of listed potential problems will be absent, minimized or managed by discharge/transition of care (reference ( Delivery) (Adult,Obstetrics,Pediatric) CPG). Outcome: Progressing Toward Goal [facility]s Note* Note - Tracy Saavedra RN - 12/01/2021 12:17 PM EDT Babies are currently in the nursery. Yandel reports she is attempting to latch both babies and issupplementing with formula. Reports she is having difficulty due to nipple size. She has initiated pumping but has only pumped a few times. Reviewed importance of early and frequent stimulation for milk production. Plan for this dyad: Every 3 hours: 1)Offer breast first. If baby latches on with sustained sucking, let him/her nurse as long as is actively engaged in feeding. If no latch after 10 minutes of attempting, move on to step 2. 2) If no sustained latch/sucking (for at least 10 min), hand express and/or pump each breast for 10-15 min 3)Give any expressed breastmilk collected and supplement with donor human milk or formula if neededbased on volumes below. If you obtain the minimum volume of breast milk, do not give formula unlessbaby is still showing signs of hunger. Baby's Age Total volume breastmilk/formula needed per feeding 0-24 hours 2-10 mL 24-48 hours 5-15 mL 48-72 hours 15-30 mL 72-96 hours 30-60 mL 96+ hours 50+ mL number on white board. Encouraged to call with a feeding today. Will remain available. [facility]* Plan of Care - Kristina Walker RN - 11/30/2021 8:52 PM EDT Problem: Patient Care Overview Goal: Plan of Care Review Outcome: Ongoing Goal: Individualization & Mutuality Outcome: Ongoing Goal: Discharge Needs Assessment Outcome: Ongoing Goal: Interdisciplinary Rounds/Family Conf Outcome: Ongoing Problem: ( Delivery) (Adult,Obstetrics,Pediatric) Goal: Signs and Symptoms of Listed Potential Problems Will be Absent, Minimized or Managed () Description: Signs and symptoms of listed potential problems will be absent, minimized or managed by discharge/transition of care (reference ( Delivery) (Adult,Obstetrics,Pediatric) CPG). Outcome: Ongoing [facility]* Nursing Notes - Anne Dennison RN - 11/30/2021 3:44 PM EDT Progression of Care Note Anticipated Discharge Plan as of 11/30/2021 3:44 PM Expected Discharge Date: 12/02/2021 Anticipated Discharge Disposition: to home without home health care or durable medical equipment needs anticipated. Potential Barriers: none at this time. Elena Fisher RNhand cutter apprentice/ Clinical Water Project Engineer Readmission Risk Score Risk of Readmission: 2.5 Category Reference: Low: 0% - 16% Medium - Low: 17% - 32% Medium - High: 33% - 48% High: 49% - 100% [facility] Work Phone: [phone] 550-841007-27-2022 Hospital Discharge instructions* Discharge Instructions* Jacob Persaud - 11/30/2021 3:44 PM EDT Images from the original note were not included. Discharge Education- VERY IMPORTANT THAT YOU SIGN UP FOR [employer]ib[employer] ONLINE, [email or web address], SO YOU MAY CONTACT ANY HEALTH CARE PROVIDERS THROUGH THAT OPTION WHILE APPOINTMENTS ARE BEING KEPT AT A MINIMUM. If you had a , please sign up for [employer]. [email or web address] Check your follow up appointments to see when you should take a picture of your incision with your smartphone, upload the picture to Espinela, and text/send that picture to your OB care provider through [employer]. Your OB provider will send you a message through Espinela with any recommendations. Please call your FACTORY MAINTENANCE TECHNICIAN doctor's office to make a post delivery check-up. You should call as soon as you get home to schedule your appointment to be seen 4-6 weeks after your delivery. Notify MD if any of the below items happen- Headache/ Visual Problems - Call your doctor or nurse if you have eye or vision problems such as: -Sudden loss of vision -Blurred or double vision -Increased eye pain, redness, or drainage -Eye pain that lasts more than 24 to 48 hours -Seeing spots -Headache that does not go away, or that lasts longer than 48 hours Symptoms of wound infection- - Increase in pain in or around wound. - Change in the amount of drainage. - Change in the color of drainage. - Change in the odor of drainage. - Warmth in the tissues around the wound. - Red streaks on the skin near the wound. - Fever (temperature greater than 100.5 degrees F) - Incision separates/opens up Symptoms of Urinary Tract Infection(UTI)- - Urine That Is Cloudy And/Or Has Foul Odor - Urge To Urinate More Often - Burning Sensation - Fever - Incontinence - Blood In Urine Symptoms of Deep Vein Thrombosis (DVT, or Blood Clot)- - Any Tender, Swollen, Or Reddened Areas From Your Groin To Your Heels - Numbness Or Tingling In Groin Or Calf - The Skin On Your Leg Looks Pale Or Blue Or It Feels Cold To Touch - Any Shortness Of Breath - Chest Pain - Fever Or Chills -Pain- -Pain that is not relieved by your medication Vaginal discharge/bleeding- Call your OB Doctor or clinic right away IF: - Foul smelling vaginal bleeding/discharge - Heavy vaginal bleeding, soaking 1 pads in one hour, - Bleeding that goes back to a bright red color after it starts to lighten -You are passing blood clots larger than an egg or a lemon -Golf ball size clots or greater Fever/chills/flu- - Temperature greater than 100.5 degrees F and/or chills. - Signs of cold or flu. Emotional problems- Disturbing emotional problems such as severe mood swings or depression If you were discharged to home with any home care or equipment, and have questions, please call theCase Management department at [phone]. Diet: Your doctor has recommended that you follow these diet instructions at home. Refer to the patient education materials you received during your hospital stay. No restrictions-usual diet -You are to resume your usual diet at home. Pain Management with Ibuprofen (Advil, Motrin)/Acetaminophen (Tylenol): - You may take either one of the medicines below for pain or cramping after a delivery. 1) Advil/ibuprofen/Motrin, 800 mg, every 6-8 hours as needed for pain. Take with food. (Avoid if you have stomach problems, a history of ulcers, or are on blood thinners, ex. Coumadin/Lovenox/Xarelto). AND/OR 2) Tylenol 325 mg take 1-2 tablets every 4-6 hours as needed for pain. DO NOT EXCEED 4000 mg IN 24 HOURS. - NOTE: Remember to eat when taking pain medications in order to avoid nausea; watch for constipation; eat plenty of fruits, vegetables, juices and water. /breast care: For information or concerns please contact The [facility] Breast-feeding Helpline at [phone] where a acute care clinical nurse specialist can assist you. support group (available to those who may be interested): The first Sunday of every month, there is a support group that meets at 11:00 a.m to 12:30 p.m at [facility] [address], [place] [address], in the1st floor conference room. No reservation required. You may bring your baby(ies), and any questions you have. For breast engorgement: 1. Breastfeed or pump often - at least every 3 hours for 15 minutes per side. 2. Do not skip night feedings or pump sessions if possible. 3. If , do not give supplemental bottles to the baby unless directed by your doctor. 4. Take a warm shower or use warm packs before feeding or pumping to encourage let-down. 5. Massage breasts gently before and during feeding or pumping. 6. If , hand express or pump the breast to soften the areola if the baby has difficulty latching on. 7. If and the breasts are still full after nursing, pump until you are comfortable. 8. Use cold packs 15 minutes after feeding and between feedings as needed. 9. Wear a non-binding, supportive bra For mastitis: 1. Rest. 2. Increase fluid intake to 6-8 cups per day unless you are to limit your fluids. 3. Remove bra. 4. May continue to breastfeed if mother and baby are together. 5. Moist heat to breast 15-20 minutes before nursing or pumping. 6. Massage breast gently using circular motions with fingers, then stroke towards the nipple with the palms of your hands before and during feeding or pumping. 7. Breastfeed or pump every 2-3 hours for 15 minutes on each breast. 8. Take pain medications as prdered by the doctor (Tylenol, Ibuprofen,and Percocet are okay to take when ). Bottle feeding breast care: Wear a tight fitting bra or sports bra day and night for at least 2 days. - If experiencing breast discomfort you may apply ice packs under your arms or at the sides of each breast for 20 minutes several times a day. You may take over the counter ibuprofen for breast discomfort. Bleeding post delivery: After your delivery, you can expect to have vaginal bleeding/discharge that is red to pinkish-brown in color for about 2 weeks. -It is normal for the color to change to yellowish-white for about another 2 weeks. Nothing in vagina: - Do not douche. - Do not have intercourse (sex). - Do not use tampons. - Do not take tub baths or go swimming. - Use shad-bottle (squirt bottle provided by the hospital) with warm water after each time using the bathroom. You may shower. control: If you have not decided on control please discuss this with your OB doctor at your post delivery checkup. If you are not using control you can become . is not a reliable form of control. -Post care: - Turn/cough/deep breathe using a breathing exercise machine every 2-4 hours Incisional care-- Do not soak your incision or take a tub bath until your incision is healed. -Please shower daily and clean your incision with mild soap, rinse well with water, and pat dry with a clean, dry towel. (You may use a hairdryer on the COOL setting if needed.) *If you are discharged the 3rd day after your , you will have 1 more maria dolores cloth to use at home after you shower. -Please use the maria dolores cloth after you shower at home. -Wipe the maria dolores cloth from the left side of your incision to the right side and throw it away. YOU MAY HAVE A SPECIAL MEPILEX DRESSING IN PLACE OVER YOUR INCISION. IT NEEDS TO REMAIN IN PLACE UNTIL YOU GO FOR YOUR INCISION CHECK. *IF YOU ARE NOT SCHEDULED FOR AN INCISION CHECK, YOU MAY REMOVE THE DRESSING AFTER 7 DAYS. (OR, YOU MAY REMOVE THE DRESSING YOURSELF ONLY IF IT BECOMES REALLY SATURATED.) *IF YOU HAVE THIS DRESSING, YOU SHOULD NOT USE THE MARIA DOLORES WIPES.* -*If you have abdominal skin folds that cover your incision, please use a clean shad pad to keep the skin folds from touching your incision. -Change this skin-fold shad pad at least twice a day, or whenever it becomes damp, soiled, or loose. -Use the skin-fold shad pads for 7 days Notify MD if any of the below items happen- Symptoms of wound infection- - Increase in pain in or around wound. - Change in the amount of drainage. - Change in the color of drainage. - Change in the odor of drainage. - Warmth in the tissues around the wound. - Red streaks on the skin near the wound. - Fever (temperature greater than 100.5 degrees F) - Incision separates/opens up Steri-Strip care: - Covering your incision are white strips called steri-strips. - Your steri strips should remain dry and in place for 7-10 days after your surgery date. - Do not soak your incision or take a tub bath until your incision is healed. - Please clean your incision with mild soap and water and pat dry. - It is ok if your steri strips fall off after 48 hours. - If your steri strips begin to loosen and curl, you may trim them. - If your steri strips do not come off in 7-10 days, you should remove them. No further care is required unless you have a problem. Dermabond A special skin glue called Dermabond may have been used to close and cover your incision. It is to stay in place for 10 to 14 days and wears off on its own. The glue is waterproof but you should not soak your incision or take a tub bath for 2 weeks because it could loosen the glue too soon. Do not pick or peel the glue off your skin. Activity: For your activity- -No driving for 2 weeks -No lifting over 10 lbs. for 2 weeks -No strenuous activity for 2 weeks (vacuuming/exercising) If you were discharged to home with any home care or equipment, and have questions, please [facility] at [phone]. COVID-19: Advice if You're or Overview There's a lot we don't know about COVID-19 yet. This includes whether the virus can cause problems during and whether it can be passed to the baby during or . Experts arestudying the virus and learning more about it every day. There may soon be clearer guidance for women and new mothers. In the meantime, there are things you can do to protect your health andthe health of your baby. If you're causes changes in the body that may raise the risk for some infections. women are more likely to get seriously ill from respiratory infections, like the flu. So it's important to try to avoid infections. The same steps that can help prevent COVID-19 will also help prevent other viral infections, like colds and the flu. These steps are the same for all of us: Wash your hands often with soap and water. Scrub for 20 seconds, rinse, and dry. Practice social distancing. When you're out, keep a space of 6 feet (2 meters) between yourself andothers. Stay home as much as you can. And limit visitors to your home. Stay away from people who seem sick or are coughing or sneezing. If you're Talk to your doctor if you're concerned about your baby's risk of infection. If you have COVID-19 or have symptoms, like a fever or a cough: Take extra care to avoid passing the infection to your baby. Wash your hands well before you touch your baby. Wear a cloth face cover. Wear it anytime you hold your baby. Take precautions if you pump breast milk. Wash your hands well before you touch the pump or bottle. Clean the pump well when you're finished. If you can, have someone who isn't sick give your baby the bottle. Call if you become sick Call your doctor if you have any symptoms that could be caused by COVID-19, like a fever, a cough, or shortness of breath. If you smoke, quitting smoking is the best thing you can do for you & your baby. Give your babya healthy start! It is tough to quit smoking, but you can do it! And [facility] Tobacco Free Family Initiative is here to help you! If you are ready to quit, please let your nurse know, & she can make sure you have the information for a referral to help you. BY SAYING THAT YOU ARE WILLING TO QUIT, YOU'VE MADE A LIFE-CHANGING DECISION! You will receive a call from [facility] within 24-48 business hours. The # that will come up on your phone caller-ID is [phone] . If you don't receive a call in 72 hours, please call . At any time after you get home from the hospital, & you decide to quit, get the support you need! Please call: . Sign up for our FREE Tobacco Free Family program. For each month smoke-free, each participant will receive $30 in [employer] Gift Cards, for up to 12 months from date of enrollment. (Total of $360) If participant has an enrolled partner, for each month partner is smoke-free, partner earns $30 in [employer] gift cards ($60 per month between participant and partner) for up to 12 months. (Total of $720) Check out their website: [email or web address] -Infants exposed to smoke are more likely to before their 1st birthdays -Infants who breathe in smoke can have: Breathing problems Lung infections More ear infections More coughs & colds Childhood cancers Heart disease Eye problems When you quit smoking, your health will start to improve right away, & health benefits last foryears to come! You will feel good about what you have done for yourself & your family You will have more energy & breathe easier You will find your food tastes better You may live a longer, healthier life Congratulations on the delivery of your baby! You and your baby have been scheduled for an appointment in the 4th Trimester Clinic at [facility] ([address]) for - check up for mom (yourself) - first visit for your baby with weight and jaundice check - social work to assist you with any concerns - support to help you achieve your goals A free parking pass and boxed lunch will be provided for you to take home with you!! No visitors or other children are permitted in the clinic at this time due to COVID. Mothers with infants admitted to the NICU are still welcome and recommended to come to the clinic. You will receive a call from prior to your appointment to preregister. Your appointment time is 11:00am and the clinic may run until 1pm. Please arrive directly to the room 30 minutes prior to your scheduled appointment time to complete registration so the clinic can start on time. See information below on what day you should follow up on. Appointment location details are as follows: Patients discharged on a or Sunday will have an appointment on the following Sunday at 11am --Go to [facility] 1st floor conference room 101. Please enter through the north entrance and the room will be immediately on your right. Patients discharged on a Sunday, Sunday, or Sunday will have an appointment on that upcoming at 11am --Go to [facility] 2nd floor conference room 230. Please enter through the north entrance and take the elevators to the 2nd floor. Make a left when you get off of the elevator. Please call our office at with questions or concerns regarding this appointment. We look forward to seeing you and your new baby! *If you are unable to make it to this appointment, be sure your infant sees a fruit or nut farm worker within 72 hours of hospital discharge unless you have been instructed to have them seen sooner. You should follow-up with your Flanger for your post- visit as instructed and we can assist you with scheduling that at your clinic visit.* [facility] * Note - Neymar Gomes RN - 11/30/2021 1:30 PM EDT LC in to see pt. At this time, one baby in NICU and one baby under radiant warmer in nursery. Patient has previous experience? Yes Breast pumping initiated by RN. Reviewed all necessary instructions and provided all supplies needed. Please refer to [facility] Helping Hand titled, Breastmilk for your Hospitalized for step by step instruction Begin hand expression and/or breast pumping with hospital grade electric pump within 1 hour after delivery and if pt is medically stable. Pump every 2-3 hours for 10-15 minutes per breast (or bilaterally) and at least one time through the night. Encouraged to pump at least 8 times daily. Encouraged to use timer, alarm, or phone application for pumping reminders. Discussed and/or arranged for home rental of breast pump - [employer] pump for home use Helpline number [phone] Discussed proper cleaning of pump supplies with [employer] while in the hospital. For any questions/concerns, call [phone] or NICU [phone] Mother's ultimate goal: All questions answered at this time. RN phone number written on white board, encouraged to call as needed, will remain available. [facility] Note* Plan of Care - Jose Acosta RN - 11/30/2021 4:24 AM EDT Problem: Patient Care Overview Goal: Plan of Care Review Outcome: Ongoing Goal: Individualization & Mutuality Outcome: Ongoing Goal: Discharge Needs Assessment Outcome: Ongoing Goal: Interdisciplinary Rounds/Family Conf Outcome: Ongoing Problem: ( Delivery) (Adult,Obstetrics,Pediatric) Goal: Signs and Symptoms of Listed Potential Problems Will be Absent, Minimized or Managed () Description: Signs and symptoms of listed potential problems will be absent, minimized or managed by discharge/transition of care (reference ( Delivery) (Adult,Obstetrics,Pediatric) CPG). Outcome: Ongoing [facility]* Op Note - Binu Nicole MD - 11/30/2021 1:53 AM EDT OPERATIVE REPORT DATE PERFORMED: 11/30/2021 PRE-OPERATIVE DIAGNOSIS: 1. Montezuma-di twin gestation at 36w1d 2. S/p uncomplicated of fetus A 3. Nonreassuring wellbeing of fetus B 4. History of x1 5. Class I obesity POST-OPERATIVE DIAGNOSIS: 1. Montezuma-di twin gestation at 36w1d 2. S/p uncomplicated of fetus A 3. Nonreassuring wellbeing of fetus B 4. History of x1 5. Class I obesity PROCEDURE: Repeat low transverse section and Liletta IUD placement via pfannenstiel skin incision RESIDENT SURGEONS: Kathryn Jones MD / Binu Nicole MD ATTENDING: Kathryn Turner MD ANESTHESIA: Epidural COMPLICATIONS: Uterine atony s/p methergine ESTIMATED BLOOD LOSS: 566 mL IVF: 1000 mL crystalloid UOP: 50 mL of clear yellow urine FINDINGS: Viable female infant in cephalic presentation, weight 2785g, APGARs 7/9, arterial pH 6.93/BE -27.6, venous pH 7.22/BE -10.2. Thin lower uterine segment, thin filmy adhesion from bladder to left mid-uterine body. Extension of right uterine angle requiring modified O'Marienville stitch. No other significant intraperitoneal adhesive disease. INDICATIONS: Ms. Yandel Manley is a 26 y.o. who presented with PPROM/labor. Her labor progressed with pitocin and she progressed to complete. She had an uncomplicated of fetus A. Immediate examination revealed the second fetus in vertex presentation. AROM was performed for fetus B and and FSE was placed. The fetus was noted to be at zero station. Over the course of the next 20 minutes she developed recurrent deep variable decels. An amnioinfusion was attempted but did not result in improvement. Her cervix also quickly regressed to 6cm and remained unchanged over a 20 minute period. Given her FHR tracing and no evidence of anticipated imminent delivery, she was recommended to undergo delivery for the second . All risks, benefits, indications and alternativeswere discussed and appropriate consents were signed prior to the procedure. PROCEDURE: Epidural anesthesia was appropriately dosed without difficulty. She was placed in the dorsal position with a leftward tilt. A harper catheter was inserted. Her abdomen was then prepped and draped in the normal sterile fashion. A Pfannenstiel skin incision 2 cm above the pubic symphysis was made with a knife and carried down to the underlying layer of fascia with the scalpel. The fascia was incised in the midline and extended laterally with curved Dumas scissors. The superior aspect of the fascia was grasped with Valeria clamps and elevated so the underlying rectus muscles could be dissected off the fascia both bluntly and with curved Dumas scissors. Next, the inferior aspect of the fascia was grasped with Valeria clamps and elevated such that the rectus and pyrimidalis muscles could be dissected off the fascia in a similar manner. The rectus muscles were in the midline and the peritoneum was identified and e ntered bluntly. This was extended superiorly and inferiorly with good visualization of the bladder.The bladder blade was inserted. A low transverse uterine incision was made and bluntly extended cranially- caudally. An amniotomy was performed for clear fluid. The operative hand was inserted into the uterus and the 's head was flexed and elevated to the level of the hysterotomy. With appropriate fundal pressure, the shoulders and body were delivered atraumatically. After a one-minute delay the cord was clamped and cut and the was handed off to the awaitingpediatricians. Cord gases were sent. The placenta was removed with uterine massage. The uterus was exteriorized and cleared of all clots and debris. The hysterotomy incision was then closed with 1-0 vicryl in a running locked fashion from each angle and meeting in the middle. Prior to closing the hysterotomy a Liletta IUD was placed at the fundus and the strings passed through thecervix. She was noted to have uterine atony and methergine was given with good improvement in tone a nd bleeding. There was noted to be continued oozing from the small right uterine extension and a modified O'Marienville stitch was placed with resulting excellent hemostasis. The uterine incision was foundto be hemostatic. The ovaries and tubes were inspected and found to be normal in appearance. The uterus was returned to the abdomen. The hysterotomy incision was inspected again and found to be hemostatic. The rectus fascial layers and the rectus muscles were examined and deemed hemostatic. The fascia was reapproximated with looped 0 PDS in a running fashion. The subcutaneous space was closed with multiple interrupted 2-0 plain gut sutures. The skin was then closed with 4-0 monocryl and the incision was covered with telfa/tegaderm. All sponge, lap and needle counts were correct x 2 and at the end of the procedure. The patient tolerated the procedure well and was transferred to the recovery room in stable condition. Dr. Turner was present for the entirety of the procedure. Binu Nicole MD PGY-4, Obstetrics and Gynecology [id number] Associated attestation - Kathryn Turner MD - 11/30/2021 6:37 AM EDT Attending Physician Attestation This 26 y.o. with Estimated Date of Delivery: 12/26/21 and 36w1d was admitted on 11/29/2021 with a diagnosis of mono/di twins and PPROM. She underwent a of fetus A but due to NRFWB, she underwent a repeat low transverse delivery on 11/29/21 for delivery of fetus B. She also desired postplacental IUD placement. I, Kathryn Turner MD, participated in and personally supervised this delivery, including delivery of the infant and placenta, and IUD. [facility] Work Phone: [phone]) 900-575707-27-2022 Note* Brief Op Note - Binu Nicole MD - 11/30/2021 1:49 AM EDT Yandel Manley ([id number]) PRE OPERATIVE DIAGNOSIS 1. Montezuma-di twin gestation at 36w1d 2. S/p uncomplicated of fetus A 3. Nonreassuring wellbeing of fetus B 4. History of x1 5. Class I obesity POST OPERATIVE DIAGNOSIS 1. Montezuma-di twin gestation at 36w1d 2. S/p uncomplicated of fetus A 3. Nonreassuring wellbeing of fetus B 4. History of x1 5. Class I obesity PROCEDURE PERFORMED Repeat low transverse section via pfannenstiel skin incision PRIMARY CLOSURE Yes INTRAOPERATIVE FINDINGS Viable female infant in cephalic presentation, weight 2785g, APGARs 7/9, arterial pH 6.93/BE -27.6,venous pH 7.22/BE -10.2. Thin lower uterine segment, thin filmy adhesion from bladder to left mid-uterine body. Extension of right uterine angle requiring modified O'Marienville stitch. No other significant intraperitoneal adhesive disease. SURGEON Surgeon(s) and Role: * Kathryn Turner MD - Primary ANESTHESIOLOGIST No anesthesia staff entered. SURGICAL STAFF Pump Service Supervisor: Kristie Tan RN; Geri Kong RN Scrub Person: Ephraim Correa Resident Assisting: Binu Nicole MD; Kathryn Jones MD COMPLICATIONS None ESTIMATED BLOOD LOSS 566 ml SPECIMENS Gases Binu Nicole MD PGY-4, Obstetrics and Gynecology [id number] 11/30/21 1:53 AM [facility] Labor and delivery summary note* L&D Delivery Note - Binu Nicole MD - 11/29/2021 11:43 PM EDT Delivery Summary VAGINAL DELIVERY NOTE 11/30/2021 1:43 AM Yandel Manley is a 26 y.o. female at 36w2d who presented with PPROM/labor. Her was complicated by mo/di twin gestation, history of , and class I obesity. Her labor progressed with pitocin and she progressed to complete. Called to see patient when she was c/c/+2 and was moved to the operating room for delivery. With good maternal effort, she delivered female infant A in OA position over an intact perineum. The anterior shoulder delivered with ease, followed by the posterior shoulder and body. Nuchal cord was not present. A appeared vigorous and cried. Immediate examination revealed the second fetus in vertex presentation. Infant A was placed on the maternal abdomen and after one minute, the cord was clamped and cut by Dr. Jones. Cord gases were collected. AROM was performed for fetus B and and FSE was placed. The fetus was noted to be at zero station. Over the course of the next 20 minutes she develop ed recurrent deep variable decels. An amnioinfusion was attempted but did not result in improvement. Her cervix also quickly regressed to 6cm and remained unchanged over a 20 minute period. Given herFHR tracing and no evidence of anticipated imminent delivery, she was recommended to undergo delivery for the second infant. See subsequent operative note for details. Female , weight 2410g, APGARs pending Arterial pH 7.33/BE -12.1, venous pH 7.45/BE -12.2 Lacerations: none EBL minimal Dr. Turner was present for all critical components of the delivery. Binu Nicole MD PGY-4, Obstetrics and Gynecology [id number] 11/30/21 1:43 AM Jony Manley [[id number]] Delivery () Delivery date/time: 11/29/2021 11:02 PM Sex: Female Delivery type: Vaginal, Spontaneous : Successful Details: Labor Events labor?: Yes steroids: None Antibiotics received during labor?: Yes Rupture date/time: 11/29/2021 0400 Rupture type: spontaneous rupture of membranes Fluid color: clear Labor complications: Gestational Hypertension Additional complications: Labor Complications Monochorionic diamniotic twin gestation in third trimester Delivery (Maternal) Surgical or additional est. blood loss (mL): 0 Edit in Flowsheets Combined est. blood loss (mL): 0 QBL Calculators: Surgical QBL Vaginal QBL Sponge Count Initial count verified by RN: Yes Initial count verified by MD: Yes Beginning count: 10 Added to count: 0 Final count: 10 Final count verified by RN: Yes Final count verified by MD: Yes Needle Count Initial count verified by RN: Yes Initial count verified by MD: Yes Beginning count: 1 Added to count: 0 Final count: 1 Final count verified by RN: Yes Final count verified by MD: Yes Presentation Presentation: cephalic, vertex Anesthesia Method: Epidural Delivery Providers Attending physician for delivery: Kathryn Turner MD Delivering clinician: Kathryn Jones MD Other personnel: Provider Role Geri Kong RN Registered Nurse Kristie Tan RN Registered Nurse Binu Nicole MD Registered Nurse Resuscitation Placenta Date/time: 11/30/2021 12:02 AM Removal: Spontaneous Appearance: Intact Disposition: pathology Placenta for examination?: Yes Cord Vessels: 3 Vessels Complications: None Delayed cord clamping?: Yes Cord clamped date/time: 11/29/2021 2303 Cord blood disposition: Discard Gases sent?: Yes Stem cell collection (by provider): No [place] Measurements Weight: 2410 g Apgars Living status: Living Apgars: 1 min.: 5 min.: 10 min.: 15 min.: 20 min.: Skin color: Heart rate: Reflex irritability: Muscle tone: Respiratory effort: Total: Skin to Skin Skin to skin initiated date/time: 11/29/20212325 Skin to skin with: Mother Skin to skin end date/time: 11/29/20212327 Alonzo Manley [[id number]] Delivery () Delivery date/time: 11/29/2021 11:59 PM Sex: Female Delivery type: , Low Transverse : Unsuccessful Details: categorization: Repeat priority: Unscheduled Uterine incision type: Low Transverse Indications for : Multiple Gestation, Failure to Progress, Intolerance of Labor Labor Events labor?: Yes steroids: None Antibiotics received during labor?: Yes Rupture date/time: 11/29/2021 0400 Rupture type: spontaneous rupture of membranes Fluid color: clear Labor complications: Gestational Hypertension Additional complications: Labor Complications Monochorionic diamniotic twin gestation in third trimester Delivery (Maternal) Surgical or additional est. blood loss (mL): 0 Edit in Flowsheets Combined est. blood loss (mL): 0 QBL Calculators: Surgical QBL Vaginal QBL Sponge Count Needle Count Anesthesia Method: Epidural Delivery Providers Attending physician for delivery: Kathryn Turner MD Delivering clinician: Kathryn Jones MD Other personnel: Provider Role Geri Kong, MARLA Registered Nurse Kristie Tan RN Registered Nurse Binu Nicole MD Resident Patricia Harley MD Log Deckman Mimi Monsalve MD Log Deckman Margot Ocampo MD Log Deckman Resuscitation Stabilization methods: CPAP, Bulb Syringe, Hat Applied, Tactile Stimulation, Warmed and Dried, Wrapped in Blankets Placenta Date/time: 11/30/2021 12:02 AM Removal: Expressed Appearance: Intact Disposition: pathology Placenta for examination?: Yes Cord Vessels: 3 Vessels Delayed cord clamping?: Yes Cord clamped date/time: 11/30/2021 0001 Cord blood disposition: Discard Gases sent?: Yes Stem cell collection (by provider): No [place] Measurements Weight: 2785 g Apgars Living status: Living Apgars: 1 min.: 5 min.: 10 min.: 15 min.: 20 min.: Skin color: 0 1 Heart rate: 2 2 Reflex irritability: 2 2 Muscle tone: 1 2 Respiratory effort: 2 2 Total: 7 9 Skin to Skin Reason skin to skin not initiated: Maternal Acuity Associated attestation - Kathryn Turner MD - 11/30/2021 1:55 AM EDT ATTENDING PHYSICIAN VAGINAL DELIVERY ATTESTATION This 26 y.o. has an Estimated Date of Delivery: 12/26/21 and a gestational age of 36w2d. Shewas admitted on 11/29/2021. She underwent a spontaneous vaginal delivery of fetus A on 11/29/21. IKathryn MD, was personally present and participated in this delivery including delivery of the infant. (See operative note for delivery of fetus B and placenta). [facility] [id number] Note* L&D Note - Kathryn Jones MD - 11/29/2021 8:47 PM EDT 11/29/2021 8:47 PM Labor Progress Note S: cEFM review O: Recent Vitals Blood pressure 112/55, pulse 82, temperature 98.3 F (36.8 C), temperature source Oral, resp. rate 14, height 1.6 m (5' 3), weight 88.9 kg (196 lb), last menstrual period 03/21/2021, SpO2 99 %, not currently . 24hr Vitals Vitals: 11/29/21 1820 11/29/21 1825 11/29/21 1830 11/29/21 1902 BP: 104/54 89/49 120/62 112/55 Pulse: 90 88 83 82 Resp: Temp: 98.3 degrees F (36.8 degrees C) TempSrc: Oral SpO2: Weight: Height: CVX: 7/90/-1 @1950 FHR A: 160 changed to 170, mod variability, pos accelerations, rare variable decelerations FHR B: 170, mod variability, pos accelerations, intermittent variable decelerations TOCO: q2-3min A/P 26 y.o. at 36w1d PPROM/TOLAC - Ruptured at 0400, confirmed on admission - Epidural in place - Cervix as above - Pitocin at 6, continue to titrate per protocol FWB, Monochorionic diamniotic twin - Vertex/vertex, EFW 2708/3191 (35/78%ile) extrap from 11/22 - GBS positive by RF, ampicillin ordered - Cat II tracing for intermittent variable decels, overall reassuring with moderate variability & accels. Resuscitation ongoing Varicella nonimmune: recommend PP immunization MOD: TOLAC PPBC: progesterone IUD, consented Feeding: breast Kathryn Jones MD Obstetrics & Gynecology PGY-2 #[id number] [facility]07-26-2022 Note* Plan of Care - Anais Marie RN - 11/29/2021 7:21 PM EDT Problem: Patient Care Overview Goal: Plan of Care Review Outcome: Met This Shift Goal: Individualization & Mutuality Outcome: Met This Shift Problem: Patient Care Overview Goal: Discharge Needs Assessment Outcome: Ongoing Goal: Interdisciplinary Rounds/Family Conf Outcome: Ongoing Problem: Labor (Cervical Ripen, Induct, Augment) (Adult,Obstetrics,Pediatric) Goal: Signs and Symptoms of Listed Potential Problems Will be Absent, Minimized or Managed (Labor) Description: Signs and symptoms of listed potential problems will be absent, minimized or managed by discharge/transition of care (reference Labor (Cervical Ripen, Induct, Augment) (Adult,Obstetrics,Pediatric) CPG). Outcome: Ongoing [facility]07-26-2022 Note* L&D Note - Kathryn Jones MD - 11/29/2021 7:00 PM EDT 11/29/2021 7:00 PM Labor Progress Note S: Patient feeling well. O: Recent Vitals Blood pressure 120/62, pulse 83, temperature 99.8 F (37.7 C), temperature source Oral, resp. rate 14, height 1.6 m (5' 3), weight 88.9 kg (196 lb), last menstrual period 03/21/2021, SpO2 99 %, not currently . 24hr Vitals Vitals: 11/29/21 1800 11/29/21 1820 11/29/21 1825 11/29/21 1830 BP: 104/54 89/49 120/62 Pulse: 90 88 83 Resp: Temp: 99.8 degrees F (37.7 degrees C) TempSrc: Oral SpO2: Weight: Height: CVX: 7/90/-2 @1750 FHR A: 160 changed to 150, mod variability, pos accelerations, intermittent late decelerations FHR A: 145, mod variability, pos accelerations, no decelerations TOCO: q2-3min A/P 26 y.o. at 36w1d PPROM/TOLAC - Ruptured at 0400, confirmed on admission - Epidural in place - Cervix as above - Amnioinfusion previously running, now turned off as decels are now late in nature as opposed to variable. Will restart if variables return - Pitocin previously at 12, halved at 1830 due to recurrent late decels in both A & B, now 6 with improvement in decels, continue to titrate per protocol FWB, Monochorionic diamniotic twin - Vertex/vertex, EFW 2708/3191 (35/78%ile) extrap from 11/22 - GBS positive by RF, ampicillin ordered - Cat II tracing for intermittent late decels, overall reassuring with moderate variability & accels. Resuscitation ongoing Varicella nonimmune: recommend PP immunization MOD: TOLAC PPBC: progesterone IUD, consented Feeding: breast Kathryn Jones MD Obstetrics & Gynecology PGY-2 #[id number] [facility]07-26-2022 Note* L&D Note - Pema Brown MD - 11/29/2021 4:02 PM EDT 11/29/2021 4:02 PM Labor Progress Note S: FHT review O: Recent Vitals Blood pressure 106/56, pulse 75, temperature 98.6 F (37 C), temperature source Oral, resp. rate 14,height 1.6 m (5' 3), weight 88.9 kg (196 lb), last menstrual period 03/21/2021, SpO2 99 %, not currently . 24hr Vitals Vitals: 11/29/21 1455 11/29/21 1500 11/29/21 1515 11/29/21 1530 BP: 124/62 117/68 116/53 106/56 Pulse: 82 85 75 Resp: Temp: 98.6 degrees F (37 degrees C) TempSrc: Oral SpO2: Weight: Height: CVX: 3/50/-2 at 1045 FHR A: 155 mod variability, pos accelerations, intermittent late decelerations FHR A: 130 mod variability, pos accelerations, no decelerations TOCO: q2-4min A/P 26 y.o. at 36w1d PPROM/TOLAC - Ruptured at 0400, confirmed on admission - Cervix as above - Epidural in place - Augmentation with pitocin, titrate per protocol TOLAC - Hx of prior LTCS for bradycardia in G2; op note reviewed - Discussed the patient's choices regarding elective repeat delivery or trial of labor (vaginal after ). Cited the risk of uterine rupture in a patients with a prior history ofone LTCS is approximately 0.2-1.5%. Discussed the adverse sequelae of uterine rupture including maternal and/or hemorrhage, hypoxia, potential for emergent surgery, hysterectomy, and maternal or . Discussed the additional risks of including but not limited to bleeding, infection, injury to surrounding structures (i.e., bowel, bladder, blood vessels, nerves, fetus) - Patient expressed she understands these risks and desires a trial of labor - Written informed consents obtained for both TOLAC and CS and scanned into the chart Monochorionic diamniotic twin - Last growth 11/22: 2458g 35%ile; B: 2941g 78%ile. - Vertex/vertex presentation; desires TOLAC, open to breech extraction Varicella nonimmune; offer PP immunization FWB - Vertex/vertex, anterior fundal placenta - GBS positive by RF, ampicillin ordered - Cat 1 tracing MOD: TOLAC PPBC: progesterone IUD, consented Feeding: breast Pema Brown MD Department of General Merchandise Manager - PGY2 Pager #[phone] [facility]07-26-2022 Note* L&D Note - Pema Brown MD - 11/29/2021 12:38 PM EDT 11/29/2021 12:38 PM Labor Progress Note S: FHT review O: Recent Vitals Blood pressure 114/54, pulse 71, temperature 98.1 F (36.7 C), temperature source Oral, resp. rate 14, height 1.6 m (5' 3), weight 88.9 kg (196 lb), last menstrual period 03/21/2021, SpO2 99 %, not currently . 24hr Vitals Vitals: 11/29/21 1110 11/29/21 1140 11/29/21 1215 07/26/22 1238 BP: 117/58 117/58 103/55 114/54 Pulse: 74 83 117 71 Resp: 14 Temp: 98.1 degrees F (36.7 degrees C) TempSrc: Oral SpO2: Weight: Height: CVX: 3/50/-2 at 1045 FHR A: 150 change to 145 mod variability, pos accelerations, rare variable decelerations FHR A: 145 change to 135 mod variability, pos accelerations, rare variable decelerations TOCO: q2-4min A/P 26 y.o. at 36w1d PPROM/TOLAC - Reports gush of fluid at 4 AM, grossly ruptured on admission - Cervix as above - Epidural in place - Augmentation with pitocin, titrate per protocol TOLAC - Hx of prior LTCS for bradycardia in G2; op note reviewed - Discussed the patient's choices regarding elective repeat delivery or trial of labor (vaginal after ). Cited the risk of uterine rupture in a patients with a prior history ofone LTCS is approximately 0.2-1.5%. Discussed the adverse sequelae of uterine rupture including maternal and/or hemorrhage, hypoxia, potential for emergent surgery, hysterectomy, and maternal or . Discussed the additional risks of including but not limited to bleeding, infection, injury to surrounding structures (i.e., bowel, bladder, blood vessels, nerves, fetus) - Patient expressed she understands these risks and desires a trial of labor - Written informed consents obtained for both TOLAC and CS and scanned into the chart Monochorionic diamniotic twin - Last growth 11/22: 2458g 35%ile; B: 2941g 78%ile. - Vertex/vertex presentation; desires TOLAC, open to breech extraction Varicella nonimmune; offer PP immunization FWB - Vertex/vertex, anterior fundal placenta - GBS positive by RF, ampicillin ordered - Cat 1 tracing MOD: TOLAC PPBC: progesterone IUD, consented Feeding: breast Pema Brown MD Department of General Merchandise Manager - PGY2 Pager #[phone] [facility]07-26-2022 Note* Certification - Leida Nelson MD - 11/29/2021 7:00 AM EDT I certify that this patient requires inpatient services at this time. I anticipate the expected length of stay will include at least two midnights. Inpatient services are due to the following medicalconcerns normal labor and delivery. Plans for post hospitalization care will be discharge to home. [facility]07-26-2022 History and physical note* Lucero Looney MD - 11/29/2021 6:10 AM EDT Labor and Delivery Note Subjective: This is a 26 y.o. 36w1d female with an Estimated Date of Delivery: 12/26/21 confirmed by 9 week US. Chief Complaint: LOF History of Present Illness: Patient presents with leakage of fluid at 4 AM. Has also been feeling pelvic pressure. Denies VB and reports good FM. PNC: [facility] Current history: [place]-di twins History of prior CS (G2 for bradycardia) Varicella nonimmune Hyperemesis Prenatals: Type and screen B pos Antibody screen neg HepBsAg neg HCV neg Syphilis NR HIV neg Rubella immune Varicella nonimmune GC/CT neg/neg GCT 123 GBS in process Aneuploidy screening JEYSON, NL hemoglobinopathy Anatomy u/s: AGA x2, placentas anterior/fundal, no malformations, no evidence of TTTS. echo f/u appears unremarkable OB History Para Term AB Living 3 2 2 0 0 2 SAB IAB Ectopic Molar Multiple Live Births 0 0 0 0 0 2 # Outcome Date GA Lbr Frankie/2nd Weight Sex Delivery Anes PTL Lv 3 Current 2 Term 06/18/20 39w1d 3480 g M CS-LTranv EPI N BOBBY Comments: length, head and abd measurements obtained on Complications: intolerance to labor, delivered, current hospitalization 1 Term 01/10/17 39w0d 3005 g F Vag-Vacuum EPI BOBBY Past Medical History: Diagnosis Date ADHD Anemia Depression GERD (gastroesophageal reflux disease) had an ulcer, omeprazole, before & after PVC (pulmonary venous congestion) Past Surgical History: Procedure Laterality Date DELIVERY N/A 06/18/2020 Laterality: N/A; Surgeon: Yolande Edwards MD; Location: [facility] LD OR EXAMINATION UPPER GI BY ENDOSCOPY SIMPLE removed polyp Social History Socioeconomic History Marital status: Single Spouse name: Karie Florez Number of children: 1 Years of education: Not on file Highest education level: High school graduate Occupational History Comment: [employer] Tobacco Use Smoking status: Never Smoker Smokeless tobacco: Never Used Vaping Use Vaping Use: Never used Substance and Sexual Activity Alcohol use: Not Currently Drug use: Never Sexual activity: Yes Partners: Male Other Topics Concern Service No Blood Transfusions No Caffeine Concern No Occupational Exposure No Hobby Hazards No Sleep Concern No Stress Concern No Weight Concern No Special Diet No Back Care No Exercise Yes Comment: walk daily Bike Helmet Not Asked Seat Belt Yes Domestic Violence No Comment: feels safe in home now Social History Narrative Patient unable to complete NOB appt bc she is starting a new job today. Half of appt completed. Hector call back at 11 am to finish. Social Determinants of Health Financial Resource Strain: Not on file Food Insecurity: Not on file Transportation Needs: Not on file Physical Activity: Not on file Stress: Not on file Social Connections: Not on file Intimate Partner Violence: Not on file Housing Stability: Not on file Allergies Allergen Reactions Amphetamine-Dextroamphetamine Other reaction(s): Other: See Comments chest pain,palpitations Cat Hair Extract Other reaction(s): Swelling Medications Prior to Admission Medication Sig Dispense Refill Last Dose faMOTIdine 20 MG tablet Take 1 tablet by mouth 2 times daily. (Patient not taking: No sig reported)60 tablet 1 MV & Min w/FA-DHA ( Adult Gummy/DHA/FA) 0.4-25 MG Chew Tab Take one PO daily. Chew completely. Ok to sub with any covered gummy vitamin. (Patient not taking: No sig reported) 90 tablet 1 Review of Systems: Constitutional (+as noted in HPI) Eyes (negative for vision changes) ENT (- ringing, loss of hearing) Cardiovascular (no LE edema or leg pain with walking, denies PND, orthopnea) Respiratory (no cough, SOB) Gastrointestinal (no abd pain, constipation, diarrhea) Genitourinary (- dysuria, gross hematuria) Integumentary (no rash) Musculoskeletal (+as noted in HPI) Psych: no depressed mood Objective: Physical Exam: There were no vitals filed for this visit. General: alert, cooperative, appears stated age Abdomen: soft, non-tender. No masses, no organomegaly Extremities: extremities normal, atraumatic, no cyanosis or edema Neurologic: Grossly normal Psychiatric: non focal Pelvic Exam: 1/0/-3, grossly ruptured External Monitoring: Baby A FHT: 135 BPM, mod variability, +accels, -decels Baby B FHT: 135 BPM, mod variability, +accels, -decels TOCO: irritable Labs: Admission labs pending Imaging: BSUS: vertex/vertex confirmed by Dr. Nicole Assessment and Plan This is a 26 y.o. at 36w1d who presents with LOF. PPROM/TOLAC - Reports gush of fluid at 4 AM, grossly ruptured on admission - Admit to labor and delivery - Admission labs pending - Cervix /-3, toco irritable - CLD + mIVF at 125cc/hr - Epidural per patient request - Augmentation with pitocin TOLAC - Hx of prior LTCS for bradycardia in G2; op note reviewed - Discussed the patient's choices regarding elective repeat delivery or trial of labor (vaginal after ). Cited the risk of uterine rupture in a patients with a prior history ofone LTCS is approximately 0.2-1.5%. Discussed the adverse sequelae of uterine rupture including maternal and/or hemorrhage, hypoxia, potential for emergent surgery, hysterectomy, and maternal or . Discussed the additional risks of including but not limited to bleeding, infection, injury to surrounding structures (i.e., bowel, bladder, blood vessels, nerves, fetus) - Patient expressed she understands these risks and desires a trial of labor - Written informed consents obtained for both TOLAC and CS and scanned into the chart Monochorionic diamniotic twin - Last growth 11/22: 2458g 35%ile; B: 2941g 78%ile. - Vertex/vertex presentation; desires TOLAC, open to breech extraction Varicella nonimmune; offer PP immunization FWB - Vertex/vertex, anterior fundal placenta - GBS positive by RF, ampicillin ordered - Cat 1 tracing MOD: TOLAC PPBC: progesterone IUD, consented Feeding: breast Dispo: Admit to L&D Discussed with Dr. Tamara Looney MD Obstetrics and Gynecology, PGY-1 Pager #[phone] [facility] Work Phone: 1(124) 858-886007-26-2022 History and physical note* Lucero Looney MD - 11/29/2021 6:10 AM EDT Labor and Delivery Note Subjective: This is a 26 y.o. 36w1d female with an Estimated Date of Delivery: 12/26/21 confirmed by 9 week US. Chief Complaint: LOF History of Present Illness: Patient presents with leakage of fluid at 4 AM. Has also been feeling pelvic pressure. Denies VB and reports good FM. PNC: [facility] Current history: [place]-di twins History of prior CS (G2 for bradycardia) Varicella nonimmune Hyperemesis Prenatals: Type and screen B pos Antibody screen neg HepBsAg neg HCV neg Syphilis NR HIV neg Rubella immune Varicella nonimmune GC/CT neg/neg GCT 123 GBS in process Aneuploidy screening JEYSON, NL hemoglobinopathy Anatomy u/s: AGA x2, placentas anterior/fundal, no malformations, no evidence of TTTS. echo f/u appears unremarkable OB History Para Term AB Living 3 2 2 0 0 2 SAB IAB Ectopic Molar Multiple Live Births 0 0 0 0 0 2 # Outcome Date GA Lbr Frankie/2nd Weight Sex Delivery Anes PTL Lv 3 Current 2 Term 06/18/20 39w1d 3480 g M CS-LTranv EPI N BOBBY Comments: length, head and abd measurements obtained on Complications: intolerance to labor, delivered, current hospitalization 1 Term 01/10/17 39w0d 3005 g F Vag-Vacuum EPI BOBBY Past Medical History: Diagnosis Date ADHD Anemia Depression GERD (gastroesophageal reflux disease) had an ulcer, omeprazole, before & after PVC (pulmonary venous congestion) Past Surgical History: Procedure Laterality Date DELIVERY N/A 06/18/2020 Laterality: N/A; Surgeon: Yolande Edwards MD; Location: [facility] LD OR EXAMINATION UPPER GI BY ENDOSCOPY SIMPLE removed polyp Social History Socioeconomic History Marital status: Single Spouse name: Karie Florez Number of children: 1 Years of education: Not on file Highest education level: High school graduate Occupational History Comment: [employer] Tobacco Use Smoking status: Never Smoker Smokeless tobacco: Never Used Vaping Use Vaping Use: Never used Substance and Sexual Activity Alcohol use: Not Currently Drug use: Never Sexual activity: Yes Partners: Male Other Topics Concern Service No Blood Transfusions No Caffeine Concern No Occupational Exposure No Hobby Hazards No Sleep Concern No Stress Concern No Weight Concern No Special Diet No Back Care No Exercise Yes Comment: walk daily Bike Helmet Not Asked Seat Belt Yes Domestic Violence No Comment: feels safe in home now Social History Narrative Patient unable to complete NOB appt bc she is starting a new job today. Half of appt completed. Hector call back at 11 am to finish. Social Determinants of Health Financial Resource Strain: Not on file Food Insecurity: Not on file Transportation Needs: Not on file Physical Activity: Not on file Stress: Not on file Social Connections: Not on file Intimate Partner Violence: Not on file Housing Stability: Not on file Allergies Allergen Reactions Amphetamine-Dextroamphetamine Other reaction(s): Other: See Comments chest pain,palpitations Cat Hair Extract Other reaction(s): Swelling Medications Prior to Admission Medication Sig Dispense Refill Last Dose faMOTIdine 20 MG tablet Take 1 tablet by mouth 2 times daily. (Patient not taking: No sig reported)60 tablet 1 MV & Min w/FA-DHA ( Adult Gummy/DHA/FA) 0.4-25 MG Chew Tab Take one PO daily. Chew completely. Ok to sub with any covered gummy vitamin. (Patient not taking: No sig reported) 90 tablet 1 Review of Systems: Constitutional (+as noted in HPI) Eyes (negative for vision changes) ENT (- ringing, loss of hearing) Cardiovascular (no LE edema or leg pain with walking, denies PND, orthopnea) Respiratory (no cough, SOB) Gastrointestinal (no abd pain, constipation, diarrhea) Genitourinary (- dysuria, gross hematuria) Integumentary (no rash) Musculoskeletal (+as noted in HPI) Psych: no depressed mood Objective: Physical Exam: There were no vitals filed for this visit. General: alert, cooperative, appears stated age Abdomen: soft, non-tender. No masses, no organomegaly Extremities: extremities normal, atraumatic, no cyanosis or edema Neurologic: Grossly normal Psychiatric: non focal Pelvic Exam: 0/-3, grossly ruptured External Monitoring: Baby A FHT: 135 BPM, mod variability, +accels, -decels Baby B FHT: 135 BPM, mod variability, +accels, -decels TOCO: irritable Labs: Admission labs pending Imaging: BSUS: vertex/vertex confirmed by Dr. Nicole Assessment and Plan This is a 26 y.o. at 36w1d who presents with LOF. PPROM/TOLAC - Reports gush of fluid at 4 AM, grossly ruptured on admission - Admit to labor and delivery - Admission labs pending - Cervix 1/0/-3, toco irritable - CLD + mIVF at 125cc/hr - Epidural per patient request - Augmentation with pitocin TOLAC - Hx of prior LTCS for bradycardia in G2; op note reviewed - Discussed the patient's choices regarding elective repeat delivery or trial of labor (vaginal after ). Cited the risk of uterine rupture in a patients with a prior history ofone LTCS is approximately 0.2-1.5%. Discussed the adverse sequelae of uterine rupture including maternal and/or hemorrhage, hypoxia, potential for emergent surgery, hysterectomy, and maternal or . Discussed the additional risks of including but not limited to bleeding, infection, injury to surrounding structures (i.e., bowel, bladder, blood vessels, nerves, fetus) - Patient expressed she understands these risks and desires a trial of labor - Written informed consents obtained for both TOLAC and CS and scanned into the chart Monochorionic diamniotic twin - Last growth 11/22: 2458g 35%ile; B: 2941g 78%ile. - Vertex/vertex presentation; desires TOLAC, open to breech extraction Varicella nonimmune; offer PP immunization FWB - Vertex/vertex, anterior fundal placenta - GBS positive by RF, ampicillin ordered - Cat 1 tracing MOD: TOLAC PPBC: progesterone IUD, consented Feeding: breast Dispo: Admit to L&D Discussed with Dr. Tamara Looney MD Obstetrics and Gynecology, PGY-1 Pager #[phone] documented in this encounterU [facility] Evaluation + Plan note* Assessment & Plan Note - Le Negron DO - 11/28/2021 2:32 PM EDTAssociated Problem(s): Pruritus of in third trimester - Bile acids/LFTS drawn today - Discussed that even with elevated bile acids, unlikely to exchange engineer given delivery in 1 week. [facility]07-25-2022 Miscellaneous Notes* Assessment & Plan Note - Le Negron DO - 11/28/2021 2:32 PM EDTAssociated Problem(s): Pruritus of in third trimester - Bile acids/LFTS drawn today - Discussed that even with elevated bile acids, unlikely to exchange engineer given delivery in 1 week. * Assessment & Plan Note - Le eNgron DO - 11/28/2021 2:28 PM EDT Associated Problem(s): Supervision of high risk in third trimester - CBC, syphilis, HIV, GBS, GC/CT today - Declines TDAP/flu vaccine - plan for pp progesterone IUD * Assessment & Plan Note - Le Negron DO - 11/28/2021 2:28 PM EDT Associated Problem(s): History of delivery - G1: vaginal delivery (vacuum assisted) - G2: stat pLTCS for bradycardia - Desires TOLAC with current cephalic/cephalic presentation * Assessment & Plan Note - Le Negron DO - 11/28/2021 2:24 PM EDT Associated Problem(s): Monochorionic diamniotic twin in third trimester - Last growth 11/22: 2458 grams, corresponding to 35%; B: 2941 grams, corresponding to 78%. The difference between the estimated weights is 16%. - weekly NSTs- passed today - Plan for delivery at 37 weeks, desires TOLAC with vtx/vtx presentation, open to breech extraction [facility] Evaluation + Plan note* Assessment & Plan Note - Le Negron DO - 11/28/2021 2:28 PM EDTAssociated Problem(s): Supervision of high risk in third trimester - CBC, syphilis, HIV, GBS, GC/CT today - Declines TDAP/flu vaccine - plan for pp progesterone IUD [facility]07-25-2022 Evaluation + Plan note* Assessment & Plan Note - Le Negron DO - 11/28/2021 2:28 PM EDTAssociated Problem(s): History of delivery - G1: vaginal delivery (vacuum assisted) - G2: stat pLTCS for bradycardia - Desires TOLAC with current cephalic/cephalic presentation [facility]07-25-2022 Evaluation + Plan note* Assessment & Plan Note - Le Negron DO - 11/28/2021 2:24 PM EDTAssociated Problem(s): Monochorionic diamniotic twin in third trimester - Last growth 11/22: 2458 grams, corresponding to 35%; B: 2941 grams, corresponding to 78%. The difference between the estimated weights is 16%. - weekly NSTs- passed today - Plan for delivery at 37 weeks, desires TOLAC with vtx/vtx presentation, open to breech extraction [facility]07-25-2022 History of Present illness Narrative* Trisha Garcia RN - 11/28/2021 1:40 PM EDT Yandel Manley is a 26 y.o. here for routine visit at 36w0d Symptoms: See OB Visit Flowchart Movement: Reports movement x 2 Reviewed Third Trimester Education: Healthy diet and Importance of hydration (8- 10 glasses of waterdaily), Waldo-Hick's contractions and Common discomforts of : ie heartburn, constipation, low back pain, round ligament pain, pelvic pressure Reviewed: ABCs of safe sleep Glucola: Pt passed her 1-hr GTT Patient plans to breastfeed, reviewed benefits of for mother and baby, Pt states she has a breast pump PPBC: undecided Flu Vaccine: N/A COVID Vaccine: Does not want vaccine, educated and encouraged to speak with provider Tdap Vaccine: Patient declines vaccine today Concerns to discuss with provider: C/o terrible itching to hands, legs, ankles, feet. Started off and on last month, but increased last night to constant. States has not tried any medication Would like cervix checked * Le Negron, - 11/28/2021 1:40 PM EDT Subjective: Ms. Yandel Manley is a 26 y.o. at 36w0d (Estimated Date of Delivery: 12/26/21) presenting today for care visit in [facility]. She reports no complaints. Denies contractions, vaginal bleeding or leaking of fluid. Reports good movement. Current Medications: Current Outpatient Medications: faMOTIdine 20 MG tablet, Take 1 tablet by mouth 2 times daily. (Patient not taking: No sig reported), Disp: 60 tablet, Rfl: 1 MV & Min w/FA-DHA ( Adult Gummy/DHA/FA) 0.4-25 MG Chew Tab, Take one PO daily.Chew completely. Ok to sub with any covered gummy vitamin. (Patient not taking: No sig reported), Disp: 90 tablet, Rfl: 1 Review of Systems Pertinent items are noted in HPI. A comprehensive review of systems was otherwise negative. Objective: There were no vitals filed for this visit. There is no height or weight on file to calculate BMI. Pregravid weight not on file General: no acute distress CV: normal rate, well perfused peripherally Resp: normal work of breathing, comfortable on room air Abd: gravid, nontender Extremities: no edema Neuro: grossly normal Results Labs Test Value Date Time ABO/RH(D) TYPE B POS 05/25/21 0853 ANTIBODY SCREEN NEG 05/25/21 0853 RUBELLA IGG Positive 05/25/21 0853 HIV-1/HIV-2 ANTIBODY Non Reactive 05/25/21 0853 HEPATITIS B ANTIGEN Negative 05/25/21 0853 SYPHILIS IGG Non Reactive 05/25/21 0853 RPR PLATELET COUNT 351 K/uL 05/25/21 0853 1 HOUR POST GLUCOLA BETA STREP CULTURE OR PCR Legend ^: HISTORICAL Assessment and Plan: Ms. Yandel Manley is a 26 y.o. at 36w0d presenting for routine care in [facility]. complicated by: Monochorionic diamniotic twin in third trimester - Last growth 11/22: 2458 grams, corresponding to 35%; B: 2941 grams, corresponding to 78%. The difference between the estimated weights is 16%. - weekly NSTs- passed today - Plan for delivery at 37 weeks, desires TOLAC with vtx/vtx presentation, open to breech extraction History of delivery - G1: vaginal delivery (vacuum assisted) - G2: stat pLTCS for bradycardia - Desires TOLAC with current cephalic/cephalic presentation Supervision of high risk in third trimester - CBC, syphilis, HIV, GBS, GC/CT today - Declines TDAP/flu vaccine - plan for pp progesterone IUD Pruritus of in third trimester - Bile acids/LFTS drawn today - Discussed that even with elevated bile acids, unlikely to exchange engineer given delivery in 1 week. IOL scheduled in [address] Yue Negron DO MFM Attending Attestation: I have reviewed the patient's history as well as clinical findings with the Maternal- Medicinefellow. I agree with the assessment and plan as documented in her note. The patient is a 26 y.o. at 36w0d who presents with mono/di twin gestation for a follow-up OB visit. Plan for continuedNSTs. IOL scheduled next week. She has some pruritus today so bile acids were ordered. Kathryn Turner MD, MSCI documented in this encounter[facility] History of Present illness Narrative* ANTOINETTE Hernandez - 11/22/2021 10:50 AM EDT An FACTORY MAINTENANCE TECHNICIAN ultrasound was performed today. Our ultrasound exams are reported in the system. The complete report, including recommendations, are faxed separately to outside physician offices. If your office utilizes [employer], the ultrasound reports can be found under the imaging tab in Chart Review. Please click on view image under imaging report and not show images. If accessing this information through [employer], it is located under the Other Results tab and is not located in the documents portion of this system CHRISTAL Hernandez/CORA Fellow, Maternal Medicine documented in this encounterOSU [facility]07[facility] Hospital Discharge instructions* Discharge Instructions* Aissatou Head MD - 11/20/2021 3:35 AM EDT Please return to hospital if new abdominal pain, vaginal bleeding, leaking fluid or decreased fetalmovement. Labor Precautions (When to Call the Doctor) Call [facility] at [phone] if you have any questions 24 hours/day, 7 days/week Warning Signs of Labor! Call our office right away if you notice any of these symptoms: Change in type (watery, mucus, or bloody) of vaginal discharge. You may have some light spotting if you had a cervical exam today. Increase in amount of discharge Pelvic or lower abdominal pressure Constant, low, dull backache Mild abdominal cramps, with or without diarrhea Regular or frequent contractions or uterine tightening, often painless. It is common for women to have Waldo Rodríguez contractions, sometimes called false labor, during thelast part of . These contractions may be painful and regular, but usually go away within an hour or so with rest. You should call us if your contractions do not go away after you rest. If you have contractions that occur 4 times every 20 minutes or if you have contractions 8 times anhour that last for more than an hour, call your doctor's office right away. Ruptured membranes (your water breaks with a gush, or sometimes even a trickle of fluid) Follow up with your doctor as scheduled! Please call us if you are uncertain as to what you should do! documented in this [facility] History of Present illness Narrative* Dash Hayes MD - 11/20/2021 3:08 AM EDT I reviewed the entirety of the extended monitoring. Overall: FHT A: 130 baseline, moderate variability, positive accels, intermittent variable decels FHT B: 140 baseline, moderate variability, positive accels, intermittent variable decels [place]: Initial irregular contractions which have now resolved. Dash Hayes MD OBGYN, PGY-4 [phone] * Aissatou Head MD - 11/19/2021 10:55 PM EDT Labor and Delivery Note Subjective: This is a 26 y.o. 34w5d female with mono/di twins an Estimated Date of Delivery: 12/26/21 confirmed by 9 wk US Chief Complaint: abdominal injury History of Present Illness: Patient reports struck on abdomen by bedframe box, 10-20# at 8:30 pm. Notes back pain. No abdominalpain. No contractions, LOF, VB. +FM. Otherwise feeling fine. PNC: [facility] Current history: [place]-di twins Varicella nonimmune Hx of CS (G2 state for bradycardia) Hyperemesis Prenatals: Type and screen B pos Antibody screen neg HepBsAg neg HCV neg Syphilis NR HIV neg Rubella immune Varicella nonimmune GC/CT neg/neg GCT 123 GBS [facility] Aneuploidy screening JEYSON, NL hemoglobinopathy Anatomy u/s: AGA x2, placentas anterior/fundal, no malformations, no evidence of TTTS. 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[employer], [employer] Tobacco Use Smoking status: Never Smoker Smokeless tobacco: Never Used Vaping Use Vaping Use: Never used Substance and Sexual Activity Alcohol use: Not Currently Drug use: Never Sexual activity: Yes Partners: Male Other Topics Concern Service No Blood Transfusions No Caffeine Concern No Occupational Exposure No Hobby Hazards No Sleep Concern No Stress Concern No Weight Concern No Special Diet No Back Care No Exercise Yes Comment: walk daily Bike Helmet Not Asked Seat Belt Yes Domestic Violence No Comment: feels safe in home now Social History Narrative Patient unable to complete NOB appt bc she is starting a new job today. Half of appt completed. Hector call back at 11 am to finish. Social Determinants of Health Financial Resource Strain: Not on file Food Insecurity: Not on file Transportation Needs: Not on file Physical Activity: Not on file Stress: Not on file Social Connections: Not on file Intimate Partner Violence: Not on file Housing Stability: Not on file Allergies Allergen Reactions Amphetamine-Dextroamphetamine Other reaction(s): Other: See Comments chest pain,palpitations Cat Hair Extract Other reaction(s): Swelling Medications Prior to Admission Medication Sig Dispense Refill Last Dose faMOTIdine 20 MG tablet Take 1 tablet by mouth 2 times daily. 60 tablet 1 MV & Min w/FA-DHA ( Adult Gummy/DHA/FA) 0.4-25 MG Chew Tab Take one PO daily. Chew completely. Ok to sub with any covered gummy vitamin. 90 tablet 1 Review of Systems: Constitutional (+as noted in HPI) Eyes (negative for vision changes) ENT (- ringing, loss of hearing) Cardiovascular (no LE edema or leg pain with walking, denies PND, orthopnea) Respiratory (no cough, SOB) Gastrointestinal (no abd pain, constipation, diarrhea) Genitourinary (- dysuria, gross hematuria) Integumentary (no rash) Musculoskeletal (+as noted in HPI) Psych: no depressed mood Objective: Physical Exam: Vitals: 11/19/21 2229 BP: 121/65 Pulse: 87 Resp: 18 Temp: 98.8 degrees F (37.1 degrees C) TempSrc: Oral SpO2: 100% General: alert, cooperative, appears stated age Abdomen: soft, gravid non-tender. No masses, no organomegaly Extremities: extremities normal, atraumatic, no cyanosis or edema Neurologic: Grossly normal Psychiatric: non focal Pelvic Exam: deferred External Monitoring: FHT A: 130 baseline, moderate variability, positive accels, intermittent variable decels FHT B: 140 baseline, moderate variability, positive accels, intermittent variable decels [place]: Initial irregular contractions which have now resolved. Dash Hayes MD Labs: No results found for this or any previous visit (from the past 24 hour(s)).] Imaging: No results found for this or any previous visit (from the past 24 hour(s)).] Assessment and Plan This is a 26 y.o. at 34w5d who presents with abdominal injury for 4 hours monitoring. Direct Abdominal Injury - Denies abdominal pain. No subjective contractions. No VB, LOF. +FM. - cEFM for 4 hours s/p injury. Patient with irregular contractions on the monitor. Continued monitoring showed resolved contractions. - Low concern for intrauterine injury. - Discussed return precautions. FWB - R&R tracing, reviewed with Dr. Hayes Dispo: Discharge home Discussed with Dr. Matias Head MD FACTORY MAINTENANCE TECHNICIAN PGY-1 Pager #[phone] Associated attestation - Joan Salcedo MD - 11/20/2021 4:25 AM EDT Attending Physician Note (GE) I reviewed this case with the resident. Based on the history and exam, I agree with the medical decision making \Joan Salcedo MD, MA Warehouse Technician of Clinical Ob-Mail Carrier And Clerk documented in this encounterOSU [facility]07[facility]-20[facility] History of Present illness Narrative* Johanne Carvalho RN - 11/14/2021 2:30 PM EDT Yandel Manley is a 26 y.o. at 34w0d here for Non-Stress Test. Indication for NST: baby B with mild ventricular hyertrophy. Movement: Reports movement Reviewed: Educated patient on value of NST Resting uterine tone:soft Contractions: denies contraction. Concerns from patient: denies See NST Flowsheet. NST reviewed by Dr. Turner. No changes to plan per provider. * Kathryn Turner MD - 11/14/2021 2:30 PM EDT Yandel Manley is a 26 y.o. at 34w0d who presents for NST. Her is complicatedby mono/di twins. I have personally reviewed the NST, which is reactive with a baseline of 145 bpm for both fetuses. documented in this encounterOSU [facility]07-[facility]-2022 History of Present illness Narrative* Anais Corley RN - 11/14/2021 1:20 PM EDT Yandel Manley is a 26 y.o. here for routine visit at 34w0d Symptoms: See OB Visit Flowchart Movement: Reports movement , Reviewed Movement Counts Reviewed Third Trimester Education: Third trimester education folder provided and reviewed , labor precautions/when to present to triage <37 wks: severe back pain with no relief with rest,vaginal bleeding, LOF, severe abdominal pain, contractions 4 or more times in an hour unrelieved byhydration and rest, decreased movement, Signs/symptoms of depression , Importance of appointment and care and Educated on Fourth Trimester Clinic Reviewed: ABCs of safe sleep, Patient reports she has a crib, Patient reports she has a car seat for baby, Log Deckman prior to delivery: 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 -1+ protein and small (1+) bili in urine today * Anais Hare MD - 11/14/2021 1:20 PM EDT Subjective: Ms. Yandel Manley is a 26 y.o. at 34w0d (Estimated Date of Delivery: 12/26/21) presenting today for care visit in [facility]. She reports she is feeling tired but overall well. Denies regular contractions, vaginal bleeding or leaking of fluid. Reports good movement. Current Medications: Current Outpatient Medications: faMOTIdine 20 MG tablet, Take 1 tablet by mouth 2 times daily., Disp: 60 tablet, Rfl: 1 MV & Min w/FA-DHA ( Adult Gummy/DHA/FA) 0.4-25 MG Chew Tab, Take one PO daily.Chew completely. Ok to sub with any covered gummy vitamin., Disp: 90 tablet, Rfl: 1 Review of Systems Pertinent items are noted in HPI. A comprehensive review of systems was otherwise negative. Objective: Vitals: 11/14/21 1336 BP: 124/69 Pulse: 117 Weight: 187 lb 6.4 oz (85 kg) Body mass index is 33.2 kg/m . Pregravid weight not on file General: no acute distress CV: normal rate, well perfused peripherally Resp: normal work of breathing, comfortable on room air Abd: gravid, nontender Extremities: no edema Neuro: grossly normal Doptones: deferred, NST today Urine dipstick shows positive for 1+ protein, otherwise negative Assessment and Plan: Ms. Yandel Manley is a 26 y.o. at 34w0d with monochorionic diamniotic twin presenting for routine care in [facility]. complicated by prior CD x1. Problems addressed during today's visit: Delivery planning: - Current presentation as of ultrasound on 11/08/21 was cephalic/cephalic - Discussed the patient's choices regarding repeat delivery or trial of labor (vaginal after ). Reviewed the risk of uterine rupture in a patients with a prior delivery is approximately 0.5-1.0%. Also discussed risk of need for delivery intrapartum and potential of vaginal delivery of twin A with need for of twin B. - Patient expressed she understands these risks and desires a trial of labor Problem Supervision of High Risk in Third Trimester Monochorionic Diamniotic Twin in Third Trimester - Last growth (10/31). A: EFW 1999g (57%), B: EFW 2142g (77%). ITD 6.7%. - weekly NSTs - TTTS check q2wk (last 11/08 with no signs of TTTS). Next due approx 11/22 - US for growth q 4 weeks (last 10/31). Will schedule next week with TTTS check echos: completed at [facility], in Care Everywhere - 08/26: A: normal. B: mild right ventricular hypertrophy - Follow-up echo 10/26 of one fetus (fetus B?): normal - Per patient and outside notes, plan from [facility] was echo - Chart forwarded to therapy team for recs and delivery planning History of Delivery - G1: vaginal delivery (vacuum assisted) - G2: stat pLTCS for bradycardia - Desires TOLAC with current cephalic/cephalic presentation Delivery plan: IOL/TOLAC at 37 weeks Contraception: immediate postplacental LNG-IUD Problem List Items Addressed This Visit Other History of delivery Monochorionic diamniotic twin in third trimester Return Visit in [address] Yue Hare MD [facility] Attending Attestation: I have reviewed the patient's history as well as clinical findings with the Maternal- Medicinefellow. I agree with the assessment and plan as documented in her note. The patient is a 26 y.o. at 34w0d who presents with mono/di twins and h/o prior . She received her most recent care in [place], but plans to deliver at [facility]. echo at [facility] showed fetus Bhad mild ventricular hypertrophy. We will refer her to [facility] therapy. May need follow-up echo prior to delivery. Mode of delivery discussed with the patient today. Elects for TOLAC. RTC in 2 weeks. Kathryn Turner MD, MSCI documented in this encounter[facility] Hospital Discharge instructions* Discharge Instructions* Raine Moise MD - 11/11/2021 4:04 PM EDT Patient Instructions: Labor Precautions (When to Call the Doctor) Call [facility] at [phone] if you have any questions 24 hours/day, 7 days/week CALL When you have painful, regular contractions every 5 minutes for at least one hour without stopping. You may have been given instructions on when you should call based on the frequency of contractions. In general we are looking for contractions that are every 3-4 mins. They will typically last 45-60 seconds. CALL If you bag of water breaks. Sometimes there is a big gush of fluid, and sometimes it is just acontinuous trickle. Don't wait for contractions to start before you call. CALL If you have vaginal bleeding that is continuous and as heavy as a period. It is normal to passsome blood with mucous before you go into labor. This is called Bloody Show or a mucous plug. CALL If your baby moves much less one day than it did the day before. Before you call, try eating something or drinking something sweet, like fruit juice. You should lie on your left side and count each little movement for one hour. Call if there is less than 8 movements in this hour. CALL If you are having severe, continuous abdominal pain. Follow up with your doctor as scheduled! Please call us if you are uncertain as to what you should do! documented in this encounterU [facility]07-[facility]-2022 Miscellaneous Notes* Quick Notes - Caroline Sweet MD - 11/08/2021 11:13 AM EDT DM-Pt doing well. Denies vaginal Bleeding, Leaking fluid, or regular Contractions. Pt reports good movement Physical Exam: Gen: female in no apparent distress Abd: soft, Gravid. Non tender to palpation. See flow sheet A/P: @ 33.1 weeks- Montez[place]/di twins 1) pt transferring back to [facility] due to housing/work. Has appt set up next week with them. 2) kick counts and labor reviewed 3) increase PO fluids 4) ultrasound results pending from today Caroline Daniel MD documented in this encounterCos[facility]22 Instructions* Patient Instructions* Jil Leija MA - 11/08/2021 10:52 AM EDT SEQUENTIAL SCREENINGS The [facility] offers sequential screenings for women who are interested in screenings for chromosomal abnormalities and certain defects during a . The sequential screen combinesultrasound and blood tests to determine the risk of chromosomal abnormalities, including Down's Syndrome (Trisomy 21) and Trisomy 18, as well as open neural tube defects including spina bifida. Ultrasound examination is performed between 11 weeks and 13 weeks gestational age. Blood tests are drawn after the ultrasound and again later in the between 15 and 21 weeks gestational age. Please let your physician know if you are interested in this testing. It will require an appointment withour orthotics prosthetics technician. This is not an ultrasound performed by a physician in our office during a routine visit. SIGNS AND SYMPTOMS OF LABOR 1. Contractions every 10 minutes or more often 2. Clear, pink, or brownish fluid (water) leaking from vagina 3. Feeling that baby is pushing down, pressure 4. Low, dull backache 5. Cramps that feel like a period 6. Cramps with or without diarrhea If you notice any of the above symptoms, contact our office at [phone] and ask to speak with anurse. After hours, you can call doctors registry at [phone] OR call [facility] at [phone] ask to have the doctor information technology project manager paged. If you consider this an emergency, dial 5-2-7 or go to your nearest emergency department. NEED HELP? Are you dealing with a violent or abusive relationship? Are you a victim of rape or sexual assult? Call [facility] ([place]) 24 hour Crisis Hotline: 425.809.8860 or 803-988-9003. MANUAL Your Guide to a Healthy manual is now on-line. Visit [email or web address] to download your free copy documented in this encounterCoshocton [facility]07-05-2022 Miscellaneous Notes* Telephone Encounter - Galilea Ambriz RN - 11/08/2021 9:03 AM EDT Patient has appointment with MFM in the office today. Galilea Ambriz RN documented in this encounterCoshocton [facility] Center06-20-2022 Miscellaneous Notes* Quick Notes - Aissatou Ray MD - 10/24/2021 11:12 AM EDT SW- Pt doing well. Has questions regarding MOD and plan of care. No regular ctx, vb, lof. Good FM x2. PE: Gen- NAD, well appearing, comfortable Abd- Gravid Ext- No edema See flowsheet A/p 31 wk gestation - Montez[place]/di twin : Ultrasound today and final report pending. Ordered for weekly BPP's to start next week. Discussed delivery ~36 weeks likely. Reviewed PTL precautions and reasons to call. Reviewed ped cardio note and discussed delivery at [place]. Message sent to [facility] regarding plan of care, and would like for pt to have a BPP on an [facility] Sunday. [facility] also recommended ~38 week delivery if IOL - MOD: Discussed TOLAC vs section. Pt remains undecided. She called partner while in room as she feels she needs to discuss with him further, but no answer received - Weekly BPP and visit in 2 wks Aissatou Ray DO documented in this encounterCoshocton [facility] Center06-20-2022 Instructions* Patient Instructions* Jil Leija MA - 10/24/2021 10:29 AM EDT SEQUENTIAL SCREENINGS The [facility] offers sequential screenings for women who are interested in screenings for chromosomal abnormalities and certain defects during a . The sequential screen combinesultrasound and blood tests to determine the risk of chromosomal abnormalities, including Down's Syndrome (Trisomy 21) and Trisomy 18, as well as open neural tube defects including spina bifida. Ultrasound examination is performed between 11 weeks and 13 weeks gestational age. Blood tests are drawn after the ultrasound and again later in the between 15 and 21 weeks gestational age. Please let your physician know if you are interested in this testing. It will require an appointment withour orthotics prosthetics technician. This is not an ultrasound performed by a physician in our office during a routine visit. SIGNS AND SYMPTOMS OF LABOR 1. Contractions every 10 minutes or more often 2. Clear, pink, or brownish fluid (water) leaking from vagina 3. Feeling that baby is pushing down, pressure 4. Low, dull backache 5. Cramps that feel like a period 6. Cramps with or without diarrhea If you notice any of the above symptoms, contact our office at [phone] and ask to speak with anurse. After hours, you can call doctors registry at [phone] OR call [facility] at [phone] ask to have the doctor information technology project manager paged. If you consider this an emergency, dial 9-1-3 or go to your nearest emergency department. NEED HELP? Are you dealing with a violent or abusive relationship? Are you a victim of rape or sexual assult? Call [facility] ([place]) 24 hour Crisis Hotline: 775.616.8420 or 298-260-6270. MANUAL Your Guide to a Healthy manual is now on-line. Visit [email or web address] to download your free copy documented in this encounterCoshocton [facility] Center06-06-2022 Miscellaneous Notes* Quick Notes - Caroline Sweet MD - 10/10/2021 10:18 AM EDT DM-Pt doing well. Denies vaginal Bleeding, Leaking fluid, or regular Contractions. Pt reports good movement. Physical Exam: Gen: female in no apparent distress Abd: soft, Gravid. Non tender to palpation. See flow sheet A/P: @ 29 weeks- MONO/ DI twins 1) growth us pending today 2) TITLE 19 signed today 3) CS vs vaginal delivery reviewed- Discussed 36 weeks IOL 4) echo this week 5) RTO 2 weeks or prn 6) declines Tdap Caroline Daniel MD documented in this encounterCoshocton [facility] Center06-06-2022 Instructions* Patient Instructions* Giulia Paul Ma - 10/10/2021 9:08 AM EDT SEQUENTIAL SCREENINGS The [facility] offers sequential screenings for women who are interested in screenings for chromosomal abnormalities and certain defects during a . The sequential screen combinesultrasound and blood tests to determine the risk of chromosomal abnormalities, including Down's Syndrome (Trisomy 21) and Trisomy 18, as well as open neural tube defects including spina bifida. Ultrasound examination is performed between 11 weeks and 13 weeks gestational age. Blood tests are drawn after the ultrasound and again later in the between 15 and 21 weeks gestational age. Please let your physician know if you are interested in this testing. It will require an appointment withour orthotics prosthetics technician. This is not an ultrasound performed by a physician in our office during a routine visit. SIGNS AND SYMPTOMS OF LABOR 1. Contractions every 10 minutes or more often 2. Clear, pink, or brownish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 Abuse Patient Records regulations: The Federal rules restrict any use of the information to criminally investigate or prosecute any alcohol or drug abuse patient.[facility] the event this information is protected by the Federal Confidentiality of Alcohol and Drug Abuse Patient Records regulations: The Federal rules restrict any use of the information to criminally investigate or prosecute any alcohol or drug abuse patient.[facility] the event this information is protected by the Federal Confidentiality of Alcohol and Drug Abuse Patient Records regulations: The Federal rules restrict any use of the information to criminally investigate or prosecute any alcohol or drug abuse patient.[facility] the event this information is protected by the Federal Confidentiality of Alcohol and Drug Abuse Patient Records regulations: The Federal rules restrict any use of the information to criminally investigate or prosecute any alcohol or drug abuse patient.[facility] the event this information is protected by the Federal Confidentiality of Alcohol and Drug Abuse Patient Records regulations: The Federal rules restrict any use of the information to criminally investigate or prosecute any alcohol or drug abuse patient.[facility] the event this information is protected by the Federal Confidentiality of Alcohol and Drug Abuse Patient Records regulations: The Federal rules restrict any use of the information to criminally investigate or prosecute any alcohol or drug abuse patient.[facility] the event this information is protected by the Federal Confidentiality of Alcohol and Drug Abuse Patient Records regulations: The Federal rules restrict any use of the information to criminally investigate or prosecute any alcohol or drug abuse patient.[facility] Center[facility] the event this information is protected by the Federal Confidentiality of Alcohol and Drug Abuse Patient Records regulations: The Federal rules restrict any use of the information to criminally investigate or prosecute any alcohol or drug abuse patient.[facility] Center[facility] the event this information is protected by the Federal Confidentiality of Alcohol and Drug Abuse Patient Records regulations: The Federal rules restrict any use of the information to criminally investigate or prosecute any alcohol or drug abuse patient.[facility] Center[facility] the event this information is protected by the Federal Confidentiality of Alcohol and Drug Abuse Patient Records regulations: The Federal rules restrict any use of the information to criminally investigate or prosecute any alcohol or drug abuse patient.[facility] the event this information is protected by the Federal Confidentiality of Alcohol and Drug Abuse Patient Records regulations: The Federal rules restrict any use of the information to criminally investigate or prosecute any alcohol or drug abuse patient.[facility] Center[facility] the event this information is protected by the Federal Confidentiality of Alcohol and Drug Abuse Patient Records regulations: The Federal rules restrict any use of the information to criminally investigate or prosecute any alcohol or drug abuse patient.[facility] Center[facility] the event this information is protected by the Federal Confidentiality of Alcohol and Drug Abuse Patient Records regulations: The Federal rules restrict any use of the information to criminally investigate or prosecute any alcohol or drug abuse patient.[facility] Center[facility] the event this information is protected by the Federal Confidentiality of Alcohol and Drug Abuse Patient Records regulations: The Federal rules restrict any use of the information to criminally investigate or prosecute any alcohol or drug abuse patient.[facility] Center[facility] the event this information is protected by the Federal Confidentiality of Alcohol and Drug Abuse Patient Records regulations: The Federal rules restrict any use of the information to criminally investigate or prosecute any alcohol or drug abuse patient.[facility] Center[facility] the event this information is protected by the Federal Confidentiality of Alcohol and Drug Abuse Patient Records regulations: The Federal rules restrict any use of the information to criminally investigate or prosecute any alcohol or drug abuse patient.[facility] CenterIn the event this information is protected by the Federal Confidentiality of Alcohol and Drug Abuse Patient Records regulations: The Federal rules restrict any use of the information to criminally investigate or prosecute any alcohol or drug abuse patient.[facility] CenterIn the event this information is protected by the Federal Confidentiality of Alcohol and Drug Abuse Patient Records regulations: The Federal rules restrict any use of the information to criminally investigate or prosecute any alcohol or drug abuse patient.[facility] CenterIn the event this information is protected by the Federal Confidentiality of Alcohol and Drug Abuse Patient Records regulations: The Federal rules restrict any use of the information to criminally investigate or prosecute any alcohol or drug abuse patient.[facility] CenterIn the event this information is protected by the Federal Confidentiality of Alcohol and Drug Abuse Patient Records regulations: The Federal rules restrict any use of the information to criminally investigate or prosecute any alcohol or drug abuse patient.[facility] CenterIn the event this information is protected by the Federal Confidentiality of Alcohol and Drug Abuse Patient Records regulations: The Federal rules restrict any use of the information to criminally investigate or prosecute any alcohol or drug abuse patient.[facility] CenterIn the event this information is protected by the Federal Confidentiality of Alcohol and Drug Abuse Patient Records regulations: The Federal rules restrict any use of the information to criminally investigate or prosecute any alcohol or drug abuse patient.[facility] CenterIn the event this information is protected by the Federal Confidentiality of Alcohol and Drug Abuse Patient Records regulations: The Federal rules restrict any use of the information to criminally investigate or prosecute any alcohol or drug abuse patient.[facility] CenterIn the event this information is protected by the Federal Confidentiality of Alcohol and Drug Abuse Patient Records regulations: The Federal rules restrict any use of the information to criminally investigate or prosecute any alcohol or drug abuse patient.[facility] CenterIn the event this information is protected by the Federal Confidentiality of Alcohol and Drug Abuse Patient Records regulations: The Federal rules restrict any use of the information to criminally investigate or prosecute any alcohol or drug abuse patient.[facility] CenterIn the event this information is protected by the Federal Confidentiality of Alcohol and Drug Abuse Patient Records regulations: The Federal rules restrict any use of the information to criminally investigate or prosecute any alcohol or drug abuse patient.[facility] CenterIn the event this information is protected by the Federal Confidentiality of Alcohol and Drug Abuse Patient Records regulations: The Federal rules restrict any use of the information to criminally investigate or prosecute any alcohol or drug abuse patient.[facility] CenterIn the event this information is protected by the Federal Confidentiality of Alcohol and Drug Abuse Patient Records regulations: The Federal rules restrict any use of the information to criminally investigate or prosecute any alcohol or drug abuse patient.[facility] CenterIn the event this information is protected by the Federal Confidentiality of Alcohol and Drug Abuse Patient Records regulations: The Federal rules restrict any use of the information to criminally investigate or prosecute any alcohol or drug abuse patient.[facility] CenterIn the event this information is protected by the Federal Confidentiality of Alcohol and Drug Abuse Patient Records regulations: The Federal rules restrict any use of the information to criminally investigate or prosecute any alcohol or drug abuse patient.[facility] CenterIn the event this information is protected by the Federal Confidentiality of Alcohol and Drug Abuse Patient Records regulations: The Federal rules restrict any use of the information to criminally investigate or prosecute any alcohol or drug abuse patient.[facility] CenterIn the event this information is protected by the Federal Confidentiality of Alcohol and Drug Abuse Patient Records regulations: The Federal rules restrict any use of the information to criminally investigate or prosecute any alcohol or drug abuse patient.[facility] CenterIn the event this information is protected by the Federal Confidentiality of Alcohol and Drug Abuse Patient Records regulations: The Federal rules restrict any use of the information to criminally investigate or prosecute any alcohol or drug abuse patient.[facility] CenterIn the event this information is protected by the Federal Confidentiality of Alcohol and Drug Abuse Patient Records regulations: The Federal rules restrict any use of the information to criminally investigate or prosecute any alcohol or drug abuse patient.[facility] CenterIn the event this information is protected by the Federal Confidentiality of Alcohol and Drug Abuse Patient Records regulations: The Federal rules restrict any use of the information to criminally investigate or prosecute any alcohol or drug abuse patient.[facility] CenterIn the event this information is protected by the Federal Confidentiality of Alcohol and Drug Abuse Patient Records regulations: The Federal rules restrict any use of the information to criminally investigate or prosecute any alcohol or drug abuse patient.[facility] CenterIn the event this information is protected by the Federal Confidentiality of Alcohol and Drug Abuse Patient Records regulations: The Federal rules restrict any use of the information to criminally investigate or prosecute any alcohol or drug abuse patient.[facility] CenterIn the event this information is protected by the Federal Confidentiality of Alcohol and Drug Abuse Patient Records regulations: The Federal rules restrict any use of the information to criminally investigate or prosecute any alcohol or drug abuse patient.[facility] CenterIn the event this information is protected by the Federal Confidentiality of Alcohol and Drug Abuse Patient Records regulations: The Federal rules restrict any use of the information to criminally investigate or prosecute any alcohol or drug abuse patient.[facility] CenterIn the event this information is protected by the Federal Confidentiality of Alcohol and Drug Abuse Patient Records regulations: The Federal rules restrict any use of the information to criminally investigate or prosecute any alcohol or drug abuse patient.[facility] CenterIn the event this information is protected by the Federal Confidentiality of Alcohol and Drug Abuse Patient Records regulations: The Federal rules restrict any use of the information to criminally investigate or prosecute any alcohol or drug abuse patient.[facility] CenterIn the event this information is protected by the Federal Confidentiality of Alcohol and Drug Abuse Patient Records regulations: The Federal rules restrict any use of the information to criminally investigate or prosecute any alcohol or drug abuse patient.[facility] Reason for Visit (unrecogniz ed section and content) Reason Onset Date Comments Care 08/01/2021 Reason Comments US Specialty Diagnoses / Procedures Referred By Contac t Referred To Contact [facility] Diagnoses 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 Procedures OBSTETRIC ULTRASOUND WHI US PREG UTERUS AFTER 1ST TRIMEST GESTATION Caroline Méndez MD [address] [place] [address] [facility] [address] [place] [address] Referral ID Status Reason Start Date Expiration Date V isits Requested Visits Authorized [id number] Closed Auto-Generate d Referral 06/28/2021 06/28/2022 1 1 Referral ID Status Reason Start Date Expiration Date V isits Requested Visits Authorized [id number] Closed Auto-Generate d Referral 08/01/2021 08/01/2022 12 1 Reason Onset Date Comments Care 09/13/2021 Reason Comments OB-Back Pain Reason Comments OB COVID + SOB Reason Onset Date Comments Care 09/26/2021 Reason Onset Date Comments Care 10/10/2021 Reason Onset Date Comments Care 10/24/2021 Reason Onset Date Comments Care 11/08/2021 Reason Comments Contractions Reason Comments Routine Visit Reason Comments Non-stress Test Specialty Diagnoses / Procedures Referred By Contac t Referred To Contact Diagnoses Monochorionic diamniotic twin in first trimester Kathryn Turner MD [address] [address] Referral ID Status Reason Start Date Expiration Date V isits Requested Visits Authorized [id number] New Request 11/14/2021 12/09/2022 1 1 Reason Comments Ultrasound Specialty Diagnoses / Procedures Referred By Corie t Referred To Contact Diagnoses Monochorionic diamniotic twin in first trimester Procedures US OB GROWTH/DATING > 14WEEKS Kathryn Turner MD [address] [place] [address] Referral ID Status Reason Start Date Expiration Date V isits Requested Visits Authorized [id number] New Request 11/14/2021 12/09/2022 1 1 Reason Comments Routine Visit Reason Comments Problem Leaking Fluid Specialty Diagnoses / Procedures Referred By Corie t Referred To Contact Neymar Monet MD [address] [address] [facility] [address] [place] [address] Referral ID Status Reason Start Date Expiration Date Visits Re quested Visits Authorized [id number] 1 1 Reason Comments Care Reason Comments Routine Reason Comments Abnormal Pap Reason Comments Colposcopy Specialty Diagnoses / Procedures Referred By Corie t Referred To Contact [facility] Diagnoses ASCUS with positive high risk HPV cervical Procedures COLPOSCOPY COLPOSCOPY CERVIX BX CERVIX & ENDOCRV CURRETAGE Shirley Whitaker APRN.[facility] [address] [place] [address] [facility] [address] [place] [address] Referral ID Status Reason Start Date Expiration Date V isits Requested Visits Authorized [id number] Closed Auto-Generate d Referral 02/01/2022 02/01/2023 1 1 Reason Comments Sinus Problem Sinus pain and press ure x2 weeks, fever today Reason Comments Follow Up Check iud Reason Comments STD Wants full std panel x 2 weeks Reason Comments Vaginal Problem Reason Comments Eye Problem eyes and ears itchin g x 5 days Reason Comments Sinus Problem CHRISTOPHER, Sinus pressure, fatigue x 1 week Reason Comments problem visit Reason Comments Dental Problem Abscess on gums and pain x 2 days Reason Onset Date Comments Refill Request 11/05/2023 Reason Comments Ear Pain left x 2 days, absce ss on right gum area, ? yeast Reason Comments Oral Swelling Pt woke this morning with upper lip swelling, worse to R side. States known dental abscess. Took benadryl this morning with no relief. No tongue/throat swelling, clear speech. Reason Comments AUB Reason Comments Abdominal Pain PT c/o abd pain and bleeding x 1 week. PT states uterus feels heavy. PT concerned for IUD problem. Pt would also like preg and sti testing. Reason Comments Orders Reason Onset Date Comments IUD Removal 08/13/2024 Specialty Diagnoses / Procedures Referred By Corie adams Referred To Contact [facility] Diagnoses Encounter for IUD removal Procedures REMOVE INTRAUTERINE DEVICE REMOVE INTRAUTERINE DEVICE Shirley Whitaker APRN.[facility] [address] [place] [address] Phone: tel: fax: [place] [address] Referral ID Status Reason Start Date Expiration Date V isits Requested Visits Authorized [id number] Closed Auto-Generate d Referral 08/06/2024 08/06/2025 1 1 Reason Comments Patient Question Reason Comments Vaginal Problem Std test Goals (unrecognized section and content) Goals may be documented in a n alternate sectionGoals may be documented in an alternate sectionGoals may be documented in an alternate sectionGoals may be documented in an alternate sectionGoals may be documented in an alternate section Scheduled Active and Recently Administ ered Medications (unrecognized section and content) Medication Order 11/30/2021 12/01/2021 12/02/2021 acetaminophen (TYLENOL) tablet 650 mg 650 mg, Oral, EVERY 4 HOURS, First dose on Sun11/30/21 at 0200, Until Discontinued, For moderate or severe pain, may give acetaminophen with an opioid if frequency allows. Acetaminophen alone for moderate or severe pain is acceptable if patient preference., Post-op/Post-Proc 0156 (Given - Provider: Geri Kong RN)0540 (Given - Provider: Jose Acosta RN)1147 (Given - Provider: Trisha Payan, MARLA)1342 (Not Given - Provider: Trisha Payan RN - Reason: Order Parameters not met)1807 (Given - Provider: Christos Garcia RN)2354 (Given - Provider: Kristina Walker RN) 0435 (Not Given - Provider: Kristina Walker RN - Reason: Patient with symptoms)0627 (Given - Provider: Kristina Walker RN)1000 (Not Given - Provider: Simon Plascencia RN - Reason: Patient sleeping)1250 (Given - Provider: Simon Plascencia RN)1808 (Given - Provider: Zamzam Phillips RN)2121 (Given - Provider: Kristie Strong RN) 0200 (Not Given - Provider: Kristie Strong RN - Reason: Patient sleeping)0557 (Given - Provider: Kristie Strong RN)1058 (Given - Provider: Simon Plascencia RN)1625 (Given - Provider: Maria Del Carmen Collazo RN)1800 (Canceled Entry - Provider: System Discharge - Comment: Automatically canceled at discontinue of medication order) docusate (COLACE) capsule 100 mg 100 mg, Oral, EVERY 12 HOURS, First dose on Sun11/30/21 at 1500, Until Discontinued, Post-op/Post-Proc 1808 (Given - Provider: Christos Garcia RN) 0627 (Given - Provider: Kristina Walker RN)1808 (Given - Provider: Zamzam Phillips RN) 0600 (Given - Provider: Kristie Strong RN)1800 (Canceled Entry - Provider: System Discharge - Comment: Automatically canceled at discontinue of medication order) docusate (COLACE) capsule 200 mg (COMPLETED) 200 mg, Oral, SEE ADMIN INSTRUCTIONS, 1 dose, Starting on Sun11/30/21 at 0135, Until Sun11/30/21 at 0156, Administer immediately post delivery., Post-op/Post-Proc 0156 (Given - Provider: Geri Kong RN) ibuprofen (MOTRIN) tablet 800 mg 800 mg, Oral, EVERY 6 HOURS NON-STANDARD, First dose on Sun12/01/21 at 0700, Until Discontinued, Start Ibuprofen 6 hours after last dose of ketorolac., Post-op/Post-Proc 0800 (Not Given - Provider: Simon Plascencia RN - Reason: Patient not available)1251 (Given - Provider: Simon Plascencia RN)1808 (Given - Provider: Zamzam Phillips RN)2350 (Given - Provider: Kristie Strong RN) 0557 (Given - Provider: Kristie Strong RN)1340 (Given - Provider: Simon Plascencia RN)1900 (Canceled Entry - Provider: System Discharge - Comment: Automatically canceled at discontinue of medication order) ketorolac (TORADOL) injection 30 mg (COMPLETED) 30 mg, Intravenous, EVERY 6 HOURS NON-STANDARD, 4 doses, First dose on Sun11/30/21 at 0700, Last dose on Akanksha 12/01/21 at 0100, See anesthesia record/MAR to assess for previously administered ketorolac doses. Separate ketorolac doses by at least 6 hours., Post-op/Post-Proc 0755 (Given - Provider: Trisha Payan RN)1341 (Given - Provider: Trisha Payan RN)2004 (Given - Provider: Kristina Walker RN) 0154 (Given - Provider: Kristina Walker RN) Levonorgestrel (LILETTA) 20.1 MCG/DAY IUD 1 Intra Uterine Device (COMPLETED) 1 Intra Uterine Device, Intrauterine, ONCE (OUTPT CLINIC), 1 dose, Starting on Sun11/30/21 at 0010, Until Sun11/30/21 at 0010 0010 (Given - Provider: Binu Nicole MD) Continuous Medication Order 11/30/2021 12/01/2021 12/02/2021 lactated ringers IV solution (CANCELED) Intravenous, at 125 mL/hr, CONTINUOUS, Starting on Sun11/29/21 at 0715, Until Sun11/30/21 at 0142 0034 (Anesthesia Volume Adjustment - Provider: MARIO Tucker)0045 ($$New Bag$$ - Provider: MARIO Tucker)0147 (Stopped - Provider: Geri Kong RN) oxytocin (PITOCIN) 30 units in 500 mL sodium chloride 0.9% premix infusion (CANCELED) 0-95 gaetano-units/min (0-95 mL/hr), Intravenous, CONTINUOUS, Starting on Sun11/29/21 at 0715, Until Sun11/30/21 at 0142, Includes both pre and post delivery administration instructions for time patient is in L&D For labor induction/augmentation - Max dose 40 milliUnits/min Start at 2 milliUnits/minute. May increase by 2 milliUnits/minute every 30 minutes based on assessment of uterine and response, until effective labor is established. Labor is defined as uterinecontractions every 3-5 minutes resulting in cervical change (dilations and/or effacement) not to exceed 5 contractions in 10 minutes averaged over a 30 minute time frame. Notify physician if dose reaches 20 milliUnits/minute or 10 milliUnits/minute in women with prior section. For immediately following delivery Give a bolus of 10 units over 30 minutes. Then infuse at 95milliUnits/min for 3.5 hours. This delivers 10 units over 30 minutes followed by 20 units over 3.5 hours (4 hours total). 0000 (Restarted - Provider: MARIO Tucker)0006 (Rate/Dose Change - Provider: MARIO Tucker)0030 (Rate/Dose Change - Provider: MARIO Tucker)0105 ($$New Bag$$ - Provider: Geri Kong RN) oxytocin (PITOCIN) 30 units in 500 mL sodium chloride 0.9% premix infusion () 95 gaetano-units/min (95 mL/hr), Intravenous, CONTINUOUS, Starting on Sun11/30/21 at 0145, Until Sun11/30/21 at 0544, Administer 95 gaetano-units/min for a total of 3 1/2 hours., Post-op/Post-Proc 0157 ([employer] - Provider: Geri Kong RN)0427 (Completed (See MIV) - Provider: Jose Acosta RN) PRN Medication Order 11/30/2021 12/01/2021 12/02/2021 alum/mag hydrox.-simethicone oral suspension 30 mL 30 mL, Oral, EVERY 4 HOURS NEEDED, Starting on Sun11/30/21 at 0135, Until Sun12/02/21 at 193, Indigestion, Per 5 mL is equivalent to: (Alum-Mag Hydroxide 200-225 mg and Simethicone 20 mg) and (Alum-Mag Hydroxide 200-200 mg and Simethicone 20 mg), Post-op/Post-Proc 1646 (Given - Provider: Maria Del Carmen Collazo RN) bisacodyl (DULCOLAX) suppository 10 mg 10 mg, Rectal, EVERY 12 HOURS NEEDED, Starting on Sun11/30/21 at 013, Until Sun12/02/21 at 193, Constipation 2nd Line, Post-op/Post-Proc diphenhydrAMINE (BENADRYL) tablet 25 mg 25 mg, Oral, DAILY AT BEDTIME NEEDED, Starting on Sun11/30/21 at 013, Until Sun12/02/21 at 193, Sleep, Post-op/Post-Proc HYDROmorphone (DILAUDID) injection 0.5 mg (COMPLETED) 0.5 mg, Intravenous, NEEDED, 2 doses, Starting on Sun11/30/21 at 0251, Until Sun11/30/21 at 031, Severe Pain 258 (Given - Provider: Geri Kong RN)311 (Given - Provider: Geri Kong RN - Comment: late documentation from recovery room) lactated ringers IV solution Intravenous, at 125 mL/hr, ADMINISTER DIRECTED, Starting on Sun11/30/21 at 013, Until Sun12/02/21 at 193, Other, for unstable uterine bleeding, patient scheduled for delayed BPS, on IVPB Antibiotics, unable to take oral intake well, and/or nausea., Administer post oxytocin if needed. , Post-op/Post-Proc measles, mumps and rubella vaccine (MMR II) injection 0.5 mL 0.5 mL, Subcutaneous, ADMINISTER DIRECTED, 1 dose, Starting on Sun11/30/21 at 0135, Until Sun12/02/21 at 193, Other, if non immune, Give before discharge if non immune., Post-op/Post-Proc methylergonovine (METHERGINE) injection 200 mcg (COMPLETED) 200 mcg, Intramuscular, NEEDED, 1 dose, Starting on Sun11/29/21 at 0659, Until Discontinued, Vaginal Bleeding, Notify provider prior to giving dose if BP > 140/90 mmHg. 0004 (Given - Provider: Leonarda Segura APRN-FRAMING MECHANIC - Comment: right deltoid) nalbuphine (NUBAIN) injection 2.5 mg 2.5 mg, Intravenous, EVERY 6 HOURS NEEDED, Starting on Sun11/30/21 at 0135, Until Sun12/02/21 at 1934, Itching, Post-op/Post-Proc 1143 (Given - Provider: Trisha Payan RN - Comment: for itching) oxyCODONE (ROXICODONE) tablet 5 mg(Linked Group 1) 5 mg, Oral, EVERY 4 HOURS NEEDED, Starting on Sun11/30/21 at 0142, Until Sun12/02/21 at 1934, Moderate Pain, Severe Pain, Use as initial dose. If lower dose was previously documented as ineffective and did not result in adverse effects (RR<10, negative change in RASS of 2 or more), May give an additional oxycodone 5mg once, then increase to higher prescribed oxycodone dose q4h PRN., Post-op/Post-Proc 0155 (See Alternative - Provider: Geri Kong RN)0541 (Given - Provider: Jose Acosta RN)2354 (Given - Provider: Kristina Walker RN) 0627 (See Alternative - Provider: Kristina Walker RN)1251 (See Alternative - Provider: Simon Plascencia RN)1808 (Given - Provider: Zamzam Phillips RN)2121 (Given - Provider: Kristie Strong RN) 0610 (Given - Provider: Kristie Strong RN)1058 (Given - Provider: Simon Plascencia RN) oxyCODONE (ROXICODONE) tablet 5 mg (COMPLETED) 5 mg, Oral, NEEDED, 1 dose, Starting on Sun11/30/21 at 0135, Until Sun11/30/21 at 1143, Moderate Pain, Severe Pain, May give x1 one hour post lower dose oxycodone prn order if lower dose previously documented as ineffective and did not result in adverse effects (RR<10, negative change in RASS of 2 or more). Consider increasing to higher prescribed dose of oxycodone q4h PRN with subsequent administrations., Post-op/Post-Proc 1143 (Given - Provider: Trisha Payan RN) oxyCODONE HCl (ROXICODONE) tablet 10 mg(Linked Group 1) 10 mg, Oral, EVERY 4 HOURS NEEDED, Starting on Sun11/30/21 at 0142, Until Sun12/02/21 at 1934, Moderate Pain, Severe Pain, Higher dose may be administered if lower dose was previously documented as being ineffective and did not result in adverse effects. (RR<10, decrease in level of consciousness) Decrease back to lower dose if patient has adverse effects or no PRN used in previous 12 hours., Post-op/Post-Proc 0155 (Given - Provider: Geri Kong RN)0541 (See Alternative - Provider: Jose Acosta RN)2354 (See Alternative - Provider: Kristina Walker RN) 0627 (Given - Provider: Krsitina Walker RN)1251 (Given - Provider: Simon Plascencia RN)1808 (See Alternative - Provider: Zamzam Phillips RN)2121 (See Alternative - Provider: Kristie Strong, MARLA) 0610 (See Alternative - Provider: Kristie Strong RN)1058 (See Alternative - Provider: Simon Plascencia, MARLA) oxytocin (PITOCIN) injection 10 Units 10 Units, Intramuscular, NEEDED, Starting on Sun11/30/21 at 0135, Until Sun12/02/21 at 1934, Vaginal Bleeding, Post-op/Post-Proc simethicone (MYLICON) chewable tablet 80 mg 80 mg, Oral, EVERY 6 HOURS NEEDED, Starting on Sun11/30/21 at 0135, Until Sun12/02/21 at 1934, Gas, Post-op/Post-Proc 0755 (Given - Provider: Trisha Payan RN)1341 (Given - Provider: Trisha Payan RN)2004 (Given - Provider: Kristina Walker RN) 0157 (Given - Provider: Kristina Walker RN)1810 (Given - Provider: Zamzam Phillips RN) 1059 (Given - Provider: Simon Plascencia RN)1647 (Given - Provider: Maria Del Carmen Collazo RN) Tetanus, Diphtheria, and Acellular Pertussis Vaccine (BOOSTRIX) injection 0.5 mL 0.5 mL, Intramuscular, ADMINISTER DIRECTED, 1 dose, Starting on Sun11/30/21 at 0135, Until Sun12/02/21 at 1934, Other, to be given unless previously administered., Post-op/Post-Proc tranexamic acid 1,000 mg in sodium chloride 0.7% premix IVPB 1,000 mg, Intravenous, at 600 mL/hr, Administer over 10 Minutes, ONCE DIRECTED, 1 dose, Starting on Sun11/30/21 at 0135, Until Sun12/02/21 at 1934, Other, hemorrhage, Administer after approval by OB staff for treatment of hemorrhage., Post-op/Post-Proc Linked Groups Order Group 1: oxyCODONE (ROXICODONE) tablet 5 mgJump to med 5 mg, Oral, EVERY 4 HOURS NEEDED, Starting on Sun11/30/21 at 0142, Until Sun12/02/21 at 1934, Moderate Pain, Severe Pain
Use as initial dose. If lower dose was previously documented as ineffective and did not result in adverse effects (RR<10, negative change in RASS of 2 or more), May give an additional oxycodone 5mg once, then increase to higher prescribed oxycodone dose q4h PRN.
Post-op/Post-Proc Or oxyCODONE HCl (ROXICODONE) tablet 10 mgJump to med 10 mg, Oral, EVERY 4 HOURS NEEDED, Starting on Sun11/30/21 at 0142, Until Sun12/02/21 at 1934, Moderate Pain, Severe Pain
Higher dose may be administered if lower dose was previously documented as being ineffective and did not result in adverse effects. (RR<10, decrease in level of consciousness) Decrease back to lower dose if patient has adverse effects or no PRN used in previous 12 hours.
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 Contreras Atkins III, MD Family Provider Active No Primary Care Physician Primary Care Provider Active Team Status: Inactive Member Role Status Dates No Primary Care Physician Primary Care Provider Active Dr. Guanako Arreguin MD Emergency Provider Active Team Status: Inactive Member Role Status Dates No Primary Care Physician Primary Care Provider Active Jamar Nichols MD Emergency Provider Active Team Status: Inactive Member Role Status Dates No Primary Care Physician Primary Care Provider Active Dr. Guanako Arreguin MD Attending Provider, Emergency Provider Active Team Status: Active Member Role Status Dates No Primary Care Physician Primary Care Provider Active Dr. Nicolas Naik MD Emergency Provider Active Dr. Tasneem Crocker MD Admit Provider, Attending Pro vider Active Orthotist Relationship Specialty Start Date End Date Physician, No Pcp PCP - General 02/03/24 INFORMATION SOURCE (unrecogn ized section and content) DATE CREATED AUTHOR 12/14/2021 [facility] DATE CREATED AUTHOR AUTHOR'S ORGANIZ ATION 05/05/2023 [facility] DATE CREATED AUTHOR AUTHOR'S ORGANIZ ATION 02/05/2024 [facility] DATE CREATED AUTHOR AUTHOR'S ORGANIZ ATION 05/29/2024 [facility] DATE CREATED AUTHOR AUTHOR'S ORGANIZ ATION 06/16/2024 [facility] DATE CREATED AUTHOR AUTHOR'S ORGANIZ ATION 10/16/2024 [facility] Ordered Prescriptions (unrec ognized section and content) Prescription Sig Dispensed Refills Start Date End Da te amoxicillin (AMOXIL) 500 mg tablet Take 1 tablet (500 mg total) by mouth 3 (three) times a day for 7 days. 21 tablet 02/03/2024 02/10/2024 famotidine (PEPCID) 20 mg tablet Take 1 tablet (20 mg total) by mouth 2 (two) times a day for 5 days. 10 each 02/03/2024 02/08/2024 hydrOXYzine HCL (ATARAX) 25 mg tablet Take 1 tablet (25 mg total) by mouth every 6 (six) hours for 3 days. 12 tablet 02/03/2024 02/06/2024 Prescription Sig Dispense Quantity Refills Last Filled Start Date End Date metroNIDAZOLE (FLAGYL) 500 mg tablet Take 1 tablet (500 mg total) by mouth 2 (two) times a day for 7 days. Do not use mouth wash or consume alcohol until 48 hours after last dose 14 each 06/15/2024 FOR RECORDS PERTAINING TO PATIENTS WHO ARE OR HAVE BEEN ENROLLED IN A CHEMICAL DEPENDENCY/SUBSTANCEABUSE PROGRAM, SOME INFORMATION MAY BE OMITTED. This clinical summary was aggregated from multiple sources. Caution should be exercised in using it in the provision of clinical care. This summary normalizes information from multiple sources, and as a consequence, information in this document may materially change the coding, format and clinical context of patient data. In addition, data may be omitted in some cases. CLINICAL DECISIONS SHOULD BE BASED ON THE PRIMARY CLINICAL RECORDS. [facility] [employer] provides no warranty or guarantee of the accuracy or completeness of information in this document.
[2024-11-14 20:46] LABS: Color, Urine Straw (Yellow); Glucose, Dipstick Normal (Normal); Ketone-Dipstick 5 mg/dl (Negative); Leukocyte Esterase-Dipstick Negative /ul (Negative); Nitrite-Dipstick Negative (Negative); Occult Blood-Urine Negative /ul (Negative); Protein-Dipstick 30 mg/dl (Negative); Specific Gravity, Urine 1.025 (1.002-1.030); Urine Bilirubin Dipstick Negative (Negative)
--- NOTE | 2024-11-14 20:51 | ED.VIS.FEGU ---
HPI <JOSE G Banks - Last Filed: 11/14/24 21:38> HPI - Female History of Present Illness Chief Complaint: Female C/O Narrative Narrative: 29-year-old female presents with bilateral lower abdominal pain and bilateral low back pain over the last 4 days. She describes this as ovarian pain. She states she has had ovarian cysts in the past and has tried different controls. She had her IUD removed in August and has not had a period since then. She is now on an oral contraceptive pill. She also feels like her abdomen is bloated and she has suprapubic heaviness white vaginal discharge she is concerned could be yeast. She had yeast 3 weeks ago which cleared up with Diflucan. She is sexually active and would also like to be tested for STDs. She denies dysuria, frequency, hematuria. No fever or chills, nausea or vomiting, or flank pain. She has had a history of x 2 and cholecystectomy. [facility] <JOSE G Banks - Last Filed: 11/14/24 21:38> [facility] Medical History Gastritis Physical exam, pre-employment Stress ulcer of stomach Home Medications ?Medication ?Instructions ?Recorded ?Last Taken ?Type norethindrone (contraceptive) 0.35 0.35 mg PO DAILY 11/14/24 Unknown History mg tablet (Jencycla) Allergy/AdvReac Type Severity Reaction Status Date / Time cat dander Allergy Swelling Verified 11/14/24 20:02 insect venom Allergy Itching Verified 11/14/24 20:02 amphetamine aspartate (From AdvReac palpitation Verified 11/14/24 20:02 Adderall) amphetamine sulfate (From AdvReac palpitation Verified 11/14/24 20:02 Adderall) dextroamphetamine saccharate AdvReac palpitation Verified 11/14/24 20:02 (From Adderall) dextroamphetamine sulfate AdvReac palpitation Verified 11/14/24 20:02 (From Adderall) Family History Grandmother Breast cancer Mother Hypertension Surgical History History of esophagogastroduodenoscopy (EGD) (~09/2019) S/P laparoscopic cholecystectomy Social History Smoking Status: Never smoker alcohol intake: current alcohol intake frequency: a few times a week substance use type: marijuana ROS <JOSE G Banks - Last Filed: 11/14/24 21:38> ROS ED ROS Narrative Constitutional: Negative for fever, chills, malaise. GI: Positive for abdominal pain. Negative for nausea, vomiting, diarrhea, constipation, melena, hematochezia. : Negative for dysuria, hematuria or frequency. EXAM <JOSE G Banks - Last Filed: 11/14/24 21:38> Physical Exam Narrative Exam Narrative: CONST: Patient sitting in no acute distress. EYES: Normal inspection. NECK: Normal inspection. RESP: No respiratory distress, CTAB. CVS: Regular rate and rhythm, no murmur, no gallop. ABD: Soft and nontender, no guarding or rebound, nondistended. : Normal external genitalia, speculum exam shows normal appearance of the cervix, no visible discharge or rashes or lesions. SKIN: Color normal, no rash, warm, dry, intact. EXTREMITIES: Normal appearance, no pedal edema. NEURO: Alert and answering questions appropriately. PSYCH: Normal affect. Const Vital Signs: 11/14/24 20:03 11/14/24 21:34 Temperature 96.9 F L 98.7 F Temperature Source Temporal Pulse Rate 88 72 Respiratory Rate 14 16 Blood Pressure 123/77 H 133/74 H Blood Pressure Mean 92 93 Pulse Ox 98 99 Oxygen Delivery Method Room Air <Dr. Juan Antonio Rankin, DO - Last Filed: 11/14/24 22:04> Physical Exam Const Vital Signs: 11/14/24 20:03 11/14/24 21:34 Temperature 96.9 F L 98.7 F Temperature Source Temporal Pulse Rate 88 72 Respiratory Rate 14 16 Blood Pressure 123/77 H 133/74 H Blood Pressure Mean 92 93 Pulse Ox 98 99 Oxygen Delivery Method Room Air MDM <JOSE G Banks - Last Filed: 11/14/24 21:38> MDM MDM Narrative Medical decision making narrative: Differential includes but not limited to UTI, STI, BV, yeast, ovarian cyst, 29-year-old female presents with bilateral lower abdominal and bilateral low back pain. She has had recent control changes and is concerned she cannot be since she has not had a period for a few months. She also reports white vaginal discharge. She appears well and nontoxic. Vital stable. Abdomen is soft with mild suprapubic tenderness. There is no tenderness in her right or left lower quadrant specifically. No peritoneal signs. Pelvic exam was unremarkable. Serum is negative. UA shows no infection. Urine gonorrhea/chlamydia is pending and she will be notified and treated if positive since she does not have high concern in her pelvic exam did not demonstrate any discharge. She felt better after IV Toradol. At this time with a benign abdominal exam not localizing to any specific quadrant I do not think she needs emergent imaging. 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 She was discharged in stable condition. History & Record Review Discussion w/independent historian: Patient Additional record(s) reviewed:: Prior ED visit and Prior labs Lab Data Attestation: I reviewed the patient's lab results. Labs: Laboratory Results - last 24 hr 11/14/24 11/14/24 20:16 20:33 Serum , Qual NEGATIVE Urine Color Straw Urine Clarity Clear Urine pH 5.0 Ur Specific Cowgill 1.025 Urine Protein 30 H Urine Glucose (UA) Normal Urine Ketones 5 H Urine Occult Blood Negative Urine Nitrite Negative Urine Bilirubin Negative Urine Urobilinogen 1 H Ur Leukocyte Esterase Negative Urine RBC 0-5 SEEN Urine WBC 0-5 SEEN Ur Squamous Epith Cells 0-5 SEEN Urine Bacteria RARE Urine Mucus 3+ <Dr. Juan Antonio Rankin, DO - Last Filed: 11/14/24 22:04> [facility] Lab Data Labs: Laboratory Results - last 24 hr 11/14/24 11/14/24 20:16 20:33 Serum , Qual NEGATIVE Urine Color Straw Urine Clarity Clear Urine pH 5.0 Ur Specific Cowgill 1.025 Urine Protein 30 H Urine Glucose (UA) Normal Urine Ketones 5 H Urine Occult Blood Negative Urine Nitrite Negative Urine Bilirubin Negative Urine Urobilinogen 1 H Ur Leukocyte Esterase Negative Urine RBC 0-5 SEEN Urine WBC 0-5 SEEN Ur Squamous Epith Cells 0-5 SEEN Urine Bacteria RARE Urine Mucus 3+ Treatment and Re-Evaluation Narrative: I have personally performed a face to face assessment of the patient and have reviewed the JOSSIE Note. I performed a substantive portion of the visit including all aspects of the following. My luevano findings include: History: Patient presents with pelvic pain and vaginal discharge that has been getting worse over the past 5 days. Patient states it is gradually getting worse. Patient states her pain is mainly over her lower abdomen. Patient describes it as cramping and aching. Patient states nothing makes it better and nothing makes it worse. Patient states she has white vaginal discharge. Patient denies any dysuria, frequency, or hematuria. Exam: Vital signs are stable. Patient is afebrile. Patient is in no acute distress. Oral mucosa is pink and moist. Neck is supple. Trachea is midline. There is no JVD. Heart with regular rate and rhythm. Lungs are clear and equal bilaterally. Abdomen is soft. Bowel sounds are normal. There is lower abdominal tenderness. There is no rebound or guarding noted. Pelvic exam was performed by the JOSSIE under my supervision. Medical Decision Making: Differential diagnosis includes ectopic , urinary tract infection, ovarian cyst, and STD. Urinalysis will be obtained to assess for urinary tract infection and hematuria. Serum hCG will be obtained to assess for . GC and chlamydia PCR will be obtained to assess for sexually transmitted infection. Patient was given injection of Toradol here. Serum hCG was reviewed and was negative. Urinalysis was reviewed. There is no evidence of urinary tract infection or hematuria. Patient was advised of her findings. Patient was instructed to follow-up with her primary care physician in 5 to 7 days. Patient understood and was agreeable with the plan. All questions were answered. Discharge Plan Triage Chief Complaint: Female C/O ED Midlevel Provider: Leeanne Mars ED Provider: Juan Antonio Rankin Dx/Rx/DC Orders Clinical Impression: Pelvic pain Instructions: ED Pelvic Pain, Unknown Cause Prescriptions: No Action norethindrone (contraceptive) [Jencycla] 0.35 mg tablet 0.35 mg PO DAILY Primary Care Provider: Care Physician,No Primary Referrals: Care Physician,No Primary [Primary Care Provider] - Activity Restrictions/Additional Instructions: Your test is negative. There is no UTI. Your urine was sent for STD testing and you will be called and notified if it is positive. In the meantime I recommend Tylenol and ibuprofen every 6 hours as needed and follow-up with your FARM SUPERVISOR. Print Language: Khmer Disposition Disposition: Home, Self Care Discharge Date/Time: 11/14/24 21:35
[2024-11-14 20:59] LABS: Red Blood Cells-Urine 0-5 SEEN /hpf (0-5)
[2024-11-14 21:00] LABS: Mucous, Urine 3+ /hpf (<or=2+); Squamous Epithelial Cells - UA 0-5 SEEN /hpf (5-10)
[2024-11-14 21:25] LABS: Internal QC Validated? YES +Cl - CLEAR BKGD; Pregnancy, Serum, hCG Quali. NEGATIVE Negative; Record Kit Lot#, Serum Preg. 947241
[2024-11-14 21:34] VITALS: BP 133/74; PULSE 72; RESP 16; TEMP 37.1; O2SAT 99
== END 2024-11-14 21:35 | disposition home or self-care (01) ==
PROVIDERS: Physician Assistant; Emergency Provider Emergency Medicine; Referring Provider Emergency Medicine; Visit Provider Emergency Medicine
DX: R10.2 Pelvic and perineal pain (principal); M54.50 Low back pain, unspecified; N89.8 Other specified noninflammatory disorders of vagina; Z79.3 Long term (current) use of hormonal contraceptives
CPT/HCPCS: 81001; 84703; 87491; 87591; 96374; 99283; A4216